=== PATIENT | female | born 1950 | race Two or more races ===

== ENCOUNTER 2018-05-14 13:12 | Inpatient (IN) | payer MEDICARE, MEDICAID ==
[~2018-05-14] VITALS: Ht 167.6 cm; Wt 94.7 kg
[~2018-05-14 13:12] MED LIST changes: -ASCO500C49 PO; -ATEN100T PO; -CITA10TA59 PO; -DAPA1TAB4 PO; -DOCU100T15 PO; -MULTTAB75 PO; -PERCOT PO; -SENN1TAB14 PO; -TOLT2CAP7 PO; -TRAM50TA2 PO
[2018-05-14] MEDS ORDERED: DEXTROSE (50%) 50ML SYRG IV PRN (16:00)
[2018-05-14 16:25] VITALS: BP 96/40
[2018-05-14 17:06] VITALS: BP 96/40
[2018-05-14] MEDS ORDERED: TRAM50TA2 PO (17:37)
[2018-05-14] MEDS ORDERED: CITA10TA59 PO (17:37)
[2018-05-14] MEDS ORDERED: MULTTAB75 PO (17:37)
[2018-05-14] MEDS ORDERED: PERCOT PO (17:37)
[2018-05-14] MEDS ORDERED: GABA-339 PO (17:37)
[2018-05-14] MEDS ORDERED: DOCU100T15 PO (17:37)
[2018-05-14] MEDS ORDERED: ASCO500C49 PO (17:37)
[2018-05-14] MEDS ORDERED: ATEN100T PO (17:37)
[2018-05-14] MEDS ORDERED: SENN1TAB14 PO (17:37)
[2018-05-14] MEDS ORDERED: DAPA1TAB4 PO (17:37)
[2018-05-14] MEDS ORDERED: TOLT2CAP7 PO (17:37)
[2018-05-14] MEDS ORDERED: traMADol HCL 50 MG TAB PO PRN (17:45)
[2018-05-14] MEDS: InsuLIN REG 1unit/0.01ml Soln (100units/ml) SC SCH ×2 (18:08→21:22)
[2018-05-14] MEDS: ACCU-CHEK COMFORT CURVE STRIP VI SCH ×2 (18:08→21:14)
[2018-05-14] MEDS: glipiZIDE 5 MG TAB PO SCH (18:09)
[2018-05-14] MEDS: SENNA 8.6 MG TAB PO SCH (21:14)
[2018-05-14] MEDS: DOCUSATE SOD 100 MG CAP PO SCH (21:14)
[2018-05-14] MEDS: GABAPENTIN 300 MG CAP PO SCH (21:14)
[2018-05-14] MEDS: OXYCODONE W/ ACETAMINOPHEN 5/325MG TABLET PO PRN (21:14)
[2018-05-14 22:00] VITALS: BP 114/59
[2018-05-15 02:17] LABS: Urine Bacteria MANY /hpf (None Seen); Urine Blood 1+ /uL (Negative); Urine Budding Yeast LOADED /hpf (None Seen); Urine WBC 579 /hpf (0 - 5); Urine WBC Clumps PRESENT /hpf (None Seen)
[2018-05-15 05:10] VITALS: BP 97/49
[2018-05-15] MEDS: GABAPENTIN 300 MG CAP PO SCH ×3 (06:22→21:42)
[2018-05-15] MEDS: ACCU-CHEK COMFORT CURVE STRIP VI SCH ×4 (06:23→21:42)
[2018-05-15] MEDS: glipiZIDE 5 MG TAB PO SCH ×2 (06:29→17:57)
[2018-05-15] MEDS: InsuLIN REG 1unit/0.01ml Soln (100units/ml) SC SCH ×4 (06:30→21:58)
[2018-05-15 09:00] VITALS: BP 127/72
[2018-05-15 09:06] LABS: Basophils # (auto) 0 uL; Basophils % (auto) 0.6 % (0.0-2.0); Eosinophils # (auto) 0.2 uL; Eosinophils % (auto) 2.8 % (0.0-7.0); Hematocrit 42.8 % (36.0-46.0); Hemoglobin 13.9 g/dL (12.2-16.2); Lymphocytes # (auto) 1.7 uL; Lymphocytes % (auto) 21.3 % (10.0-50.0); Mean Corpuscular Hemoglobin 30.9 pg (28.0-32.0); Mean Corpuscular Hgb Conc. 32.5 g/dL (32.0-36.0); Mean Corpuscular Volume 94.9 fL (80.0-100.0); Monocytes # (auto) 0.7 uL; Monocytes % (auto) 9.1 % (0.0-12.0); Neutrophils # (auto) 5.4 uL; Neutrophils % (auto) 66.2 % (37.0-80.0); Platelet Count (auto) 262 10^3/uL (140-450); Red Blood Cells 4.51 10^6/uL (4.0-5.20); Red Cell Distribution Width 13.6 % (11.8-14.3); White Blood Cell 8.2 10^3/uL (4.4-10.8)
[2018-05-15 09:17] LABS: BUN/Creatinine Ratio 24.3; Calcium 9.1 mg/dL (8.5-10.1)
[2018-05-15] MEDS: CITALOPRAM HYDROBR 20 MG TAB PO SCH (11:58)
[2018-05-15] MEDS: DOCUSATE SOD 100 MG CAP PO SCH ×2 (11:59→21:41)
[2018-05-15] MEDS: TOLTERODINE TARTRATE 1 MG TAB PO SCH (11:59)
[2018-05-15] MEDS: ATENOLOL 50 MG TAB PO SCH (12:00)
[2018-05-15] MEDS: MULTIPLE VITAMINS W/ MINERALS TAB PO SCH (12:00)
[2018-05-15] MEDS: ASCORBIC ACID 500 MG TAB PO SCH (12:00)
[2018-05-15] MEDS: LEVOFLOXACIN 500MG 100 ML IV SCH (12:01)
[2018-05-15] MEDS: LISINOPRIL 10 MG TAB PO SCH (12:01)
[2018-05-15 13:16] VITALS: BP 134/69
[2018-05-15] MEDS: OXYCODONE W/ ACETAMINOPHEN 5/325MG TABLET PO PRN ×2 (16:01→21:42)
[2018-05-15 17:00] VITALS: BP_SYST 127; BP_SYST 130; BP_SYST 134; BP_DIAS 69; BP_DIAS 72; BP_DIAS 73
[2018-05-15] MEDS: SENNA 8.6 MG TAB PO SCH (21:42)
[2018-05-15 22:00] VITALS: BP 120/58
[2018-05-16 05:23] VITALS: BP 117/62
[2018-05-16] MEDS: OXYCODONE W/ ACETAMINOPHEN 5/325MG TABLET PO PRN ×3 (06:32→21:31)
[2018-05-16] MEDS: GABAPENTIN 300 MG CAP PO SCH ×3 (06:32→21:31)
[2018-05-16] MEDS: glipiZIDE 5 MG TAB PO SCH ×2 (06:32→18:17)
[2018-05-16] MEDS: ACCU-CHEK COMFORT CURVE STRIP VI SCH ×4 (06:33→21:31)
[2018-05-16] MEDS: InsuLIN REG 1unit/0.01ml Soln (100units/ml) SC SCH ×4 (06:33→21:45)
[2018-05-16 08:00] VITALS: BP 127/72
[2018-05-16 08:23] VITALS: BP 106/60
[2018-05-16] MEDS: ATENOLOL 50 MG TAB PO SCH (10:00)
[2018-05-16] MEDS: CITALOPRAM HYDROBR 20 MG TAB PO SCH (10:30)
[2018-05-16] MEDS: LEVOFLOXACIN 500MG 100 ML IV SCH (10:30)
[2018-05-16] MEDS: DOCUSATE SOD 100 MG CAP PO SCH ×2 (10:30→21:30)
[2018-05-16] MEDS: TOLTERODINE TARTRATE 1 MG TAB PO SCH (10:30)
[2018-05-16] MEDS: ASCORBIC ACID 500 MG TAB PO SCH (10:31)
[2018-05-16] MEDS: MULTIPLE VITAMINS W/ MINERALS TAB PO SCH (10:31)
[2018-05-16] MEDS: LISINOPRIL 10 MG TAB PO SCH (10:31)
[2018-05-16 12:50] VITALS: BP 123/66
[2018-05-16 17:00] VITALS: BP 105/53
[2018-05-16] MEDS: SENNA 8.6 MG TAB PO SCH (21:30)
[2018-05-16 22:00] VITALS: BP 96/53
[2018-05-17 05:00] VITALS: BP 151/83
[2018-05-17] MEDS: GABAPENTIN 300 MG CAP PO SCH ×2 (06:27→13:37)
[2018-05-17] MEDS: InsuLIN REG 1unit/0.01ml Soln (100units/ml) SC SCH ×2 (06:27→11:20)
[2018-05-17] MEDS: glipiZIDE 5 MG TAB PO SCH (06:27)
[2018-05-17] MEDS: ACCU-CHEK COMFORT CURVE STRIP VI SCH ×2 (06:28→11:19)
[2018-05-17] MEDS: OXYCODONE W/ ACETAMINOPHEN 5/325MG TABLET PO PRN ×3 (06:29→16:06)
[2018-05-17 08:00] VITALS: BP 95/52
[2018-05-17 08:29] VITALS: BP 95/52
[2018-05-17] MEDS: TOLTERODINE TARTRATE 1 MG TAB PO SCH (09:24)
[2018-05-17] MEDS: DOCUSATE SOD 100 MG CAP PO SCH (09:24)
[2018-05-17] MEDS: ASCORBIC ACID 500 MG TAB PO SCH (09:24)
[2018-05-17] MEDS: LEVOFLOXACIN 500MG 100 ML IV SCH (09:24)
[2018-05-17] MEDS: MULTIPLE VITAMINS W/ MINERALS TAB PO SCH (09:24)
[2018-05-17] MEDS: CITALOPRAM HYDROBR 20 MG TAB PO SCH (09:24)
[2018-05-17] MEDS: ATENOLOL 50 MG TAB PO SCH (09:25)
[2018-05-17] MEDS: LISINOPRIL 10 MG TAB PO SCH (09:25)
[2018-05-17 10:58] LABS: Basophils # (auto) 0 uL; Basophils % (auto) 0.6 % (0.0-2.0); Eosinophils # (auto) 0.3 uL; Eosinophils % (auto) 4.6 % (0.0-7.0); Hematocrit 42.7 % (36.0-46.0); Hemoglobin 14.3 g/dL (12.2-16.2); Lymphocytes % (auto) 25.8 % (10.0-50.0); Mean Corpuscular Hemoglobin 31.6 pg (28.0-32.0); Mean Corpuscular Hgb Conc. 33.5 g/dL (32.0-36.0); Mean Corpuscular Volume 94.4 fL (80.0-100.0); Monocytes # (auto) 0.5 uL; Monocytes % (auto) 6.4 % (0.0-12.0); Neutrophils # (auto) 4.7 uL; Neutrophils % (auto) 62.6 % (37.0-80.0); Nucleated Red Blood Cells % 0.1 %; Platelet Count (auto) 318 10^3/uL (140-450); Red Blood Cells 4.52 10^6/uL (4.0-5.20); Red Cell Distribution Width 13.6 % (11.8-14.3); White Blood Cell 7.6 10^3/uL (4.4-10.8)
[2018-05-17 11:06] LABS: Albumin 3.1 g/dL (3.4-5.0); BUN/Creatinine Ratio 26.9; Bilirubin, Total 0.6 mg/dL (0.2-1.0); Calcium 8.7 mg/dL (8.5-10.1); Total Protein 8.1 g/dL (6.4-8.2)
[2018-05-17 13:34] VITALS: BP 101/54
[2018-05-17 13:55] LABS: Urine Bacteria FEW /hpf (None Seen); Urine Blood 2+ /uL (Negative); Urine Budding Yeast FEW /hpf (None Seen); Urine Mucus FEW (None Seen); Urine Specific Gravity 1.018 (1.001-1.035); Urine WBC 252 /hpf (0 - 5); Urine WBC Clumps PRESENT /hpf (None Seen)
[2018-05-17 15:22] VITALS: BP 101/54
[2018-05-17 16:54] VITALS: BP 120/57
== END 2018-05-17 16:10 | DRG 872 ==
LOC: CENTRAL 15:19
PROVIDERS: ADMIT Internal Medicine Cardiovascular Disease; ATTEND Internal Medicine Cardiovascular Disease
DX: A41.9 Sepsis, unspecified organism (principal); N12 Tubulo-interstitial nephritis, not specified as acute or chronic; E11.21 Type 2 diabetes mellitus with diabetic nephropathy; E11.40 Type 2 diabetes mellitus with diabetic neuropathy, unspecified; E66.9 Obesity, unspecified; I10 Essential (primary) hypertension; Z68.33 Body mass index [BMI] 33.0-33.9, adult
CPT/HCPCS: 36415; 71045; 80048; 80053; 81001; 82306; 82962; 83036; 83735; 84443; 85025; 87081; 93005; 97110; 97163; 97530; G0463; J1815; J1956

== ENCOUNTER → 2018-05-14 | Outpatient (CLI) | payer MEDICARE, MEDICAID ==
[~2018-05-14] MED LIST: ASCO500C49 PO; ASPI81CH43 OR; ATEN100T PO; ATENPOW10 PO; CITA10TA59 PO; DAPA1TAB4 PO; DOCU100T15 PO; GABA-339 PO; GLIP-116 PO; IBUP800T24 PO; LISI10TA6 PO; METF500T PO; MULTTAB75 PO; OXYB15TA12 PO; PERCOT PO; SENN1TAB14 PO; SIMV-8 PO; TOLT2CAP7 PO; TRAM50TA2 PO
[2018-05-14 13:30] VITALS: BP 104/61
[2018-05-14 14:34] LABS: Basophils # (auto) 0 uL; Basophils % (auto) 0.6 % (0.0-2.0); Eosinophils # (auto) 0.1 uL; Eosinophils % (auto) 1.7 % (0.0-7.0); Hematocrit 45.4 % (36.0-46.0); Hemoglobin 15.3 g/dL (12.2-16.2); Lymphocytes # (auto) 1.2 uL; Lymphocytes % (auto) 14.1 % (10.0-50.0); Mean Corpuscular Hemoglobin 31.9 pg (28.0-32.0); Mean Corpuscular Hgb Conc. 33.8 g/dL (32.0-36.0); Mean Corpuscular Volume 94.4 fL (80.0-100.0); Monocytes # (auto) 0.5 uL; Neutrophils # (auto) 6.4 uL; Neutrophils % (auto) 77.6 % (37.0-80.0); Nucleated Red Blood Cells % 0.1 %; Platelet Count (auto) 281 10^3/uL (140-450); Red Blood Cells 4.81 10^6/uL (4.0-5.20); Red Cell Distribution Width 13.4 % (11.8-14.3); White Blood Cell 8.2 10^3/uL (4.4-10.8)
[2018-05-14 14:45] LABS: Albumin 3.2 g/dL (3.4-5.0); BUN/Creatinine Ratio 20.3; Calcium 9.1 mg/dL (8.5-10.1); Magnesium 2.2 mg/dL (1.6-2.6); Potassium 4.3 mmol/L (3.5-5.1)
[2018-05-14 14:47] LABS: Bilirubin, Total 0.5 mg/dL (0.2-1.0); Total Protein 8.7 g/dL (6.4-8.2)
[2018-05-14 14:50] VITALS: BP 94/46
== END | disposition home or self-care (01) ==
LOC: CHF HDHVI 13:40
PROVIDERS: ATTEND Internal Medicine Cardiovascular Disease
DX: I12.9 Hypertensive chronic kidney disease with stage 1 through stage 4 chronic kidney disease, or unspecified chronic kidney disease (principal); E11.22 Type 2 diabetes mellitus with diabetic chronic kidney disease; N18.3 Chronic kidney disease, stage 3 (moderate); J44.9 Chronic obstructive pulmonary disease, unspecified; E78.5 Hyperlipidemia, unspecified
CPT/HCPCS: 36415; 80053; 82306; 82962; 83036; 83735; 84443; 85025; G0463

== ENCOUNTER → 2018-06-29 | Outpatient (CLI) | payer MEDICARE, MEDICAID ==
[~2018-06-29] MED LIST changes: +ASCO500C49 PO; -ASPI81CH43 OR; +ATEN100T PO; -ATENPOW10 PO; +CITA10TA59 PO; +DAPA1TAB4 PO; +DOCU100T15 PO; -IBUP800T24 PO; -METF500T PO; +MULTTAB75 PO; -OXYB15TA12 PO; +PERCOT PO; +SENN1TAB14 PO; +TOLT2CAP7 PO; +TRAM50TA2 PO
== END | disposition home or self-care (01) ==
LOC: Rad HDHVI 07:57
PROVIDERS: ATTEND Internal Medicine Cardiovascular Disease
DX: E11.9 Type 2 diabetes mellitus without complications (principal); E78.00 Pure hypercholesterolemia, unspecified; R06.02 Shortness of breath; F17.210 Nicotine dependence, cigarettes, uncomplicated; Z79.899 Other long term (current) drug therapy
CPT/HCPCS: 93306

== ENCOUNTER → 2018-06-30 | Outpatient (CLI) | payer MEDICARE, MEDICAID ==
[~2018-06-30] VITALS: Ht 167 cm; Wt 94.8 kg
[~2018-06-30] MED LIST changes: +ADENOSINE 80 MG in GIVE UN-DILUTED 0 ML IV ONE; +ADENOSINE 90 MG/30 ML INJ IV ONE
== END | disposition home or self-care (01) ==
LOC: Rad HDHVI 13:09
PROVIDERS: ATTEND Internal Medicine Cardiovascular Disease
DX: M48.07 Spinal stenosis, lumbosacral region (principal); E11.9 Type 2 diabetes mellitus without complications; E78.00 Pure hypercholesterolemia, unspecified; E66.9 Obesity, unspecified; R06.02 Shortness of breath
CPT/HCPCS: 78452; 93005; 96374; 96375; A9500; J0153

== ENCOUNTER → 2018-07-27 | Outpatient (CLI) | payer MEDICARE, MEDICAID ==
[~2018-07-27] MED LIST changes: -ADENOSINE 80 MG in GIVE UN-DILUTED 0 ML IV ONE; -ADENOSINE 90 MG/30 ML INJ IV ONE
== END | disposition home or self-care (01) ==
LOC: Rad HDHVI 12:16
PROVIDERS: ATTEND Internal Medicine Cardiovascular Disease
DX: E11.42 Type 2 diabetes mellitus with diabetic polyneuropathy (principal); I73.9 Peripheral vascular disease, unspecified; F17.210 Nicotine dependence, cigarettes, uncomplicated
CPT/HCPCS: 36415; 83036; 93926

== ENCOUNTER → 2019-01-03 | Outpatient (CLI) | payer OTHER, MEDICAID ==
[2019-01-03 12:15] LABS: Basophils # (auto) 0 uL; Basophils % (auto) 0.6 % (0.0-2.0); Eosinophils # (auto) 0.2 uL; Eosinophils % (auto) 2.6 % (0.0-7.0); Hematocrit 40.6 % (36.0-46.0); Hemoglobin 13.4 g/dL (12.2-16.2); Lymphocytes # (auto) 2.1 uL; Lymphocytes % (auto) 29.3 % (10.0-50.0); Mean Corpuscular Hemoglobin 32.6 pg (28.0-32.0); Mean Corpuscular Volume 98.5 fL (80.0-100.0); Monocytes # (auto) 0.4 uL; Neutrophils # (auto) 4.4 uL; Neutrophils % (auto) 61.5 % (37.0-80.0); Nucleated Red Blood Cells % 0.1 %; Platelet Count (auto) 259 10^3/uL (140-450); Red Blood Cells 4.12 10^6/uL (4.0-5.20); Red Cell Distribution Width 14.2 % (11.8-14.3); White Blood Cell 7.2 10^3/uL (4.4-10.8)
[2019-01-03 12:27] LABS: Free T4 (Free Thyroxine) 0.94 ng/dL (0.89-1.76)
[2019-01-03 12:34] LABS: Potassium 4.3 mmol/L (3.5-5.1)
[2019-01-03 12:35] LABS: Albumin 3.4 g/dL (3.4-5.0); BUN/Creatinine Ratio 21.2; Bilirubin, Total 0.4 mg/dL (0.2-1.0); Calcium 8.7 mg/dL (8.5-10.1); Total Protein 7.8 g/dL (6.4-8.2)
== END | disposition home or self-care (01) ==
LOC: LAB 09:52
PROVIDERS: ATTEND Internal Medicine Cardiovascular Disease
DX: D51.9 Vitamin B12 deficiency anemia, unspecified (principal); E03.9 Hypothyroidism, unspecified; E11.9 Type 2 diabetes mellitus without complications; E55.9 Vitamin D deficiency, unspecified
CPT/HCPCS: 36415; 80053; 80061; 82306; 82607; 83036; 84439; 84443; 85025

== ENCOUNTER → 2019-02-23 | Outpatient (CLI) | payer MEDICARE, MEDICAID ==
[2019-02-23 16:48] LABS: Basophils # (auto) 0 uL; Basophils % (auto) 0.5 % (0.0-2.0); Eosinophils # (auto) 0.1 uL; Eosinophils % (auto) 2.3 % (0.0-7.0); Hematocrit 43.5 % (36.0-46.0); Hemoglobin 14.2 g/dL (12.2-16.2); Lymphocytes # (auto) 1.9 uL; Lymphocytes % (auto) 31.7 % (10.0-50.0); Mean Corpuscular Hemoglobin 32.1 pg (28.0-32.0); Mean Corpuscular Hgb Conc. 32.7 g/dL (32.0-36.0); Mean Corpuscular Volume 98.4 fL (80.0-100.0); Monocytes # (auto) 0.4 uL; Neutrophils # (auto) 3.4 uL; Neutrophils % (auto) 58.5 % (37.0-80.0); Nucleated Red Blood Cells % 0.1 %; Platelet Count (auto) 256 10^3/uL (140-450); Red Blood Cells 4.42 10^6/uL (4.0-5.20); Red Cell Distribution Width 13.4 % (11.8-14.3); White Blood Cell 5.9 10^3/uL (4.4-10.8)
[2019-02-23 16:51] LABS: Alanine Aminotransferase 21 U/L (13-56); Albumin 3.5 g/dL (3.4-5.0); Anion Gap 11 (5-15); Aspartate Aminotransferase 12 U/L (15-37); Blood Urea Nitrogen 27 mg/dL (7-18); Calcium 9.5 mg/dL (8.5-10.1); Carbon Dioxide 21 mmol/L (21-32); Chloride 100 mmol/L (98-107); GFR African American 65 mL/min; GFR Non-African American 54 mL/min; Glucose 316 mg/dL (74-106); Potassium 4.2 mmol/L (3.5-5.1); Sodium 132 mmol/L (136-145)
[2019-02-23 16:55] LABS: Alkaline Phosphatase 90 U/L (45-117); Bilirubin, Direct < 0.1 mg/dL (0-0.2); Bilirubin, Total 0.4 mg/dL (0.2-1.0); Cholesterol 200 mg/dL (< 200); HDL Cholesterol 37 mg/dL (40-59); Triglycerides 616 mg/dL (< 150)
== END | disposition home or self-care (01) ==
LOC: Rad HDHVI 12:20
PROVIDERS: ATTEND Internal Medicine Cardiovascular Disease
DX: M47.816 Spondylosis without myelopathy or radiculopathy, lumbar region (principal); M48.061 Spinal stenosis, lumbar region without neurogenic claudication; M51.36 Other intervertebral disc degeneration, lumbar region; M16.0 Bilateral primary osteoarthritis of hip; N83.202 Unspecified ovarian cyst, left side; E03.9 Hypothyroidism, unspecified; E11.9 Type 2 diabetes mellitus without complications; E55.9 Vitamin D deficiency, unspecified; D51.9 Vitamin B12 deficiency anemia, unspecified; N39.0 Urinary tract infection, site not specified
CPT/HCPCS: 36415; 72131; 72192; 80048; 80061; 80076; 82306; 83036; 84443; 85025

== ENCOUNTER → 2019-05-18 | Outpatient (CLI) | payer MEDICARE, MEDICAID ==
[~2019-05-18] MED LIST changes: +ASPI-404 PO; +CITA-77 PO; -GLIP-116 PO; +GLIP10TA9 PO; +IBUP800T24 PO; +METF-370 PO; +OXYB15TA12 PO
== END | disposition home or self-care (01) ==
LOC: Rad HDHVI 15:03
PROVIDERS: ATTEND Internal Medicine Cardiovascular Disease
DX: M17.0 Bilateral primary osteoarthritis of knee (principal); I73.9 Peripheral vascular disease, unspecified; M54.5 Low back pain; E11.59 Type 2 diabetes mellitus with other circulatory complications; M25.461 Effusion, right knee; I70.0 Atherosclerosis of aorta
CPT/HCPCS: 73562; 93926

== ENCOUNTER 2020-02-07 11:07 | Inpatient (IN) | payer MEDICARE, MEDICAID ==
[~2020-02-07] VITALS: Ht 152.4 cm; Wt 97.7 kg
[~2020-02-07 11:07] MED LIST changes: -CITA10TA59 PO; -DAPA1TAB4 PO; -TOLT2CAP7 PO; -TRAM50TA2 PO
[2020-02-07] MEDS ORDERED: SODIUM CHLORIDE 0.9% 500 ML IV ONE (11:26)
[2020-02-07] MEDS ORDERED: CLINDAMYCIN 600MG IV 50 ML IV ONE (11:30)
[2020-02-07 11:49] LABS: Basophils # (auto) 0.1 10 ^3/uL (0-0.2); Basophils % (auto) 1.1 % (0.0-2.0); Eosinophils # (auto) 0.1 10 ^3/uL (0-0.8); Eosinophils % (auto) 1.6 % (0.0-7.0); Hematocrit 39.1 % (36.0-46.0); Hemoglobin 13.1 g/dL (12.2-16.2); Lymphocytes # (auto) 2.5 10 ^3/uL (0.4-5.4); Lymphocytes % (auto) 35.6 % (10.0-50.0); Mean Corpuscular Hemoglobin 33.3 pg (28.0-32.0); Mean Corpuscular Hgb Conc. 33.5 g/dL (32.0-36.0); Mean Corpuscular Volume 99.3 fL (80.0-100.0); Monocytes # (auto) 0.5 10 ^3/uL (0-1.3); Monocytes % (auto) 6.9 % (0.0-12.0); Neutrophils # (auto) 3.8 10 ^3/uL (1.6-8.6); Neutrophils % (auto) 54.8 % (37.0-80.0); Platelet Count (auto) 279 10^3/uL (140-450); Red Blood Cells 3.94 10^6/uL (4.0-5.20); Red Cell Distribution Width 13.6 % (11.8-14.3); White Blood Cell 6.9 10^3/uL (4.4-10.8)
[2020-02-07 12:03] LABS: Albumin 3.2 g/dL (3.4-5.0); Calcium 9.1 mg/dL (8.5-10.1); Potassium 5.1 mmol/L (3.5-5.1)
[2020-02-07 12:06] LABS: BUN/Creatinine Ratio 22.6; Bilirubin, Total 0.3 mg/dL (0.2-1.0); INR 0.97 (0.9-1.15); Partial Thromboplastin Time 30.7 sec (23.64-32.05); Total Protein 7.9 g/dL (6.4-8.2)
[2020-02-07] MEDS ORDERED: TRAZ150T84 PO (12:53)
[2020-02-07] MEDS ORDERED: DEXTROSE (50%) 50ML SYRG IV ONE (15:59)
[2020-02-07] MEDS ORDERED: InsuLIN REG 1unit/0.01ml Soln (100units/ml) SC SCH (15:59)
[2020-02-07] MEDS ORDERED: DEXTROSE (50%) 50ML SYRG IV PRN (15:59)
[2020-02-07] MEDS ORDERED: ACCU-CHEK COMFORT CURVE STRIP VI SCH (15:59)
[2020-02-07] MEDS ORDERED: NITROGLYCERIN 0.4 MG SL TAB SL PRN (16:00)
[2020-02-07] MEDS ORDERED: OXYCODONE W/ ACETAMINOPHEN 5/325MG TABLET PO PRN (16:15)
[2020-02-07] MEDS: ACCU-CHEK COMFORT CURVE STRIP VI SCH ×2 (17:46→21:39)
[2020-02-07] MEDS: InsuLIN REG 1unit/0.01ml Soln (100units/ml) SC SCH ×2 (17:51→21:42)
--- NOTE | 2020-02-07 17:56 | NUR ---
WOUND PICTURE PER [facility] NURSE WOUND PICTURES TAKEN.
[2020-02-07 18:00] VITALS: BP 103/58
--- NOTE | 2020-02-07 18:00 | NUR ---
Telemetry admit from ER FIDELIA CABALLERO admitted to Telemetry unit after SBAR received from SUNDAR Mcdowell. Patient oriented to Karla Dorado, primary RN, unit, room, bed, and unit policies regarding patient care and visiting hours. Safety precautions in place, bed set to lowest position/locked, bedside rails up x2, call light within reach. Instructed patient to call for assistance. Patient verbalized understanding. Will continue to monitor q1hr and prn.
--- NOTE | 2020-02-07 19:58 | NUR ---
Opening Shift Note Assumed care of patient, awake and alert. No S/S of distress/SOB or pain. patient assisted to use toilet. Instructed on POC and to call for assist PRN, will continue to monitor for changes Q1hr and PRN. bed in low position and call light within reach.
[2020-02-07] MEDS: GABAPENTIN 300 MG CAP PO SCH (21:37)
[2020-02-07] MEDS: glipiZIDE 5 MG TAB PO SCH (21:38)
[2020-02-07] MEDS: metFORMIN HYDROCHLORIDE 500 MG TAB PO SCH (21:38)
[2020-02-07] MEDS: OXYBUTYNIN CHL 5 MG TAB PO SCH (21:38)
[2020-02-07 22:00] VITALS: BP 96/44
--- NOTE | 2020-02-07 22:18 | NUR ---
spoke with hospitalist FAMILIA lara informed him patient blood pressure was 96/44 rechecked blood pressure 93/54. new orders received for albumin 5% 250 cc x once orders read back and verified by FAMILIA Lara.
[2020-02-07] MEDS ORDERED: ALBUMIN 5% 250 ML IV ONE (22:45)
--- NOTE | 2020-02-08 00:15 | NUR ---
blood pressure reassessed b/p 113/ 58. patient denies sob distress. lung sounds clear
--- NOTE | 2020-02-08 00:26 | NUR ---
pain patient reports pain of 7/10 to her right foot. first toe. patient medicated per protocol
--- NOTE | 2020-02-08 01:26 | NUR ---
pain reassessment pain is in bed sleeping. bilateral chest rise and fall
[2020-02-08 05:00] VITALS: BP 107/48
[2020-02-08] MEDS: GABAPENTIN 300 MG CAP PO SCH ×3 (05:22→22:00)
[2020-02-08] MEDS: ACCU-CHEK COMFORT CURVE STRIP VI SCH ×4 (06:22→22:00)
[2020-02-08] MEDS: InsuLIN REG 1unit/0.01ml Soln (100units/ml) SC SCH ×4 (06:22→22:00)
--- NOTE | 2020-02-08 07:10 | NUR ---
REPORT GIVEN TO DAYSHIFT RN PATIENT DENIES SOB DISTRESS OR PAIN
--- NOTE | 2020-02-08 07:30 | NUR ---
OPENING NOTE ASSUMED CARE OF PT. ALERT AND ORIENTED. NO S/S SOB OR DISTRESS. SAFETY PRECAUTIONS IN PLACE. BED SET TO LOWEST POSITION, BEDSIDE RAILS UP X2, CALL LIGHT WITHIN REACH. INSTRUCTED PT TO CALL FOR ASSISTANCE. UPDATED PT ON PLAN OF CARE. PT VERBALIZED UNDERSTANDING. WILL CONTINUE TO MONITOR Q1HR AND PRN.
[2020-02-08 09:00] VITALS: BP 132/61
[2020-02-08] MEDS: ATENOLOL 25 MG TAB PO SCH (10:00)
[2020-02-08] MEDS: CITALOPRAM HYDROBR 20 MG TAB PO SCH (10:15)
[2020-02-08] MEDS: OXYBUTYNIN CHL 5 MG TAB PO SCH ×2 (10:15→22:43)
[2020-02-08] MEDS: ATORVASTATIN 20 MG TAB PO SCH (10:15)
[2020-02-08] MEDS: ASPirin-EC 81 mg tab PO SCH (10:15)
[2020-02-08] MEDS: metFORMIN HYDROCHLORIDE 500 MG TAB PO SCH ×2 (10:18→22:00)
[2020-02-08] MEDS: glipiZIDE 5 MG TAB PO SCH ×2 (10:18→22:45)
[2020-02-08] MEDS: LISINOPRIL 10 MG TAB PO SCH (10:19)
--- NOTE | 2020-02-08 10:54 | NUR ---
WOUND CARE NOTE: Wound care in to see patient per wound care request regarding Rt foot wound that are noted present on admission. Bedside nurse took photograph of patient's wound upon admission for reference. Patient is 69 years old female admitted to R/O Osteomyelitis. Patient with history of DM, High Lipids, Htn, [place]. Patient is resting in bed in Rm. 292B. Patient is awake, alert and oriented. Patient denies any pain at this time. Patient is ambulatory with cane and she's self turning and repositioning. Her Oseas score is 20. Patient's plantar aspect of R great toe noted with 1.5x2x0.5cm open full thickness Diabetic Foot Ulcer. Wound bed is red with yellow hyperkeratotic skin to periwound, minimal serous drainage noted, no odor noted. Her R 2nd toe plantar has dry scabbed wound measuring 1x0.3cm. Patient reported that she just noticed it "on Thursday" but she has had wound to the same site before that got infected. She added that she's under the care of Dr. Bradley, consulted him and advised to go to ED. Cleansed patient's Rt great toe wound with NS, took specimen for wound culture and sent to lab for processing. Applied Thera honey gel to open wound bed, covered with Opti foam and secured foam dressing with CoBan. Patient turned to her side to examined sacral, back and other bony prominences. No pressure injury noted other than well healed scar tissue to medial back and dry scabbed old incision to lower medial back; area is clean and dry, left open to air. Patient tolerated well. Bed in low position, call brush on hand, all safety precautions in placed. RECOMMENDATION: Nursing to continue with Daily/PRN dressing change to Rt great toe wound per MD order, Dietary consult , Podiatry consult, redistribute pressure points with pillows, continue monitoring by wound care while patient is hospitalized. Addendum: 02/08/20 at 1418 by Nubia Amado RN Amended: Links added.
[2020-02-08 17:00] VITALS: BP 104/38
[2020-02-08 22:00] VITALS: BP_SYST 129; BP_SYST 16; BP_DIAS 48; BP_DIAS 99
[2020-02-09 02:00] VITALS: BP 110/44
[2020-02-09 05:00] VITALS: BP 102/53
[2020-02-09] MEDS: ACCU-CHEK COMFORT CURVE STRIP VI SCH ×4 (06:58→22:00)
[2020-02-09] MEDS: InsuLIN REG 1unit/0.01ml Soln (100units/ml) SC SCH ×4 (06:59→22:00)
[2020-02-09] MEDS: GABAPENTIN 300 MG CAP PO SCH ×3 (07:01→22:00)
[2020-02-09 09:00] VITALS: BP 121/80
[2020-02-09] MEDS: ATENOLOL 25 MG TAB PO SCH (10:00)
[2020-02-09] MEDS ORDERED: cefTRIAXone 1GM/50ML D5W 50 ML IV ONE (10:45)
[2020-02-09] MEDS: ASPirin-EC 81 mg tab PO SCH (10:59)
[2020-02-09] MEDS: metFORMIN HYDROCHLORIDE 500 MG TAB PO SCH ×2 (11:00→22:00)
[2020-02-09] MEDS: LISINOPRIL 10 MG TAB PO SCH (11:00)
[2020-02-09] MEDS: ATORVASTATIN 20 MG TAB PO SCH (11:00)
[2020-02-09] MEDS: OXYBUTYNIN CHL 5 MG TAB PO SCH ×2 (11:01→22:00)
[2020-02-09] MEDS: CITALOPRAM HYDROBR 20 MG TAB PO SCH (11:01)
[2020-02-09] MEDS: glipiZIDE 5 MG TAB PO SCH ×2 (11:01→22:00)
[2020-02-09] MEDS: OXYCODONE W/ ACETAMINOPHEN 5/325MG TABLET PO PRN ×2 (11:05→23:11)
[2020-02-09 13:00] VITALS: BP 146/83
--- NOTE | 2020-02-09 13:36 | NUR ---
Nutrition Assessment Notes Please refer to link for full assessment notes. Est energy needs: 9556-7656 kcals (12-15 kcal/kgBW) Est protein needs: 493-102 gms/day (1.0-1.1 gm/kgBW) d/t age, wound Will continue to monitor and reassess prn. Addendum: 02/09/20 at [address] Amended: Links added.
--- NOTE | 2020-02-09 14:34 | NUR ---
assessment Patient is a 69 year old female who is alert and oriented. Patients cognitive abilities are intact. Prior to admission patient lived home with family and functioned with assistance. Per patient she will return home to her prior living arrangements post discharge and family will transport her home. Patient informed me she has a fww, cane, and a wheelchair for home use. Patient informed me her PCP is Dr Juan. Patients SS caregiver is her daughter Yadira. Patient is on service with [email or web address]. Patient will need a resumption order for wound care and IV ABX prior to discharge. Patient informed me she may have a toe amputation. Patient became emotional. I provided emotional support and active listening. Patient has no safety issues regarding returning home on discharge. I informed patient she has a right to speak to a social security specialist regarding all care. I informed patient she has a right to participate in any and all discharge planning. Patient does not have a POA and advanced directive. I have offered patient information on POA and advanced directives. I informed the patient the advantages and benefits of having an Advanced Directive. Patient verbalized understanding and agreed to discharge plan. Addendum: 02/09/20 at 1437 by Mary DAMON Amended: Links added.
[2020-02-09] MEDS: CLINDAMYCIN 900MG IV 50 ML IV SCH ×2 (15:58→22:00)
[2020-02-09 17:00] VITALS: BP 145/75
[2020-02-09] MEDS: cefTRIAXone 1GM/50ML D5W 50 ML IV SCH (18:47)
--- NOTE | 2020-02-09 20:00 | NUR ---
PICC line placement Patient/Patient significant other educated on need for PICC line placement. All risks and benefits explained and all questions and concerns addressed prior to procedure. Noted past medical history and allergies with no contraindications. INR and Plt counts within acceptable range. 4 fr PICC line inserted via RIGHT BASILIC vein using [employer] US and Tip Location System. Sterile technique with maximum barrier precautions utilized. Blood return obtained from each of SINGLE lumens and each flushed easily with NS using proper technique. PICC secured with Stat-lock; biodisc and occlusive dressing applied. Stat portable chest x-ray obtained for PICC tip placement. *Baseline Arm Circumference 32CM *INTERNAL LENGHT 47CM *EXTERNAL LENGHT 0 CM *PICC lot # [id number]. Note:
[2020-02-09] MEDS ORDERED: LIDOCAINE 1% (LOCAL ANESTH.) PF 5ml SDV ID ONE (20:15)
--- NOTE | 2020-02-09 21:50 | NUR ---
OK to use PICC line Xray completed. OK to use PICC line .
[2020-02-09 22:00] VITALS: BP 109/76
[2020-02-09] MEDS: SODIUM CHLOR 0.9% PF (SALINE LOCK) 10ML VIAL/SYR IV SCH (22:00)
[2020-02-10 05:00] VITALS: BP 163/87
--- NOTE | 2020-02-10 08:15 | NUR ---
Opening Shift Note Assumed care of patient, awake and alert, sitting up in bed. Patient already completed her breakfast and states that she is doing fine. No S/S of distress/SOB or pain. Instructed on POC and to call for assist PRN, will continue to monitor for changes Q1hr and PRN.
[2020-02-10 09:00] VITALS: BP 133/69
[2020-02-10 10:00] VITALS: BP 134/72
[2020-02-10] MEDS: cefTRIAXone 1GM/50ML D5W 50 ML IV SCH (10:24)
[2020-02-10] MEDS: SODIUM CHLOR 0.9% PF (SALINE LOCK) 10ML VIAL/SYR IV SCH ×2 (10:25→22:23)
[2020-02-10] MEDS: glipiZIDE 5 MG TAB PO SCH ×2 (10:26→22:24)
[2020-02-10] MEDS: metFORMIN HYDROCHLORIDE 500 MG TAB PO SCH ×2 (10:26→17:47)
[2020-02-10] MEDS: ACCU-CHEK COMFORT CURVE STRIP VI SCH ×4 (10:26→22:24)
[2020-02-10] MEDS: OXYBUTYNIN CHL 5 MG TAB PO SCH ×2 (10:27→22:24)
[2020-02-10] MEDS: CITALOPRAM HYDROBR 20 MG TAB PO SCH (10:27)
[2020-02-10] MEDS: ATORVASTATIN 20 MG TAB PO SCH (10:28)
[2020-02-10] MEDS: ATENOLOL 25 MG TAB PO SCH (10:28)
[2020-02-10] MEDS: LISINOPRIL 10 MG TAB PO SCH (10:29)
[2020-02-10] MEDS: ASPirin-EC 81 mg tab PO SCH (10:33)
[2020-02-10] MEDS: OXYCODONE W/ ACETAMINOPHEN 5/325MG TABLET PO PRN (12:17)
[2020-02-10] MEDS: InsuLIN REG 1unit/0.01ml Soln (100units/ml) SC SCH ×3 (12:29→22:29)
[2020-02-10 13:00] VITALS: BP 134/72
[2020-02-10] MEDS: GABAPENTIN 300 MG CAP PO SCH ×2 (13:39→22:24)
[2020-02-10] MEDS: CLINDAMYCIN 900MG IV 50 ML IV SCH ×2 (13:40→22:23)
[2020-02-10 17:00] VITALS: BP 91/57
--- NOTE | 2020-02-10 17:24 | NUR ---
Paged on-call social media content specialist
--- NOTE | 2020-02-10 17:36 | NUR ---
On-Call Tassel Maker Informed Mary of social service consult order for home IV antibiotics. Received instructions to fax order, face sheet, med list, H&P to [facility] [phone] and Juan Carney [phone], .
--- NOTE | 2020-02-10 18:00 | NUR ---
Wound care Dressing change done as ordered.
--- NOTE | 2020-02-10 19:00 | NUR ---
Home Health order Documents already faxed to [facility] and [facility] and requested. Patient is not currently on Levaquin antibiotics, will pass on to wholesale diamond broker RN to notify Dr. Juan.
--- NOTE | 2020-02-10 20:00 | NUR ---
CONTACTED DR ZIMMERMAN RECEIVED ORDER TO START PATIENT ON IV ABT LEVAQUIN 500MG IV DAILY. TORBO.
--- NOTE | 2020-02-10 20:30 | NUR ---
TRACY [employer] COORDINATOR CALLED UPDATED THEM THAT PATIENT IN NOT BEING DISCHARGED TONIGHT, IV ABT STILL PENDING APPROVAL AND DELIVERY.
[2020-02-10 22:43] VITALS: BP 129/64
[2020-02-11 05:16] VITALS: BP 99/50
[2020-02-11] MEDS: GABAPENTIN 300 MG CAP PO SCH (06:26)
[2020-02-11] MEDS: ACCU-CHEK COMFORT CURVE STRIP VI SCH (06:27)
[2020-02-11] MEDS: CLINDAMYCIN 900MG IV 50 ML IV SCH ×2 (06:27→14:46)
[2020-02-11] MEDS: InsuLIN REG 1unit/0.01ml Soln (100units/ml) SC SCH (06:32)
[2020-02-11] MEDS: metFORMIN HYDROCHLORIDE 500 MG TAB PO SCH (08:49)
[2020-02-11] MEDS: cefTRIAXone 1GM/50ML D5W 50 ML IV SCH (08:50)
[2020-02-11 09:06] VITALS: BP 123/63
[2020-02-11] MEDS: SODIUM CHLOR 0.9% PF (SALINE LOCK) 10ML VIAL/SYR IV SCH (09:37)
[2020-02-11] MEDS: ASPirin-EC 81 mg tab PO SCH (09:38)
[2020-02-11] MEDS: OXYBUTYNIN CHL 5 MG TAB PO SCH (09:38)
[2020-02-11] MEDS: CITALOPRAM HYDROBR 20 MG TAB PO SCH (09:38)
[2020-02-11] MEDS: ATORVASTATIN 20 MG TAB PO SCH (09:39)
[2020-02-11] MEDS: ATENOLOL 25 MG TAB PO SCH (09:40)
[2020-02-11] MEDS: LISINOPRIL 10 MG TAB PO SCH (09:40)
[2020-02-11] MEDS: glipiZIDE 5 MG TAB PO SCH (09:42)
[2020-02-11] MEDS ORDERED: levoFLOXacin 500MG 100 ML IV SCH (10:00)
[2020-02-11] MEDS ORDERED: IBUPROFEN 600 MG TAB PO PRN (11:45)
[2020-02-11 13:00] VITALS: BP 101/65
--- NOTE | 2020-02-11 13:33 | NUR ---
FAXED ALL DOCUMENTS TO [facility] FOR IV ANTIBIOTICS
--- NOTE | 2020-02-11 14:03 | NUR ---
SPOKE TO KAITLYN AT [facility]. NOTIFIED HIM THAT PATIENT WILL BE DISCHARGED TODAY. HE SAID MEDICATION WILL BE DELIVERED BETWEEN 7-11.
[2020-02-11 14:36] VITALS: BP 123/63
--- NOTE | 2020-02-11 15:35 | NUR ---
Discharge instructions given as ordered. Encourage to follow up with PMD as instructed. All questions and concerns addressed. Patient verbalized understanding. Medication reconciliation form completed and copy given to patient. IV removed with catheter intact, pressure dressing applied. Patient taken to vehicle via wheelchair with all personal belongings, accompanied by staff No distress noted at time of departure.
--- NOTE | 2020-02-13 10:31 | NUR ---
bacon de rinder 02/11/2020 While bacon de rinder I received a page from Mary KWOK stating patient has an order for home IV ABX with home IV ABX. I had Mary send order to [facility] for IV and to [facility]. Per Damon at [facility] IV ABX to be delivered to patients home between 7 and 10pm. Per Juan at [facility] home health service will resume for IV ABX on 02/12/2020. Addendum: 02/13/20 at 1037 by Mary DAMON Amended: Links added.
== END 2020-02-11 15:35 | disposition home or self-care (01) | DRG 300 ==
LOC: ER 11:07 → OVERFLOW 11:08 → WEST WING 18:06
PROVIDERS: ADMIT Internal Medicine Cardiovascular Disease; ATTEND Internal Medicine Cardiovascular Disease
PROC: 02HV33Z Insertion of Infusion Device into Superior Vena Cava, Percutaneous Approach (ICD-10-PCS; principal; 2020-02-09)
DX: E11.51 Type 2 diabetes mellitus with diabetic peripheral angiopathy without gangrene (principal); Z68.41 Body mass index [BMI] 40.0-44.9, adult; L97.919 Non-pressure chronic ulcer of unspecified part of right lower leg with unspecified severity; E11.69 Type 2 diabetes mellitus with other specified complication; E11.65 Type 2 diabetes mellitus with hyperglycemia; E66.9 Obesity, unspecified; E87.5 Hyperkalemia; I25.10 Atherosclerotic heart disease of native coronary artery without angina pectoris; N19 Unspecified kidney failure; F17.210 Nicotine dependence, cigarettes, uncomplicated; I10 Essential (primary) hypertension; Z82.49 Family history of ischemic heart disease and other diseases of the circulatory system; I25.2 Old myocardial infarction; Z79.4 Long term (current) use of insulin; Z83.3 Family history of diabetes mellitus; Z79.84 Long term (current) use of oral hypoglycemic drugs; Z86.73 Personal history of transient ischemic attack (TIA), and cerebral infarction without residual deficits; E11.40 Type 2 diabetes mellitus with diabetic neuropathy, unspecified
CPT/HCPCS: 36415; 71045; 73700; 73718; 80053; 82962; 84132; 85025; 85610; 85730; 87077; 87186; 87205; 93926; G0378; J0696; J1815; J1956; J3490

== ENCOUNTER → 2020-02-27 | Outpatient (CLI) | payer MEDICARE, MEDICAID ==
[~2020-02-27] MED LIST changes: -DOCU100T15 PO; -MULTTAB75 PO; -SENN1TAB14 PO; +TRAZ150T84 PO
[2020-02-27 10:50] VITALS: BP 123/60
--- NOTE | 2020-02-27 10:50 | NUR ---
PT. TO CLINIC FOR PRE OP DIAGNOSTICS PER DR. ZIMMERMAN. ORDERS RECEIVED AND CARRIED OUT.
--- NOTE | 2020-02-27 11:05 | NUR ---
PREOP LABS DRAWN AND SENT.
--- NOTE | 2020-02-27 11:10 | NUR ---
EKG DONE WITH COPY GIVEN TO PT. FOR DELIVERY TO HOSPITAL PER MD ORDER.
--- NOTE | 2020-02-27 11:20 | NUR ---
PREOP CXR DONE PER MD ORDER.
[2020-02-27 11:25] VITALS: BP 127/60
--- NOTE | 2020-02-27 11:25 | NUR ---
Pre-Op Discharge Summary: See e-MAR for any medications given for this visit. Pre-op orders received and carried out per MD of EKG, LABS and chest xrays. Patient given a copy of EKG with instructions to go to [facility] out patient for further follow up care.
[2020-02-27 12:05] LABS: Basophils # (auto) 0.1 10 ^3/uL (0-0.2); Basophils % (auto) 0.7 % (0.0-2.0); Eosinophils # (auto) 0.1 10 ^3/uL (0-0.8); Eosinophils % (auto) 1.7 % (0.0-7.0); Hematocrit 42.8 % (36.0-46.0); Hemoglobin 14.1 g/dL (12.2-16.2); Lymphocytes # (auto) 2.1 10 ^3/uL (0.4-5.4); Lymphocytes % (auto) 27.1 % (10.0-50.0); Mean Corpuscular Hemoglobin 32.3 pg (28.0-32.0); Mean Corpuscular Hgb Conc. 33.1 g/dL (32.0-36.0); Mean Corpuscular Volume 97.7 fL (80.0-100.0); Monocytes # (auto) 0.5 10 ^3/uL (0-1.3); Monocytes % (auto) 6.1 % (0.0-12.0); Neutrophils % (auto) 64.4 % (37.0-80.0); Nucleated Red Blood Cells % 0.1 %; Platelet Count (auto) 258 10^3/uL (140-450); Red Blood Cells 4.38 10^6/uL (4.0-5.20); Red Cell Distribution Width 13.8 % (11.8-14.3); White Blood Cell 7.7 10^3/uL (4.4-10.8)
[2020-02-27 12:12] LABS: Calcium 9.1 mg/dL (8.5-10.1); Potassium 4.5 mmol/L (3.5-5.1)
[2020-02-27 12:14] LABS: BUN/Creatinine Ratio 25.9
[2020-02-27 12:20] LABS: INR 0.93 (0.9-1.15); Partial Thromboplastin Time 26.2 sec (23.64-32.05)
== END | disposition home or self-care (01) ==
LOC: CHF HDHVI 09:57
PROVIDERS: ATTEND Internal Medicine Cardiovascular Disease
DX: Z01.812 Encounter for preprocedural laboratory examination (principal)
CPT/HCPCS: 36415; 71046; 80048; 85025; 85610; 85730; 93005; G0463

== ENCOUNTER 2020-03-01 08:37 | Day surgery (SDC) | payer MEDICARE, MEDICAID ==
[~2020-03-01] VITALS: Ht 167.6 cm; Wt 92.5 kg
[~2020-03-01 08:37] MED LIST changes: -ASCO500C49 PO; -CITA-77 PO; -GABA-339 PO; +GABA300C10 PO; +LIDO5DIS21 TOP; +MIRA25TA PO; +SEMA2INJ2 SC; -TRAZ150T84 PO
[2020-03-01] MEDS ORDERED: LIDOCAINE 2%HCL (LOCAL ANESTH.) INJ 20ML MDV ONE (08:52)
[2020-03-01] MEDS ORDERED: IOHEXOL 350 MG/ML 100ML IJ ONE (08:52)
[2020-03-01] MEDS ORDERED: fentaNYL CITRATE 100 MCG/2 ML VL ONE (09:01)
[2020-03-01] MEDS ORDERED: ANGIOMAX 250 MG VIAL IV ONE (09:01)
[2020-03-01] MEDS ORDERED: MIDAZOLAM HCL 1MG/1ML-2 ML VIAL ONE (09:02)
[2020-03-01] MEDS ORDERED: SODIUM CHL 0.9% 0 ML ONE (09:02)
[2020-03-01] MEDS ORDERED: HYDROcodone-ACET 5/325MG TAB PO PRN (11:00)
[2020-03-01] MEDS ORDERED: ONDANSETRON HCL 4 MG/2 ML VIAL IV PRN (11:00)
[2020-03-01] MEDS ORDERED: ACETAMINOPHEN 500 MG TAB PO PRN (11:00)
[2020-03-01] MEDS ORDERED: SODIUM CHL 0.9% 500 ML IV ONE (11:00)
[2020-03-02] MEDS ORDERED: GABA-339 PO (13:45)
[2020-03-02] MEDS ORDERED: CITA-77 PO (13:45)
== END 2020-03-01 12:44 | disposition home or self-care (01) ==
LOC: CATH 08:37
PROVIDERS: ATTEND Internal Medicine Cardiovascular Disease
DX: L97.518 Non-pressure chronic ulcer of other part of right foot with other specified severity (principal); I70.212 Atherosclerosis of native arteries of extremities with intermittent claudication, left leg; I70.211 Atherosclerosis of native arteries of extremities with intermittent claudication, right leg; Z98.890 Other specified postprocedural states
CPT/HCPCS: 36247; 75716; C1760; C1769; C1894; J1644; J2250; J3010; Q9967; 99152

== ENCOUNTER → 2020-03-05 | Day surgery (SDC) | payer MEDICARE, MEDICAID ==
[~2020-03-05] VITALS: Ht 167.6 cm; Wt 93.0 kg
[~2020-03-05] MED LIST changes: +CITA-77 PO; +GABA-339 PO; -GABA300C10 PO; -LIDO5DIS21 TOP; -LISI10TA6 PO; -MIRA25TA PO; -OXYB15TA12 PO; -SEMA2INJ2 SC
== END | disposition home or self-care (01) ==
LOC: SUR 06:17
PROVIDERS: ATTEND Podiatrist
DX: Z01.818 Encounter for other preprocedural examination (principal); M86.8X7 Other osteomyelitis, ankle and foot

== ENCOUNTER → 2020-11-19 | Outpatient (CLI) | payer MEDICARE, MEDICAID ==
[~2020-11-19] MED LIST changes: -ASPI-404 PO; +ASPI-543 PO
== END | disposition home or self-care (01) ==
LOC: Rad HDHVI 11:48
PROVIDERS: ATTEND Internal Medicine Cardiovascular Disease
DX: I67.2 Cerebral atherosclerosis (principal); I67.82 Cerebral ischemia; G93.89 Other specified disorders of brain; R51.9 Headache, unspecified
CPT/HCPCS: 70450

== ENCOUNTER → 2020-11-22 | Outpatient (CLI) | payer MEDICARE, MEDICAID ==
[~2020-11-22] VITALS: Ht 167.6 cm; Wt 94.3 kg
[~2020-11-22] MED LIST changes: +ADENOSINE 79 MG in GIVE UN-DILUTED 0 ML IV ONE; +ADENOSINE 90 MG/30 ML INJ IV ONE
== END | disposition home or self-care (01) ==
LOC: Rad HDHVI 12:58
PROVIDERS: ATTEND Internal Medicine Cardiovascular Disease
DX: I10 Essential (primary) hypertension (principal); E78.00 Pure hypercholesterolemia, unspecified; E11.9 Type 2 diabetes mellitus without complications; R06.02 Shortness of breath; R07.89 Other chest pain; I25.2 Old myocardial infarction; Z82.49 Family history of ischemic heart disease and other diseases of the circulatory system
CPT/HCPCS: 78452; 93005; 96374; 96375; A9500; J0153

== ENCOUNTER 2021-01-05 23:13 | Inpatient (IN) | payer MEDICARE, MEDICAID ==
[~2021-01-05] VITALS: Ht 167.6 cm; Wt 101.9 kg
[~2021-01-05 23:13] MED LIST changes: -ADENOSINE 79 MG in GIVE UN-DILUTED 0 ML IV ONE; -ADENOSINE 90 MG/30 ML INJ IV ONE; -IBUP800T24 PO; +IBUP800T27 PO
[2021-01-06] MEDS ORDERED: VANCOMYCIN 1GM/250ML 250 ML IV ONE (02:00)
[2021-01-06] MEDS ORDERED: InsuLIN REG 1unit/0.01ml Soln (100units/ml) IV ONE (02:00)
[2021-01-06] MEDS ORDERED: PIPERACILLIN-TAZOB 3.375GM 100 ML IV ONE (02:00)
[2021-01-06] MEDS ORDERED: SODIUM CHLORIDE 0.9% 1,000 ML IV ONE (02:00)
[2021-01-06] MEDS ORDERED: fentaNYL CITRATE 100 MCG/2 ML VL IV ONE (02:00)
[2021-01-06] MEDS ORDERED: KETOROLAC TROMETH 30 MG/ML 1ML VIAL IV ONE (02:00)
[2021-01-06] MEDS ORDERED: ONDANSETRON HCL 4 MG/2 ML VIAL IV ONE (02:00)
[2021-01-06 02:47] LABS: Hematocrit 37.9 % (36.0-46.0); Hemoglobin 12.6 g/dL (12.2-16.2); Mean Corpuscular Hemoglobin 32.3 pg (28.0-32.0); Mean Corpuscular Hgb Conc. 33.3 g/dL (32.0-36.0); Mean Corpuscular Volume 97.1 fL (80.0-100.0); Platelet Count (auto) 336 10^3/uL (140-450); Red Cell Distribution Width 14.1 % (11.8-14.3); White Blood Cell 12.9 10^3/uL (4.4-10.8)
[2021-01-06 02:55] LABS: Basophils % (manual) 0 (0.0-2.0); Blast Cells 0; Eosinophils % (manual) 0 (0-7); Metamyelocytes % 0; Myelocytes % 0; Promyelocytes % 0; Reactive Lymphocytes 0
[2021-01-06 03:03] LABS: INR 1.04 (0.9-1.15); Partial Thromboplastin Time 28.9 sec (23.0-31.2)
[2021-01-06 03:07] LABS: Albumin 2.7 g/dL (3.4-5.0); BUN/Creatinine Ratio 26.8; Calcium 9.2 mg/dL (8.5-10.1); Potassium 4.3 mmol/L (3.5-5.1)
[2021-01-06 03:11] LABS: Bilirubin, Total 0.3 mg/dL (0.2-1.0); Total Protein 8.1 g/dL (6.4-8.2)
[2021-01-06 03:15] LABS: Band Neutrophils % (manual) 5; Lymphocytes % (manual) 10 (10.0-50.0); Monocytes % (manual) 2 (0-12)
[2021-01-06] MEDS ORDERED: MORPHINE SULFATE 4 MG/ML SYR/VIAL IV PRN (06:00)
[2021-01-06] MEDS ORDERED: NITROGLYCERIN 0.4 MG SL TAB SL PRN (06:00)
[2021-01-06] MEDS ORDERED: ONDANSETRON HCL 4 MG/2 ML VIAL IV PRN (06:00)
[2021-01-06] MEDS ORDERED: DEXTROSE (50%) 50ML SYRG IV PRN ×2 (06:00→09:30)
[2021-01-06] MEDS ORDERED: HYDROcodone-ACET 5/325MG TAB PO PRN (06:00)
[2021-01-06] MEDS ORDERED: MORPHINE SULF INJ 2 MG/ML SYRINGE 1ML IV PRN (06:00)
[2021-01-06] MEDS ORDERED: InsuLIN REG 1unit/0.01ml Soln (100units/ml) SC SCH ×2 (07:00→22:00)
[2021-01-06] MEDS ORDERED: ACCU-CHEK COMFORT CURVE STRIP VI SCH (07:00)
[2021-01-06] MEDS: SODIUM CHLORIDE 0.9% 1,000 ML IV SCH (07:57)
[2021-01-06] MEDS: INSULIN LANTUS (GLARGINE) 1 /0.01ml (100units/ml) SC SCH ×2 (08:11→22:38)
[2021-01-06 08:59] LABS: Hematocrit 37.5 % (36.0-46.0); Hemoglobin 12.3 g/dL (12.2-16.2); Mean Corpuscular Hemoglobin 31.9 pg (28.0-32.0); Mean Corpuscular Hgb Conc. 32.8 g/dL (32.0-36.0); Mean Corpuscular Volume 97.4 fL (80.0-100.0); Platelet Count (auto) 329 10^3/uL (140-450); Red Blood Cells 3.85 10^6/uL (4.0-5.20); Red Cell Distribution Width 14.3 % (11.8-14.3); White Blood Cell 9.8 10^3/uL (4.4-10.8)
[2021-01-06 09:14] LABS: Albumin 2.5 g/dL (3.4-5.0); Basophils % (manual) 0 (0.0-2.0); Blast Cells 0; Calcium 9.2 mg/dL (8.5-10.1); Eosinophils % (manual) 0 (0-7); Potassium 4.2 mmol/L (3.5-5.1); Promyelocytes % 0; Reactive Lymphocytes 0
[2021-01-06 09:16] LABS: Urine Bacteria NONE SEEN /hpf (None Seen); Urine Blood TRACE /uL (Negative); Urine Budding Yeast OCCASIONAL /hpf (None Seen); Urine WBC 6 /hpf (0 - 5)
[2021-01-06 09:18] LABS: Bilirubin, Total 0.4 mg/dL (0.2-1.0); Total Protein 7.6 g/dL (6.4-8.2)
[2021-01-06 09:19] LABS: BUN/Creatinine Ratio 28.4
[2021-01-06 09:35] LABS: Band Neutrophils % (manual) 2; Lymphocytes % (manual) 13 (10.0-50.0); Metamyelocytes % 3; Monocytes % (manual) 5 (0-12); Myelocytes % 1
[2021-01-06] MEDS ORDERED: HEPARIN SODIUM (PORCINE) 5000 UNITS/ML 1ML VIAL SC SCH (10:00)
[2021-01-06] MEDS ORDERED: PIPERACILLIN-TAZOB 3.375GM 100 ML IV SCH (10:00)
[2021-01-06] MEDS: MULTIPLE VITAMIN TAB PO SCH (10:16)
[2021-01-06] MEDS: ASCORBIC ACID 500 MG TAB PO SCH ×2 (10:16→22:00)
[2021-01-06] MEDS: ZINC SULFATE 220mg CAP or TAB PO SCH (10:16)
[2021-01-06] MEDS: FAMOTIDINE (10MG/ML) 2ML VL IV SCH ×2 (10:16→22:10)
[2021-01-06] MEDS ORDERED: VANCOMYCIN PER PHARMACY 0 MG IV SCH (10:45)
[2021-01-06] MEDS: ENOXAPARIN SOD 40 MG/0.4 ML SYRINGE SC SCH (11:00)
[2021-01-06] MEDS: InsuLIN REG 1unit/0.01ml Soln (100units/ml) SC SCH ×3 (11:30→22:28)
[2021-01-06] MEDS: ACCU-CHEK COMFORT CURVE STRIP VI SCH ×3 (11:30→22:07)
[2021-01-06] MEDS ORDERED: VANCOMYCIN 1GM/250ML 250 ML IV SCH (14:00)
[2021-01-06] MEDS: metroNIDAZOLE 500MG/100ML 100 ML IV SCH ×2 (14:28→21:46)
[2021-01-06 17:00] VITALS: BP 120/69
[2021-01-06] MEDS: DOCUSATE SOD 100 MG CAP PO PRN (21:46)
[2021-01-06 22:00] VITALS: BP 149/76
[2021-01-07] VITALS (7 sets, daily range): BP systolic 129–151; BP diastolic 44–89
[2021-01-07] MEDS: DAKINS QUARTER STR 0.125% (NaHypochlorite) 473 ML TOPICAL SOL TOP SCH ×3 (00:34→22:47)
[2021-01-07] MEDS: SODIUM CHLORIDE 0.9% 1,000 ML IV SCH ×2 (00:35→14:53)
[2021-01-07] MEDS: VANCOMYCIN 1GM/250ML 250 ML IV SCH (05:16)
[2021-01-07] MEDS: InsuLIN REG 1unit/0.01ml Soln (100units/ml) SC SCH ×4 (06:13→22:47)
[2021-01-07] MEDS: ACCU-CHEK COMFORT CURVE STRIP VI SCH ×4 (06:27→21:17)
[2021-01-07] MEDS: metroNIDAZOLE 500MG/100ML 100 ML IV SCH ×3 (06:27→21:17)
[2021-01-07] MEDS: INSULIN LANTUS (GLARGINE) 1 /0.01ml (100units/ml) SC SCH ×2 (06:34→22:47)
[2021-01-07 06:59] LABS: Hematocrit 38.9 % (36.0-46.0); Hemoglobin 12.9 g/dL (12.2-16.2); Mean Corpuscular Hemoglobin 32.5 pg (28.0-32.0); Mean Corpuscular Hgb Conc. 33.2 g/dL (32.0-36.0); Mean Corpuscular Volume 97.8 fL (80.0-100.0); Platelet Count (auto) 329 10^3/uL (140-450); Red Blood Cells 3.98 10^6/uL (4.0-5.20); Red Cell Distribution Width 13.6 % (11.8-14.3); White Blood Cell 7.6 10^3/uL (4.4-10.8)
[2021-01-07 07:31] LABS: Potassium 4.3 mmol/L (3.5-5.1)
[2021-01-07 07:33] LABS: Basophils % (manual) 0 (0.0-2.0); Blast Cells 0; Metamyelocytes % 0; Promyelocytes % 0; Reactive Lymphocytes 0
[2021-01-07 07:48] LABS: Albumin 2.4 g/dL (3.4-5.0); BUN/Creatinine Ratio 24.3; Bilirubin, Total 0.3 mg/dL (0.2-1.0); Calcium 9.2 mg/dL (8.5-10.1); Total Protein 7.5 g/dL (6.4-8.2)
[2021-01-07 08:01] LABS: Band Neutrophils % (manual) 2; Eosinophils % (manual) 2 (0-7); Lymphocytes % (manual) 20 (10.0-50.0); Monocytes % (manual) 5 (0-12); Myelocytes % 2
[2021-01-07] MEDS: cefTRIAXone 1GM/50ML D5W 50 ML IV SCH (08:45)
[2021-01-07] MEDS: FAMOTIDINE (10MG/ML) 2ML VL IV SCH ×2 (09:07→21:17)
[2021-01-07] MEDS: ENOXAPARIN SOD 40 MG/0.4 ML SYRINGE SC SCH (09:08)
[2021-01-07] MEDS: ZINC SULFATE 220mg CAP or TAB PO SCH (09:08)
[2021-01-07] MEDS: MULTIPLE VITAMIN TAB PO SCH (09:08)
[2021-01-07] MEDS: ASCORBIC ACID 500 MG TAB PO SCH ×2 (14:53→21:17)
[2021-01-07] MEDS: Glucerna Carbsteady SHAKE Vanilla 8oz PO SCH (18:29)
[2021-01-07] MEDS: DOCUSATE SOD 100 MG CAP PO PRN (21:50)
[2021-01-08 05:00] VITALS: BP 155/88
[2021-01-08] MEDS: VANCOMYCIN 1GM/250ML 250 ML IV SCH (05:04)
[2021-01-08 06:36] LABS: Hematocrit 37.8 % (36.0-46.0); Hemoglobin 12.5 g/dL (12.2-16.2); Mean Corpuscular Hemoglobin 32.5 pg (28.0-32.0); Mean Corpuscular Hgb Conc. 33.2 g/dL (32.0-36.0); Mean Corpuscular Volume 97.7 fL (80.0-100.0); Platelet Count (auto) 369 10^3/uL (140-450); Red Blood Cells 3.86 10^6/uL (4.0-5.20); Red Cell Distribution Width 13.9 % (11.8-14.3); White Blood Cell 6.8 10^3/uL (4.4-10.8)
[2021-01-08] MEDS: metroNIDAZOLE 500MG/100ML 100 ML IV SCH ×3 (06:49→21:57)
[2021-01-08] MEDS: ACCU-CHEK COMFORT CURVE STRIP VI SCH ×4 (06:49→21:57)
[2021-01-08] MEDS: InsuLIN REG 1unit/0.01ml Soln (100units/ml) SC SCH ×4 (06:49→22:03)
[2021-01-08] MEDS: INSULIN LANTUS (GLARGINE) 1 /0.01ml (100units/ml) SC SCH ×2 (06:49→22:04)
[2021-01-08 06:52] LABS: INR 1.04 (0.9-1.15)
[2021-01-08 06:55] LABS: Potassium 4.4 mmol/L (3.5-5.1)
[2021-01-08 06:56] LABS: Basophils % (manual) 0 (0.0-2.0); Blast Cells 0; Promyelocytes % 0; Reactive Lymphocytes 0
[2021-01-08 07:01] LABS: BUN/Creatinine Ratio 24.5; Calcium 9.3 mg/dL (8.5-10.1); Magnesium 1.9 mg/dL (1.6-2.6); Phosphorus 2.9 mg/dL (2.5-4.90)
[2021-01-08] MEDS: ACETAMINOPHEN 325 MG TAB PO PRN (07:08)
[2021-01-08 07:18] LABS: Band Neutrophils % (manual) 6; Eosinophils % (manual) 3 (0-7); Lymphocytes % (manual) 13 (10.0-50.0); Metamyelocytes % 5; Monocytes % (manual) 4 (0-12); Myelocytes % 2
[2021-01-08 08:30] VITALS: BP 145/74
[2021-01-08] MEDS: Glucerna Carbsteady SHAKE Vanilla 8oz PO SCH ×3 (08:30→18:15)
[2021-01-08] MEDS: SODIUM CHLORIDE 0.9% 1,000 ML IV SCH (08:30)
[2021-01-08] MEDS: cefTRIAXone 1GM/50ML D5W 50 ML IV SCH (08:53)
[2021-01-08 09:00] VITALS: BP 145/74
[2021-01-08] MEDS: ASCORBIC ACID 500 MG TAB PO SCH ×2 (09:01→21:57)
[2021-01-08] MEDS: FAMOTIDINE (10MG/ML) 2ML VL IV SCH ×2 (09:01→21:57)
[2021-01-08] MEDS: MULTIPLE VITAMIN TAB PO SCH (09:01)
[2021-01-08] MEDS: ZINC SULFATE 220mg CAP or TAB PO SCH (09:01)
[2021-01-08] MEDS: DAKINS QUARTER STR 0.125% (NaHypochlorite) 473 ML TOPICAL SOL TOP SCH ×2 (09:02→21:57)
[2021-01-08 13:00] VITALS: BP 142/75
[2021-01-08 16:55] VITALS: BP 157/76
[2021-01-08] MEDS: GABAPENTIN 300 MG CAP PO SCH (21:57)
[2021-01-08 22:00] VITALS: BP 166/84
[2021-01-09] MEDS: SODIUM CHLORIDE 0.9% 1,000 ML IV SCH ×2 (00:28→17:23)
[2021-01-09] MEDS: ACETAMINOPHEN 325 MG TAB PO PRN ×3 (04:44→21:22)
[2021-01-09] MEDS: VANCOMYCIN 1GM/250ML 250 ML IV SCH (05:00)
[2021-01-09 05:09] VITALS: BP 157/83
[2021-01-09 05:34] LABS: Hematocrit 41.2 % (36.0-46.0); Hemoglobin 13.9 g/dL (12.2-16.2); Mean Corpuscular Hemoglobin 32.9 pg (28.0-32.0); Mean Corpuscular Hgb Conc. 33.8 g/dL (32.0-36.0); Mean Corpuscular Volume 97.6 fL (80.0-100.0); Platelet Count (auto) 395 10^3/uL (140-450); Red Blood Cells 4.23 10^6/uL (4.0-5.20); Red Cell Distribution Width 13.9 % (11.8-14.3); White Blood Cell 8.2 10^3/uL (4.4-10.8)
[2021-01-09 05:48] LABS: Basophils % (manual) 0 (0.0-2.0); Blast Cells 0; Promyelocytes % 0
[2021-01-09 05:49] LABS: Calcium 9.4 mg/dL (8.5-10.1); Potassium 4.5 mmol/L (3.5-5.1)
[2021-01-09 05:51] LABS: BUN/Creatinine Ratio 21.4
[2021-01-09] MEDS: GABAPENTIN 300 MG CAP PO SCH ×3 (06:00→21:13)
[2021-01-09] MEDS: metroNIDAZOLE 500MG/100ML 100 ML IV SCH (06:00)
[2021-01-09] MEDS: InsuLIN REG 1unit/0.01ml Soln (100units/ml) SC SCH ×4 (06:52→21:24)
[2021-01-09] MEDS: INSULIN LANTUS (GLARGINE) 1 /0.01ml (100units/ml) SC SCH ×2 (06:52→21:24)
[2021-01-09] MEDS: ACCU-CHEK COMFORT CURVE STRIP VI SCH ×4 (06:54→21:23)
[2021-01-09 07:00] LABS: Band Neutrophils % (manual) 16; Eosinophils % (manual) 1 (0-7); Lymphocytes % (manual) 23 (10.0-50.0); Metamyelocytes % 2; Monocytes % (manual) 5 (0-12); Myelocytes % 4; Reactive Lymphocytes 1
[2021-01-09] MEDS ORDERED: MORPHINE SULFATE 4 MG/ML SYR/VIAL IV PRN (07:30)
[2021-01-09] MEDS ORDERED: ACCU-CHEK COMFORT CURVE STRIP VI ONE (07:30)
[2021-01-09] MEDS ORDERED: METOCLOPRAMIDE HCL 5MG/ml INJ 2ml VIAL IV PRN (07:30)
[2021-01-09] MEDS ORDERED: HYDROmorphone HCL 2 MG/ML VL IV PRN (07:30)
[2021-01-09] MEDS ORDERED: LIDOCAINE 1% HCL (LOCAL ANESTH.) INJ 20ML MDV ONE ×2 (07:39→07:43)
[2021-01-09] MEDS ORDERED: SUCCINYLCHOLINE CHLORIDE 20 MG/ML 10ML VIAL IV ONE (07:40)
[2021-01-09] MEDS ORDERED: DOXAPRAM HCL 20 MG/ML 20ML VIAL INJ IV ONE (07:40)
[2021-01-09] MEDS ORDERED: BUPIVACAINE 0.5% MPF INJ 30ML SDV IJ ONE (07:43)
[2021-01-09] MEDS ORDERED: fentaNYL CITRATE 100 MCG/2 ML VL ONE (07:54)
[2021-01-09] MEDS ORDERED: MIDAZOLAM HCL 1MG/1ML-2 ML VIAL ONE (07:54)
[2021-01-09] MEDS ORDERED: GLYCOPYRROLATE 0.2 MG/ML 1ML VIAL ONE (07:55)
[2021-01-09] MEDS ORDERED: PROPOFOL 10 MG/ML 20 ML IV ONE (07:55)
[2021-01-09] MEDS ORDERED: ONDANSETRON HCL 4 MG/2 ML VIAL ONE (07:55)
[2021-01-09] MEDS ORDERED: SODIUM CHLORIDE LOCK 10 ML ONE (07:55)
[2021-01-09 08:00] VITALS: BP 162/92
[2021-01-09] MEDS ORDERED: ceFAZolin 1GM/50ML 50 ML IV ONE (08:00)
[2021-01-09] MEDS: Glucerna Carbsteady SHAKE Vanilla 8oz PO SCH ×3 (08:00→18:00)
[2021-01-09] MEDS: DAKINS QUARTER STR 0.125% (NaHypochlorite) 473 ML TOPICAL SOL TOP SCH ×2 (10:00→21:24)
[2021-01-09] MEDS ORDERED: ERGOCALCIFEROL 50,000 UNIT(1.25MG) CAP PO SCH (10:45)
[2021-01-09] MEDS: ASCORBIC ACID 500 MG TAB PO SCH ×2 (10:52→21:13)
[2021-01-09] MEDS: FAMOTIDINE (10MG/ML) 2ML VL IV SCH ×2 (10:52→21:14)
[2021-01-09] MEDS: ZINC SULFATE 220mg CAP or TAB PO SCH (10:53)
[2021-01-09] MEDS: MULTIPLE VITAMIN TAB PO SCH (10:53)
[2021-01-09 12:00] VITALS: BP 144/86
[2021-01-09] MEDS: ENOXAPARIN SOD 40 MG/0.4 ML SYRINGE SC SCH (13:54)
[2021-01-09 14:00] VITALS: BP 148/78
[2021-01-09] MEDS: LINEZOLID 600MG/300ML 300 ML IV SCH (21:15)
[2021-01-09 22:00] VITALS: BP 144/78
[2021-01-10 05:00] VITALS: BP 147/75
[2021-01-10] MEDS: GABAPENTIN 300 MG CAP PO SCH ×2 (05:36→15:52)
[2021-01-10] MEDS: INSULIN LANTUS (GLARGINE) 1 /0.01ml (100units/ml) SC SCH (06:11)
[2021-01-10] MEDS: ACCU-CHEK COMFORT CURVE STRIP VI SCH ×3 (06:12→17:00)
[2021-01-10] MEDS: InsuLIN REG 1unit/0.01ml Soln (100units/ml) SC SCH ×3 (06:12→18:00)
[2021-01-10 06:17] LABS: Hematocrit 37.7 % (36.0-46.0); Hemoglobin 12.7 g/dL (12.2-16.2); Mean Corpuscular Hemoglobin 32.9 pg (28.0-32.0); Mean Corpuscular Hgb Conc. 33.8 g/dL (32.0-36.0); Mean Corpuscular Volume 97.4 fL (80.0-100.0); Platelet Count (auto) 382 10^3/uL (140-450); Red Blood Cells 3.87 10^6/uL (4.0-5.20); Red Cell Distribution Width 13.9 % (11.8-14.3); White Blood Cell 8.4 10^3/uL (4.4-10.8)
[2021-01-10 06:33] LABS: Calcium 8.5 mg/dL (8.5-10.1); Magnesium 1.8 mg/dL (1.6-2.6); Potassium 4.6 mmol/L (3.5-5.1)
[2021-01-10 06:35] LABS: BUN/Creatinine Ratio 18.7; Phosphorus 3.3 mg/dL (2.5-4.90)
[2021-01-10 06:38] LABS: Basophils % (manual) 0 (0.0-2.0); Blast Cells 0; Promyelocytes % 0; Reactive Lymphocytes 0
[2021-01-10] MEDS: Glucerna Carbsteady SHAKE Vanilla 8oz PO SCH ×3 (08:00→18:00)
[2021-01-10 08:53] LABS: Band Neutrophils % (manual) 7; Eosinophils % (manual) 3 (0-7); Lymphocytes % (manual) 10 (10.0-50.0); Metamyelocytes % 1; Monocytes % (manual) 2 (0-12); Myelocytes % 1
[2021-01-10 09:00] VITALS: BP 159/82
[2021-01-10] MEDS: ENOXAPARIN SOD 40 MG/0.4 ML SYRINGE SC SCH (09:19)
[2021-01-10] MEDS: ZINC SULFATE 220mg CAP or TAB PO SCH (09:19)
[2021-01-10] MEDS: MULTIPLE VITAMIN TAB PO SCH (09:20)
[2021-01-10] MEDS: ASCORBIC ACID 500 MG TAB PO SCH (09:20)
[2021-01-10] MEDS: FAMOTIDINE (10MG/ML) 2ML VL IV SCH (09:21)
[2021-01-10] MEDS: LINEZOLID 600MG/300ML 300 ML IV SCH (09:23)
[2021-01-10] MEDS: SODIUM CHLORIDE 0.9% 1,000 ML IV SCH ×2 (09:28→15:59)
[2021-01-10] MEDS ORDERED: MAGNESIUM OXIDE 400 MG TAB PO SCH (10:00)
[2021-01-10] MEDS ORDERED: CHOLECALCIFEROL (VITD3) 2,000 UNIT CAP/TAB PO SCH (10:00)
[2021-01-10] MEDS: DOCUSATE SOD 100 MG CAP PO PRN (12:17)
[2021-01-10] MEDS: DAKINS QUARTER STR 0.125% (NaHypochlorite) 473 ML TOPICAL SOL TOP SCH (12:22)
[2021-01-10] MEDS: ACETAMINOPHEN 325 MG TAB PO PRN (12:23)
[2021-01-10 13:00] VITALS: BP 124/106
[2021-01-10 17:00] VITALS: BP 132/57
== END 2021-01-10 19:45 | disposition home health service (06) | DRG 623 ==
LOC: ER 23:13 → TELE 23:14 → TELE-CENTR 01-06 15:43
PROVIDERS: ADMIT Nurse Practitioner Family; ATTEND Internal Medicine
PROC: 0Y9N0ZZ Drainage of Left Foot, Open Approach (ICD-10-PCS; 2021-01-05)
PROC: 0LBW0ZZ Excision of Left Foot Tendon, Open Approach (ICD-10-PCS; principal; 2021-01-09 08:36)
DX: E11.621 Type 2 diabetes mellitus with foot ulcer (principal); L03.116 Cellulitis of left lower limb; E87.1 Hypo-osmolality and hyponatremia; E44.0 Moderate protein-calorie malnutrition; I50.32 Chronic diastolic (congestive) heart failure; I13.0 Hypertensive heart and chronic kidney disease with heart failure and stage 1 through stage 4 chronic kidney disease, or unspecified chronic kidney disease; N17.0 Acute kidney failure with tubular necrosis; E78.5 Hyperlipidemia, unspecified; E66.01 Morbid (severe) obesity due to excess calories; E11.65 Type 2 diabetes mellitus with hyperglycemia; L97.529 Non-pressure chronic ulcer of other part of left foot with unspecified severity; Z20.822 Contact with and (suspected) exposure to COVID-19; X58.XXXA Exposure to other specified factors, initial encounter; N18.32 Chronic kidney disease, stage 3b; B95.62 Methicillin resistant Staphylococcus aureus infection as the cause of diseases classified elsewhere; E11.22 Type 2 diabetes mellitus with diabetic chronic kidney disease; E11.40 Type 2 diabetes mellitus with diabetic neuropathy, unspecified; F17.210 Nicotine dependence, cigarettes, uncomplicated; I25.2 Old myocardial infarction; Z68.34 Body mass index [BMI] 34.0-34.9, adult; Z79.4 Long term (current) use of insulin; Z82.49 Family history of ischemic heart disease and other diseases of the circulatory system; Z83.3 Family history of diabetes mellitus; Y93.89 Activity, other specified; Y92.89 Other specified places as the place of occurrence of the external cause; Y99.8 Other external cause status; Z90.49 Acquired absence of other specified parts of digestive tract
CPT/HCPCS: 36415; 71045; 73700; 73720; 80048; 80053; 80061; 80202; 81001; 82010; 82306; 82962; 83036; 83735; 84100; 84443; 84484; 85007; 85027; 85610; 85730; 87070; 87075; 87077; 87186; 87205; 87426; 93005; 93926; 96361; 96365; 96375; G0378; J0330; J0690; J0696; J1815; J1885; J2001; J2250; J2405; J2543; J2704; J3490

== ENCOUNTER 2021-07-08 09:48 | Inpatient (IN) | payer MEDICARE, MEDICAID ==
[~2021-07-08] VITALS: Ht 172.7 cm; Wt 90.9 kg
[2021-07-08] MEDS ORDERED: SODIUM CHLORIDE 0.9% 1,000 ML IV ONE (10:15)
[2021-07-08 10:33] LABS: Hematocrit 41.8 % (36.0-46.0); Hemoglobin 14.1 g/dL (12.2-16.2); Mean Corpuscular Hemoglobin 32.5 pg (28.0-32.0); Mean Corpuscular Hgb Conc. 33.9 g/dL (32.0-36.0); Mean Corpuscular Volume 95.9 fL (80.0-100.0); Red Blood Cells 4.35 10^6/uL (4.0-5.20); Red Cell Distribution Width 14.2 % (11.8-14.3); White Blood Cell 25.5 10^3/uL (4.4-10.8)
[2021-07-08 10:44] LABS: Basophils % (manual) 0 (0.0-2.0); Blast Cells 0; Myelocytes % 0; Promyelocytes % 0; Reactive Lymphocytes 0
[2021-07-08 10:52] LABS: Albumin 3.5 g/dL (3.4-5.0); Calcium 9.1 mg/dL (8.5-10.1); Potassium 4.4 mmol/L (3.5-5.1)
[2021-07-08 10:59] LABS: Band Neutrophils % (manual) 8; Eosinophils % (manual) 1 (0-7); Lymphocytes % (manual) 6 (10.0-50.0); Metamyelocytes % 1; Monocytes % (manual) 5 (0-12)
[2021-07-08 11:00] LABS: BUN/Creatinine Ratio 21.1; Bilirubin, Total 0.7 mg/dL (0.2-1.0); Total Protein 8.2 g/dL (6.4-8.2)
[2021-07-08] MEDS ORDERED: cefTRIAXone 1GM/50ML D5W 50 ML IV ONE (11:00)
[2021-07-08] MEDS ORDERED: ENOXAPARIN SOD 100 MG/1 ML SYRINGE SC ONE (11:15)
[2021-07-08] MEDS ORDERED: IOHEXOL 350 MG/ML 100ML IJ ONE (11:19)
[2021-07-08 11:37] LABS: Lactic Acid w/Reflex 4.1 mmol/L (0.4-2.0)
[2021-07-08] MEDS ORDERED: ONDANSETRON HCL 4 MG/2 ML VIAL IV ONE (17:00)
[2021-07-08] MEDS ORDERED: NITROGLYCERIN 0.4 MG SL TAB SL PRN (23:45)
[2021-07-08] MEDS ORDERED: DEXTROSE (50%) 50ML SYRG IV PRN (23:45)
[2021-07-08] MEDS ORDERED: MORPHINE SULFATE INJECTION 2 MG/ML SYRG IV PRN (23:45)
[2021-07-09] MEDS: VANCOMYCIN 1GM/250ML 250 ML IV SCH ×2 (00:28→23:16)
[2021-07-09] MEDS: InsuLIN REG 1unit/0.01ml Soln (100units/ml) SC SCH ×4 (06:41→23:02)
[2021-07-09] MEDS: ACCU-CHEK COMFORT CURVE STRIP VI SCH ×4 (06:42→22:57)
[2021-07-09 07:55] LABS: Basophils # (auto) 0.1 10 ^3/uL (0-0.2); Basophils % (auto) 0.8 % (0.0-2.0); Eosinophils # (auto) 0 10 ^3/uL (0-0.8); Eosinophils % (auto) 0.1 % (0.0-7.0); Hematocrit 40.4 % (36.0-46.0); Hemoglobin 13.6 g/dL (12.2-16.2); Lymphocytes % (auto) 8.5 % (10.0-50.0); Mean Corpuscular Hemoglobin 32.4 pg (28.0-32.0); Mean Corpuscular Hgb Conc. 33.6 g/dL (32.0-36.0); Mean Corpuscular Volume 96.5 fL (80.0-100.0); Monocytes # (auto) 0.4 10 ^3/uL (0-1.3); Monocytes % (auto) 3.2 % (0.0-12.0); Neutrophils # (auto) 10.7 10 ^3/uL (1.6-8.6); Neutrophils % (auto) 87.4 % (37.0-80.0); Red Blood Cells 4.19 10^6/uL (4.0-5.20); Red Cell Distribution Width 14.4 % (11.8-14.3); White Blood Cell 12.2 10^3/uL (4.4-10.8)
[2021-07-09 08:17] LABS: BUN/Creatinine Ratio 24.6; Calcium 8.4 mg/dL (8.5-10.1); Potassium 3.7 mmol/L (3.5-5.1)
[2021-07-09 08:19] LABS: Bilirubin, Total 0.6 mg/dL (0.2-1.0); Total Protein 7.4 g/dL (6.4-8.2)
[2021-07-09] MEDS: cefTRIAXone 1GM/50ML D5W 50 ML IV SCH (10:06)
[2021-07-09] MEDS ORDERED: cefTRIAXone 1GM/50ML D5W 50 ML IV SCH (14:00)
[2021-07-09] MEDS ORDERED: IBUP800T26 PO (15:45)
[2021-07-09] MEDS ORDERED: OXYB5TAB61 PO (15:45)
[2021-07-09] MEDS: HYDROcodone-ACET 10/325MG TAB PO PRN (20:08)
[2021-07-09 22:30] VITALS: BP 119/67
[2021-07-10] VITALS (7 sets, daily range): BP systolic 91–125; BP diastolic 40–60
[2021-07-10] MEDS ORDERED: PNEUMOCOCCAL VACC POLYS 25 MCG/0.5 ML VIAL IM ONE (02:00)
[2021-07-10] MEDS ORDERED: SEMA2INJ SC (02:39)
[2021-07-10] MEDS: ACCU-CHEK COMFORT CURVE STRIP VI SCH ×4 (06:41→21:23)
[2021-07-10] MEDS: InsuLIN REG 1unit/0.01ml Soln (100units/ml) SC SCH ×4 (06:41→21:24)
[2021-07-10] MEDS: cefTRIAXone 1GM/50ML D5W 50 ML IV SCH (09:04)
[2021-07-10] MEDS ORDERED: PANTOPRAZOLE 40 MG TAB PO ONE (13:00)
[2021-07-10] MEDS ORDERED: GABAPENTIN 300 MG CAP PO ONE (18:30)
[2021-07-10] MEDS: DAKINS QUARTER STR 0.125% (NaHypochlorite) 473 ML TOPICAL SOL TOP SCH (21:24)
[2021-07-11] VITALS (7 sets, daily range): BP systolic 86–129; BP diastolic 45–98
[2021-07-11] MEDS: VANCOMYCIN 1GM/250ML 250 ML IV SCH ×2 (00:28→23:49)
[2021-07-11] MEDS: GABAPENTIN 300 MG CAP PO SCH ×3 (05:34→22:28)
[2021-07-11] MEDS: ACCU-CHEK COMFORT CURVE STRIP VI SCH ×4 (06:44→22:38)
[2021-07-11] MEDS: InsuLIN REG 1unit/0.01ml Soln (100units/ml) SC SCH ×4 (06:45→22:42)
[2021-07-11] MEDS: PANTOPRAZOLE 40 MG TAB PO SCH ×2 (10:49→22:28)
[2021-07-11] MEDS: cefTRIAXone 1GM/50ML D5W 50 ML IV SCH (10:49)
[2021-07-11] MEDS: DAKINS QUARTER STR 0.125% (NaHypochlorite) 473 ML TOPICAL SOL TOP SCH ×2 (10:49→22:39)
[2021-07-12 05:00] VITALS: BP 104/54
[2021-07-12 05:24] LABS: Hemoglobin 13.2 g/dL (12.2-16.2); Mean Corpuscular Hemoglobin 32.6 pg (28.0-32.0); Mean Corpuscular Hgb Conc. 33.8 g/dL (32.0-36.0); Mean Corpuscular Volume 96.5 fL (80.0-100.0); Red Blood Cells 4.04 10^6/uL (4.0-5.20); Red Cell Distribution Width 13.9 % (11.8-14.3); White Blood Cell 7.8 10^3/uL (4.4-10.8)
[2021-07-12 05:50] LABS: Albumin 2.8 g/dL (3.4-5.0); Calcium 8.9 mg/dL (8.5-10.1); Potassium 3.9 mmol/L (3.5-5.1)
[2021-07-12 05:51] LABS: Basophils % (manual) 0 (0.0-2.0); Blast Cells 0; Metamyelocytes % 0; Promyelocytes % 0; Reactive Lymphocytes 0
[2021-07-12 05:54] LABS: BUN/Creatinine Ratio 24.8; Bilirubin, Total 0.4 mg/dL (0.2-1.0); Total Protein 7.4 g/dL (6.4-8.2)
[2021-07-12] MEDS: GABAPENTIN 300 MG CAP PO SCH ×3 (06:21→22:14)
[2021-07-12] MEDS: ACCU-CHEK COMFORT CURVE STRIP VI SCH ×4 (06:32→22:10)
[2021-07-12] MEDS: InsuLIN REG 1unit/0.01ml Soln (100units/ml) SC SCH ×4 (06:36→22:14)
[2021-07-12 06:53] LABS: Band Neutrophils % (manual) 11; Eosinophils % (manual) 1 (0-7); Lymphocytes % (manual) 27 (10.0-50.0); Monocytes % (manual) 8 (0-12); Myelocytes % 4
[2021-07-12] MEDS: PANTOPRAZOLE 40 MG TAB PO SCH ×2 (12:03→22:14)
[2021-07-12] MEDS: cefTRIAXone 1GM/50ML D5W 50 ML IV SCH (12:03)
[2021-07-12] MEDS: DAKINS QUARTER STR 0.125% (NaHypochlorite) 473 ML TOPICAL SOL TOP SCH ×2 (12:04→22:10)
[2021-07-12 20:00] VITALS: BP 143/59
[2021-07-12] MEDS: VANCOMYCIN 1GM/250ML 250 ML IV SCH (20:31)
[2021-07-12 21:34] VITALS: BP 143/59
[2021-07-13] VITALS (7 sets, daily range): BP systolic 107–141; BP diastolic 44–75
[2021-07-13] MEDS: GABAPENTIN 300 MG CAP PO SCH ×3 (05:42→21:37)
[2021-07-13] MEDS: ACCU-CHEK COMFORT CURVE STRIP VI SCH ×4 (06:40→21:38)
[2021-07-13] MEDS: InsuLIN REG 1unit/0.01ml Soln (100units/ml) SC SCH ×4 (06:42→21:44)
[2021-07-13] MEDS: PANTOPRAZOLE 40 MG TAB PO SCH ×2 (09:33→21:37)
[2021-07-13] MEDS: DAKINS QUARTER STR 0.125% (NaHypochlorite) 473 ML TOPICAL SOL TOP SCH ×2 (09:33→21:39)
[2021-07-13] MEDS: cefTRIAXone 1GM/50ML D5W 50 ML IV SCH (09:33)
[2021-07-13] MEDS: VANCOMYCIN 1GM/250ML 250 ML IV SCH (15:54)
[2021-07-14 05:00] VITALS: BP 142/65
[2021-07-14] MEDS: GABAPENTIN 300 MG CAP PO SCH ×3 (05:35→22:43)
[2021-07-14] MEDS: ACCU-CHEK COMFORT CURVE STRIP VI SCH ×4 (06:24→22:44)
[2021-07-14] MEDS: InsuLIN REG 1unit/0.01ml Soln (100units/ml) SC SCH ×4 (06:31→22:47)
[2021-07-14 09:00] VITALS: BP 131/62
[2021-07-14] MEDS: PANTOPRAZOLE 40 MG TAB PO SCH ×2 (09:31→22:44)
[2021-07-14] MEDS: DAKINS QUARTER STR 0.125% (NaHypochlorite) 473 ML TOPICAL SOL TOP SCH ×2 (09:31→22:44)
[2021-07-14] MEDS: cefTRIAXone 1GM/50ML D5W 50 ML IV SCH (09:31)
[2021-07-14] MEDS: VANCOMYCIN 1GM/250ML 250 ML IV SCH (12:06)
[2021-07-14 13:00] VITALS: BP 120/46
[2021-07-14 17:13] VITALS: BP 134/67
[2021-07-14 22:22] VITALS: BP 124/70
[2021-07-14] MEDS ORDERED: DOCUSATE SOD 100 MG CAP PO ONE (22:45)
[2021-07-14] MEDS: HYDROcodone-ACET 10/325MG TAB PO PRN (23:00)
[2021-07-15 05:16] VITALS: BP 132/72
[2021-07-15] MEDS: ACCU-CHEK COMFORT CURVE STRIP VI SCH ×3 (05:58→17:00)
[2021-07-15] MEDS: GABAPENTIN 300 MG CAP PO SCH ×2 (05:58→14:00)
[2021-07-15] MEDS: InsuLIN REG 1unit/0.01ml Soln (100units/ml) SC SCH ×3 (06:01→17:00)
[2021-07-15] MEDS: VANCOMYCIN 1GM/250ML 250 ML IV SCH (08:29)
[2021-07-15 09:00] VITALS: BP 102/52
[2021-07-15] MEDS ORDERED: DOCUSATE SOD 100 MG CAP PO SCH (10:00)
[2021-07-15] MEDS: cefTRIAXone 1GM/50ML D5W 50 ML IV SCH (10:31)
[2021-07-15] MEDS: DAKINS QUARTER STR 0.125% (NaHypochlorite) 473 ML TOPICAL SOL TOP SCH (10:32)
[2021-07-15] MEDS: PANTOPRAZOLE 40 MG TAB PO SCH (10:32)
[2021-07-15 13:00] VITALS: BP 132/61
[2021-07-15 17:10] VITALS: BP 102/52
== END 2021-07-15 18:30 | disposition home or self-care (01) | DRG 872 ==
LOC: ER 09:48 → EDBD 09:48 → EDUNIT# 09:48 → WEST WING 22:16 → OVERFLOW 23:49 → WEST WING 07-09 22:30
PROVIDERS: ADMIT Internal Medicine Cardiovascular Disease; ATTEND Internal Medicine Cardiovascular Disease
DX: A41.9 Sepsis, unspecified organism (principal); L03.119 Cellulitis of unspecified part of limb; N17.9 Acute kidney failure, unspecified; E11.65 Type 2 diabetes mellitus with hyperglycemia; F17.210 Nicotine dependence, cigarettes, uncomplicated; Z20.822 Contact with and (suspected) exposure to COVID-19; E11.51 Type 2 diabetes mellitus with diabetic peripheral angiopathy without gangrene; E66.9 Obesity, unspecified; I10 Essential (primary) hypertension; Z68.31 Body mass index [BMI] 31.0-31.9, adult; Z82.49 Family history of ischemic heart disease and other diseases of the circulatory system; Z83.3 Family history of diabetes mellitus; Z91.19 Patient's noncompliance with other medical treatment and regimen; Z90.49 Acquired absence of other specified parts of digestive tract; E11.40 Type 2 diabetes mellitus with diabetic neuropathy, unspecified
CPT/HCPCS: 36415; 70450; 71045; 80053; 80202; 82565; 82728; 82962; 83605; 83880; 84484; 85007; 85025; 85027; 86141; 87040; 87426; 93005; 96365; 96366; 96372; 96375; 99291; G0378; J0696; J1815; J2405

== ENCOUNTER 2021-11-24 04:26 | Inpatient (IN) | payer MEDICARE, MEDICAID ==
[~2021-11-24] VITALS: Ht 167.6 cm; Wt 94.0 kg
[~2021-11-24 04:26] MED LIST changes: -CITA-77 PO; +IBUP800T26 PO; -IBUP800T27 PO; +OXYB5TAB61 PO; +SEMA2INJ SC
[2021-11-24] MEDS ORDERED: SODIUM CHLORIDE 0.9% 1,000 ML IV ONE ×2 (08:15)
[2021-11-24 09:26] LABS: Basophils # (auto) 0.1 10 ^3/uL (0-0.2); Basophils % (auto) 0.4 % (0.0-2.0); Eosinophils # (auto) 0 10 ^3/uL (0-0.8); Lymphocytes % (auto) 4.5 % (10.0-50.0); Mean Corpuscular Hemoglobin 30.8 pg (28.0-32.0); Mean Corpuscular Hgb Conc. 32.5 g/dL (32.0-36.0); Monocytes # (auto) 0.8 10 ^3/uL (0-1.3); Monocytes % (auto) 3.8 % (0.0-12.0); Neutrophils # (auto) 20.4 10 ^3/uL (1.6-8.6); Neutrophils % (auto) 91.3 % (37.0-80.0); Nucleated Red Blood Cells % 0.1 %; Red Blood Cells 4.53 10^6/uL (4.0-5.20); Red Cell Distribution Width 13.7 % (11.8-14.3); White Blood Cell 22.4 10^3/uL (4.4-10.8)
[2021-11-24 09:39] LABS: INR 1.14 (0.9-1.15); Partial Thromboplastin Time 29.6 sec (23.6-33.0)
[2021-11-24 09:46] LABS: Albumin 3.3 g/dL (3.4-5.0); Calcium 8.9 mg/dL (8.5-10.1); Magnesium 2.9 mg/dL (1.6-2.6); Potassium 3.9 mmol/L (3.5-5.1)
[2021-11-24 09:52] LABS: BUN/Creatinine Ratio 20.8; Bilirubin, Total 0.6 mg/dL (0.2-1.0); Total Protein 8.4 g/dL (6.4-8.2)
[2021-11-24 10:07] LABS: Urine Bacteria FEW /hpf (None Seen); Urine Blood 1+ /uL (Negative); Urine Budding Yeast LOADED /hpf (None Seen); Urine Specific Gravity 1.024 (1.001-1.035); Urine WBC 159 /hpf (0 - 5); Urine WBC Clumps PRESENT /hpf (None Seen)
[2021-11-24] MEDS ORDERED: MORPHINE SULFATE INJECTION 2 MG/ML SYRG IV ONE (12:00)
[2021-11-24] MEDS ORDERED: ONDANSETRON HCL 4 MG/2 ML VIAL IV ONE (12:00)
[2021-11-24] MEDS ORDERED: MORPHINE SULFATE INJECTION 2 MG/ML SYRG ONE (12:01)
[2021-11-24] MEDS ORDERED: MORPHINE SULFATE INJECTION 2 MG/ML SYRG IV PRN ×2 (13:00)
[2021-11-24] MEDS ORDERED: SOD CHL 0.45% 1,000 ML IV SCH (13:00)
[2021-11-24] MEDS ORDERED: ACETAMINOPHEN 500 MG TAB PO PRN (13:00)
[2021-11-24] MEDS ORDERED: DEXTROSE (50%) 50ML SYRG IV PRN (13:00)
[2021-11-24] MEDS ORDERED: NITROGLYCERIN 0.4 MG SL TAB SL PRN (13:00)
[2021-11-24] MEDS ORDERED: ONDANSETRON HCL 4 MG/2 ML VIAL IV PRN (13:00)
[2021-11-24] MEDS: cefTRIAXone 1GM/50ML D5W 50 ML IV SCH (13:00)
[2021-11-24] MEDS: GABAPENTIN 300 MG CAP PO SCH (14:17)
[2021-11-24 14:40] LABS: Lactic Acid w/Reflex 2.8 mmol/L (0.4-2.0)
[2021-11-24] MEDS: InsuLIN REG 1unit/0.01ml Soln (100units/ml) SC SCH (17:54)
[2021-11-24] MEDS: ACCU-CHEK COMFORT CURVE STRIP VI SCH (17:54)
[2021-11-24] MEDS ORDERED: METOPROLOL TARTRATE 25 MG TAB PO SCH (22:00)
[2021-11-25] MEDS: ACCU-CHEK COMFORT CURVE STRIP VI SCH ×4 (01:30→16:28)
[2021-11-25] MEDS: GABAPENTIN 300 MG CAP PO SCH ×4 (01:30→21:53)
[2021-11-25] MEDS: ATORVASTATIN 20 MG TAB PO SCH ×2 (01:31→21:52)
[2021-11-25] MEDS: DOCUSATE SOD 100 MG CAP PO SCH ×3 (01:31→21:54)
[2021-11-25] MEDS: InsuLIN REG 1unit/0.01ml Soln (100units/ml) SC SCH ×5 (01:48→21:54)
[2021-11-25 06:00] VITALS: BP 94/58
[2021-11-25] MEDS ORDERED: PNEUMOCOCCAL VACC POLYS 25 MCG/0.5 ML VIAL IM ONE (07:00)
[2021-11-25 07:28] LABS: Basophils # (auto) 0 10 ^3/uL (0-0.2); Basophils % (auto) 0.3 % (0.0-2.0); Eosinophils # (auto) 0 10 ^3/uL (0-0.8); Eosinophils % (auto) 0.2 % (0.0-7.0); Hematocrit 40.4 % (36.0-46.0); Hemoglobin 13.2 g/dL (12.2-16.2); Lymphocytes # (auto) 1.4 10 ^3/uL (0.4-5.4); Lymphocytes % (auto) 10.3 % (10.0-50.0); Mean Corpuscular Hemoglobin 31.2 pg (28.0-32.0); Mean Corpuscular Hgb Conc. 32.6 g/dL (32.0-36.0); Mean Corpuscular Volume 95.7 fL (80.0-100.0); Monocytes # (auto) 0.7 10 ^3/uL (0-1.3); Monocytes % (auto) 4.8 % (0.0-12.0); Neutrophils # (auto) 11.8 10 ^3/uL (1.6-8.6); Neutrophils % (auto) 84.4 % (37.0-80.0); Red Blood Cells 4.22 10^6/uL (4.0-5.20); Red Cell Distribution Width 14.3 % (11.8-14.3); White Blood Cell 13.9 10^3/uL (4.4-10.8)
[2021-11-25 07:43] LABS: BUN/Creatinine Ratio 21.8; Calcium 8.7 mg/dL (8.5-10.1); Potassium 3.9 mmol/L (3.5-5.1)
[2021-11-25 09:00] VITALS: BP 126/66
[2021-11-25] MEDS: ASPirin-EC 81 mg tab PO SCH (09:40)
[2021-11-25] MEDS: cefTRIAXone 1GM/50ML D5W 50 ML IV SCH (09:41)
[2021-11-25] MEDS: HYDROcodone-ACET 5/325MG TAB PO PRN (09:57)
[2021-11-25] MEDS ORDERED: CLINDAMYCIN 600MG IV 50 ML IV ONE (10:30)
[2021-11-25] MEDS: SODIUM CHLORIDE 0.9% 1,000 ML IV SCH (12:07)
[2021-11-25 13:00] VITALS: BP 106/43
[2021-11-25 17:00] VITALS: BP 100/48
[2021-11-25] MEDS: CLINDAMYCIN 600MG IV 50 ML IV SCH (20:53)
[2021-11-25 22:00] VITALS: BP 111/53
[2021-11-26] MEDS: CLINDAMYCIN 600MG IV 50 ML IV SCH ×2 (04:14→10:49)
[2021-11-26] MEDS: ACCU-CHEK COMFORT CURVE STRIP VI SCH ×4 (04:22→17:57)
[2021-11-26 05:00] VITALS: BP 129/69
[2021-11-26] MEDS: HYDROcodone-ACET 5/325MG TAB PO PRN (05:37)
[2021-11-26 06:00] LABS: Basophils # (auto) 0 10 ^3/uL (0-0.2); Basophils % (auto) 0.4 % (0.0-2.0); Eosinophils # (auto) 0.2 10 ^3/uL (0-0.8); Hematocrit 38.5 % (36.0-46.0); Hemoglobin 12.6 g/dL (12.2-16.2); Lymphocytes # (auto) 1.4 10 ^3/uL (0.4-5.4); Lymphocytes % (auto) 15.5 % (10.0-50.0); Mean Corpuscular Hemoglobin 31.2 pg (28.0-32.0); Mean Corpuscular Hgb Conc. 32.8 g/dL (32.0-36.0); Monocytes # (auto) 0.6 10 ^3/uL (0-1.3); Monocytes % (auto) 6.5 % (0.0-12.0); Neutrophils # (auto) 6.8 10 ^3/uL (1.6-8.6); Neutrophils % (auto) 75.6 % (37.0-80.0); Red Blood Cells 4.05 10^6/uL (4.0-5.20); White Blood Cell 9.1 10^3/uL (4.4-10.8)
[2021-11-26] MEDS: SODIUM CHLORIDE 0.9% 1,000 ML IV SCH ×2 (06:20→13:10)
[2021-11-26] MEDS: InsuLIN REG 1unit/0.01ml Soln (100units/ml) SC SCH ×4 (06:21→22:43)
[2021-11-26 06:22] LABS: Albumin 2.5 g/dL (3.4-5.0); BUN/Creatinine Ratio 25.7; Calcium 8.4 mg/dL (8.5-10.1)
[2021-11-26 06:24] LABS: Bilirubin, Total 0.3 mg/dL (0.2-1.0); Total Protein 6.7 g/dL (6.4-8.2)
[2021-11-26] MEDS: GABAPENTIN 300 MG CAP PO SCH ×3 (08:28→22:41)
[2021-11-26] MEDS: ASPirin-EC 81 mg tab PO SCH (08:28)
[2021-11-26] MEDS: cefTRIAXone 1GM/50ML D5W 50 ML IV SCH (08:28)
[2021-11-26] MEDS: DOCUSATE SOD 100 MG CAP PO SCH ×2 (08:34→22:00)
[2021-11-26 08:50] VITALS: BP 123/64
[2021-11-26 14:45] VITALS: BP 110/73
[2021-11-26 16:31] VITALS: BP 118/63
[2021-11-26 22:00] VITALS: BP 116/69
[2021-11-26] MEDS: ATORVASTATIN 20 MG TAB PO SCH (22:41)
[2021-11-27] MEDS: HYDROcodone-ACET 5/325MG TAB PO PRN ×2 (01:47→12:33)
[2021-11-27] MEDS: SODIUM CHLORIDE 0.9% 1,000 ML IV SCH ×2 (02:30→18:49)
[2021-11-27] MEDS: CLINDAMYCIN 600MG IV 50 ML IV SCH ×4 (03:00→18:48)
[2021-11-27 05:27] VITALS: BP 142/76
[2021-11-27] MEDS: InsuLIN REG 1unit/0.01ml Soln (100units/ml) SC SCH ×4 (06:45→21:47)
[2021-11-27] MEDS: GABAPENTIN 300 MG CAP PO SCH ×3 (07:35→21:48)
[2021-11-27] MEDS: ACCU-CHEK COMFORT CURVE STRIP VI SCH ×5 (07:38→21:53)
[2021-11-27] MEDS: ASPirin-EC 81 mg tab PO SCH (08:59)
[2021-11-27] MEDS: cefTRIAXone 1GM/50ML D5W 50 ML IV SCH (08:59)
[2021-11-27] MEDS: DOCUSATE SOD 100 MG CAP PO SCH ×3 (08:59→21:49)
[2021-11-27 10:28] VITALS: BP 139/109
[2021-11-27 13:00] VITALS: BP 157/87
[2021-11-27 17:00] VITALS: BP 117/55
[2021-11-27] MEDS: ATORVASTATIN 20 MG TAB PO SCH (21:48)
[2021-11-27 22:00] VITALS: BP 127/69
[2021-11-28 05:00] VITALS: BP 151/82
[2021-11-28] MEDS: SODIUM CHLORIDE 0.9% 1,000 ML IV SCH ×2 (05:22→08:53)
[2021-11-28] MEDS: CLINDAMYCIN 600MG IV 50 ML IV SCH ×5 (05:22→18:31)
[2021-11-28] MEDS: InsuLIN REG 1unit/0.01ml Soln (100units/ml) SC SCH ×4 (06:15→22:00)
[2021-11-28] MEDS: GABAPENTIN 300 MG CAP PO SCH ×3 (06:15→22:00)
[2021-11-28] MEDS: ACCU-CHEK COMFORT CURVE STRIP VI SCH ×4 (06:16→22:00)
[2021-11-28] MEDS: cefTRIAXone 1GM/50ML D5W 50 ML IV SCH (08:53)
[2021-11-28] MEDS: ASPirin-EC 81 mg tab PO SCH (08:53)
[2021-11-28] MEDS: DOCUSATE SOD 100 MG CAP PO SCH ×2 (08:53→22:00)
[2021-11-28 09:00] VITALS: BP 161/75
[2021-11-28] MEDS: HYDROcodone-ACET 5/325MG TAB PO PRN ×2 (09:04→16:32)
[2021-11-28 13:00] VITALS: BP 160/82
[2021-11-28 17:00] VITALS: BP 132/64
[2021-11-28 20:00] VITALS: BP 140/72
[2021-11-28 22:00] VITALS: BP 128/67
[2021-11-28] MEDS: ATORVASTATIN 20 MG TAB PO SCH (22:00)
[2021-11-29] MEDS: CLINDAMYCIN 600MG IV 50 ML IV SCH ×3 (03:00→18:26)
[2021-11-29 05:00] VITALS: BP 129/76
[2021-11-29] MEDS: ACCU-CHEK COMFORT CURVE STRIP VI SCH ×4 (07:00→21:56)
[2021-11-29 07:39] LABS: INR 1.03 (0.9-1.15); Partial Thromboplastin Time 29.8 sec (23.6-33.0)
[2021-11-29] MEDS: SODIUM CHLORIDE 0.9% 1,000 ML IV SCH ×2 (07:50→21:55)
[2021-11-29 08:46] VITALS: BP 143/71
[2021-11-29] MEDS: cefTRIAXone 1GM/50ML D5W 50 ML IV SCH (09:17)
[2021-11-29] MEDS: DOCUSATE SOD 100 MG CAP PO SCH ×2 (09:18→21:55)
[2021-11-29] MEDS: ASPirin-EC 81 mg tab PO SCH (09:18)
[2021-11-29] MEDS: HYDROcodone-ACET 5/325MG TAB PO PRN ×2 (09:21→21:58)
[2021-11-29] MEDS: InsuLIN REG 1unit/0.01ml Soln (100units/ml) SC SCH ×3 (11:30→21:57)
[2021-11-29 12:30] VITALS: BP 151/85
[2021-11-29] MEDS: GABAPENTIN 300 MG CAP PO SCH ×2 (14:00→21:56)
[2021-11-29 17:16] VITALS: BP 134/64
[2021-11-29] MEDS ORDERED: LIDOCAINE 1% (LOCAL ANESTH.) PF 5ml SDV ID ONE (18:30)
[2021-11-29] MEDS: ATORVASTATIN 20 MG TAB PO SCH (21:55)
[2021-11-29] MEDS: SODIUM CHLOR 0.9% PF (SALINE LOCK) 10ML VIAL/SYR IV SCH (21:55)
[2021-11-30] MEDS: CLINDAMYCIN 600MG IV 50 ML IV SCH ×3 (03:00→19:00)
[2021-11-30] MEDS: HYDROcodone-ACET 5/325MG TAB PO PRN ×2 (03:21→13:30)
[2021-11-30] MEDS: GABAPENTIN 300 MG CAP PO SCH ×4 (06:06→22:19)
[2021-11-30] MEDS: ACCU-CHEK COMFORT CURVE STRIP VI SCH ×4 (06:07→22:00)
[2021-11-30] MEDS: InsuLIN REG 1unit/0.01ml Soln (100units/ml) SC SCH ×4 (06:09→22:46)
[2021-11-30] MEDS: cefTRIAXone 1GM/50ML D5W 50 ML IV SCH (09:00)
[2021-11-30] MEDS: DOCUSATE SOD 100 MG CAP PO SCH ×2 (10:00→22:19)
[2021-11-30] MEDS: ASPirin-EC 81 mg tab PO SCH (10:00)
[2021-11-30] MEDS: SODIUM CHLOR 0.9% PF (SALINE LOCK) 10ML VIAL/SYR IV SCH ×2 (10:00→22:19)
[2021-11-30] MEDS: SODIUM CHLORIDE 0.9% 1,000 ML IV SCH ×2 (10:30→23:50)
[2021-11-30 22:00] VITALS: BP 143/55
[2021-11-30] MEDS: ATORVASTATIN 20 MG TAB PO SCH (22:19)
[2021-11-30] MEDS ORDERED: InsuLIN REG 1unit/0.01ml Soln (100units/ml) SC ONE (23:45)
[2021-12-01] MEDS: CLINDAMYCIN 600MG IV 50 ML IV SCH ×3 (02:55→19:06)
[2021-12-01] MEDS: HYDROcodone-ACET 5/325MG TAB PO PRN ×2 (03:51→15:15)
[2021-12-01 05:00] VITALS: BP 133/65
[2021-12-01] MEDS: ACCU-CHEK COMFORT CURVE STRIP VI SCH ×4 (06:27→22:00)
[2021-12-01] MEDS: InsuLIN REG 1unit/0.01ml Soln (100units/ml) SC SCH ×4 (06:31→23:01)
[2021-12-01] MEDS: GABAPENTIN 300 MG CAP PO SCH ×3 (06:37→22:02)
[2021-12-01 09:00] VITALS: BP 149/83
[2021-12-01] MEDS: cefTRIAXone 1GM/50ML D5W 50 ML IV SCH (09:00)
[2021-12-01] MEDS: SODIUM CHLOR 0.9% PF (SALINE LOCK) 10ML VIAL/SYR IV SCH ×2 (10:00→22:02)
[2021-12-01] MEDS: DOCUSATE SOD 100 MG CAP PO SCH ×2 (10:00→22:02)
[2021-12-01] MEDS: ASPirin-EC 81 mg tab PO SCH (10:00)
[2021-12-01 13:00] VITALS: BP 139/78
[2021-12-01] MEDS: SODIUM CHLORIDE 0.9% 1,000 ML IV SCH (13:10)
[2021-12-01 17:00] VITALS: BP 158/69
[2021-12-01] MEDS: ATORVASTATIN 20 MG TAB PO SCH (22:02)
[2021-12-01] MEDS ORDERED: InsuLIN REG 1unit/0.01ml Soln (100units/ml) SC ONE (22:45)
[2021-12-02] MEDS: CLINDAMYCIN 600MG IV 50 ML IV SCH ×3 (02:56→18:24)
[2021-12-02] MEDS: SODIUM CHLORIDE 0.9% 1,000 ML IV SCH ×2 (03:39→15:50)
[2021-12-02] MEDS: HYDROcodone-ACET 5/325MG TAB PO PRN ×2 (03:39→11:44)
[2021-12-02] MEDS: ACCU-CHEK COMFORT CURVE STRIP VI SCH ×4 (06:15→22:59)
[2021-12-02] MEDS: InsuLIN REG 1unit/0.01ml Soln (100units/ml) SC SCH ×4 (06:15→23:03)
[2021-12-02] MEDS: GABAPENTIN 300 MG CAP PO SCH ×3 (06:37→21:43)
[2021-12-02 09:00] VITALS: BP 127/67
[2021-12-02] MEDS: cefTRIAXone 1GM/50ML D5W 50 ML IV SCH (09:00)
[2021-12-02] MEDS: ASPirin-EC 81 mg tab PO SCH (10:00)
[2021-12-02] MEDS: SODIUM CHLOR 0.9% PF (SALINE LOCK) 10ML VIAL/SYR IV SCH ×2 (10:00→21:42)
[2021-12-02] MEDS: DOCUSATE SOD 100 MG CAP PO SCH ×2 (10:00→21:42)
[2021-12-02 13:00] VITALS: BP 133/78
[2021-12-02 16:00] VITALS: BP 115/57
[2021-12-02] MEDS: ATORVASTATIN 20 MG TAB PO SCH (21:43)
[2021-12-03] MEDS: CLINDAMYCIN 600MG IV 50 ML IV SCH ×2 (02:55→11:00)
[2021-12-03] MEDS: HYDROcodone-ACET 5/325MG TAB PO PRN ×2 (04:56→14:03)
[2021-12-03] MEDS: SODIUM CHLORIDE 0.9% 1,000 ML IV SCH (05:35)
[2021-12-03] MEDS: GABAPENTIN 300 MG CAP PO SCH ×2 (06:57→14:02)
[2021-12-03] MEDS: InsuLIN REG 1unit/0.01ml Soln (100units/ml) SC SCH ×2 (07:43→11:30)
[2021-12-03] MEDS: ACCU-CHEK COMFORT CURVE STRIP VI SCH ×2 (07:43→11:30)
[2021-12-03 08:25] LABS: Basophils # (auto) 0.1 10 ^3/uL (0-0.2); Basophils % (auto) 1.4 % (0.0-2.0); Eosinophils # (auto) 0.2 10 ^3/uL (0-0.8); Eosinophils % (auto) 2.1 % (0.0-7.0); Hematocrit 40.2 % (36.0-46.0); Hemoglobin 13.2 g/dL (12.2-16.2); Lymphocytes # (auto) 1.6 10 ^3/uL (0.4-5.4); Lymphocytes % (auto) 21.1 % (10.0-50.0); Mean Corpuscular Hemoglobin 31.1 pg (28.0-32.0); Mean Corpuscular Hgb Conc. 32.8 g/dL (32.0-36.0); Mean Corpuscular Volume 94.8 fL (80.0-100.0); Monocytes # (auto) 0.5 10 ^3/uL (0-1.3); Monocytes % (auto) 6.7 % (0.0-12.0); Neutrophils # (auto) 5.3 10 ^3/uL (1.6-8.6); Neutrophils % (auto) 68.7 % (37.0-80.0); Nucleated Red Blood Cells % 0.2 %; Red Blood Cells 4.24 10^6/uL (4.0-5.20); Red Cell Distribution Width 13.9 % (11.8-14.3); White Blood Cell 7.8 10^3/uL (4.4-10.8)
[2021-12-03 08:26] LABS: Potassium 4.4 mmol/L (3.5-5.1)
[2021-12-03 08:35] LABS: BUN/Creatinine Ratio 27.8
[2021-12-03 09:00] VITALS: BP 163/80
[2021-12-03] MEDS: cefTRIAXone 1GM/50ML D5W 50 ML IV SCH (09:00)
[2021-12-03] MEDS: DOCUSATE SOD 100 MG CAP PO SCH (10:00)
[2021-12-03] MEDS: ASPirin-EC 81 mg tab PO SCH (10:15)
[2021-12-03] MEDS: SODIUM CHLOR 0.9% PF (SALINE LOCK) 10ML VIAL/SYR IV SCH (10:15)
[2021-12-03 13:00] VITALS: BP 155/88
[2021-12-03] MEDS ORDERED: PNEUMOCOCCAL VACC POLYS 25 MCG/0.5 ML VIAL IM ONE (15:00)
== END 2021-12-03 16:10 | disposition home or self-care (01) | DRG 603 ==
LOC: EDBD 04:26 → ER 04:26 → TELE 12:49 → TELE-CENTR 23:11
PROVIDERS: ADMIT Nurse Practitioner Acute Care; ATTEND Internal Medicine Cardiovascular Disease
PROC: 02HV33Z Insertion of Infusion Device into Superior Vena Cava, Percutaneous Approach (ICD-10-PCS; principal; 2021-11-29)
PROC: B548ZZA Ultrasonography of Superior Vena Cava, Guidance (ICD-10-PCS; 2021-11-29)
PROC: 3E0234Z Introduction of Serum, Toxoid and Vaccine into Muscle, Percutaneous Approach (ICD-10-PCS; 2021-12-03)
DX: L03.115 Cellulitis of right lower limb (principal); N39.0 Urinary tract infection, site not specified; N17.9 Acute kidney failure, unspecified; L03.116 Cellulitis of left lower limb; L97.519 Non-pressure chronic ulcer of other part of right foot with unspecified severity; E11.42 Type 2 diabetes mellitus with diabetic polyneuropathy; E11.65 Type 2 diabetes mellitus with hyperglycemia; N18.31 Chronic kidney disease, stage 3a; E86.0 Dehydration; E66.9 Obesity, unspecified; J44.9 Chronic obstructive pulmonary disease, unspecified; E11.22 Type 2 diabetes mellitus with diabetic chronic kidney disease; M54.50 Low back pain, unspecified; Z20.822 Contact with and (suspected) exposure to COVID-19; E11.51 Type 2 diabetes mellitus with diabetic peripheral angiopathy without gangrene; E78.5 Hyperlipidemia, unspecified; F17.210 Nicotine dependence, cigarettes, uncomplicated; I12.9 Hypertensive chronic kidney disease with stage 1 through stage 4 chronic kidney disease, or unspecified chronic kidney disease; Z79.899 Other long term (current) drug therapy; Z82.49 Family history of ischemic heart disease and other diseases of the circulatory system; Z83.3 Family history of diabetes mellitus; Z90.49 Acquired absence of other specified parts of digestive tract; Z23 Encounter for immunization; Z68.33 Body mass index [BMI] 33.0-33.9, adult
CPT/HCPCS: 36415; 36569; 70450; 71045; 80048; 80053; 81001; 82962; 83036; 83605; 83735; 83880; 84484; 85025; 85610; 85730; 87040; 87086; 87426; 93005; 93925; 93970; 96361; 96374; 96375; 97110; 97116; 97163; 97530; G0378; J0696; J1815; J3490

== ENCOUNTER → 2022-01-10 | Outpatient (CLI) | payer MEDICARE, MEDICAID ==
[2022-01-10 15:26] LABS: Urine Blood 1+ /uL (Negative); Urine Specific Gravity 1.017 (1.001-1.035)
== END | disposition home or self-care (01) ==
LOC: LAB 14:22
PROVIDERS: ATTEND Internal Medicine Cardiovascular Disease
DX: N39.0 Urinary tract infection, site not specified (principal)
CPT/HCPCS: 81003; 87086

== ENCOUNTER → 2022-01-27 | Outpatient (CLI) | payer MEDICARE, MEDICAID ==
[2022-01-27 10:17] LABS: Basophils # (auto) 0 10 ^3/uL (0-0.2); Basophils % (auto) 0.7 % (0.0-2.0); Eosinophils # (auto) 0.2 10 ^3/uL (0-0.8); Eosinophils % (auto) 3.1 % (0.0-7.0); Hematocrit 44.9 % (36.0-46.0); Hemoglobin 14.8 g/dL (12.2-16.2); Lymphocytes # (auto) 1.5 10 ^3/uL (0.4-5.4); Lymphocytes % (auto) 23.8 % (10.0-50.0); Mean Corpuscular Hemoglobin 30.6 pg (28.0-32.0); Mean Corpuscular Volume 92.7 fL (80.0-100.0); Monocytes # (auto) 0.6 10 ^3/uL (0-1.3); Monocytes % (auto) 9.6 % (0.0-12.0); Neutrophils % (auto) 62.8 % (37.0-80.0); Nucleated Red Blood Cells % 0.2 %; Red Blood Cells 4.85 10^6/uL (4.0-5.20); Red Cell Distribution Width 14.1 % (11.8-14.3); White Blood Cell 6.3 10^3/uL (4.4-10.8)
[2022-01-27 10:37] LABS: Potassium 4.1 mmol/L (3.5-5.1)
[2022-01-27 10:54] LABS: Albumin 3.2 g/dL (3.4-5.0); BUN/Creatinine Ratio 25.7; Bilirubin, Total 0.5 mg/dL (0.2-1.0); CRP High Sensitivity 2.15 mg/dL (< 0.3); Calcium 9.3 mg/dL (8.5-10.1)
== END | disposition home or self-care (01) ==
LOC: LAB 09:21
PROVIDERS: ATTEND Podiatrist
DX: E11.42 Type 2 diabetes mellitus with diabetic polyneuropathy (principal)
CPT/HCPCS: 36415; 80053; 83036; 85025; 85652; 86141

== ENCOUNTER → 2022-03-17 | Outpatient (CLI) | payer MEDICARE, MEDICAID | END | disposition home or self-care (01) | LOC: Rad HDHVI 10:21 | PROVIDERS: ATTEND Internal Medicine Cardiovascular Disease | DX: I08.1 Rheumatic disorders of both mitral and tricuspid valves (principal); I10 Essential (primary) hypertension; R06.02 Shortness of breath | CPT/HCPCS: 93306 ==

== ENCOUNTER → 2022-04-16 | Outpatient (CLI) | payer MEDICARE, MEDICAID ==
[~2022-04-16] VITALS: Ht 167.6 cm; Wt 88.5 kg
[~2022-04-16] MED LIST changes: +ADENOSINE 74 MG in GIVE UN-DILUTED 0 ML IV ONE; +ADENOSINE 90 MG/30 ML INJ IV ONE
== END | disposition home or self-care (01) ==
LOC: Rad HDHVI 13:13
PROVIDERS: ATTEND Internal Medicine Cardiovascular Disease
DX: I73.9 Peripheral vascular disease, unspecified (principal); R07.9 Chest pain, unspecified; I10 Essential (primary) hypertension; I25.2 Old myocardial infarction; E78.5 Hyperlipidemia, unspecified; E11.9 Type 2 diabetes mellitus without complications; R06.02 Shortness of breath; F17.210 Nicotine dependence, cigarettes, uncomplicated
CPT/HCPCS: 78452; 93005; 96374; 96375; A9500; J0153

== ENCOUNTER 2022-05-27 12:15 | Inpatient (IN) | payer MEDICARE, MEDICAID ==
[~2022-05-27] VITALS: Ht 167.6 cm; Wt 94.0 kg
[~2022-05-27 12:15] MED LIST changes: -ADENOSINE 74 MG in GIVE UN-DILUTED 0 ML IV ONE; -ADENOSINE 90 MG/30 ML INJ IV ONE
[2022-05-27] MEDS ORDERED: SODIUM CHLORIDE 0.9% 1,000 ML IV ONE ×2 (12:30)
[2022-05-27] MEDS ORDERED: AZITHROMYCIN 500MG/ 250ML 250 ML IV ONE (13:00)
[2022-05-27] MEDS ORDERED: cefTRIAXone 1GM/50ML D5W 50 ML IV ONE (13:00)
[2022-05-27 13:31] LABS: Urine Bacteria MANY /hpf (None Seen); Urine Blood 2+ /uL (Negative); Urine Mucus FEW (None Seen); Urine Specific Gravity 1.018 (1.001-1.035); Urine WBC 140 /hpf (0 - 5)
[2022-05-27 13:38] LABS: Basophils # (auto) 0 10 ^3/uL (0-0.2); Eosinophils # (auto) 0 10 ^3/uL (0-0.8); Eosinophils % (auto) 0.1 % (0.0-7.0); Hematocrit 21.2 % (36.0-46.0); Lymphocytes # (auto) 0.4 10 ^3/uL (0.4-5.4); Lymphocytes % (auto) 5.1 % (10.0-50.0); Mean Corpuscular Hgb Conc. 32.6 g/dL (32.0-36.0); Red Blood Cells 2.19 10^6/uL (4.0-5.20)
[2022-05-27 13:40] LABS: Basophils % (auto) 0.3 % (0.0-2.0); Mean Corpuscular Hemoglobin 31.5 pg (28.0-32.0); Mean Corpuscular Volume 96.8 fL (80.0-100.0); Monocytes # (auto) 0.3 10 ^3/uL (0-1.3); Monocytes % (auto) 3.6 % (0.0-12.0); Neutrophils # (auto) 6.4 10 ^3/uL (1.6-8.6); Neutrophils % (auto) 90.9 % (37.0-80.0); Red Cell Distribution Width 14.2 % (11.8-14.3)
[2022-05-27 13:45] LABS: Alcohol, Urine < 3.0 mg/dL (0-10); Amphetamine Screen, Urine NEGATIVE (NEGATIVE); Barbiturate Scree,Urine NEGATIVE (NEGATIVE); Cannabinoid Screen, Urine NEGATIVE (NEGATIVE); Cocaine Screen, Urine NEGATIVE (NEGATIVE); Opiate Scree,Urine NEGATIVE (NEGATIVE); Phencyclidine Screen, Urine NEGATIVE (NEGATIVE)
[2022-05-27 13:48] LABS: Benzodiazephine Screen, Urine NEGATIVE (NEGATIVE)
[2022-05-27 13:48] LABS: Hemoglobin 6.9 g/dL (12.2-16.2)
[2022-05-27 13:55] LABS: Alanine Aminotransferase 8 U/L (13-56); Albumin 1.2 g/dL (3.4-5.0); Anion Gap 9 (5-15); Aspartate Aminotransferase 5 U/L (15-37); BUN/Creatinine Ratio 70.6; Blood Alcohol < 3.0 mg/dL (0-5); Blood Urea Nitrogen 12 mg/dL (7-18); Chloride 134 mmol/L (98-107); GFR African American 545 mL/min; GFR Non-African American 450 mL/min; Glucose 115 mg/dL (74-106); Sodium 152 mmol/L (136-145)
[2022-05-27 13:58] LABS: Alkaline Phosphatase 23 U/L (45-117); Bilirubin, Total 0.3 mg/dL (0.2-1.0); Total Protein 2.8 g/dL (6.4-8.2)
[2022-05-27 14:15] LABS: Calcium < 5.0 mg/dL (8.5-10.1); Carbon Dioxide 9 mmol/L (21-32); Magnesium 0.8 mg/dL (1.6-2.6); Potassium 1.6 mmol/L (3.5-5.1)
[2022-05-27] MEDS ORDERED: POTASSIUM CHL 20 Meq TABLET PO ONE (14:15)
[2022-05-27] MEDS ORDERED: POTASSIUM CHL 20MEQ/100ML 100 ML IV ONE (14:15)
[2022-05-27] MEDS: MAGNESIUM SULFATE 1GM/100ML 100 ML IV SCH ×2 (14:37→15:21)
[2022-05-27] MEDS ORDERED: ACETAMINOPHEN 325 MG TAB PO PRN (16:00)
[2022-05-27] MEDS ORDERED: ONDANSETRON HCL 4 MG/2 ML VIAL IV PRN (16:00)
[2022-05-27] MEDS ORDERED: MORPHINE SULFATE INJ 2 MG/ml SYRG IV PRN (16:00)
[2022-05-27] MEDS ORDERED: HYDROmorphone HCL 2 MG/ML VL/or syr IV PRN (16:00)
[2022-05-27] MEDS ORDERED: DOCUSATE SOD 100 MG CAP PO PRN (16:00)
[2022-05-27] MEDS ORDERED: NITROGLYCERIN 0.4 MG SL TAB SL PRN (16:00)
[2022-05-27] MEDS ORDERED: ENOXAPARIN SOD 40 MG/0.4 ML SYRINGE SC ONE (17:15)
[2022-05-27] MEDS ORDERED: VANCOMYCIN PER PHARMACY 0 MG IV SCH (17:30)
[2022-05-27] MEDS ORDERED: CALCIUM ACETATE 667 MG CAP PO ONE (17:30)
[2022-05-27] MEDS ORDERED: VANCOMYCIN 1GM/250ML 250 ML IV ONE (17:45)
[2022-05-27] MEDS ORDERED: PIPERACILLIN-TAZOB 3.375GM 100 ML IV SCH (18:00)
[2022-05-27 18:12] VITALS: BP 102/45
[2022-05-27] MEDS: metFORMIN HYDROCHLORIDE 500 MG TAB PO SCH (18:21)
[2022-05-27 18:27] VITALS: BP 120/58
[2022-05-27 18:41] LABS: BUN/Creatinine Ratio 19.1; Calcium 8.5 mg/dL (8.5-10.1); Magnesium 2.7 mg/dL (1.6-2.6); Potassium 4.3 mmol/L (3.5-5.1)
[2022-05-27 21:17] VITALS: BP 131/63
[2022-05-27] MEDS: CEFEPIME 1GM/ 50ML 50 ML IV SCH (22:00)
[2022-05-27] MEDS: ATORVASTATIN 20 MG TAB PO SCH (22:02)
[2022-05-27] MEDS: GABAPENTIN 300 MG CAP PO SCH (22:04)
[2022-05-27] MEDS: OXYBUTYNIN CHL 5 MG TAB PO SCH (22:05)
[2022-05-27] MEDS: SODIUM CHLOR 0.9% PF (SALINE LOCK) 10ML VIAL/SYR IV SCH (22:05)
[2022-05-27 22:18] LABS: Calcium 8.3 mg/dL (8.5-10.1); Magnesium 2.3 mg/dL (1.6-2.6)
[2022-05-27 22:20] LABS: BUN/Creatinine Ratio 20.2
[2022-05-28 01:06] LABS: BUN/Creatinine Ratio 18.8; Calcium 7.7 mg/dL (8.5-10.1); Magnesium 2.2 mg/dL (1.6-2.6); Potassium 3.4 mmol/L (3.5-5.1)
[2022-05-28 01:09] LABS: Hematocrit 39.5 % (36.0-46.0); Hemoglobin 13.3 g/dL (12.2-16.2)
[2022-05-28] MEDS ORDERED: GABAPENTIN 300 MG CAP ONE ×2 (05:21→05:22)
[2022-05-28 05:27] LABS: Calcium 8.3 mg/dL (8.5-10.1); Magnesium 2.2 mg/dL (1.6-2.6); Potassium 3.7 mmol/L (3.5-5.1)
[2022-05-28 05:29] LABS: BUN/Creatinine Ratio 20.2
[2022-05-28] MEDS: GABAPENTIN 300 MG CAP PO SCH ×2 (05:48→14:13)
[2022-05-28] MEDS: CEFEPIME 1GM/ 50ML 50 ML IV SCH ×5 (05:51→22:39)
[2022-05-28] MEDS: SODIUM CHLOR 0.9% PF (SALINE LOCK) 10ML VIAL/SYR IV SCH ×3 (05:55→22:37)
[2022-05-28] MEDS: metFORMIN HYDROCHLORIDE 500 MG TAB PO SCH ×2 (07:00→17:40)
[2022-05-28] MEDS: VANCOMYCIN 1GM/250ML 250 ML IV SCH ×2 (08:23→22:37)
[2022-05-28] MEDS: HYDROcodone-ACET 5/325MG TAB PO PRN ×2 (08:52→15:12)
[2022-05-28 09:04] LABS: BUN/Creatinine Ratio 19.3; Calcium 8.2 mg/dL (8.5-10.1); Magnesium 2.2 mg/dL (1.6-2.6); Potassium 3.7 mmol/L (3.5-5.1)
[2022-05-28] MEDS: ATENOLOL 50 MG TAB PO SCH (10:00)
[2022-05-28] MEDS: ASPirin-EC 81 mg tab PO SCH (10:13)
[2022-05-28] MEDS: OXYBUTYNIN CHL 5 MG TAB PO SCH ×2 (10:13→22:38)
[2022-05-28] MEDS ORDERED: D5W/SOD CHL 0.45% 1,000 ML IV ONE (21:15)
[2022-05-28 22:00] VITALS: BP 140/65
[2022-05-28 22:24] LABS: Basophils # (auto) 0 10 ^3/uL (0-0.2); Basophils % (auto) 0.8 % (0.0-2.0); Eosinophils # (auto) 0.2 10 ^3/uL (0-0.8); Eosinophils % (auto) 3.1 % (0.0-7.0); Hematocrit 40.7 % (36.0-46.0); Hemoglobin 13.5 g/dL (12.2-16.2); Lymphocytes # (auto) 0.9 10 ^3/uL (0.4-5.4); Lymphocytes % (auto) 15.4 % (10.0-50.0); Mean Corpuscular Hemoglobin 31.5 pg (28.0-32.0); Mean Corpuscular Hgb Conc. 33.1 g/dL (32.0-36.0); Mean Corpuscular Volume 95.3 fL (80.0-100.0); Monocytes # (auto) 0.4 10 ^3/uL (0-1.3); Monocytes % (auto) 6.1 % (0.0-12.0); Neutrophils # (auto) 4.5 10 ^3/uL (1.6-8.6); Neutrophils % (auto) 74.6 % (37.0-80.0); Nucleated Red Blood Cells % 0.1 %; Red Blood Cells 4.27 10^6/uL (4.0-5.20); Red Cell Distribution Width 14.5 % (11.8-14.3)
[2022-05-28] MEDS: ATORVASTATIN 20 MG TAB PO SCH (22:38)
[2022-05-29] VITALS (7 sets, daily range): BP systolic 106–159; BP diastolic 57–73
[2022-05-29] MEDS: CEFEPIME 1GM/ 50ML 50 ML IV SCH ×3 (00:25→15:04)
[2022-05-29] MEDS: SODIUM CHLOR 0.9% PF (SALINE LOCK) 10ML VIAL/SYR IV SCH ×3 (05:00→22:00)
[2022-05-29 05:08] LABS: Basophils # (auto) 0.1 10 ^3/uL (0-0.2); Basophils % (auto) 0.9 % (0.0-2.0); Eosinophils # (auto) 0.2 10 ^3/uL (0-0.8); Eosinophils % (auto) 3.1 % (0.0-7.0); Hematocrit 39.3 % (36.0-46.0); Hemoglobin 13.2 g/dL (12.2-16.2); Lymphocytes # (auto) 1.2 10 ^3/uL (0.4-5.4); Lymphocytes % (auto) 20.1 % (10.0-50.0); Mean Corpuscular Hemoglobin 31.9 pg (28.0-32.0); Mean Corpuscular Hgb Conc. 33.6 g/dL (32.0-36.0); Mean Corpuscular Volume 94.9 fL (80.0-100.0); Monocytes # (auto) 0.4 10 ^3/uL (0-1.3); Monocytes % (auto) 6.7 % (0.0-12.0); Neutrophils % (auto) 69.2 % (37.0-80.0); Nucleated Red Blood Cells % 0.1 %; Red Blood Cells 4.14 10^6/uL (4.0-5.20); Red Cell Distribution Width 14.3 % (11.8-14.3); White Blood Cell 5.8 10^3/uL (4.4-10.8)
[2022-05-29 05:27] LABS: Albumin 2.8 g/dL (3.4-5.0); Calcium 8.2 mg/dL (8.5-10.1); Potassium 3.8 mmol/L (3.5-5.1)
[2022-05-29 05:31] LABS: BUN/Creatinine Ratio 18.4; Bilirubin, Total 0.5 mg/dL (0.2-1.0); Total Protein 6.9 g/dL (6.4-8.2)
[2022-05-29] MEDS: ASPirin-EC 81 mg tab PO SCH (09:46)
[2022-05-29] MEDS: OXYBUTYNIN CHL 5 MG TAB PO SCH (09:46)
[2022-05-29] MEDS: ATENOLOL 50 MG TAB PO SCH (09:47)
[2022-05-29] MEDS ORDERED: DEXTROSE (50%) 50ML SYRG IV PRN (10:45)
[2022-05-29] MEDS: InsuLIN REG 1unit/0.01ml Soln (100units/ml) SC SCH ×2 (12:00→18:31)
[2022-05-29] MEDS: ACCU-CHEK COMFORT CURVE STRIP VI SCH ×2 (12:13→18:05)
[2022-05-29] MEDS: VANCOMYCIN 1GM/250ML 250 ML IV SCH (12:13)
[2022-05-29] MEDS ORDERED: LORazepam 2MG/ML-1ML VIAL IV ONE (17:45)
[2022-05-30] MEDS: OXYBUTYNIN CHL 5 MG TAB PO SCH ×3 (00:23→21:09)
[2022-05-30] MEDS: ATORVASTATIN 20 MG TAB PO SCH ×2 (00:23→21:09)
[2022-05-30] MEDS: ACCU-CHEK COMFORT CURVE STRIP VI SCH ×5 (00:25→23:56)
[2022-05-30] MEDS: InsuLIN REG 1unit/0.01ml Soln (100units/ml) SC SCH ×4 (00:32→18:16)
[2022-05-30 05:00] VITALS: BP 144/76
[2022-05-30] MEDS: SODIUM CHLOR 0.9% PF (SALINE LOCK) 10ML VIAL/SYR IV SCH ×3 (06:00→21:09)
[2022-05-30] MEDS: CEFEPIME 1GM/ 50ML 50 ML IV SCH ×4 (06:00→23:56)
[2022-05-30 08:00] VITALS: BP 129/69
[2022-05-30] MEDS ORDERED: CEFEPIME 1GM/ 50ML 50 ML IV ONE (09:15)
[2022-05-30 09:19] VITALS: BP 157/73
[2022-05-30] MEDS: ATENOLOL 50 MG TAB PO SCH (10:04)
[2022-05-30] MEDS: ASPirin-EC 81 mg tab PO SCH (10:04)
[2022-05-30 13:00] VITALS: BP 145/86
[2022-05-30 16:24] VITALS: BP 167/85
[2022-05-30] MEDS ORDERED: hydrALAZINE HCL 20 MG/ML VL IV PRN (17:00)
[2022-05-30] MEDS ORDERED: DEXTROSE (50%) 50ML SYRG IV PRN (17:00)
[2022-05-30] MEDS ORDERED: LOSARTAN POTASSIUM 50 MG TAB PO ONE (17:00)
[2022-05-30] MEDS ORDERED: IOHEXOL 300 MG/ML 100ML BOTTLE IJ ONE (20:24)
[2022-05-30] MEDS: GABAPENTIN 300 MG CAP PO SCH (21:09)
[2022-05-31] VITALS (7 sets, daily range): BP systolic 117–167; BP diastolic 58–85
[2022-05-31] MEDS: InsuLIN REG 1unit/0.01ml Soln (100units/ml) SC SCH ×4 (00:30→18:06)
[2022-05-31] MEDS: GABAPENTIN 300 MG CAP PO SCH ×2 (05:16→14:07)
[2022-05-31] MEDS: ACCU-CHEK COMFORT CURVE STRIP VI SCH ×3 (05:16→18:04)
[2022-05-31] MEDS: SODIUM CHLOR 0.9% PF (SALINE LOCK) 10ML VIAL/SYR IV SCH ×2 (05:25→14:07)
[2022-05-31] MEDS: CEFEPIME 1GM/ 50ML 50 ML IV SCH ×3 (08:16→16:00)
[2022-05-31] MEDS: OXYBUTYNIN CHL 5 MG TAB PO SCH (08:19)
[2022-05-31] MEDS: ASPirin-EC 81 mg tab PO SCH (08:20)
[2022-05-31] MEDS: ATENOLOL 50 MG TAB PO SCH (08:20)
[2022-05-31] MEDS ORDERED: LOSARTAN POTASSIUM 50 MG TAB PO SCH (10:00)
[2022-05-31] MEDS ORDERED: CEPH-322 PO (16:18)
[2022-05-31] MEDS ORDERED: LOSA-69 PO (16:18)
== END 2022-05-31 19:08 | disposition home or self-care (01) | DRG 871 ==
LOC: EDUNIT# 12:15 → EDBD 12:15 → ER 12:15 → TELE 15:52 → TELE-WESTW 05-28 21:48
PROVIDERS: ADMIT Internal Medicine; ATTEND Internal Medicine Nephrology
PROC: 30233N1 Transfusion of Nonautologous Red Blood Cells into Peripheral Vein, Percutaneous Approach (ICD-10-PCS; principal; 2022-05-27)
DX: A41.9 Sepsis, unspecified organism (principal); I21.4 Non-ST elevation (NSTEMI) myocardial infarction; J15.6 Pneumonia due to other Gram-negative bacteria; G93.40 Encephalopathy, unspecified; N39.0 Urinary tract infection, site not specified; N17.9 Acute kidney failure, unspecified; E87.1 Hypo-osmolality and hyponatremia; D64.9 Anemia, unspecified; F17.210 Nicotine dependence, cigarettes, uncomplicated; I10 Essential (primary) hypertension; E87.6 Hypokalemia; E83.42 Hypomagnesemia; E11.65 Type 2 diabetes mellitus with hyperglycemia; E11.42 Type 2 diabetes mellitus with diabetic polyneuropathy; E83.51 Hypocalcemia; E86.1 Hypovolemia; L03.031 Cellulitis of right toe; Z20.822 Contact with and (suspected) exposure to COVID-19; L97.509 Non-pressure chronic ulcer of other part of unspecified foot with unspecified severity; E11.621 Type 2 diabetes mellitus with foot ulcer; I20.9 Angina pectoris, unspecified; K52.9 Noninfective gastroenteritis and colitis, unspecified; Z79.82 Long term (current) use of aspirin; Z79.899 Other long term (current) drug therapy; Z79.891 Long term (current) use of opiate analgesic; Z86.73 Personal history of transient ischemic attack (TIA), and cerebral infarction without residual deficits; Z90.49 Acquired absence of other specified parts of digestive tract; Z82.49 Family history of ischemic heart disease and other diseases of the circulatory system; Z83.3 Family history of diabetes mellitus; Z87.440 Personal history of urinary (tract) infections; Z91.19 Patient's noncompliance with other medical treatment and regimen
CPT/HCPCS: 36415; 36430; 36600; 70450; 71045; 74176; 74178; 76775; 80048; 80053; 80202; 80307; 80320; 81001; 82565; 82805; 82962; 83036; 83605; 83735; 84484; 85014; 85018; 85025; 86850; 86900; 86901; 86920; 87040; 87086; 93005; 93306; 96360; 96361; 99291; G0378; J0696; J1815; J3480

== ENCOUNTER 2022-06-25 14:01 | Inpatient (IN) | payer MEDICARE, MEDICAID ==
[~2022-06-25] VITALS: Ht 167.6 cm; Wt 89.8 kg
[~2022-06-25 14:01] MED LIST changes: +CEPH-322 PO; +LOSA-69 PO
[2022-06-25 16:36] LABS: Basophils # (auto) 0 10 ^3/uL (0-0.2); Basophils % (auto) 0.3 % (0.0-2.0); Eosinophils # (auto) 0 10 ^3/uL (0-0.8); Eosinophils % (auto) 0.1 % (0.0-7.0); Hematocrit 43.6 % (36.0-46.0); Lymphocytes # (auto) 0.3 10 ^3/uL (0.4-5.4); Lymphocytes % (auto) 2.9 % (10.0-50.0); Mean Corpuscular Hemoglobin 30.8 pg (28.0-32.0); Mean Corpuscular Hgb Conc. 32.1 g/dL (32.0-36.0); Monocytes # (auto) 0.5 10 ^3/uL (0-1.3); Monocytes % (auto) 3.9 % (0.0-12.0); Neutrophils # (auto) 11.2 10 ^3/uL (1.6-8.6); Neutrophils % (auto) 92.8 % (37.0-80.0); Red Blood Cells 4.54 10^6/uL (4.0-5.20); Red Cell Distribution Width 13.8 % (11.8-14.3); White Blood Cell 12.1 10^3/uL (4.4-10.8)
[2022-06-25 16:50] LABS: Albumin 3.2 g/dL (3.4-5.0); Calcium 8.7 mg/dL (8.5-10.1); Magnesium 2.5 mg/dL (1.6-2.6); Potassium 3.7 mmol/L (3.5-5.1)
[2022-06-25 16:51] LABS: Partial Thromboplastin Time 28.2 sec (24.6-33.4)
[2022-06-25 16:53] LABS: Bilirubin, Total 1.2 mg/dL (0.2-1.0); Total Protein 8.3 g/dL (6.4-8.2)
[2022-06-25] MEDS ORDERED: SODIUM CHLORIDE 0.9% 1,000 ML IV ONE (21:45)
[2022-06-25] MEDS ORDERED: VANCOMYCIN 1GM/250ML 250 ML IV ONE (21:45)
[2022-06-25] MEDS ORDERED: ASPirin 325 MG TAB PO ONE (22:00)
[2022-06-25] MEDS ORDERED: HEPARIN DRIP/D5W 100UNITS/ML 250 ML IV SCH (22:00)
[2022-06-26 00:59] LABS: Basophils # (auto) 0 10 ^3/uL (0-0.2); Basophils % (auto) 0.3 % (0.0-2.0); Eosinophils # (auto) 0 10 ^3/uL (0-0.8); Eosinophils % (auto) 0.2 % (0.0-7.0); Hemoglobin 13.5 g/dL (12.2-16.2); Lymphocytes # (auto) 0.7 10 ^3/uL (0.4-5.4); Lymphocytes % (auto) 6.3 % (10.0-50.0); Mean Corpuscular Hemoglobin 32.4 pg (28.0-32.0); Mean Corpuscular Hgb Conc. 33.6 g/dL (32.0-36.0); Mean Corpuscular Volume 96.3 fL (80.0-100.0); Monocytes # (auto) 0.6 10 ^3/uL (0-1.3); Monocytes % (auto) 4.7 % (0.0-12.0); Neutrophils # (auto) 10.4 10 ^3/uL (1.6-8.6); Neutrophils % (auto) 88.5 % (37.0-80.0); Nucleated Red Blood Cells % 0.1 %; Red Blood Cells 4.16 10^6/uL (4.0-5.20); Red Cell Distribution Width 14.1 % (11.8-14.3); White Blood Cell 11.8 10^3/uL (4.4-10.8)
[2022-06-26 02:52] LABS: Urine Bacteria MOD /hpf (None Seen); Urine Blood 1+ /uL (Negative); Urine Mucus FEW (None Seen); Urine Specific Gravity 1.018 (1.001-1.035); Urine WBC 364 /hpf (0 - 5); Urine WBC Clumps PRESENT /hpf (None Seen)
[2022-06-26] MEDS ORDERED: DEXTROSE (50%) 50ML SYRG IV PRN ×2 (03:15→14:15)
[2022-06-26] MEDS ORDERED: MORPHINE SULFATE INJ 2 MG/ml SYRG IV PRN (03:15)
[2022-06-26] MEDS ORDERED: ACETAMINOPHEN 325 MG TAB PO PRN (03:15)
[2022-06-26] MEDS ORDERED: ONDANSETRON HCL 4 MG/2 ML VIAL IV PRN (03:15)
[2022-06-26] MEDS ORDERED: NITROGLYCERIN 0.4 MG SL TAB SL PRN (03:15)
[2022-06-26] MEDS: ACCU-CHEK COMFORT CURVE STRIP VI SCH ×3 (06:48→18:00)
[2022-06-26] MEDS: CLINDAMYCIN 600MG IV 50 ML IV SCH ×2 (06:52→14:59)
[2022-06-26] MEDS: InsuLIN REG 1unit/0.01ml Soln (100units/ml) SC SCH ×3 (06:53→18:00)
[2022-06-26 09:00] VITALS: BP 132/68
[2022-06-26] MEDS ORDERED: ASPirin 81 mg TAB PO SCH (10:00)
[2022-06-26] MEDS ORDERED: ATENOLOL 50 MG TAB PO SCH (10:00)
[2022-06-26] MEDS: cefTRIAXone 1GM/50ML D5W 50 ML IV SCH (10:15)
[2022-06-26] MEDS: HYDROcodone-ACET 5/325MG TAB PO PRN (11:25)
[2022-06-26] MEDS: PANTOPRAZOLE 40 MG TAB PO SCH (11:25)
[2022-06-26 13:00] VITALS: BP 125/64
[2022-06-26] MEDS: SODIUM CHLORIDE 0.9% 1,000 ML IV SCH (14:15)
[2022-06-26] MEDS ORDERED: EMPA1TAB3 PO (14:28)
[2022-06-26] MEDS ORDERED: VANCOMYCIN PER PHARMACY 0 MG IV SCH (15:45)
[2022-06-26] MEDS ORDERED: VANCOMYCIN 1GM/250ML 250 ML IV ONE (17:00)
[2022-06-26 17:14] VITALS: BP 96/57
[2022-06-26 22:00] VITALS: BP 143/71
[2022-06-26] MEDS: ATORVASTATIN 20 MG TAB PO SCH (22:06)
[2022-06-26] MEDS: metroNIDAZOLE 500 MG TAB PO SCH (22:06)
[2022-06-26] MEDS: INSULIN LANTUS (GLARGINE) 1 /0.01ml (100units/ml) SC SCH (22:07)
[2022-06-27] MEDS: ACCU-CHEK COMFORT CURVE STRIP VI SCH ×4 (00:04→17:25)
[2022-06-27] MEDS: InsuLIN REG 1unit/0.01ml Soln (100units/ml) SC SCH ×4 (00:07→17:29)
[2022-06-27] MEDS: SODIUM CHLORIDE 0.9% 1,000 ML IV SCH ×2 (04:41→09:30)
[2022-06-27 05:00] VITALS: BP 123/54
[2022-06-27 06:05] LABS: Basophils # (auto) 0 10 ^3/uL (0-0.2); Basophils % (auto) 0.3 % (0.0-2.0); Eosinophils # (auto) 0.1 10 ^3/uL (0-0.8); Eosinophils % (auto) 0.5 % (0.0-7.0); Hematocrit 41.1 % (36.0-46.0); Hemoglobin 13.2 g/dL (12.2-16.2); Lymphocytes # (auto) 1.1 10 ^3/uL (0.4-5.4); Lymphocytes % (auto) 9.2 % (10.0-50.0); Mean Corpuscular Hemoglobin 31.1 pg (28.0-32.0); Mean Corpuscular Hgb Conc. 32.2 g/dL (32.0-36.0); Mean Corpuscular Volume 96.5 fL (80.0-100.0); Monocytes # (auto) 0.9 10 ^3/uL (0-1.3); Monocytes % (auto) 7.9 % (0.0-12.0); Neutrophils # (auto) 9.6 10 ^3/uL (1.6-8.6); Neutrophils % (auto) 82.1 % (37.0-80.0); Nucleated Red Blood Cells % 0.2 %; Red Blood Cells 4.26 10^6/uL (4.0-5.20); Red Cell Distribution Width 13.6 % (11.8-14.3); White Blood Cell 11.7 10^3/uL (4.4-10.8)
[2022-06-27] MEDS: metroNIDAZOLE 500 MG TAB PO SCH ×3 (06:15→22:25)
[2022-06-27 06:32] LABS: Alanine Aminotransferase 15 U/L (13-56); Albumin 2.6 g/dL (3.4-5.0); Anion Gap 14 (5-15); BUN/Creatinine Ratio 27.1; Blood Urea Nitrogen 26 mg/dL (7-18); Calcium 8.3 mg/dL (8.5-10.1); Carbon Dioxide 17 mmol/L (21-32); Chloride 97 mmol/L (98-107); GFR African American 74 mL/min; GFR Non-African American 61 mL/min; Glucose 96 mg/dL (74-106); Potassium 3.3 mmol/L (3.5-5.1); Sodium 128 mmol/L (136-145)
[2022-06-27 06:35] LABS: Alkaline Phosphatase 91 U/L (45-117); Aspartate Aminotransferase 17 U/L (15-37); Bilirubin, Total 0.7 mg/dL (0.2-1.0); Total Protein 7.5 g/dL (6.4-8.2)
[2022-06-27] MEDS: cefTRIAXone 1GM/50ML D5W 50 ML IV SCH (08:18)
[2022-06-27 08:30] VITALS: BP 115/52
[2022-06-27] MEDS: PANTOPRAZOLE 40 MG TAB PO SCH (09:29)
[2022-06-27] MEDS: ASPirin 81 mg TAB PO SCH (09:29)
[2022-06-27 10:20] VITALS: BP 130/80
[2022-06-27 12:30] VITALS: BP 141/69
[2022-06-27] MEDS ORDERED: LIDOCAINE HCL 1 % PF INJ 2ML AMP IJ ONE (12:30)
[2022-06-27] MEDS: VANCOMYCIN 1GM/250ML 250 ML IV SCH (14:01)
[2022-06-27] MEDS ORDERED: LIDOCAINE 1% (LOCAL ANESTH.) PF 5ml SDV IJ ONE (16:00)
[2022-06-27] MEDS: POTASSIUM CHL 20MEQ/100ML 100 ML IV SCH ×2 (16:11→18:28)
[2022-06-27 16:20] VITALS: BP 129/70
[2022-06-27 22:00] VITALS: BP 130/59
[2022-06-27] MEDS: HYDROcodone-ACET 5/325MG TAB PO PRN (22:25)
[2022-06-27] MEDS: ATORVASTATIN 20 MG TAB PO SCH (22:26)
[2022-06-27] MEDS: INSULIN LANTUS (GLARGINE) 1 /0.01ml (100units/ml) SC SCH (22:35)
[2022-06-28] MEDS: ACCU-CHEK COMFORT CURVE STRIP VI SCH ×4 (01:26→17:43)
[2022-06-28] MEDS: InsuLIN REG 1unit/0.01ml Soln (100units/ml) SC SCH ×4 (01:27→17:42)
[2022-06-28 05:00] VITALS: BP 104/44
[2022-06-28] MEDS: metroNIDAZOLE 500 MG TAB PO SCH ×3 (06:27→22:50)
[2022-06-28] MEDS: VANCOMYCIN 1GM/250ML 250 ML IV SCH (07:53)
[2022-06-28 08:00] VITALS: BP 117/80
[2022-06-28 09:00] VITALS: BP 123/62
[2022-06-28] MEDS: PANTOPRAZOLE 40 MG TAB PO SCH (09:46)
[2022-06-28] MEDS: cefTRIAXone 1GM/50ML D5W 50 ML IV SCH (09:46)
[2022-06-28] MEDS: ASPirin 81 mg TAB PO SCH (09:46)
[2022-06-28 13:00] VITALS: BP 131/72
[2022-06-28 17:00] VITALS: BP 113/65
[2022-06-28] MEDS: HYDROcodone-ACET 5/325MG TAB PO PRN (20:22)
[2022-06-28 22:00] VITALS: BP 109/51
[2022-06-28] MEDS: ATORVASTATIN 20 MG TAB PO SCH (22:50)
[2022-06-28] MEDS: INSULIN LANTUS (GLARGINE) 1 /0.01ml (100units/ml) SC SCH (22:57)
[2022-06-29] MEDS: ACCU-CHEK COMFORT CURVE STRIP VI SCH ×5 (01:00→23:07)
[2022-06-29] MEDS: InsuLIN REG 1unit/0.01ml Soln (100units/ml) SC SCH ×5 (01:02→23:23)
[2022-06-29] MEDS: VANCOMYCIN 1GM/250ML 250 ML IV SCH ×2 (02:27→22:36)
[2022-06-29 05:00] VITALS: BP 123/53
[2022-06-29] MEDS: metroNIDAZOLE 500 MG TAB PO SCH ×3 (06:04→22:37)
[2022-06-29] MEDS: HYDROcodone-ACET 5/325MG TAB PO PRN ×2 (06:09→14:09)
[2022-06-29 09:00] VITALS: BP 126/59
[2022-06-29] MEDS: cefTRIAXone 1GM/50ML D5W 50 ML IV SCH (10:23)
[2022-06-29] MEDS: ASPirin 81 mg TAB PO SCH (10:24)
[2022-06-29 17:00] VITALS: BP 132/61
[2022-06-29 22:00] VITALS: BP 118/63
[2022-06-29] MEDS: ATORVASTATIN 20 MG TAB PO SCH (22:37)
[2022-06-29] MEDS: INSULIN LANTUS (GLARGINE) 1 /0.01ml (100units/ml) SC SCH (23:22)
[2022-06-30] MEDS: HYDROcodone-ACET 5/325MG TAB PO PRN ×3 (01:10→20:37)
[2022-06-30 05:00] VITALS: BP 122/66
[2022-06-30 05:01] LABS: Hematocrit 37.6 % (36.0-46.0); Hemoglobin 12.8 g/dL (12.2-16.2); Mean Corpuscular Hemoglobin 32.3 pg (28.0-32.0); Mean Corpuscular Hgb Conc. 34.2 g/dL (32.0-36.0); Mean Corpuscular Volume 94.3 fL (80.0-100.0); Red Blood Cells 3.98 10^6/uL (4.0-5.20); Red Cell Distribution Width 13.8 % (11.8-14.3); White Blood Cell 9.6 10^3/uL (4.4-10.8)
[2022-06-30 05:24] LABS: Basophils % (manual) 0 (0.0-2.0); Blast Cells 0; Promyelocytes % 0; Reactive Lymphocytes 0
[2022-06-30] MEDS: ACCU-CHEK COMFORT CURVE STRIP VI SCH ×4 (06:06→23:29)
[2022-06-30] MEDS: InsuLIN REG 1unit/0.01ml Soln (100units/ml) SC SCH ×5 (06:12→23:41)
[2022-06-30] MEDS: metroNIDAZOLE 500 MG TAB PO SCH ×3 (06:13→23:29)
[2022-06-30 07:05] LABS: Band Neutrophils % (manual) 5; Eosinophils % (manual) 1 (0-7); Lymphocytes % (manual) 15 (10.0-50.0); Metamyelocytes % 2; Monocytes % (manual) 6 (0-12); Myelocytes % 1
[2022-06-30 09:00] VITALS: BP 116/78
[2022-06-30 09:04] LABS: Potassium 3.7 mmol/L (3.5-5.1)
[2022-06-30 09:13] LABS: Calcium 9.2 mg/dL (8.5-10.1)
[2022-06-30] MEDS: cefTRIAXone 1GM/50ML D5W 50 ML IV SCH (09:23)
[2022-06-30] MEDS: ASPirin 81 mg TAB PO SCH (09:23)
[2022-06-30 13:00] VITALS: BP 129/59
[2022-06-30] MEDS: VANCOMYCIN 1GM/250ML 250 ML IV SCH (16:28)
[2022-06-30 17:00] VITALS: BP 163/80
[2022-06-30 22:00] VITALS: BP 148/74
[2022-06-30] MEDS: ATORVASTATIN 20 MG TAB PO SCH (23:29)
[2022-06-30] MEDS: INSULIN LANTUS (GLARGINE) 1 /0.01ml (100units/ml) SC SCH (23:41)
[2022-07-01] VITALS (7 sets, daily range): BP systolic 125–149; BP diastolic 60–78
[2022-07-01] MEDS: HYDROcodone-ACET 5/325MG TAB PO PRN ×3 (02:41→22:07)
[2022-07-01] MEDS: InsuLIN REG 1unit/0.01ml Soln (100units/ml) SC SCH ×3 (06:00→17:23)
[2022-07-01] MEDS: metroNIDAZOLE 500 MG TAB PO SCH ×3 (06:00→22:06)
[2022-07-01] MEDS: ACCU-CHEK COMFORT CURVE STRIP VI SCH ×3 (06:19→17:22)
[2022-07-01 07:04] LABS: Potassium 3.2 mmol/L (3.5-5.1)
[2022-07-01 07:09] LABS: BUN/Creatinine Ratio 16.7; Calcium 8.8 mg/dL (8.5-10.1)
[2022-07-01] MEDS: VANCOMYCIN 1GM/250ML 250 ML IV SCH (08:00)
[2022-07-01] MEDS: cefTRIAXone 1GM/50ML D5W 50 ML IV SCH (09:00)
[2022-07-01] MEDS: ASPirin 81 mg TAB PO SCH (10:00)
[2022-07-01] MEDS ORDERED: fentaNYL CITRATE 100 MCG/2 ML VL ONE (13:14)
[2022-07-01] MEDS ORDERED: ANGIOMAX 250 MG VIAL IV ONE (13:14)
[2022-07-01] MEDS ORDERED: SODIUM CHL 0.9% 0 ML ONE (13:15)
[2022-07-01] MEDS ORDERED: MIDAZOLAM HCL 2MG/2ML 2ml VIAL (1mg/ml) ONE (13:15)
[2022-07-01] MEDS ORDERED: LIDOCAINE 2%HCL (LOCAL ANESTH.) INJ 10ml MDV ONE ×2 (13:20→13:23)
[2022-07-01] MEDS: ATORVASTATIN 20 MG TAB PO SCH (22:05)
[2022-07-01] MEDS: INSULIN LANTUS (GLARGINE) 1 /0.01ml (100units/ml) SC SCH (22:06)
[2022-07-01] MEDS: ASCORBIC ACID 500 MG TAB PO SCH (22:06)
[2022-07-02] MEDS: ACCU-CHEK COMFORT CURVE STRIP VI SCH ×5 (00:18→22:31)
[2022-07-02] MEDS: InsuLIN REG 1unit/0.01ml Soln (100units/ml) SC SCH ×5 (00:18→22:32)
[2022-07-02] MEDS: VANCOMYCIN 1GM/250ML 250 ML IV SCH ×2 (02:27→20:21)
[2022-07-02 05:00] VITALS: BP 128/66
[2022-07-02] MEDS: metroNIDAZOLE 500 MG TAB PO SCH ×3 (06:55→22:18)
[2022-07-02 09:00] VITALS: BP 103/62
[2022-07-02] MEDS: cefTRIAXone 1GM/50ML D5W 50 ML IV SCH (09:40)
[2022-07-02] MEDS: MULTIPLE VITAMIN TAB PO SCH (09:41)
[2022-07-02] MEDS: ASPirin 81 mg TAB PO SCH (09:41)
[2022-07-02] MEDS: ASCORBIC ACID 500 MG TAB PO SCH ×2 (09:41→22:19)
[2022-07-02] MEDS: CHOLECALCIFEROL (VITD3) 2,000 UNIT CAP/TAB PO SCH (09:41)
[2022-07-02] MEDS: ZINC SULFATE 220mg CAP or TAB PO SCH (09:41)
[2022-07-02 13:00] VITALS: BP 121/67
[2022-07-02 16:48] VITALS: BP 140/62
[2022-07-02] MEDS: HYDROcodone-ACET 5/325MG TAB PO PRN (20:25)
[2022-07-02 22:00] VITALS: BP 120/54
[2022-07-02] MEDS: ATORVASTATIN 20 MG TAB PO SCH (22:19)
[2022-07-02] MEDS: INSULIN LANTUS (GLARGINE) 1 /0.01ml (100units/ml) SC SCH (22:31)
[2022-07-03] MEDS: HYDROcodone-ACET 5/325MG TAB PO PRN ×2 (04:45→21:49)
[2022-07-03 05:00] VITALS: BP 123/53
[2022-07-03] MEDS: metroNIDAZOLE 500 MG TAB PO SCH ×3 (06:12→21:49)
[2022-07-03] MEDS: ACCU-CHEK COMFORT CURVE STRIP VI SCH ×4 (06:12→23:49)
[2022-07-03] MEDS: InsuLIN REG 1unit/0.01ml Soln (100units/ml) SC SCH ×4 (06:36→23:49)
[2022-07-03 09:00] VITALS: BP 124/66
[2022-07-03] MEDS: ZINC SULFATE 220mg CAP or TAB PO SCH (09:31)
[2022-07-03] MEDS: cefTRIAXone 1GM/50ML D5W 50 ML IV SCH (09:31)
[2022-07-03] MEDS: MULTIPLE VITAMIN TAB PO SCH (09:31)
[2022-07-03] MEDS: ASPirin 81 mg TAB PO SCH (09:31)
[2022-07-03] MEDS: CHOLECALCIFEROL (VITD3) 2,000 UNIT CAP/TAB PO SCH (09:32)
[2022-07-03] MEDS: ASCORBIC ACID 500 MG TAB PO SCH (09:32)
[2022-07-03] MEDS ORDERED: METR500T PO (12:29)
[2022-07-03 12:53] VITALS: BP 124/78
[2022-07-03 14:19] LABS: Basophils # (auto) 0 10 ^3/uL (0-0.2); Basophils % (auto) 0.7 % (0.0-2.0); Eosinophils # (auto) 0.1 10 ^3/uL (0-0.8); Eosinophils % (auto) 1.9 % (0.0-7.0); Hematocrit 37.4 % (36.0-46.0); Hemoglobin 12.3 g/dL (12.2-16.2); Lymphocytes % (auto) 15.5 % (10.0-50.0); Mean Corpuscular Hemoglobin 30.7 pg (28.0-32.0); Mean Corpuscular Hgb Conc. 32.8 g/dL (32.0-36.0); Mean Corpuscular Volume 93.7 fL (80.0-100.0); Monocytes # (auto) 0.7 10 ^3/uL (0-1.3); Monocytes % (auto) 10.1 % (0.0-12.0); Neutrophils # (auto) 4.7 10 ^3/uL (1.6-8.6); Neutrophils % (auto) 71.8 % (37.0-80.0); Nucleated Red Blood Cells % 0.2 %; Red Blood Cells 3.99 10^6/uL (4.0-5.20); Red Cell Distribution Width 13.8 % (11.8-14.3); White Blood Cell 6.6 10^3/uL (4.4-10.8)
[2022-07-03] MEDS: VANCOMYCIN 1GM/250ML 250 ML IV SCH (14:23)
[2022-07-03 14:44] LABS: BUN/Creatinine Ratio 13.6; Calcium 8.8 mg/dL (8.5-10.1); Potassium 3.5 mmol/L (3.5-5.1)
[2022-07-03 15:10] LABS: INR 1.13 (0.9-1.15); Partial Thromboplastin Time 29.3 sec (24.6-33.4)
[2022-07-03 17:00] VITALS: BP 136/84
[2022-07-03] MEDS ORDERED: LIDOCAINE 1% (LOCAL ANESTH.) PF 5ml SDV ID ONE (18:30)
[2022-07-03] MEDS: ATORVASTATIN 20 MG TAB PO SCH (21:49)
[2022-07-03 22:00] VITALS: BP 132/75
[2022-07-03] MEDS: SODIUM CHLOR 0.9% PF (SALINE LOCK) 10ML VIAL/SYR IV SCH (23:42)
[2022-07-03] MEDS: INSULIN LANTUS (GLARGINE) 1 /0.01ml (100units/ml) SC SCH (23:48)
[2022-07-04 05:00] VITALS: BP 101/51
[2022-07-04] MEDS: metroNIDAZOLE 500 MG TAB PO SCH ×2 (06:13→14:24)
[2022-07-04] MEDS: InsuLIN REG 1unit/0.01ml Soln (100units/ml) SC SCH ×2 (06:14→13:32)
[2022-07-04] MEDS: ACCU-CHEK COMFORT CURVE STRIP VI SCH ×2 (06:20→12:39)
[2022-07-04] MEDS: HYDROcodone-ACET 5/325MG TAB PO PRN (06:37)
[2022-07-04] MEDS: VANCOMYCIN 1GM/250ML 250 ML IV SCH (08:00)
[2022-07-04] MEDS: cefTRIAXone 1GM/50ML D5W 50 ML IV SCH (09:38)
[2022-07-04] MEDS: MULTIPLE VITAMIN TAB PO SCH (11:05)
[2022-07-04] MEDS: ASPirin 81 mg TAB PO SCH (11:05)
[2022-07-04] MEDS: CHOLECALCIFEROL (VITD3) 2,000 UNIT CAP/TAB PO SCH (11:06)
[2022-07-04] MEDS: SODIUM CHLOR 0.9% PF (SALINE LOCK) 10ML VIAL/SYR IV SCH (11:06)
[2022-07-04 12:24] VITALS: BP 146/86
[2022-07-04 13:00] VITALS: BP 146/86
[2022-07-04 16:09] VITALS: BP 133/70
== END 2022-07-04 17:12 | disposition home health service (06) | DRG 871 ==
LOC: ER 14:01 → TELE 06-26 03:10 → TELE-WESTW 06-26 08:28 → WEST WING 06-26 16:23
PROVIDERS: ADMIT Nurse Practitioner; ATTEND Internal Medicine
PROC: 0J9Q0ZZ Drainage of Right Foot Subcutaneous Tissue and Fascia, Open Approach (ICD-10-PCS; principal; 2022-06-27)
PROC: B41G1ZZ Fluoroscopy of Left Lower Extremity Arteries using Low Osmolar Contrast (ICD-10-PCS; 2022-07-01)
PROC: B41F1ZZ Fluoroscopy of Right Lower Extremity Arteries using Low Osmolar Contrast (ICD-10-PCS; 2022-07-01)
PROC: 02HV33Z Insertion of Infusion Device into Superior Vena Cava, Percutaneous Approach (ICD-10-PCS; 2022-07-03)
PROC: B548ZZA Ultrasonography of Superior Vena Cava, Guidance (ICD-10-PCS; 2022-07-03)
DX: A41.9 Sepsis, unspecified organism (principal); A48.0 Gas gangrene; U07.1 COVID-19; I21.4 Non-ST elevation (NSTEMI) myocardial infarction; N39.0 Urinary tract infection, site not specified; N17.9 Acute kidney failure, unspecified; E87.1 Hypo-osmolality and hyponatremia; M86.8X7 Other osteomyelitis, ankle and foot; R65.20 Severe sepsis without septic shock; L03.031 Cellulitis of right toe; E11.21 Type 2 diabetes mellitus with diabetic nephropathy; E11.621 Type 2 diabetes mellitus with foot ulcer; S93.149A Subluxation of metatarsophalangeal joint of unspecified toe(s), initial encounter; E11.40 Type 2 diabetes mellitus with diabetic neuropathy, unspecified; E11.69 Type 2 diabetes mellitus with other specified complication; E78.5 Hyperlipidemia, unspecified; R55 Syncope and collapse; E87.6 Hypokalemia; F17.210 Nicotine dependence, cigarettes, uncomplicated; I10 Essential (primary) hypertension; I25.2 Old myocardial infarction; L97.519 Non-pressure chronic ulcer of other part of right foot with unspecified severity; X58.XXXA Exposure to other specified factors, initial encounter; Z82.49 Family history of ischemic heart disease and other diseases of the circulatory system; Z83.3 Family history of diabetes mellitus; Z86.73 Personal history of transient ischemic attack (TIA), and cerebral infarction without residual deficits; Z87.440 Personal history of urinary (tract) infections; Z90.49 Acquired absence of other specified parts of digestive tract; Y93.89 Activity, other specified; Y92.89 Other specified places as the place of occurrence of the external cause; Y99.8 Other external cause status
CPT/HCPCS: 36415; 36569; 71045; 73630; 73700; 73718; 75716; 80048; 80053; 80202; 81001; 82565; 82962; 83735; 83880; 84484; 85007; 85025; 85027; 85610; 85730; 87040; 87077; 87086; 87186; 87205; 93005; 93971; 96365; 99152; C1769; G0378; J0696; J1815; J2001; J2250; J2405; J3480; J3490

== ENCOUNTER 2022-07-16 08:57 | Day surgery (SDC) | payer MEDICARE, MEDICAID ==
[2022-07-14 13:23] LABS: Basophils # (auto) 0.1 10 ^3/uL (0-0.2); Basophils % (auto) 0.8 % (0.0-2.0); Eosinophils # (auto) 0.4 10 ^3/uL (0-0.8); Hematocrit 38.2 % (36.0-46.0); Hemoglobin 12.5 g/dL (12.2-16.2); Lymphocytes # (auto) 1.3 10 ^3/uL (0.4-5.4); Lymphocytes % (auto) 17.1 % (10.0-50.0); Mean Corpuscular Hemoglobin 31.3 pg (28.0-32.0); Mean Corpuscular Hgb Conc. 32.7 g/dL (32.0-36.0); Mean Corpuscular Volume 95.8 fL (80.0-100.0); Monocytes # (auto) 0.4 10 ^3/uL (0-1.3); Monocytes % (auto) 5.9 % (0.0-12.0); Neutrophils # (auto) 5.3 10 ^3/uL (1.6-8.6); Neutrophils % (auto) 71.2 % (37.0-80.0); Nucleated Red Blood Cells % 0.1 %; Red Blood Cells 3.99 10^6/uL (4.0-5.20); Red Cell Distribution Width 14.4 % (11.8-14.3); White Blood Cell 7.5 10^3/uL (4.4-10.8)
[2022-07-14 13:26] LABS: INR 1.06 (0.9-1.15); Partial Thromboplastin Time 27.4 sec (24.6-33.4)
[2022-07-14 13:52] LABS: Albumin 3.1 g/dL (3.4-5.0); Calcium 9.4 mg/dL (8.5-10.1); Potassium 4.3 mmol/L (3.5-5.1)
[2022-07-14 13:55] LABS: BUN/Creatinine Ratio 18.1; Bilirubin, Total 0.2 mg/dL (0.2-1.0); Total Protein 7.9 g/dL (6.4-8.2)
[~2022-07-16] VITALS: Ht 167.6 cm; Wt 83.9 kg
[~2022-07-16 08:57] MED LIST changes: -CEPH-322 PO; +EMPA1TAB3 PO; -IBUP800T26 PO; -LOSA-69 PO; +METR500T PO
[2022-07-16] MEDS ORDERED: ceFAZolin 1GM/50ML 100 ML IV ONE (09:13)
[2022-07-16] MEDS ORDERED: ONDANSETRON HCL 4 MG/2 ML VIAL ONE (10:11)
[2022-07-16] MEDS ORDERED: fentaNYL CITRATE 100 MCG/2 ML VL ONE (10:11)
[2022-07-16] MEDS ORDERED: MIDAZOLAM HCL 2MG/2ML 2ml VIAL (1mg/ml) ONE (10:11)
[2022-07-16] MEDS ORDERED: PROPOFOL 10 MG/ML 20 ML IV ONE (10:11)
[2022-07-16] MEDS ORDERED: SODIUM CHLORIDE LOCK 10 ML ONE (10:11)
[2022-07-16] MEDS ORDERED: DexAMETHasone SOD PHOS 10MG/1ML VIAL INJ ONE (10:11)
[2022-07-16] MEDS ORDERED: BUPIVACAINE HCL 0.25% P/F 10 ML VIAL ONE (10:23)
[2022-07-16 10:25] LABS: Urine Bacteria NONE SEEN /hpf (None Seen); Urine Blood 1+ /uL (Negative); Urine WBC 4306 /hpf (0 - 5); Urine WBC Clumps PRESENT /hpf (None Seen)
[2022-07-16] MEDS ORDERED: HYDROmorphone HCL 2 MG/ML VL/or syr IV PRN ×2 (10:45)
[2022-07-16] MEDS ORDERED: ACCU-CHEK COMFORT CURVE STRIP VI ONE (10:45)
[2022-07-16] MEDS ORDERED: MORPHINE SULFATE 4 MG/ML SYR/VIAL IV PRN (10:45)
[2022-07-16] MEDS ORDERED: METOCLOPRAMIDE HCL 5MG/ml INJ 2ml VIAL IV PRN (10:45)
[2022-07-16 11:09] LABS: Urine Specific Gravity 1.019 (1.001-1.035)
[2022-07-16 13:07] VITALS: BP 127/69
== END 2022-07-16 13:50 | disposition home or self-care (01) ==
LOC: SUR 08:57
PROVIDERS: ATTEND Podiatrist
DX: E11.621 Type 2 diabetes mellitus with foot ulcer (principal); M86.9 Osteomyelitis, unspecified; M79.89 Other specified soft tissue disorders; I12.9 Hypertensive chronic kidney disease with stage 1 through stage 4 chronic kidney disease, or unspecified chronic kidney disease; E11.22 Type 2 diabetes mellitus with diabetic chronic kidney disease; N18.30 Chronic kidney disease, stage 3 unspecified; I25.2 Old myocardial infarction; E11.42 Type 2 diabetes mellitus with diabetic polyneuropathy; E78.5 Hyperlipidemia, unspecified; I25.119 Atherosclerotic heart disease of native coronary artery with unspecified angina pectoris; E66.9 Obesity, unspecified; Z68.32 Body mass index [BMI] 32.0-32.9, adult; Z20.822 Contact with and (suspected) exposure to COVID-19; Z82.49 Family history of ischemic heart disease and other diseases of the circulatory system; Z83.3 Family history of diabetes mellitus
CPT/HCPCS: 28810; 36415; 80053; 81001; 82962; 85025; 85610; 85730; 87070; 87075; 87205; 88305; 88311; J0690; J1100; J2250; J2405; J2704; J3010; J3490; U0003; J1642

== ENCOUNTER → 2022-07-30 | Outpatient (CLI) | payer MEDICARE, MEDICAID ==
[2022-07-30 16:30] LABS: Urine Blood 3+ /uL (Negative)
== END | disposition home or self-care (01) ==
LOC: LAB 13:51
PROVIDERS: ATTEND Internal Medicine Cardiovascular Disease
DX: N39.0 Urinary tract infection, site not specified (principal)
CPT/HCPCS: 81003

== ENCOUNTER 2022-08-16 18:55 | Inpatient (IN) | payer MEDICARE, MEDICAID ==
[~2022-08-16] VITALS: Ht 167.6 cm; Wt 82.3 kg
[2022-08-16] MEDS ORDERED: cefTRIAXone 1GM/50ML D5W 50 ML IV ONE (20:15)
[2022-08-16 20:33] LABS: Basophils # (auto) 0.1 10 ^3/uL (0-0.2); Basophils % (auto) 0.4 % (0.0-2.0); Eosinophils # (auto) 0 10 ^3/uL (0-0.8); Eosinophils % (auto) 0.2 % (0.0-7.0); Hemoglobin 12.1 g/dL (12.2-16.2); Lymphocytes # (auto) 1.2 10 ^3/uL (0.4-5.4); Lymphocytes % (auto) 9.7 % (10.0-50.0); Mean Corpuscular Hemoglobin 30.9 pg (28.0-32.0); Mean Corpuscular Hgb Conc. 32.7 g/dL (32.0-36.0); Mean Corpuscular Volume 94.3 fL (80.0-100.0); Monocytes # (auto) 0.8 10 ^3/uL (0-1.3); Monocytes % (auto) 6.7 % (0.0-12.0); Neutrophils # (auto) 10.2 10 ^3/uL (1.6-8.6); Nucleated Red Blood Cells % 0.1 %; Red Blood Cells 3.92 10^6/uL (4.0-5.20); White Blood Cell 12.2 10^3/uL (4.4-10.8)
[2022-08-16 20:42] LABS: Urine Bacteria FEW /hpf (None Seen); Urine Blood 2+ /uL (Negative); Urine Specific Gravity 1.011 (1.001-1.035); Urine WBC 1268 /hpf (0 - 5); Urine WBC Clumps PRESENT /hpf (None Seen)
[2022-08-16 20:45] LABS: Albumin 2.7 g/dL (3.4-5.0); Calcium 8.4 mg/dL (8.5-10.1); Potassium 4.1 mmol/L (3.5-5.1)
[2022-08-16 20:50] LABS: BUN/Creatinine Ratio 20.8; Bilirubin, Total 0.4 mg/dL (0.2-1.0); Total Protein 8.1 g/dL (6.4-8.2)
[2022-08-16 21:10] LABS: Blood Alcohol < 3.0 mg/dL (0-5)
[2022-08-16 21:13] LABS: Creatine Kinase IFCC 48 U/L (26-192)
[2022-08-16] MEDS ORDERED: DEXTROSE (50%) 50ML SYRG IV PRN (22:00)
[2022-08-16] MEDS ORDERED: DOCUSATE SOD 100 MG CAP PO PRN (22:00)
[2022-08-16] MEDS ORDERED: ALBUMIN 25% 100 ML IV ONE (22:00)
[2022-08-16] MEDS ORDERED: ACETAMINOPHEN 325 MG TAB PO PRN (22:00)
[2022-08-16] MEDS ORDERED: ONDANSETRON HCL 4 MG/2 ML VIAL IV PRN (22:00)
[2022-08-16] MEDS ORDERED: SODIUM CHLORIDE 0.9% 1,000 ML IV SCH (22:00)
[2022-08-16] MEDS: InsuLIN REG 1unit/0.01ml Soln (100units/ml) SC SCH (22:00)
[2022-08-16] MEDS: ACCU-CHEK COMFORT CURVE STRIP VI SCH (22:26)
[2022-08-16] MEDS ORDERED: NITROGLYCERIN 0.4 MG SL TAB SL PRN (23:00)
[2022-08-16] MEDS ORDERED: MORPHINE SULFATE INJ 2 MG/ml SYRG IV PRN (23:00)
[2022-08-16 23:35] LABS: Alcohol, Urine < 3.0 mg/dL (0-10); Amphetamine Screen, Urine NEGATIVE (NEGATIVE); Barbiturate Scree,Urine NEGATIVE (NEGATIVE); Benzodiazephine Screen, Urine NEGATIVE (NEGATIVE); Cannabinoid Screen, Urine NEGATIVE (NEGATIVE); Cocaine Screen, Urine NEGATIVE (NEGATIVE); Opiate Scree,Urine NEGATIVE (NEGATIVE); Phencyclidine Screen, Urine NEGATIVE (NEGATIVE)
[2022-08-17 01:00] VITALS: BP 127/76
[2022-08-17] MEDS ORDERED: SODIUM CHLORIDE 0.9% 1,000 ML IV ONE (01:00)
[2022-08-17 04:30] VITALS: BP 147/68
[2022-08-17] MEDS: ACCU-CHEK COMFORT CURVE STRIP VI SCH ×4 (06:19→21:15)
[2022-08-17] MEDS: InsuLIN REG 1unit/0.01ml Soln (100units/ml) SC SCH ×4 (06:19→21:24)
[2022-08-17 08:11] LABS: Basophils # (auto) 0.1 10 ^3/uL (0-0.2); Basophils % (auto) 0.5 % (0.0-2.0); Eosinophils # (auto) 0 10 ^3/uL (0-0.8); Eosinophils % (auto) 0.1 % (0.0-7.0); Hematocrit 34.5 % (36.0-46.0); Hemoglobin 11.5 g/dL (12.2-16.2); Lymphocytes # (auto) 1.1 10 ^3/uL (0.4-5.4); Lymphocytes % (auto) 9.3 % (10.0-50.0); Mean Corpuscular Hemoglobin 30.7 pg (28.0-32.0); Mean Corpuscular Hgb Conc. 33.3 g/dL (32.0-36.0); Monocytes # (auto) 0.8 10 ^3/uL (0-1.3); Monocytes % (auto) 6.7 % (0.0-12.0); Neutrophils % (auto) 83.4 % (37.0-80.0); Red Blood Cells 3.75 10^6/uL (4.0-5.20); Red Cell Distribution Width 13.7 % (11.8-14.3); White Blood Cell 11.9 10^3/uL (4.4-10.8)
[2022-08-17 08:30] LABS: Albumin 2.8 g/dL (3.4-5.0); Calcium 8.4 mg/dL (8.5-10.1); Potassium 3.9 mmol/L (3.5-5.1)
[2022-08-17 08:34] LABS: BUN/Creatinine Ratio 20.8; Bilirubin, Total 0.4 mg/dL (0.2-1.0); Total Protein 6.8 g/dL (6.4-8.2)
[2022-08-17] MEDS: FAMOTIDINE (10MG/ML) 2ML VL IV SCH (08:43)
[2022-08-17] MEDS: ASPirin 81 mg TAB PO SCH (08:43)
[2022-08-17] MEDS: cefTRIAXone 1GM/50ML D5W 50 ML IV SCH (08:43)
[2022-08-17] MEDS: SODIUM CHLORIDE 0.9% 1,000 ML IV SCH ×3 (10:59→21:14)
[2022-08-17 13:00] VITALS: BP 144/71
[2022-08-17] MEDS: ACETAMINOPHEN 325 MG TAB PO PRN (15:23)
[2022-08-17 17:00] VITALS: BP 140/77
[2022-08-17 21:58] VITALS: BP 110/47
[2022-08-18] MEDS ORDERED: CITA-77 PO (00:07)
[2022-08-18] MEDS ORDERED: LISI-716 PO (00:08)
[2022-08-18] MEDS ORDERED: IBU600T PO (00:09)
[2022-08-18 05:00] VITALS: BP 133/62
[2022-08-18] MEDS: SODIUM CHLORIDE 0.9% 1,000 ML IV SCH (05:31)
[2022-08-18] MEDS: ACCU-CHEK COMFORT CURVE STRIP VI SCH ×4 (06:41→21:53)
[2022-08-18] MEDS: InsuLIN REG 1unit/0.01ml Soln (100units/ml) SC SCH ×4 (06:42→21:52)
[2022-08-18 07:29] VITALS: BP 144/62
[2022-08-18] MEDS: FAMOTIDINE (10MG/ML) 2ML VL IV SCH (09:01)
[2022-08-18] MEDS: ASPirin 81 mg TAB PO SCH (09:01)
[2022-08-18] MEDS: cefTRIAXone 1GM/50ML D5W 50 ML IV SCH (09:01)
[2022-08-18] MEDS: HYDROcodone-ACET 5/325MG TAB PO PRN ×2 (09:59→22:05)
[2022-08-18 11:59] LABS: BUN/Creatinine Ratio 14.6; Calcium 8.9 mg/dL (8.5-10.1); Potassium 3.6 mmol/L (3.5-5.1)
[2022-08-18 12:38] VITALS: BP 158/83
[2022-08-18 16:38] VITALS: BP 143/77
[2022-08-18 22:00] VITALS: BP 164/79
[2022-08-19] MEDS ORDERED: hydrALAZINE HCL 20 MG/ML VL IV ONE (03:45)
[2022-08-19 05:00] VITALS: BP 145/77
[2022-08-19 05:37] LABS: Potassium 3.7 mmol/L (3.5-5.1)
[2022-08-19 05:44] LABS: BUN/Creatinine Ratio 21.4; Calcium 8.6 mg/dL (8.5-10.1)
[2022-08-19] MEDS: InsuLIN REG 1unit/0.01ml Soln (100units/ml) SC SCH ×5 (06:05→22:20)
[2022-08-19] MEDS: ACCU-CHEK COMFORT CURVE STRIP VI SCH ×4 (06:06→21:47)
[2022-08-19 09:17] VITALS: BP 154/90
[2022-08-19] MEDS: ASPirin 81 mg TAB PO SCH (09:25)
[2022-08-19] MEDS: cefTRIAXone 1GM/50ML D5W 50 ML IV SCH (09:25)
[2022-08-19] MEDS: ATENOLOL 50 MG TAB PO SCH (09:26)
[2022-08-19] MEDS: HYDROcodone-ACET 5/325MG TAB PO PRN ×2 (11:37→18:08)
[2022-08-19 12:50] VITALS: BP 151/74
[2022-08-19 15:45] LABS: Urine Bacteria MOD /hpf (None Seen); Urine Blood 2+ /uL (Negative); Urine Mucus FEW (None Seen); Urine Specific Gravity 1.017 (1.001-1.035); Urine WBC 141 /hpf (0 - 5); Urine WBC Clumps PRESENT /hpf (None Seen)
[2022-08-19 16:13] VITALS: BP 154/79
[2022-08-19] MEDS: ACETAMINOPHEN 325 MG TAB PO PRN (16:16)
[2022-08-19] MEDS: MEROPENEM 1GM IVPB 100 ML IV SCH (21:46)
[2022-08-19 22:00] VITALS: BP 128/58
[2022-08-20 05:00] VITALS: BP 112/55
[2022-08-20] MEDS: HYDROcodone-ACET 5/325MG TAB PO PRN ×3 (05:18→20:04)
[2022-08-20] MEDS: MEROPENEM 1GM IVPB 100 ML IV SCH ×3 (05:18→21:26)
[2022-08-20] MEDS: InsuLIN REG 1unit/0.01ml Soln (100units/ml) SC SCH ×4 (05:57→22:02)
[2022-08-20] MEDS: ACCU-CHEK COMFORT CURVE STRIP VI SCH ×4 (05:57→21:27)
[2022-08-20 09:00] VITALS: BP 139/58
[2022-08-20 09:54] LABS: Basophils # (auto) 0.1 10 ^3/uL (0-0.2); Basophils % (auto) 0.7 % (0.0-2.0); Eosinophils # (auto) 0.1 10 ^3/uL (0-0.8); Eosinophils % (auto) 0.8 % (0.0-7.0); Hematocrit 36.8 % (36.0-46.0); Hemoglobin 12.2 g/dL (12.2-16.2); Lymphocytes # (auto) 1.1 10 ^3/uL (0.4-5.4); Lymphocytes % (auto) 14.8 % (10.0-50.0); Mean Corpuscular Hemoglobin 30.6 pg (28.0-32.0); Mean Corpuscular Hgb Conc. 33.1 g/dL (32.0-36.0); Mean Corpuscular Volume 92.4 fL (80.0-100.0); Monocytes # (auto) 0.5 10 ^3/uL (0-1.3); Monocytes % (auto) 6.8 % (0.0-12.0); Neutrophils # (auto) 5.9 10 ^3/uL (1.6-8.6); Neutrophils % (auto) 76.9 % (37.0-80.0); Red Blood Cells 3.98 10^6/uL (4.0-5.20); White Blood Cell 7.7 10^3/uL (4.4-10.8)
[2022-08-20 10:09] LABS: Albumin 2.6 g/dL (3.4-5.0); Calcium 8.5 mg/dL (8.5-10.1); Potassium 3.4 mmol/L (3.5-5.1)
[2022-08-20 10:15] LABS: BUN/Creatinine Ratio 23.6; Bilirubin, Total 0.3 mg/dL (0.2-1.0); Total Protein 7.1 g/dL (6.4-8.2)
[2022-08-20] MEDS: ATENOLOL 50 MG TAB PO SCH (10:30)
[2022-08-20] MEDS: ASPirin 81 mg TAB PO SCH (10:30)
[2022-08-20 13:00] VITALS: BP 144/78
[2022-08-20 17:00] VITALS: BP 129/53
[2022-08-20 22:00] VITALS: BP 123/64
[2022-08-21 05:00] VITALS: BP 142/66
[2022-08-21] MEDS: InsuLIN REG 1unit/0.01ml Soln (100units/ml) SC SCH ×2 (06:09→11:30)
[2022-08-21] MEDS: MEROPENEM 1GM IVPB 100 ML IV SCH ×2 (06:09→14:00)
[2022-08-21] MEDS: ACCU-CHEK COMFORT CURVE STRIP VI SCH ×2 (06:09→10:46)
[2022-08-21] MEDS ORDERED: CIPR-173 PO (08:40)
[2022-08-21 08:50] VITALS: BP 150/72
[2022-08-21] MEDS: ATENOLOL 50 MG TAB PO SCH (09:14)
[2022-08-21] MEDS: ASPirin 81 mg TAB PO SCH (09:14)
[2022-08-21 13:00] VITALS: BP 129/75
== END 2022-08-21 14:30 | disposition home health service (06) | DRG 871 ==
LOC: EDBD 18:55 → ER 18:55 → TELE 22:53 → TELE-CENTR 23:34
PROVIDERS: ADMIT Nurse Practitioner Family; ATTEND Family Medicine
DX: A41.89 Other specified sepsis (principal); E43 Unspecified severe protein-calorie malnutrition; E87.1 Hypo-osmolality and hyponatremia; N39.0 Urinary tract infection, site not specified; Z16.12 Extended spectrum beta lactamase (ESBL) resistance; E87.20 Acidosis, unspecified; N17.9 Acute kidney failure, unspecified; E11.621 Type 2 diabetes mellitus with foot ulcer; Z20.822 Contact with and (suspected) exposure to COVID-19; E11.649 Type 2 diabetes mellitus with hypoglycemia without coma; E78.5 Hyperlipidemia, unspecified; E88.09 Other disorders of plasma-protein metabolism, not elsewhere classified; F17.210 Nicotine dependence, cigarettes, uncomplicated; L97.509 Non-pressure chronic ulcer of other part of unspecified foot with unspecified severity; B96.1 Klebsiella pneumoniae [K. pneumoniae] as the cause of diseases classified elsewhere; W18.39XA Other fall on same level, initial encounter; D63.8 Anemia in other chronic diseases classified elsewhere; E11.21 Type 2 diabetes mellitus with diabetic nephropathy; L08.9 Local infection of the skin and subcutaneous tissue, unspecified; E11.40 Type 2 diabetes mellitus with diabetic neuropathy, unspecified; E86.0 Dehydration; E78.00 Pure hypercholesterolemia, unspecified; I10 Essential (primary) hypertension; I25.2 Old myocardial infarction; Y93.89 Activity, other specified; Y92.89 Other specified places as the place of occurrence of the external cause; Y99.8 Other external cause status; Z68.29 Body mass index [BMI] 29.0-29.9, adult; Z82.49 Family history of ischemic heart disease and other diseases of the circulatory system; Z83.3 Family history of diabetes mellitus; Z86.16 Personal history of COVID-19; Z86.73 Personal history of transient ischemic attack (TIA), and cerebral infarction without residual deficits; Z90.49 Acquired absence of other specified parts of digestive tract; Z89.411 Acquired absence of right great toe; Z79.84 Long term (current) use of oral hypoglycemic drugs; E11.65 Type 2 diabetes mellitus with hyperglycemia
CPT/HCPCS: 36415; 71045; 80048; 80053; 80307; 80320; 81001; 82140; 82550; 82962; 83605; 84484; 85025; 87040; 87077; 87086; 87088; 87186; 87426; 93005; 96365; 96367; 96375; 97163; G0378; J0696; J1815; J2185; J3490; P9047

== ENCOUNTER 2022-09-08 20:03 | Inpatient (IN) | payer MEDICARE, MEDICAID ==
[~2022-09-08] VITALS: Ht 162.6 cm; Wt 92.9 kg
[~2022-09-08 20:03] MED LIST changes: +CIPR-173 PO; +CITA-77 PO; +IBU600T PO; +LISI-716 PO; -METR500T PO
[2022-09-08] MEDS ORDERED: ACETAMINOPHEN 325 MG TAB PO ONE (20:30)
[2022-09-08] MEDS ORDERED: SODIUM CHLORIDE 0.9% 1,000 ML IV ONE (20:30)
[2022-09-08] MEDS ORDERED: VANCOMYCIN 1GM/250ML 250 ML IV ONE (20:45)
[2022-09-08] MEDS ORDERED: CEFEPIME 1GM/ 50ML 50 ML IV ONE (20:45)
[2022-09-08 21:21] LABS: Basophils # (auto) 0.1 10 ^3/uL (0-0.2); Basophils % (auto) 0.7 % (0.0-2.0); Eosinophils # (auto) 0 10 ^3/uL (0-0.8); Eosinophils % (auto) 0.2 % (0.0-7.0); Hematocrit 39.8 % (36.0-46.0); Hemoglobin 13.5 g/dL (12.2-16.2); Lymphocytes # (auto) 0.9 10 ^3/uL (0.4-5.4); Mean Corpuscular Hemoglobin 31.3 pg (28.0-32.0); Mean Corpuscular Hgb Conc. 33.9 g/dL (32.0-36.0); Mean Corpuscular Volume 92.6 fL (80.0-100.0); Monocytes # (auto) 0.4 10 ^3/uL (0-1.3); Monocytes % (auto) 4.5 % (0.0-12.0); Neutrophils # (auto) 7.1 10 ^3/uL (1.6-8.6); Neutrophils % (auto) 83.6 % (37.0-80.0); Red Cell Distribution Width 14.7 % (11.8-14.3); White Blood Cell 8.5 10^3/uL (4.4-10.8)
[2022-09-08 21:47] LABS: Albumin 3.5 g/dL (3.4-5.0); Calcium 8.9 mg/dL (8.5-10.1); Magnesium 1.5 mg/dL (1.6-2.6); Potassium 4.2 mmol/L (3.5-5.1)
[2022-09-08 21:49] LABS: INR 0.98 (0.9-1.15); Partial Thromboplastin Time 29.8 sec (24.6-33.4)
[2022-09-08 21:50] LABS: Bilirubin, Total 0.7 mg/dL (0.2-1.0)
[2022-09-08 22:12] LABS: Urine Bacteria FEW /hpf (None Seen); Urine Blood Negative /uL (Negative); Urine Specific Gravity 1.006 (1.001-1.035); Urine WBC 287 /hpf (0 - 5)
[2022-09-08] MEDS ORDERED: ASPirin 325 MG TAB PO ONE (22:45)
[2022-09-09] MEDS ORDERED: MORPHINE SULFATE INJ 2 MG/ml SYRG IV PRN (01:45)
[2022-09-09] MEDS ORDERED: DEXTROSE (50%) 50ML SYRG IV PRN (01:45)
[2022-09-09] MEDS ORDERED: ONDANSETRON HCL 4 MG/2 ML VIAL IV PRN (01:45)
[2022-09-09] MEDS ORDERED: NITROGLYCERIN 0.4 MG SL TAB SL PRN (01:45)
[2022-09-09] MEDS: MAGNESIUM SULFATE 1GM/100ML 100 ML IV SCH ×2 (03:13→04:23)
[2022-09-09] MEDS: ACETAMINOPHEN 325 MG TAB PO PRN (05:06)
[2022-09-09] MEDS ORDERED: PATIENTS OWN MEDICATION (meropenem 1 GM) IV SCH (06:00)
[2022-09-09] MEDS ORDERED: MEROPENEM 1GM IVPB 50 ML IV SCH (07:00)
[2022-09-09] MEDS: GABAPENTIN 300 MG CAP PO SCH ×3 (07:13→21:58)
[2022-09-09] MEDS: ACCU-CHEK COMFORT CURVE STRIP VI SCH ×4 (07:15→22:11)
[2022-09-09] MEDS: InsuLIN REG 1unit/0.01ml Soln (100units/ml) SC SCH ×4 (07:15→22:19)
[2022-09-09] MEDS: ASPirin 81 mg TAB PO SCH (07:15)
[2022-09-09] MEDS: ATENOLOL 50 MG TAB PO SCH (09:42)
[2022-09-09] MEDS: LISINOPRIL 10 MG TAB PO SCH (09:42)
[2022-09-09] MEDS: ENOXAPARIN SOD 40 MG/0.4 ML SYRINGE SC SCH (09:42)
[2022-09-09] MEDS: MEROPENEM 1GM IVPB 100 ML IV SCH ×2 (09:54→21:59)
[2022-09-09] MEDS ORDERED: PANTOPRAZOLE 40 MG TAB PO SCH (10:00)
[2022-09-09] MEDS ORDERED: NICOTINE 21MG/24 HR TOPICAL PATCH TD ONE (11:30)
[2022-09-09] MEDS: HYDROcodone-ACET 7.5/325MG TAB PO PRN ×2 (11:53→18:39)
[2022-09-09] MEDS ORDERED: MEROPENEM 1GM IVPB 100 ML IV SCH (14:00)
[2022-09-09 17:58] VITALS: BP 133/64
[2022-09-09 18:19] VITALS: BP 133/64
[2022-09-09 20:00] VITALS: BP 116/54
[2022-09-09] MEDS: ATORVASTATIN 20 MG TAB PO SCH (21:58)
[2022-09-09 22:00] VITALS: BP 116/54
[2022-09-10 05:00] VITALS: BP 106/47
[2022-09-10] MEDS: GABAPENTIN 300 MG CAP PO SCH ×3 (05:48→22:31)
[2022-09-10] MEDS: HYDROcodone-ACET 7.5/325MG TAB PO PRN ×2 (05:49→23:32)
[2022-09-10 05:52] LABS: Anion Gap 13 (5-15); BUN/Creatinine Ratio 19.6; Blood Urea Nitrogen 18 mg/dL (7-18); Calcium 8.1 mg/dL (8.5-10.1); Carbon Dioxide 19 mmol/L (21-32); Chloride 102 mmol/L (98-107); GFR African American 78 mL/min; GFR Non-African American 64 mL/min; Glucose 118 mg/dL (74-106); Potassium 4.3 mmol/L (3.5-5.1); Sodium 134 mmol/L (136-145)
[2022-09-10 06:00] LABS: Basophils # (auto) 0.1 10 ^3/uL (0-0.2); Basophils % (auto) 0.7 % (0.0-2.0); Eosinophils # (auto) 0.2 10 ^3/uL (0-0.8); Eosinophils % (auto) 2.4 % (0.0-7.0); Hematocrit 35.1 % (36.0-46.0); Lymphocytes # (auto) 2.1 10 ^3/uL (0.4-5.4); Lymphocytes % (auto) 19.5 % (10.0-50.0); Mean Corpuscular Hemoglobin 31.5 pg (28.0-32.0); Mean Corpuscular Hgb Conc. 34.1 g/dL (32.0-36.0); Mean Corpuscular Volume 92.5 fL (80.0-100.0); Monocytes # (auto) 1.1 10 ^3/uL (0-1.3); Monocytes % (auto) 10.1 % (0.0-12.0); Neutrophils # (auto) 7.1 10 ^3/uL (1.6-8.6); Neutrophils % (auto) 67.3 % (37.0-80.0); Nucleated Red Blood Cells % 0.5 %; Red Cell Distribution Width 14.6 % (11.8-14.3); White Blood Cell 10.5 10^3/uL (4.4-10.8)
[2022-09-10] MEDS: InsuLIN REG 1unit/0.01ml Soln (100units/ml) SC SCH ×4 (06:04→23:54)
[2022-09-10] MEDS: ACCU-CHEK COMFORT CURVE STRIP VI SCH ×4 (06:04→22:32)
[2022-09-10 09:35] VITALS: BP 111/41
[2022-09-10] MEDS: ASPirin 81 mg TAB PO SCH (09:54)
[2022-09-10] MEDS: ATENOLOL 50 MG TAB PO SCH (09:55)
[2022-09-10] MEDS: LISINOPRIL 10 MG TAB PO SCH (09:56)
[2022-09-10] MEDS: ENOXAPARIN SOD 40 MG/0.4 ML SYRINGE SC SCH (09:56)
[2022-09-10] MEDS: NICOTINE 21MG/24 HR TOPICAL PATCH TD SCH (09:57)
[2022-09-10] MEDS: MEROPENEM 1GM IVPB 100 ML IV SCH ×2 (12:01→19:03)
[2022-09-10 13:05] VITALS: BP 113/52
[2022-09-10 16:58] VITALS: BP 112/38
[2022-09-10 17:13] VITALS: BP 112/38
[2022-09-10 22:00] VITALS: BP 95/41
[2022-09-10] MEDS: ATORVASTATIN 20 MG TAB PO SCH (22:31)
[2022-09-11 00:20] VITALS: BP 120/51
[2022-09-11] MEDS: MEROPENEM 1GM IVPB 100 ML IV SCH ×2 (03:18→10:18)
[2022-09-11 05:00] VITALS: BP 107/49
[2022-09-11] MEDS: GABAPENTIN 300 MG CAP PO SCH ×2 (05:43→14:21)
[2022-09-11] MEDS: HYDROcodone-ACET 7.5/325MG TAB PO PRN (05:55)
[2022-09-11] MEDS: ACCU-CHEK COMFORT CURVE STRIP VI SCH ×2 (05:56→11:22)
[2022-09-11] MEDS: InsuLIN REG 1unit/0.01ml Soln (100units/ml) SC SCH ×2 (06:01→11:59)
[2022-09-11 08:15] VITALS: BP 124/58
[2022-09-11 09:00] VITALS: BP 124/58
[2022-09-11] MEDS: NICOTINE 21MG/24 HR TOPICAL PATCH TD SCH (10:00)
[2022-09-11] MEDS: ASPirin 81 mg TAB PO SCH (10:18)
[2022-09-11] MEDS: ATENOLOL 50 MG TAB PO SCH (10:18)
[2022-09-11] MEDS: ACETAMINOPHEN 325 MG TAB PO PRN (10:19)
[2022-09-11] MEDS: ENOXAPARIN SOD 40 MG/0.4 ML SYRINGE SC SCH (10:19)
[2022-09-11] MEDS: LISINOPRIL 10 MG TAB PO SCH (10:19)
[2022-09-11 13:00] VITALS: BP 111/77
[2022-09-11 15:31] VITALS: BP 111/77
== END 2022-09-11 16:35 | disposition home or self-care (01) | DRG 872 ==
LOC: EDBD 20:03 → ER 20:04 → TELE 09-09 01:42 → TELE-EAST 09-09 18:00
PROVIDERS: ADMIT Nurse Practitioner; ATTEND Internal Medicine Cardiovascular Disease
DX: A41.9 Sepsis, unspecified organism (principal); N17.9 Acute kidney failure, unspecified; N39.0 Urinary tract infection, site not specified; M86.8X7 Other osteomyelitis, ankle and foot; E11.69 Type 2 diabetes mellitus with other specified complication; I10 Essential (primary) hypertension; F17.210 Nicotine dependence, cigarettes, uncomplicated; E11.21 Type 2 diabetes mellitus with diabetic nephropathy; E11.51 Type 2 diabetes mellitus with diabetic peripheral angiopathy without gangrene; E11.40 Type 2 diabetes mellitus with diabetic neuropathy, unspecified; R55 Syncope and collapse; G89.29 Other chronic pain; Z20.822 Contact with and (suspected) exposure to COVID-19; M54.9 Dorsalgia, unspecified; E11.621 Type 2 diabetes mellitus with foot ulcer; E78.00 Pure hypercholesterolemia, unspecified; E87.8 Other disorders of electrolyte and fluid balance, not elsewhere classified; R65.20 Severe sepsis without septic shock; L97.509 Non-pressure chronic ulcer of other part of unspecified foot with unspecified severity; Z82.49 Family history of ischemic heart disease and other diseases of the circulatory system; I25.2 Old myocardial infarction; Z83.3 Family history of diabetes mellitus; Z86.73 Personal history of transient ischemic attack (TIA), and cerebral infarction without residual deficits; Z87.440 Personal history of urinary (tract) infections; Z89.429 Acquired absence of other toe(s), unspecified side; Z90.49 Acquired absence of other specified parts of digestive tract
CPT/HCPCS: 36415; 71045; 73630; 80048; 80053; 81001; 82962; 83605; 83735; 83880; 84484; 85025; 85610; 85730; 87040; 87077; 87086; 87088; 87186; 87426; 87804; 93005; 96361; 96365; 99291; G0378; J1815; J2185

== ENCOUNTER → 2022-09-17 | Outpatient (CLI) | payer MEDICARE, MEDICAID ==
[2022-09-17 17:08] LABS: Urine Specific Gravity 1.005 (1.001-1.035)
[2022-09-17 17:09] LABS: Urine Blood 1+ /uL (Negative)
== END | disposition home or self-care (01) ==
LOC: LAB 13:18
PROVIDERS: ATTEND Internal Medicine Cardiovascular Disease
DX: N39.0 Urinary tract infection, site not specified (principal)
CPT/HCPCS: 81003; 87086

== ENCOUNTER 2022-10-13 16:53 | Inpatient (IN) | payer MEDICARE, MEDICAID ==
[~2022-10-13] VITALS: Ht 167.6 cm; Wt 84.2 kg
[2022-10-13 23:30] LABS: Basophils # (auto) 0 10 ^3/uL (0-0.2); Basophils % (auto) 0.3 % (0.0-2.0); Eosinophils # (auto) 0.2 10 ^3/uL (0-0.8); Eosinophils % (auto) 2.8 % (0.0-7.0); Hematocrit 37.2 % (36.0-46.0); Hemoglobin 12.3 g/dL (12.2-16.2); Lymphocytes # (auto) 1.9 10 ^3/uL (0.4-5.4); Lymphocytes % (auto) 27.4 % (10.0-50.0); Mean Corpuscular Hemoglobin 30.7 pg (28.0-32.0); Mean Corpuscular Hgb Conc. 33.1 g/dL (32.0-36.0); Mean Corpuscular Volume 92.8 fL (80.0-100.0); Monocytes # (auto) 0.4 10 ^3/uL (0-1.3); Monocytes % (auto) 5.6 % (0.0-12.0); Neutrophils # (auto) 4.4 10 ^3/uL (1.6-8.6); Neutrophils % (auto) 63.9 % (37.0-80.0); Nucleated Red Blood Cells % 0.1 %; Red Cell Distribution Width 15.3 % (11.8-14.3)
[2022-10-13 23:44] LABS: Albumin 3.3 g/dL (3.4-5.0); BUN/Creatinine Ratio 21.3; Calcium 9.4 mg/dL (8.5-10.1); Potassium 4.1 mmol/L (3.5-5.1)
[2022-10-13 23:46] LABS: Bilirubin, Total 0.4 mg/dL (0.2-1.0); Total Protein 7.8 g/dL (6.4-8.2)
[2022-10-14] MEDS ORDERED: MORPHINE SULFATE INJ 2 MG/ml SYRG IV PRN (02:30)
[2022-10-14] MEDS ORDERED: NITROGLYCERIN 0.4 MG SL TAB SL PRN (02:30)
[2022-10-14] MEDS ORDERED: ONDANSETRON HCL 4 MG/2 ML VIAL IV PRN (02:30)
[2022-10-14] MEDS ORDERED: ACETAMINOPHEN 325 MG TAB PO PRN (02:30)
[2022-10-14] MEDS ORDERED: DEXTROSE (50%) 50ML SYRG IV PRN (02:30)
[2022-10-14 04:06] LABS: Urine Bacteria NONE SEEN /hpf (None Seen); Urine Blood 1+ /uL (Negative); Urine Mucus FEW (None Seen); Urine Specific Gravity 1.018 (1.001-1.035); Urine WBC 520 /hpf (0 - 5); Urine WBC Clumps PRESENT /hpf (None Seen)
[2022-10-14] MEDS: ACCU-CHEK COMFORT CURVE STRIP VI SCH ×4 (07:12→22:23)
[2022-10-14] MEDS: InsuLIN REG 1unit/0.01ml Soln (100units/ml) SC SCH ×4 (07:14→23:00)
[2022-10-14] MEDS ORDERED: ZERBAXA 1.5 GM IV SCH (10:00)
[2022-10-14] MEDS: LISINOPRIL 10 MG TAB PO SCH (10:29)
[2022-10-14] MEDS: APIXABAN 5 MG TAB PO SCH ×2 (10:29→22:23)
[2022-10-14] MEDS: HYDROcodone-ACET 5/325MG TAB PO PRN (10:31)
[2022-10-14] MEDS: ATORVASTATIN 20 MG TAB PO SCH (22:23)
[2022-10-14] MEDS: ZERBAXA 1.5 GM IV SCH (22:32)
[2022-10-14 23:17] VITALS: BP 154/76
[2022-10-15] MEDS: HYDROcodone-ACET 5/325MG TAB PO PRN ×4 (00:16→20:40)
[2022-10-15 05:00] VITALS: BP 115/56
[2022-10-15] MEDS: guaiFENesin-DM 100/10mg/5ml SYR PO PRN ×2 (06:43→20:36)
[2022-10-15] MEDS: ACCU-CHEK COMFORT CURVE STRIP VI SCH ×4 (06:43→21:45)
[2022-10-15] MEDS: InsuLIN REG 1unit/0.01ml Soln (100units/ml) SC SCH ×4 (06:49→21:51)
[2022-10-15] MEDS: ZERBAXA 1.5 GM IV SCH ×3 (06:49→21:45)
[2022-10-15 06:56] LABS: BUN/Creatinine Ratio 30.2; Calcium 8.9 mg/dL (8.5-10.1); Potassium 4.1 mmol/L (3.5-5.1)
[2022-10-15 09:00] VITALS: BP 116/44
[2022-10-15] MEDS: LISINOPRIL 10 MG TAB PO SCH (11:40)
[2022-10-15] MEDS: APIXABAN 5 MG TAB PO SCH ×2 (11:45→21:44)
[2022-10-15 13:00] VITALS: BP 152/67
[2022-10-15 17:00] VITALS: BP 130/50
[2022-10-15 20:00] VITALS: BP 113/49
[2022-10-15] MEDS: ATORVASTATIN 20 MG TAB PO SCH (21:44)
[2022-10-15 22:00] VITALS: BP 113/49
[2022-10-16 05:00] VITALS: BP 112/44
[2022-10-16] MEDS: HYDROcodone-ACET 5/325MG TAB PO PRN ×2 (06:20→12:42)
[2022-10-16] MEDS: ZERBAXA 1.5 GM IV SCH ×2 (06:20→14:14)
[2022-10-16] MEDS: ACCU-CHEK COMFORT CURVE STRIP VI SCH ×3 (06:21→17:00)
[2022-10-16] MEDS: InsuLIN REG 1unit/0.01ml Soln (100units/ml) SC SCH ×3 (06:50→18:11)
[2022-10-16 09:00] VITALS: BP 134/57
[2022-10-16] MEDS: LISINOPRIL 10 MG TAB PO SCH (11:02)
[2022-10-16] MEDS: APIXABAN 5 MG TAB PO SCH (11:02)
[2022-10-16 13:00] VITALS: BP 137/58
[2022-10-16 16:40] VITALS: BP 150/63
== END 2022-10-16 18:30 | disposition home health service (06) | DRG 281 ==
LOC: ER 16:53 → TELE 10-14 02:39 → TELE-WESTW 10-14 21:57
PROVIDERS: ADMIT Nurse Practitioner; ATTEND Nurse Practitioner Acute Care
PROC: 02PYX3Z Removal of Infusion Device from Great Vessel, External Approach (ICD-10-PCS; principal; 2022-10-14)
DX: T82.838A Hemorrhage due to vascular prosthetic devices, implants and grafts, initial encounter (principal); I21.A1 Myocardial infarction type 2; N39.0 Urinary tract infection, site not specified; Z16.24 Resistance to multiple antibiotics; T82.594A Other mechanical complication of infusion catheter, initial encounter; T82.514A Breakdown (mechanical) of infusion catheter, initial encounter; E11.21 Type 2 diabetes mellitus with diabetic nephropathy; E11.51 Type 2 diabetes mellitus with diabetic peripheral angiopathy without gangrene; E11.65 Type 2 diabetes mellitus with hyperglycemia; E66.9 Obesity, unspecified; Y83.8 Other surgical procedures as the cause of abnormal reaction of the patient, or of later complication, without mention of misadventure at the time of the procedure; B96.5 Pseudomonas (aeruginosa) (mallei) (pseudomallei) as the cause of diseases classified elsewhere; Z20.822 Contact with and (suspected) exposure to COVID-19; E78.5 Hyperlipidemia, unspecified; F17.210 Nicotine dependence, cigarettes, uncomplicated; I10 Essential (primary) hypertension; I25.10 Atherosclerotic heart disease of native coronary artery without angina pectoris; I25.2 Old myocardial infarction; Z79.01 Long term (current) use of anticoagulants; Z82.49 Family history of ischemic heart disease and other diseases of the circulatory system; Z83.3 Family history of diabetes mellitus; Z86.73 Personal history of transient ischemic attack (TIA), and cerebral infarction without residual deficits; Z87.01 Personal history of pneumonia (recurrent); Z90.710 Acquired absence of both cervix and uterus; Y92.89 Other specified places as the place of occurrence of the external cause; Z90.49 Acquired absence of other specified parts of digestive tract; Z68.30 Body mass index [BMI] 30.0-30.9, adult; Z79.84 Long term (current) use of oral hypoglycemic drugs
CPT/HCPCS: 36415; 71045; 80048; 80053; 81001; 82962; 84484; 85025; 87081; 87086; 87426; 93005; 93971; 96372; G0378; J1815

== ENCOUNTER → 2022-10-22 | Outpatient (CLI) | payer MEDICARE, MEDICAID ==
[2022-10-22 16:00] LABS: Urine Blood Negative /uL (Negative); Urine Specific Gravity 1.012 (1.001-1.035)
== END | disposition home or self-care (01) ==
LOC: LAB 13:19
PROVIDERS: ATTEND Internal Medicine Cardiovascular Disease
DX: N39.0 Urinary tract infection, site not specified (principal)
CPT/HCPCS: 81003

== ENCOUNTER → 2022-11-26 | Outpatient (CLI) | payer MEDICARE, MEDICAID | END | disposition home or self-care (01) | LOC: Rad HDHVI 13:58 | PROVIDERS: ATTEND Internal Medicine Cardiovascular Disease | DX: I08.2 Rheumatic disorders of both aortic and tricuspid valves (principal); I21.4 Non-ST elevation (NSTEMI) myocardial infarction; I11.9 Hypertensive heart disease without heart failure | CPT/HCPCS: 93306 ==

== ENCOUNTER 2022-12-09 14:47 | Inpatient (IN) | payer MEDICARE, MEDICAID ==
[~2022-12-09] VITALS: Ht 167.6 cm; Wt 80.5 kg
[2022-12-09 15:16] LABS: Basophils # (auto) 0.1 10 ^3/uL (0-0.2); Basophils % (auto) 0.5 % (0.0-2.0); Eosinophils # (auto) 0.1 10 ^3/uL (0-0.8); Eosinophils % (auto) 0.9 % (0.0-7.0); Hemoglobin 13.4 g/dL (12.2-16.2); Lymphocytes # (auto) 1.9 10 ^3/uL (0.4-5.4); Lymphocytes % (auto) 15.7 % (10.0-50.0); Mean Corpuscular Hemoglobin 30.6 pg (28.0-32.0); Mean Corpuscular Volume 95.7 fL (80.0-100.0); Monocytes # (auto) 0.7 10 ^3/uL (0-1.3); Monocytes % (auto) 5.7 % (0.0-12.0); Neutrophils # (auto) 9.2 10 ^3/uL (1.6-8.6); Neutrophils % (auto) 77.2 % (37.0-80.0); Nucleated Red Blood Cells % 0.1 %; Red Blood Cells 4.39 10^6/uL (4.0-5.20); Red Cell Distribution Width 13.5 % (11.8-14.3); White Blood Cell 11.9 10^3/uL (4.4-10.8)
[2022-12-09 15:31] LABS: Albumin 3.2 g/dL (3.4-5.0); BUN/Creatinine Ratio 24.8; Calcium 9.2 mg/dL (8.5-10.1); Potassium 4.4 mmol/L (3.5-5.1)
[2022-12-09 15:41] LABS: Bilirubin, Total 0.4 mg/dL (0.2-1.0)
[2022-12-09] MEDS ORDERED: ENOXAPARIN SOD 100 MG/1 ML SYRINGE SC ONE (16:00)
[2022-12-09] MEDS ORDERED: ASPirin 81 mg TAB PO ONE (16:00)
[2022-12-09 16:38] LABS: Urine Bacteria FEW /hpf (None Seen); Urine Blood 2+ /uL (Negative); Urine Mucus FEW (None Seen); Urine Specific Gravity 1.016 (1.001-1.035); Urine WBC 2537 /hpf (0 - 5); Urine WBC Clumps PRESENT /hpf (None Seen)
[2022-12-09] MEDS ORDERED: SODIUM CHLORIDE 0.9% 1,000 ML IV ONE (16:45)
[2022-12-09] MEDS ORDERED: cefTRIAXone 1GM/50ML D5W 50 ML IV ONE (16:45)
[2022-12-09] MEDS ORDERED: NITROGLYCERIN 0.4 MG SL TAB SL PRN (17:30)
[2022-12-09] MEDS ORDERED: SEMAGLUTIDE 1 MG SC SCH (17:30)
[2022-12-09] MEDS ORDERED: DEXTROSE (50%) 50ML SYRG IV PRN (17:30)
[2022-12-09] MEDS: metFORMIN HYDROCHLORIDE 500 MG TAB PO SCH (18:40)
[2022-12-09] MEDS ORDERED: ENOXAPARIN SOD 100 MG/1 ML SYRINGE SC SCH (22:00)
[2022-12-09] MEDS: ACCU-CHEK COMFORT CURVE STRIP VI SCH (23:35)
[2022-12-09] MEDS: IBUPROFEN 600 MG TAB PO SCH (23:42)
[2022-12-09] MEDS: OXYBUTYNIN CHL 5 MG TAB PO SCH (23:42)
[2022-12-09] MEDS: OXYCODONE W/ ACETAMINOPHEN 5/325MG TABLET PO SCH (23:43)
[2022-12-09] MEDS: glipiZIDE 5 MG TAB PO SCH (23:44)
[2022-12-09] MEDS: GABAPENTIN 300 MG CAP PO SCH (23:44)
[2022-12-09] MEDS: ATORVASTATIN 20 MG TAB PO SCH (23:46)
[2022-12-09] MEDS: InsuLIN REG 1unit/0.01ml Soln (100units/ml) SC SCH (23:48)
[2022-12-10] MEDS: IBUPROFEN 600 MG TAB PO SCH ×2 (07:02→17:01)
[2022-12-10] MEDS: GABAPENTIN 300 MG CAP PO SCH ×3 (07:03→22:28)
[2022-12-10] MEDS: metFORMIN HYDROCHLORIDE 500 MG TAB PO SCH ×2 (07:03→18:00)
[2022-12-10] MEDS: ACCU-CHEK COMFORT CURVE STRIP VI SCH ×4 (07:06→22:29)
[2022-12-10] MEDS: InsuLIN REG 1unit/0.01ml Soln (100units/ml) SC SCH ×4 (07:13→22:33)
[2022-12-10] MEDS ORDERED: cefTRIAXone 1GM/50ML D5W 50 ML IV SCH (09:00)
[2022-12-10] MEDS ORDERED: ASPirin 81 mg TAB PO SCH (10:00)
[2022-12-10] MEDS: PATIENTS OWN MEDICATION (Empagliflozin (Jardiance) 1 TAB) PO SCH (10:00)
[2022-12-10] MEDS: glipiZIDE 5 MG TAB PO SCH ×2 (12:05→22:28)
[2022-12-10] MEDS: ATENOLOL 50 MG TAB PO SCH (12:06)
[2022-12-10] MEDS: ASPirin-EC 81 mg tab PO SCH (12:07)
[2022-12-10] MEDS: OXYBUTYNIN CHL 5 MG TAB PO SCH ×2 (12:07→22:29)
[2022-12-10] MEDS: OXYCODONE W/ ACETAMINOPHEN 5/325MG TABLET PO SCH ×2 (12:07→22:29)
[2022-12-10] MEDS: LISINOPRIL 10 MG TAB PO SCH (12:08)
[2022-12-10] MEDS: CITALOPRAM HYDROBR 20 MG TAB PO SCH (12:08)
[2022-12-10] MEDS: ATORVASTATIN 20 MG TAB PO SCH (22:28)
[2022-12-10] MEDS: IBUPROFEN 800 MG TAB PO SCH (22:29)
[2022-12-11 05:00] VITALS: BP 128/65
[2022-12-11] MEDS: metFORMIN HYDROCHLORIDE 500 MG TAB PO SCH (06:25)
[2022-12-11] MEDS: GABAPENTIN 300 MG CAP PO SCH ×2 (06:26→15:42)
[2022-12-11] MEDS: ACCU-CHEK COMFORT CURVE STRIP VI SCH ×3 (06:26→16:49)
[2022-12-11] MEDS: IBUPROFEN 800 MG TAB PO SCH ×2 (06:26→15:42)
[2022-12-11] MEDS: InsuLIN REG 1unit/0.01ml Soln (100units/ml) SC SCH ×3 (06:33→16:49)
[2022-12-11] MEDS: glipiZIDE 5 MG TAB PO SCH (08:19)
[2022-12-11] MEDS: OXYBUTYNIN CHL 5 MG TAB PO SCH (08:19)
[2022-12-11] MEDS: ASPirin-EC 81 mg tab PO SCH (08:21)
[2022-12-11] MEDS: OXYCODONE W/ ACETAMINOPHEN 5/325MG TABLET PO SCH (08:21)
[2022-12-11] MEDS: CITALOPRAM HYDROBR 20 MG TAB PO SCH (08:23)
[2022-12-11] MEDS: ATENOLOL 50 MG TAB PO SCH (08:23)
[2022-12-11] MEDS: PATIENTS OWN MEDICATION (Empagliflozin (Jardiance) 1 TAB) PO SCH (08:24)
[2022-12-11 09:00] VITALS: BP 118/57
[2022-12-11] MEDS: LISINOPRIL 10 MG TAB PO SCH (10:00)
[2022-12-11 10:42] VITALS: BP 113/62
[2022-12-11 13:00] VITALS: BP 113/62
[2022-12-11 17:07] VITALS: BP 95/53
== END 2022-12-11 18:45 | disposition home or self-care (01) | DRG 313 ==
LOC: ER 14:47 → TELE 17:29 → TELE-EAST 12-10 21:13
PROVIDERS: ADMIT Internal Medicine Cardiovascular Disease; ATTEND Internal Medicine Cardiovascular Disease
DX: R07.89 Other chest pain (principal); N39.0 Urinary tract infection, site not specified; L97.509 Non-pressure chronic ulcer of other part of unspecified foot with unspecified severity; E11.621 Type 2 diabetes mellitus with foot ulcer; F17.210 Nicotine dependence, cigarettes, uncomplicated; I10 Essential (primary) hypertension; Z20.822 Contact with and (suspected) exposure to COVID-19; E11.21 Type 2 diabetes mellitus with diabetic nephropathy; E11.51 Type 2 diabetes mellitus with diabetic peripheral angiopathy without gangrene; E11.40 Type 2 diabetes mellitus with diabetic neuropathy, unspecified; Z86.73 Personal history of transient ischemic attack (TIA), and cerebral infarction without residual deficits; Z83.3 Family history of diabetes mellitus; Z82.49 Family history of ischemic heart disease and other diseases of the circulatory system; Z79.84 Long term (current) use of oral hypoglycemic drugs
CPT/HCPCS: 36415; 71045; 80053; 81001; 82962; 83880; 84484; 85025; 87086; 87426; 93005; 96365; 96372; 99291; G0378; J0696; J1815

== ENCOUNTER 2023-04-25 14:57 | Inpatient (IN) | payer MEDICARE, MEDICAID ==
[~2023-04-25] VITALS: Ht 167.6 cm; Wt 84.9 kg
[~2023-04-25 14:57] MED LIST changes: -LISI-716 PO; +LISI10TA34 PO; +OXYB5TAB10 PO; -OXYB5TAB61 PO; -SIMV-8 PO; +SIMV20TA20 PO
[2023-04-25 17:09] LABS: Basophils # (auto) 0.1 10 ^3/uL (0-0.2); Basophils % (auto) 0.7 % (0.0-2.0); Eosinophils # (auto) 0.1 10 ^3/uL (0-0.8); Eosinophils % (auto) 0.5 % (0.0-7.0); Hematocrit 35.8 % (36.0-46.0); Hemoglobin 11.8 g/dL (12.2-16.2); Lymphocytes # (auto) 1.7 10 ^3/uL (0.4-5.4); Mean Corpuscular Hemoglobin 30.6 pg (28.0-32.0); Mean Corpuscular Hgb Conc. 32.9 g/dL (32.0-36.0); Mean Corpuscular Volume 92.9 fL (80.0-100.0); Monocytes # (auto) 0.8 10 ^3/uL (0-1.3); Monocytes % (auto) 5.9 % (0.0-12.0); Neutrophils # (auto) 10.6 10 ^3/uL (1.6-8.6); Neutrophils % (auto) 79.9 % (37.0-80.0); Red Blood Cells 3.85 10^6/uL (4.0-5.20); Red Cell Distribution Width 14.6 % (11.8-14.3); White Blood Cell 13.3 10^3/uL (4.4-10.8)
[2023-04-25 17:26] LABS: Calcium 8.5 mg/dL (8.5-10.1); Potassium 4.1 mmol/L (3.5-5.1)
[2023-04-25 17:30] LABS: Bilirubin, Total 0.5 mg/dL (0.2-1.0); Total Protein 7.8 g/dL (6.4-8.2)
[2023-04-25] MEDS ORDERED: SODIUM CHLORIDE 0.9% 1,000 ML IV ONE (22:15)
[2023-04-25] MEDS ORDERED: VANCOMYCIN PER PHARMACY 0 MG IV SCH (22:15)
[2023-04-25] MEDS ORDERED: PIPERACILLIN-TAZOB 3.375GM 100 ML IV ONE (22:15)
[2023-04-25] MEDS ORDERED: VANCOMYCIN 1GM/250ML 250 ML IV ONE (22:45)
[2023-04-26] MEDS ORDERED: ONDANSETRON HCL 4 MG/2 ML VIAL IV PRN
[2023-04-26] MEDS ORDERED: MORPHINE SULFATE INJ 2 MG/ml SYRG IV PRN
[2023-04-26] MEDS ORDERED: ACETAMINOPHEN 325 MG TAB PO PRN
[2023-04-26] MEDS ORDERED: DEXTROSE (50%) 50ML SYRG IV PRN
[2023-04-26] MEDS ORDERED: NITROGLYCERIN 0.4 MG SL TAB SL PRN
[2023-04-26] MEDS: InsuLIN REG 1unit/0.01ml Soln (100units/ml) SC SCH ×6 (04:00→20:27)
[2023-04-26] MEDS: ACCU-CHEK COMFORT CURVE STRIP VI SCH ×6 (04:00→20:26)
[2023-04-26 04:55] LABS: Basophils # (auto) 0 10 ^3/uL (0-0.2); Basophils % (auto) 0.6 % (0.0-2.0); Eosinophils # (auto) 0.1 10 ^3/uL (0-0.8); Eosinophils % (auto) 1.6 % (0.0-7.0); Hematocrit 38.8 % (36.0-46.0); Hemoglobin 13.1 g/dL (12.2-16.2); Lymphocytes % (auto) 25.2 % (10.0-50.0); Mean Corpuscular Hemoglobin 31.2 pg (28.0-32.0); Mean Corpuscular Hgb Conc. 33.7 g/dL (32.0-36.0); Mean Corpuscular Volume 92.6 fL (80.0-100.0); Monocytes # (auto) 0.5 10 ^3/uL (0-1.3); Monocytes % (auto) 6.5 % (0.0-12.0); Neutrophils # (auto) 5.1 10 ^3/uL (1.6-8.6); Neutrophils % (auto) 66.1 % (37.0-80.0); Nucleated Red Blood Cells % 0.1 %; Red Blood Cells 4.19 10^6/uL (4.0-5.20); Red Cell Distribution Width 14.5 % (11.8-14.3); White Blood Cell 7.8 10^3/uL (4.4-10.8)
[2023-04-26 05:00] LABS: Potassium 3.7 mmol/L (3.5-5.1)
[2023-04-26 05:02] LABS: BUN/Creatinine Ratio 22.4 (10.0-20.0)
[2023-04-26 05:05] LABS: Bilirubin, Total 0.5 mg/dL (0.2-1.0); Total Protein 8.4 g/dL (6.4-8.2)
[2023-04-26] MEDS: INSULIN LANTUS (GLARGINE) 1 /0.01ml (100units/ml) SC SCH ×2 (10:05→22:47)
[2023-04-26] MEDS: PIPERACILLIN-TAZOB 3.375GM 100 ML IV SCH ×2 (10:06→22:40)
[2023-04-26] MEDS: FAMOTIDINE (10MG/ML) 2ML VL IV SCH ×2 (10:06→22:39)
[2023-04-26] MEDS: ASPirin 81 mg TAB PO SCH (10:06)
[2023-04-26 11:12] LABS: Urine Bacteria MOD /hpf (None Seen); Urine Blood 2+ /uL (Negative); Urine Hyaline Cast MOD /lpf (0 - 2); Urine Mucus FEW (None Seen); Urine Specific Gravity 1.017 (1.001-1.035); Urine WBC 1347 /hpf (0 - 5); Urine WBC Clumps PRESENT /hpf (None Seen)
[2023-04-26] MEDS: HYDROcodone-ACET 5/325MG TAB PO PRN (11:31)
[2023-04-26] MEDS: SODIUM CHLORIDE 0.9% 1,000 ML IV SCH ×2 (16:50)
[2023-04-26] MEDS: ATORVASTATIN 20 MG TAB PO SCH (22:39)
[2023-04-27] MEDS: ACCU-CHEK COMFORT CURVE STRIP VI SCH ×6 (00:36→20:06)
[2023-04-27] MEDS: InsuLIN REG 1unit/0.01ml Soln (100units/ml) SC SCH ×6 (00:49→20:11)
[2023-04-27 04:56] LABS: Basophils # (auto) 0 10 ^3/uL (0-0.2); Basophils % (auto) 0.7 % (0.0-2.0); Eosinophils # (auto) 0.2 10 ^3/uL (0-0.8); Eosinophils % (auto) 2.2 % (0.0-7.0); Hematocrit 36.4 % (36.0-46.0); Hemoglobin 12.4 g/dL (12.2-16.2); Lymphocytes # (auto) 1.8 10 ^3/uL (0.4-5.4); Lymphocytes % (auto) 24.8 % (10.0-50.0); Mean Corpuscular Hemoglobin 31.1 pg (28.0-32.0); Mean Corpuscular Volume 91.5 fL (80.0-100.0); Monocytes # (auto) 0.5 10 ^3/uL (0-1.3); Monocytes % (auto) 6.5 % (0.0-12.0); Neutrophils # (auto) 4.7 10 ^3/uL (1.6-8.6); Neutrophils % (auto) 65.8 % (37.0-80.0); Nucleated Red Blood Cells % 0.1 %; Red Blood Cells 3.98 10^6/uL (4.0-5.20); Red Cell Distribution Width 14.3 % (11.8-14.3); White Blood Cell 7.1 10^3/uL (4.4-10.8)
[2023-04-27 05:17] LABS: BUN/Creatinine Ratio 22.3 (10.0-20.0); Calcium 8.6 mg/dL (8.5-10.1); Potassium 3.8 mmol/L (3.5-5.1)
[2023-04-27] MEDS: INSULIN LANTUS (GLARGINE) 1 /0.01ml (100units/ml) SC SCH ×2 (06:59→22:27)
[2023-04-27] MEDS: FAMOTIDINE (10MG/ML) 2ML VL IV SCH ×2 (08:32→22:24)
[2023-04-27] MEDS: ASPirin 81 mg TAB PO SCH (08:32)
[2023-04-27] MEDS: PIPERACILLIN-TAZOB 3.375GM 100 ML IV SCH ×2 (08:32→22:24)
[2023-04-27] MEDS: SODIUM CHLORIDE 0.9% 1,000 ML IV SCH (09:24)
[2023-04-27 12:00] VITALS: BP 175/80
[2023-04-27] MEDS ORDERED: VANCOMYCIN 1GM/250ML 250 ML IV SCH (14:30)
[2023-04-27 16:00] VITALS: BP 115/56
[2023-04-27 16:02] VITALS: BP 175/80
[2023-04-27 20:00] VITALS: BP 148/54
[2023-04-27 22:00] VITALS: BP 148/54
[2023-04-27] MEDS: ATORVASTATIN 20 MG TAB PO SCH (22:24)
[2023-04-28] MEDS: ACCU-CHEK COMFORT CURVE STRIP VI SCH ×6 (00:11→22:32)
[2023-04-28] MEDS: InsuLIN REG 1unit/0.01ml Soln (100units/ml) SC SCH ×6 (00:14→22:33)
[2023-04-28] MEDS: SODIUM CHLORIDE 0.9% 1,000 ML IV SCH ×2 (02:00→23:30)
[2023-04-28 05:00] VITALS: BP 135/51
[2023-04-28 06:13] LABS: Anion Gap 7 (5-15); BUN/Creatinine Ratio 15.6 (10.0-20.0); Blood Urea Nitrogen 17 mg/dL (7-18); Calcium 9.1 mg/dL (8.5-10.1); Carbon Dioxide 22 mmol/L (21-32); Chloride 106 mmol/L (98-107); GFR African American 64 mL/min; GFR Non-African American 53 mL/min; Glucose 83 mg/dL (74-106); Potassium 3.8 mmol/L (3.5-5.1); Sodium 135 mmol/L (136-145)
[2023-04-28 06:19] LABS: Basophils # (auto) 0 10 ^3/uL (0-0.2); Basophils % (auto) 0.4 % (0.0-2.0); Eosinophils # (auto) 0.1 10 ^3/uL (0-0.8); Eosinophils % (auto) 1.9 % (0.0-7.0); Hematocrit 40.5 % (36.0-46.0); Hemoglobin 13.6 g/dL (12.2-16.2); Lymphocytes # (auto) 3.1 10 ^3/uL (0.4-5.4); Lymphocytes % (auto) 38.6 % (10.0-50.0); Mean Corpuscular Hemoglobin 31.2 pg (28.0-32.0); Mean Corpuscular Hgb Conc. 33.7 g/dL (32.0-36.0); Mean Corpuscular Volume 92.6 fL (80.0-100.0); Monocytes # (auto) 0.5 10 ^3/uL (0-1.3); Monocytes % (auto) 6.2 % (0.0-12.0); Neutrophils # (auto) 4.2 10 ^3/uL (1.6-8.6); Neutrophils % (auto) 52.9 % (37.0-80.0); Nucleated Red Blood Cells % 0.1 %; Red Blood Cells 4.37 10^6/uL (4.0-5.20); Red Cell Distribution Width 14.6 % (11.8-14.3); White Blood Cell 7.9 10^3/uL (4.4-10.8)
[2023-04-28] MEDS: INSULIN LANTUS (GLARGINE) 1 /0.01ml (100units/ml) SC SCH ×2 (06:35→22:34)
[2023-04-28 09:00] VITALS: BP 140/65
[2023-04-28] MEDS ORDERED: DEXTROSE (50%) 50ML SYRG IV PRN (09:30)
[2023-04-28] MEDS: PIPERACILLIN-TAZOB 3.375GM 100 ML IV SCH (09:58)
[2023-04-28] MEDS: ASPirin 81 mg TAB PO SCH (09:59)
[2023-04-28] MEDS ORDERED: VANCOMYCIN 1GM/250ML 250 ML IV SCH (10:00)
[2023-04-28] MEDS: DAKINS QUARTER STR 0.125% (NaHypochlorite) 473 ML TOPICAL SOL TOP SCH ×2 (11:48→22:43)
[2023-04-28 13:00] VITALS: BP 149/73
[2023-04-28] MEDS: FAMOTIDINE (10MG/ML) 2ML VL IV SCH ×2 (15:34→22:39)
[2023-04-28] MEDS: VANCOMYCIN 1GM/250ML 250 ML IV SCH (15:42)
[2023-04-28 17:00] VITALS: BP 136/76
[2023-04-28] MEDS: AMPICILLIN & SULBACTAM SODIUM 3 GM in SODIUM CHL 0.9% 100 ML IV SCH ×2 (17:50→23:29)
[2023-04-28 20:00] VITALS: BP 142/55
[2023-04-28 22:00] VITALS: BP 142/69
[2023-04-28] MEDS: ATORVASTATIN 20 MG TAB PO SCH (22:39)
[2023-04-29 05:00] VITALS: BP 157/84
[2023-04-29] MEDS: AMPICILLIN & SULBACTAM SODIUM 3 GM in SODIUM CHL 0.9% 100 ML IV SCH ×4 (05:42→22:41)
[2023-04-29] MEDS: INSULIN LANTUS (GLARGINE) 1 /0.01ml (100units/ml) SC SCH ×2 (07:00→22:47)
[2023-04-29] MEDS: InsuLIN REG 1unit/0.01ml Soln (100units/ml) SC SCH ×4 (07:00→22:48)
[2023-04-29] MEDS: ACCU-CHEK COMFORT CURVE STRIP VI SCH ×4 (07:18→22:43)
[2023-04-29 07:39] LABS: Basophils # (auto) 0 10 ^3/uL (0-0.2); Basophils % (auto) 0.6 % (0.0-2.0); Eosinophils # (auto) 0.1 10 ^3/uL (0-0.8); Eosinophils % (auto) 1.5 % (0.0-7.0); Hematocrit 38.9 % (36.0-46.0); Hemoglobin 13.2 g/dL (12.2-16.2); Lymphocytes # (auto) 2.2 10 ^3/uL (0.4-5.4); Lymphocytes % (auto) 29.5 % (10.0-50.0); Mean Corpuscular Hemoglobin 31.4 pg (28.0-32.0); Mean Corpuscular Hgb Conc. 33.9 g/dL (32.0-36.0); Mean Corpuscular Volume 92.5 fL (80.0-100.0); Monocytes # (auto) 0.5 10 ^3/uL (0-1.3); Monocytes % (auto) 6.4 % (0.0-12.0); Neutrophils # (auto) 4.5 10 ^3/uL (1.6-8.6); Red Blood Cells 4.21 10^6/uL (4.0-5.20); Red Cell Distribution Width 14.4 % (11.8-14.3); White Blood Cell 7.3 10^3/uL (4.4-10.8)
[2023-04-29 08:07] LABS: BUN/Creatinine Ratio 16.2 (10.0-20.0); Calcium 8.9 mg/dL (8.5-10.1)
[2023-04-29 08:12] LABS: Potassium 4.1 mmol/L (3.5-5.1)
[2023-04-29 08:33] VITALS: BP 126/72
[2023-04-29] MEDS: SODIUM CHLORIDE 0.9% 1,000 ML IV SCH ×2 (11:20→18:55)
[2023-04-29] MEDS: VANCOMYCIN 1GM/250ML 250 ML IV SCH (12:05)
[2023-04-29] MEDS: FAMOTIDINE (10MG/ML) 2ML VL IV SCH ×2 (12:08→22:38)
[2023-04-29] MEDS: Juven Orange Powder PACKET 27.5gm PO SCH (12:10)
[2023-04-29] MEDS: ASPirin 81 mg TAB PO SCH (12:10)
[2023-04-29] MEDS: DAKINS QUARTER STR 0.125% (NaHypochlorite) 473 ML TOPICAL SOL TOP SCH ×2 (12:10→22:52)
[2023-04-29 13:00] VITALS: BP 137/70
[2023-04-29] MEDS: HYDROcodone-ACET 5/325MG TAB PO PRN (15:53)
[2023-04-29 16:48] VITALS: BP 164/87
[2023-04-29 22:00] VITALS: BP 167/88
[2023-04-29] MEDS: ATORVASTATIN 20 MG TAB PO SCH (22:38)
[2023-04-29] MEDS: hydrALAZINE HCL 20 MG/ML VL IV PRN (23:12)
[2023-04-30] VITALS (12 sets, daily range): BP systolic 82–173; BP diastolic 46–89
[2023-04-30] MEDS: HYDROcodone-ACET 5/325MG TAB PO PRN ×2 (04:20→23:05)
[2023-04-30] MEDS: VANCOMYCIN 1GM/250ML 250 ML IV SCH ×2 (04:21→22:57)
[2023-04-30] MEDS: AMPICILLIN & SULBACTAM SODIUM 3 GM in SODIUM CHL 0.9% 100 ML IV SCH (05:29)
[2023-04-30] MEDS: InsuLIN REG 1unit/0.01ml Soln (100units/ml) SC SCH ×4 (06:40→22:55)
[2023-04-30] MEDS: INSULIN LANTUS (GLARGINE) 1 /0.01ml (100units/ml) SC SCH ×2 (06:41→22:56)
[2023-04-30] MEDS: ACCU-CHEK COMFORT CURVE STRIP VI SCH ×4 (06:44→22:57)
[2023-04-30 06:45] LABS: Basophils # (auto) 0.1 10 ^3/uL (0-0.2); Basophils % (auto) 0.9 % (0.0-2.0); Eosinophils # (auto) 0.1 10 ^3/uL (0-0.8); Eosinophils % (auto) 1.3 % (0.0-7.0); Hematocrit 37.3 % (36.0-46.0); Hemoglobin 12.7 g/dL (12.2-16.2); Lymphocytes # (auto) 2.3 10 ^3/uL (0.4-5.4); Lymphocytes % (auto) 26.6 % (10.0-50.0); Mean Corpuscular Hemoglobin 30.9 pg (28.0-32.0); Mean Corpuscular Hgb Conc. 33.9 g/dL (32.0-36.0); Mean Corpuscular Volume 91.1 fL (80.0-100.0); Monocytes # (auto) 0.6 10 ^3/uL (0-1.3); Monocytes % (auto) 6.6 % (0.0-12.0); Neutrophils # (auto) 5.6 10 ^3/uL (1.6-8.6); Neutrophils % (auto) 64.6 % (37.0-80.0); Nucleated Red Blood Cells % 0.1 %; Red Blood Cells 4.09 10^6/uL (4.0-5.20); Red Cell Distribution Width 14.4 % (11.8-14.3); White Blood Cell 8.7 10^3/uL (4.4-10.8)
[2023-04-30 07:00] LABS: BUN/Creatinine Ratio 15.1 (10.0-20.0); Calcium 9.4 mg/dL (8.5-10.1); Potassium 3.6 mmol/L (3.5-5.1)
[2023-04-30] MEDS: hydrALAZINE HCL 20 MG/ML VL IV PRN (08:41)
[2023-04-30] MEDS: FAMOTIDINE (10MG/ML) 2ML VL IV SCH ×3 (10:00→22:57)
[2023-04-30] MEDS: ASPirin 81 mg TAB PO SCH (10:56)
[2023-04-30] MEDS: Juven Orange Powder PACKET 27.5gm PO SCH (10:57)
[2023-04-30] MEDS: DAKINS QUARTER STR 0.125% (NaHypochlorite) 473 ML TOPICAL SOL TOP SCH ×2 (10:58→22:58)
[2023-04-30 11:32] LABS: INR 0.97 (0.9-1.15); Partial Thromboplastin Time 29.4 sec (24.6-33.4)
[2023-04-30] MEDS ORDERED: MEROPENEM 1GM/NS 100ml AE IV SCH (12:00)
[2023-04-30] MEDS ORDERED: IOHEXOL 350 MG/ML 500ML BOTTLE IJ ONE (13:45)
[2023-04-30] MEDS ORDERED: LIDOCAINE 2%HCL (LOCAL ANESTH.) INJ 20ML MDV ONE ×3 (13:45→14:15)
[2023-04-30] MEDS ORDERED: MIDAZOLAM HCL 2MG/2ML 2ml VIAL (1mg/ml) ONE (13:50)
[2023-04-30] MEDS ORDERED: fentaNYL CITRATE 100 MCG/2 ML VL ONE (13:50)
[2023-04-30] MEDS ORDERED: ANGIOMAX 250 MG VIAL IV ONE (13:50)
[2023-04-30] MEDS ORDERED: SODIUM CHL 0.9% 0 ML ONE (13:51)
[2023-04-30] MEDS ORDERED: IODIXANOL 320MG/ML 100ML BTL IV ONE (14:04)
[2023-04-30] MEDS ORDERED: HYDROmorphone HCL 2 MG/ML VL/or syr ONE (14:17)
[2023-04-30] MEDS ORDERED: DOPamine 1600MCG/ML D5W 0 ML IV ONE (14:23)
[2023-04-30] MEDS ORDERED: SODIUM CHLORIDE 0.9% 1,000 ML IV SCH (15:15)
[2023-04-30] MEDS: MEROPENEM 1GM IVPB 100 ML IV SCH (17:13)
[2023-04-30] MEDS: ATORVASTATIN 20 MG TAB PO SCH (22:57)
[2023-05-01] MEDS: MEROPENEM 1GM IVPB 100 ML IV SCH ×2 (03:15→14:17)
[2023-05-01 05:00] VITALS: BP 123/54
[2023-05-01] MEDS: InsuLIN REG 1unit/0.01ml Soln (100units/ml) SC SCH ×4 (06:47→22:20)
[2023-05-01] MEDS: INSULIN LANTUS (GLARGINE) 1 /0.01ml (100units/ml) SC SCH ×2 (06:48→22:18)
[2023-05-01] MEDS: ACCU-CHEK COMFORT CURVE STRIP VI SCH ×4 (06:51→21:59)
[2023-05-01 09:00] VITALS: BP 147/54
[2023-05-01] MEDS ORDERED: LIDOCAINE 1% HCL (LOCAL ANESTH.) INJ 20ML MDV ONE (09:28)
[2023-05-01] MEDS ORDERED: BUPIVACAINE 0.25% INJ 50ML VIAL ONE (09:28)
[2023-05-01] MEDS ORDERED: ONDANSETRON HCL 4 MG/2 ML VIAL ONE (09:30)
[2023-05-01] MEDS ORDERED: MIDAZOLAM HCL 2MG/2ML 2ml VIAL (1mg/ml) ONE (09:30)
[2023-05-01] MEDS ORDERED: fentaNYL CITRATE 100 MCG/2 ML VL ONE (09:30)
[2023-05-01] MEDS ORDERED: PROPOFOL 10 MG/ML 20 ML IV ONE (09:30)
[2023-05-01] MEDS ORDERED: SODIUM CHLORIDE LOCK 10 ML ONE (09:30)
[2023-05-01] MEDS: ASPirin 81 mg TAB PO SCH (10:00)
[2023-05-01] MEDS: Juven Orange Powder PACKET 27.5gm PO SCH (10:00)
[2023-05-01 10:10] LABS: Basophils # (auto) 0.1 10 ^3/uL (0-0.2); Basophils % (auto) 0.6 % (0.0-2.0); Eosinophils # (auto) 0.2 10 ^3/uL (0-0.8); Eosinophils % (auto) 2.6 % (0.0-7.0); Hematocrit 36.7 % (36.0-46.0); Lymphocytes # (auto) 2.3 10 ^3/uL (0.4-5.4); Lymphocytes % (auto) 26.6 % (10.0-50.0); Mean Corpuscular Hemoglobin 30.4 pg (28.0-32.0); Mean Corpuscular Hgb Conc. 32.7 g/dL (32.0-36.0); Mean Corpuscular Volume 92.9 fL (80.0-100.0); Monocytes # (auto) 0.7 10 ^3/uL (0-1.3); Monocytes % (auto) 7.5 % (0.0-12.0); Neutrophils # (auto) 5.5 10 ^3/uL (1.6-8.6); Neutrophils % (auto) 62.7 % (37.0-80.0); Nucleated Red Blood Cells % 0.1 %; Red Blood Cells 3.95 10^6/uL (4.0-5.20); Red Cell Distribution Width 14.7 % (11.8-14.3); White Blood Cell 8.8 10^3/uL (4.4-10.8)
[2023-05-01] MEDS: DAKINS QUARTER STR 0.125% (NaHypochlorite) 473 ML TOPICAL SOL TOP SCH ×2 (10:22→21:48)
[2023-05-01 10:23] LABS: Calcium 8.4 mg/dL (8.5-10.1); Potassium 3.7 mmol/L (3.5-5.1)
[2023-05-01] MEDS: FAMOTIDINE (10MG/ML) 2ML VL IV SCH ×2 (11:13→21:57)
[2023-05-01] MEDS ORDERED: METOCLOPRAMIDE HCL 5MG/ml INJ 2ml VIAL IV PRN (11:30)
[2023-05-01] MEDS ORDERED: ACCU-CHEK COMFORT CURVE STRIP VI ONE (11:30)
[2023-05-01] MEDS ORDERED: MORPHINE SULFATE INJ 2 MG/ml SYRG IV PRN (11:30)
[2023-05-01] MEDS ORDERED: HYDROmorphone HCL 2 MG/ML VL/or syr IV PRN ×2 (11:30)
[2023-05-01] MEDS ORDERED: ceFAZolin 1GM/50ML 100 ML IV ONE (11:50)
[2023-05-01 17:00] VITALS: BP 130/65
[2023-05-01] MEDS: HYDROcodone-ACET 5/325MG TAB PO PRN ×2 (17:30→22:04)
[2023-05-01] MEDS: VANCOMYCIN 1GM/250ML 250 ML IV SCH (18:30)
[2023-05-01] MEDS: ATORVASTATIN 20 MG TAB PO SCH (21:56)
[2023-05-01 22:00] VITALS: BP 153/70
[2023-05-02] VITALS (7 sets, daily range): BP systolic 124–155; BP diastolic 53–82
[2023-05-02] MEDS: DAKINS QUARTER STR 0.125% (NaHypochlorite) 473 ML TOPICAL SOL TOP SCH ×2 (00:29→22:06)
[2023-05-02] MEDS: HYDROcodone-ACET 5/325MG TAB PO PRN ×5 (02:42→22:05)
[2023-05-02] MEDS: MEROPENEM 1GM IVPB 100 ML IV SCH ×3 (02:42→22:05)
[2023-05-02] MEDS: ACCU-CHEK COMFORT CURVE STRIP VI SCH ×3 (06:13→22:06)
[2023-05-02] MEDS: InsuLIN REG 1unit/0.01ml Soln (100units/ml) SC SCH ×3 (06:13→22:32)
[2023-05-02] MEDS: INSULIN LANTUS (GLARGINE) 1 /0.01ml (100units/ml) SC SCH ×2 (06:18→22:32)
[2023-05-02 06:26] LABS: Basophils # (auto) 0.1 10 ^3/uL (0-0.2); Basophils % (auto) 0.7 % (0.0-2.0); Eosinophils # (auto) 0.2 10 ^3/uL (0-0.8); Eosinophils % (auto) 2.6 % (0.0-7.0); Hematocrit 33.7 % (36.0-46.0); Hemoglobin 11.1 g/dL (12.2-16.2); Lymphocytes # (auto) 2.9 10 ^3/uL (0.4-5.4); Lymphocytes % (auto) 34.7 % (10.0-50.0); Mean Corpuscular Hemoglobin 30.6 pg (28.0-32.0); Mean Corpuscular Hgb Conc. 32.8 g/dL (32.0-36.0); Mean Corpuscular Volume 93.3 fL (80.0-100.0); Monocytes # (auto) 0.6 10 ^3/uL (0-1.3); Monocytes % (auto) 7.7 % (0.0-12.0); Neutrophils # (auto) 4.5 10 ^3/uL (1.6-8.6); Neutrophils % (auto) 54.3 % (37.0-80.0); Red Blood Cells 3.62 10^6/uL (4.0-5.20); Red Cell Distribution Width 14.6 % (11.8-14.3); White Blood Cell 8.3 10^3/uL (4.4-10.8)
[2023-05-02 07:02] LABS: Calcium 8.7 mg/dL (8.5-10.1); Potassium 3.5 mmol/L (3.5-5.1)
[2023-05-02 07:05] LABS: BUN/Creatinine Ratio 17.2 (10.0-20.0)
[2023-05-02] MEDS: Juven Orange Powder PACKET 27.5gm PO SCH (10:00)
[2023-05-02] MEDS: ASPirin 81 mg TAB PO SCH (11:00)
[2023-05-02] MEDS: FAMOTIDINE (10MG/ML) 2ML VL IV SCH ×2 (11:00→22:05)
[2023-05-02] MEDS: VANCOMYCIN 1GM/250ML 250 ML IV SCH (11:00)
[2023-05-02] MEDS: ATORVASTATIN 20 MG TAB PO SCH (22:05)
[2023-05-03] MEDS: VANCOMYCIN 1GM/250ML 250 ML IV SCH ×2 (04:12→22:11)
[2023-05-03 05:00] VITALS: BP 138/54
[2023-05-03] MEDS: MEROPENEM 1GM IVPB 100 ML IV SCH ×3 (05:58→21:04)
[2023-05-03 06:00] LABS: Basophils # (auto) 0.1 10 ^3/uL (0-0.2); Basophils % (auto) 0.9 % (0.0-2.0); Eosinophils # (auto) 0.3 10 ^3/uL (0-0.8); Eosinophils % (auto) 3.5 % (0.0-7.0); Hematocrit 34.3 % (36.0-46.0); Hemoglobin 11.4 g/dL (12.2-16.2); Lymphocytes # (auto) 2.4 10 ^3/uL (0.4-5.4); Lymphocytes % (auto) 30.6 % (10.0-50.0); Mean Corpuscular Hemoglobin 30.7 pg (28.0-32.0); Mean Corpuscular Hgb Conc. 33.1 g/dL (32.0-36.0); Mean Corpuscular Volume 92.8 fL (80.0-100.0); Monocytes # (auto) 0.5 10 ^3/uL (0-1.3); Monocytes % (auto) 6.6 % (0.0-12.0); Neutrophils # (auto) 4.5 10 ^3/uL (1.6-8.6); Neutrophils % (auto) 58.4 % (37.0-80.0); Nucleated Red Blood Cells % 0.1 %; Red Cell Distribution Width 14.2 % (11.8-14.3); White Blood Cell 7.8 10^3/uL (4.4-10.8)
[2023-05-03] MEDS: HYDROcodone-ACET 5/325MG TAB PO PRN ×5 (06:00→22:12)
[2023-05-03 06:08] LABS: Calcium 8.6 mg/dL (8.5-10.1); Potassium 3.9 mmol/L (3.5-5.1)
[2023-05-03 06:11] LABS: BUN/Creatinine Ratio 19.5 (10.0-20.0)
[2023-05-03] MEDS: ACCU-CHEK COMFORT CURVE STRIP VI SCH ×4 (06:19→22:13)
[2023-05-03] MEDS: InsuLIN REG 1unit/0.01ml Soln (100units/ml) SC SCH ×4 (06:37→22:13)
[2023-05-03] MEDS: INSULIN LANTUS (GLARGINE) 1 /0.01ml (100units/ml) SC SCH ×2 (06:38→22:13)
[2023-05-03 09:00] VITALS: BP 132/87
[2023-05-03] MEDS: FAMOTIDINE (10MG/ML) 2ML VL IV SCH ×2 (09:58→22:11)
[2023-05-03] MEDS: ASPirin 81 mg TAB PO SCH (09:58)
[2023-05-03] MEDS: Juven Orange Powder PACKET 27.5gm PO SCH (10:00)
[2023-05-03 13:00] VITALS: BP 156/60
[2023-05-03] MEDS: DAKINS QUARTER STR 0.125% (NaHypochlorite) 473 ML TOPICAL SOL TOP SCH ×2 (13:12→23:00)
[2023-05-03 17:00] VITALS: BP 132/68
[2023-05-03 22:00] VITALS: BP 160/72
[2023-05-03] MEDS: DOCUSATE SOD 100 MG CAP PO PRN (22:11)
[2023-05-03] MEDS: ATORVASTATIN 20 MG TAB PO SCH (22:12)
[2023-05-04 05:00] VITALS: BP 148/66
[2023-05-04] MEDS: HYDROcodone-ACET 5/325MG TAB PO PRN ×3 (05:47→20:56)
[2023-05-04] MEDS: MEROPENEM 1GM IVPB 100 ML IV SCH (05:48)
[2023-05-04] MEDS: ACCU-CHEK COMFORT CURVE STRIP VI SCH ×4 (05:59→22:00)
[2023-05-04] MEDS: InsuLIN REG 1unit/0.01ml Soln (100units/ml) SC SCH ×4 (06:27→22:34)
[2023-05-04] MEDS: INSULIN LANTUS (GLARGINE) 1 /0.01ml (100units/ml) SC SCH ×2 (06:27→22:33)
[2023-05-04 09:00] VITALS: BP 152/60
[2023-05-04] MEDS: FAMOTIDINE (10MG/ML) 2ML VL IV SCH ×2 (10:04→22:29)
[2023-05-04] MEDS: ASPirin 81 mg TAB PO SCH (10:04)
[2023-05-04] MEDS: Juven Orange Powder PACKET 27.5gm PO SCH (10:06)
[2023-05-04] MEDS: DAKINS QUARTER STR 0.125% (NaHypochlorite) 473 ML TOPICAL SOL TOP SCH ×2 (10:06→22:00)
[2023-05-04] MEDS: hydrALAZINE HCL 20 MG/ML VL IV PRN ×2 (10:07→22:29)
[2023-05-04] MEDS ORDERED: METR-344 PO (12:38)
[2023-05-04] MEDS ORDERED: DOXY-448 PO (12:38)
[2023-05-04 13:00] VITALS: BP 130/57
[2023-05-04] MEDS: VANCOMYCIN 1GM/250ML 250 ML IV SCH (16:00)
[2023-05-04 17:00] VITALS: BP 145/76
[2023-05-04] MEDS: DOCUSATE SOD 100 MG CAP PO PRN (20:56)
[2023-05-04 22:00] VITALS: BP 158/77
[2023-05-04] MEDS: ATORVASTATIN 20 MG TAB PO SCH (22:30)
[2023-05-05] MEDS: HYDROcodone-ACET 5/325MG TAB PO PRN (02:39)
[2023-05-05 05:00] VITALS: BP 112/64
[2023-05-05] MEDS: InsuLIN REG 1unit/0.01ml Soln (100units/ml) SC SCH ×2 (06:52→11:30)
[2023-05-05] MEDS: INSULIN LANTUS (GLARGINE) 1 /0.01ml (100units/ml) SC SCH (06:57)
[2023-05-05] MEDS: ACCU-CHEK COMFORT CURVE STRIP VI SCH ×2 (07:01→11:30)
[2023-05-05] MEDS ORDERED: HYDROcodone-ACET 5/325MG TAB PO ONE (07:15)
[2023-05-05 09:00] VITALS: BP 127/73
[2023-05-05 10:45] VITALS: BP 127/73
[2023-05-05] MEDS: DAKINS QUARTER STR 0.125% (NaHypochlorite) 473 ML TOPICAL SOL TOP SCH ×2 (11:00→11:56)
[2023-05-05] MEDS: ASPirin 81 mg TAB PO SCH (11:55)
[2023-05-05] MEDS: FAMOTIDINE (10MG/ML) 2ML VL IV SCH (11:55)
[2023-05-05] MEDS: VANCOMYCIN 1GM/250ML 250 ML IV SCH (11:55)
[2023-05-05] MEDS: Juven Orange Powder PACKET 27.5gm PO SCH (11:55)
== END 2023-05-05 11:40 | disposition home health service (06) | DRG 987 ==
LOC: ER 14:57 → OVERFLOW 23:53 → CENTRAL 04-27 12:15
PROVIDERS: ADMIT Nurse Practitioner Family; ATTEND Internal Medicine Pulmonary Disease
PROC: B41G1ZZ Fluoroscopy of Left Lower Extremity Arteries using Low Osmolar Contrast (ICD-10-PCS; 2023-04-30)
PROC: B41F1ZZ Fluoroscopy of Right Lower Extremity Arteries using Low Osmolar Contrast (ICD-10-PCS; 2023-04-30)
PROC: 0JCQ0ZZ Extirpation of Matter from Right Foot Subcutaneous Tissue and Fascia, Open Approach (ICD-10-PCS; 2023-05-01)
PROC: B54NZZA Ultrasonography of Left Upper Extremity Veins, Guidance (ICD-10-PCS; 2023-05-01)
PROC: 0J9Q0ZZ Drainage of Right Foot Subcutaneous Tissue and Fascia, Open Approach (ICD-10-PCS; 2023-05-01)
PROC: 05HF33Z Insertion of Infusion Device into Left Cephalic Vein, Percutaneous Approach (ICD-10-PCS; principal; 2023-05-01 12:34)
DX: E11.621 Type 2 diabetes mellitus with foot ulcer (principal); A41.89 Other specified sepsis; L02.611 Cutaneous abscess of right foot; L03.115 Cellulitis of right lower limb; N39.0 Urinary tract infection, site not specified; E11.51 Type 2 diabetes mellitus with diabetic peripheral angiopathy without gangrene; N17.0 Acute kidney failure with tubular necrosis; N17.9 Acute kidney failure, unspecified; E11.65 Type 2 diabetes mellitus with hyperglycemia; E11.40 Type 2 diabetes mellitus with diabetic neuropathy, unspecified; E78.5 Hyperlipidemia, unspecified; A49.02 Methicillin resistant Staphylococcus aureus infection, unspecified site; F17.210 Nicotine dependence, cigarettes, uncomplicated; I10 Essential (primary) hypertension; L97.519 Non-pressure chronic ulcer of other part of right foot with unspecified severity; D64.9 Anemia, unspecified; E66.9 Obesity, unspecified; W45.8XXA Other foreign body or object entering through skin, initial encounter; S90.851A Superficial foreign body, right foot, initial encounter; I16.0 Hypertensive urgency; Z86.73 Personal history of transient ischemic attack (TIA), and cerebral infarction without residual deficits; Z89.419 Acquired absence of unspecified great toe; Z79.4 Long term (current) use of insulin; Z82.49 Family history of ischemic heart disease and other diseases of the circulatory system; Z83.3 Family history of diabetes mellitus; Z90.49 Acquired absence of other specified parts of digestive tract; Z68.30 Body mass index [BMI] 30.0-30.9, adult
CPT/HCPCS: 36415; 71045; 73700; 73720; 75716; 80048; 80053; 80202; 81001; 82565; 82962; 83036; 83605; 83690; 83880; 85025; 85610; 85652; 85730; 86850; 86900; 86901; 87070; 87075; 87077; 87186; 87205; 96365; 97110; 97116; 97163; 97530; 99152; 99153; G0378; J0690; J1815; J2001; J2185; J2250; J2405; J2543; J2704; J3490; Q9967

== ENCOUNTER → 2023-07-31 | Outpatient (CLI) | payer MEDICARE, MEDICAID ==
[~2023-07-31] MED LIST changes: -CITA-77 PO; +DOXY-448 PO; +METR-344 PO; +MVI in SODIUM CHLORIDE 0.9% 500 ML IVB ONE; +PIPERACILLIN-TAZO 4.5GM 100 ML IV ONE
[2023-07-31 09:20] VITALS: BP 128/64; PULSE 86; RESP 16; O2SAT 100
[2023-07-31 15:22] VITALS: BP 122/63; PULSE 70; RESP 16; O2SAT 98
== END | disposition home or self-care (01) ==
LOC: CHF HDHVI 09:44
PROVIDERS: ATTEND Internal Medicine Cardiovascular Disease
DX: R31.9 Hematuria, unspecified (principal); E86.0 Dehydration; N28.9 Disorder of kidney and ureter, unspecified; R53.83 Other fatigue; Z90.49 Acquired absence of other specified parts of digestive tract
CPT/HCPCS: 96365; 96366; 96367; G0463; J2543; J7040

== ENCOUNTER → 2023-08-07 | Outpatient (CLI) | payer MEDICARE, MEDICAID ==
[~2023-08-07] MED LIST changes: -MVI in SODIUM CHLORIDE 0.9% 500 ML IVB ONE; -PIPERACILLIN-TAZO 4.5GM 100 ML IV ONE
[2023-08-07 14:20] VITALS: BP 158/85; PULSE 71; RESP 18; O2SAT 98
[2023-08-07 14:50] VITALS: BP 119/62; PULSE 71; RESP 18; O2SAT 98
== END | disposition home or self-care (01) ==
LOC: Rad HDHVI 14:19
PROVIDERS: ATTEND Internal Medicine Cardiovascular Disease
DX: R10.9 Unspecified abdominal pain (principal)
CPT/HCPCS: G0463

== ENCOUNTER 2023-09-03 21:35 | Inpatient (IN) | payer MEDICARE, MEDICAID ==
[~2023-09-03] VITALS: Ht 167.6 cm; Wt 88.7 kg
[2023-09-04 00:42] LABS: Basophils # (auto) 0 10 ^3/uL (0-0.2); Basophils % (auto) 0.4 % (0.0-2.0); Eosinophils # (auto) 0.1 10 ^3/uL (0-0.8); Eosinophils % (auto) 0.5 % (0.0-7.0); Hematocrit 40.2 % (36.0-46.0); Hemoglobin 12.9 g/dL (12.2-16.2); Lymphocytes # (auto) 1.4 10 ^3/uL (0.4-5.4); Lymphocytes % (auto) 11.9 % (10.0-50.0); Mean Corpuscular Hemoglobin 30.7 pg (28.0-32.0); Mean Corpuscular Hgb Conc. 32.1 g/dL (32.0-36.0); Mean Corpuscular Volume 95.7 fL (80.0-100.0); Monocytes # (auto) 0.7 10 ^3/uL (0-1.3); Monocytes % (auto) 6.1 % (0.0-12.0); Neutrophils # (auto) 9.8 10 ^3/uL (1.6-8.6); Neutrophils % (auto) 81.1 % (37.0-80.0); Nucleated Red Blood Cells % 0.1 %; Red Cell Distribution Width 16.6 % (11.8-14.3)
[2023-09-04 00:55] LABS: Alanine Aminotransferase 12 U/L (7-40); Albumin 4.1 g/dL (3.2-4.8); Alkaline Phosphatase 99 U/L (46-116); Anion Gap 10 (5-15); Aspartate Aminotransferase 20 U/L (13-40); BUN/Creatinine Ratio 16.6 (10.0-20.0); Bilirubin, Total 0.3 mg/dL (0.2-1.0); Blood Urea Nitrogen 31 mg/dL (9-23); Calcium 9.4 mg/dL (8.7-10.4); Carbon Dioxide 19 mmol/L (20-30); Chloride 100 mmol/L (98-107); Glucose 303 mg/dL (74-106); Potassium 3.6 mmol/L (3.5-5.1); Sodium 129 mmol/L (136-145); Total Protein 8.1 g/dL (5.7-8.2)
[2023-09-04] MEDS ORDERED: VANCOMYCIN 1GM/250ML 250 ML IV ONE ×2 (01:00)
[2023-09-04] MEDS ORDERED: VANCOMYCIN PER PHARMACY 0 MG IV SCH (01:00)
[2023-09-04] MEDS ORDERED: ACETAMINOPHEN 325 MG TAB PO PRN (01:00)
[2023-09-04] MEDS ORDERED: MORPHINE SULFATE INJ 2 MG/ml SYRG IV PRN ×2 (01:00→02:30)
[2023-09-04] MEDS ORDERED: DEXTROSE (50%) 50ML SYRG IV PRN (01:00)
[2023-09-04] MEDS ORDERED: ONDANSETRON HCL 4 MG/2 ML VIAL IV PRN (01:00)
[2023-09-04] MEDS ORDERED: SODIUM CHLORIDE 0.9% 1,000 ML IV ONE (01:15)
[2023-09-04] MEDS ORDERED: TETANUS-DIPTH-ACEL PERTUSSIS 0.5ML SYR Tdap IM ONE (01:15)
[2023-09-04] MEDS ORDERED: NITROGLYCERIN 0.4 MG SL TAB SL PRN (02:30)
[2023-09-04 05:21] LABS: Alanine Aminotransferase 15 U/L (7-40); Albumin 3.9 g/dL (3.2-4.8); Alkaline Phosphatase 90 U/L (46-116); Anion Gap 10 (5-15); Aspartate Aminotransferase 17 U/L (13-40); BUN/Creatinine Ratio 25.1 (10.0-20.0); Carbon Dioxide 22 mmol/L (20-30); Chloride 100 mmol/L (98-107); Glucose 319 mg/dL (74-106); Potassium 3.5 mmol/L (3.5-5.1); Sodium 132 mmol/L (136-145)
[2023-09-04 05:22] LABS: Bilirubin, Total 0.3 mg/dL (0.2-1.0); Total Protein 7.5 g/dL (5.7-8.2)
[2023-09-04 05:28] LABS: Blood Urea Nitrogen 46 mg/dL (9-23)
[2023-09-04 05:33] LABS: Basophils # (auto) 0.1 10 ^3/uL (0-0.2); Basophils % (auto) 0.5 % (0.0-2.0); Eosinophils # (auto) 0.1 10 ^3/uL (0-0.8); Eosinophils % (auto) 0.9 % (0.0-7.0); Hematocrit 33.6 % (36.0-46.0); Hemoglobin 11.3 g/dL (12.2-16.2); Lymphocytes # (auto) 1.6 10 ^3/uL (0.4-5.4); Lymphocytes % (auto) 11.8 % (10.0-50.0); Mean Corpuscular Hemoglobin 30.9 pg (28.0-32.0); Mean Corpuscular Hgb Conc. 33.7 g/dL (32.0-36.0); Mean Corpuscular Volume 91.7 fL (80.0-100.0); Monocytes % (auto) 7.6 % (0.0-12.0); Neutrophils # (auto) 10.6 10 ^3/uL (1.6-8.6); Neutrophils % (auto) 79.2 % (37.0-80.0); Red Blood Cells 3.66 10^6/uL (4.0-5.20); Red Cell Distribution Width 16.2 % (11.8-14.3); White Blood Cell 13.3 10^3/uL (4.4-10.8)
[2023-09-04] MEDS: ACCU-CHEK COMFORT CURVE STRIP VI SCH ×4 (06:44→21:56)
[2023-09-04] MEDS: InsuLIN REG 1unit/0.01ml Soln (100units/ml) SC SCH ×4 (06:59→22:23)
[2023-09-04 07:04] VITALS: PULSE 88; RESP 22; O2SAT 94
[2023-09-04 07:30] VITALS: PULSE 82; RESP 22; O2SAT 96
[2023-09-04] MEDS: SODIUM CHLORIDE 0.9% 1,000 ML IV SCH ×2 (08:31→12:36)
[2023-09-04] MEDS: ASPirin 81 mg TAB PO SCH (10:35)
[2023-09-04] MEDS: CLOPIDOGREL BISULFATE 75 MG TAB PO SCH (10:35)
[2023-09-04] MEDS: HYDROcodone-ACET 5/325MG TAB PO PRN ×2 (12:35→22:04)
[2023-09-04] MEDS ORDERED: PANT40T PO (17:14)
[2023-09-04] MEDS ORDERED: NITR100C6 PO (17:14)
[2023-09-04] MEDS ORDERED: CARI350T28 PO (17:14)
[2023-09-04] MEDS ORDERED: APIX2.5T PO (17:14)
[2023-09-04 19:00] VITALS: RESP 20
[2023-09-04 20:00] VITALS: BP 131/58; PULSE 90; RESP 22; TEMP 99.6; O2SAT 94
[2023-09-04 22:00] VITALS: BP 131/58; PULSE 98; RESP 22; TEMP 99.6; O2SAT 94
[2023-09-05] VITALS (7 sets, daily range): BP systolic 122–147; BP diastolic 51–74; PULSE 73–89; RESP 18–20; TEMP 97.4–98.2; O2SAT 94–98
[2023-09-05 05:21] LABS: Basophils # (auto) 0 10 ^3/uL (0-0.2); Basophils % (auto) 0.3 % (0.0-2.0); Eosinophils # (auto) 0.1 10 ^3/uL (0-0.8); Eosinophils % (auto) 0.4 % (0.0-7.0); Hematocrit 35.7 % (36.0-46.0); Hemoglobin 11.6 g/dL (12.2-16.2); Lymphocytes # (auto) 1.3 10 ^3/uL (0.4-5.4); Lymphocytes % (auto) 10.1 % (10.0-50.0); Mean Corpuscular Hemoglobin 30.2 pg (28.0-32.0); Mean Corpuscular Hgb Conc. 32.6 g/dL (32.0-36.0); Mean Corpuscular Volume 92.7 fL (80.0-100.0); Monocytes # (auto) 0.8 10 ^3/uL (0-1.3); Monocytes % (auto) 6.7 % (0.0-12.0); Neutrophils # (auto) 10.3 10 ^3/uL (1.6-8.6); Neutrophils % (auto) 82.5 % (37.0-80.0); Nucleated Red Blood Cells % 0.1 %; Red Blood Cells 3.85 10^6/uL (4.0-5.20); White Blood Cell 12.5 10^3/uL (4.4-10.8)
[2023-09-05 05:35] LABS: Alanine Aminotransferase 10 U/L (7-40); Albumin 3.7 g/dL (3.2-4.8); Alkaline Phosphatase 85 U/L (46-116); Anion Gap 8 (5-15); Aspartate Aminotransferase 9 U/L (13-40); BUN/Creatinine Ratio 20.9 (10.0-20.0); Bilirubin, Total 0.5 mg/dL (0.2-1.0); Blood Urea Nitrogen 23 mg/dL (9-23); Carbon Dioxide 22 mmol/L (20-30); Chloride 104 mmol/L (98-107); Glucose 147 mg/dL (74-106); Potassium 3.4 mmol/L (3.5-5.1); Sodium 134 mmol/L (136-145); Total Protein 7.2 g/dL (5.7-8.2)
[2023-09-05] MEDS: InsuLIN REG 1unit/0.01ml Soln (100units/ml) SC SCH ×4 (06:49→22:05)
[2023-09-05] MEDS: ACCU-CHEK COMFORT CURVE STRIP VI SCH ×4 (07:18→22:07)
[2023-09-05] MEDS ORDERED: PANC3600 PO (08:01)
[2023-09-05] MEDS: ASPirin 81 mg TAB PO SCH (10:47)
[2023-09-05] MEDS: HYDROcodone-ACET 5/325MG TAB PO PRN ×3 (10:47→22:05)
[2023-09-05] MEDS: CLOPIDOGREL BISULFATE 75 MG TAB PO SCH (10:47)
[2023-09-05] MEDS: SODIUM CHLORIDE 0.9% 1,000 ML IV SCH (10:48)
[2023-09-05] MEDS: VANCOMYCIN 1GM/250ML 250 ML IV SCH (10:49)
[2023-09-05] MEDS: PIPERACILLIN-TAZOB 3.375GM 100 ML IV SCH ×2 (13:28→22:06)
[2023-09-06] VITALS (7 sets, daily range): BP systolic 116–147; BP diastolic 54–66; PULSE 75–106; RESP 16–18; TEMP 97.3–98.8; O2SAT 95–97
[2023-09-06] MEDS: HYDROcodone-ACET 5/325MG TAB PO PRN ×3 (02:21→19:57)
[2023-09-06] MEDS: SODIUM CHLORIDE 0.9% 1,000 ML IV SCH ×2 (03:00→19:58)
[2023-09-06] MEDS: VANCOMYCIN 1GM/250ML 250 ML IV SCH ×2 (05:03→23:05)
[2023-09-06] MEDS: ACCU-CHEK COMFORT CURVE STRIP VI SCH ×4 (06:44→21:22)
[2023-09-06] MEDS: InsuLIN REG 1unit/0.01ml Soln (100units/ml) SC SCH ×4 (06:45→21:34)
[2023-09-06] MEDS: PIPERACILLIN-TAZOB 3.375GM 100 ML IV SCH ×3 (06:45→21:22)
[2023-09-06] MEDS: ASPirin 81 mg TAB PO SCH (11:06)
[2023-09-06] MEDS: CLOPIDOGREL BISULFATE 75 MG TAB PO SCH (11:06)
[2023-09-07] MEDS: HYDROcodone-ACET 5/325MG TAB PO PRN ×3 (00:08→21:22)
[2023-09-07] MEDS: DOCUSATE SOD 100 MG CAP PO PRN ×2 (00:08→21:22)
[2023-09-07 05:00] VITALS: BP 134/67; PULSE 88; RESP 18; TEMP 98.3; O2SAT 99
[2023-09-07] MEDS: ACCU-CHEK COMFORT CURVE STRIP VI SCH ×4 (06:28→21:22)
[2023-09-07] MEDS: PIPERACILLIN-TAZOB 3.375GM 100 ML IV SCH ×3 (06:28→21:21)
[2023-09-07] MEDS: InsuLIN REG 1unit/0.01ml Soln (100units/ml) SC SCH ×4 (06:38→21:34)
[2023-09-07 08:30] VITALS: BP 150/80; PULSE 74; RESP 19; TEMP 97.2; O2SAT 98
[2023-09-07] MEDS: CLOPIDOGREL BISULFATE 75 MG TAB PO SCH (10:06)
[2023-09-07] MEDS: ASPirin 81 mg TAB PO SCH (10:06)
[2023-09-07 12:20] VITALS: BP 147/76; PULSE 76; RESP 19; TEMP 98.5; O2SAT 95
[2023-09-07] MEDS: SODIUM CHLORIDE 0.9% 1,000 ML IV SCH (12:20)
[2023-09-07 17:30] VITALS: BP 113/59; PULSE 80; RESP 19; TEMP 98.3; O2SAT 98
[2023-09-07] MEDS: VANCOMYCIN 1GM/250ML 250 ML IV SCH (17:38)
[2023-09-07 20:00] VITALS: PULSE 92; RESP 16; O2SAT 95
[2023-09-07 22:00] VITALS: BP 156/76; PULSE 92; RESP 16; TEMP 98.4; O2SAT 95
[2023-09-07] MEDS ORDERED: ceFAZolin 2 GM/D5W100ml 100 ML IV SCH (22:00)
[2023-09-08] MEDS: HYDROcodone-ACET 5/325MG TAB PO PRN ×2 (03:38→10:13)
[2023-09-08 05:00] VITALS: BP 140/68; PULSE 89; RESP 17; TEMP 97.4; O2SAT 97
[2023-09-08] MEDS: SODIUM CHLORIDE 0.9% 1,000 ML IV SCH ×2 (05:00→21:40)
[2023-09-08] MEDS: PIPERACILLIN-TAZOB 3.375GM 100 ML IV SCH ×3 (06:12→21:48)
[2023-09-08] MEDS: ACCU-CHEK COMFORT CURVE STRIP VI SCH ×4 (06:13→22:00)
[2023-09-08] MEDS: InsuLIN REG 1unit/0.01ml Soln (100units/ml) SC SCH ×4 (06:18→21:58)
[2023-09-08 08:15] VITALS: BP 145/68; PULSE 89; RESP 20; TEMP 97.6; O2SAT 98
[2023-09-08] MEDS: ASPirin 81 mg TAB PO SCH (10:09)
[2023-09-08] MEDS: CLOPIDOGREL BISULFATE 75 MG TAB PO SCH (10:09)
[2023-09-08] MEDS: VANCOMYCIN 1GM/250ML 250 ML IV SCH (10:45)
[2023-09-08 12:20] VITALS: BP 157/63; PULSE 74; RESP 20; TEMP 97.4; O2SAT 98
[2023-09-08 16:20] VITALS: BP 157/66; PULSE 84; RESP 20; TEMP 98.1; O2SAT 96
[2023-09-08 22:00] VITALS: BP 140/64; PULSE 88; RESP 19; TEMP 97.5; O2SAT 97
[2023-09-09] VITALS (8 sets, daily range): BP systolic 101–163; BP diastolic 41–81; PULSE 65–86; RESP 18–20; TEMP 97.8–98.4; O2SAT 94–96
[2023-09-09] MEDS: HYDROcodone-ACET 5/325MG TAB PO PRN ×5 (00:50→21:48)
[2023-09-09] MEDS: VANCOMYCIN 1GM/250ML 250 ML IV SCH (04:28)
[2023-09-09 04:58] LABS: Hematocrit 35.1 % (36.0-46.0); Hemoglobin 11.4 g/dL (12.2-16.2); Mean Corpuscular Hgb Conc. 32.6 g/dL (32.0-36.0); Mean Corpuscular Volume 92.1 fL (80.0-100.0); Red Blood Cells 3.81 10^6/uL (4.0-5.20); Red Cell Distribution Width 15.6 % (11.8-14.3); White Blood Cell 7.3 10^3/uL (4.4-10.8)
[2023-09-09 05:25] LABS: Band Neutrophils % (manual) 0; Basophils % (manual) 0 (0.0-2.0); Blast Cells 0; Metamyelocytes % 0; Promyelocytes % 0; Reactive Lymphocytes 0
[2023-09-09] MEDS: PIPERACILLIN-TAZOB 3.375GM 100 ML IV SCH ×3 (06:28→21:48)
[2023-09-09] MEDS: InsuLIN REG 1unit/0.01ml Soln (100units/ml) SC SCH ×4 (06:41→21:44)
[2023-09-09] MEDS: ACCU-CHEK COMFORT CURVE STRIP VI SCH ×4 (06:42→21:45)
[2023-09-09 06:46] LABS: Chloride 104 mmol/L (98-107); Potassium 3.9 mmol/L (3.5-5.1); Sodium 136 mmol/L (136-145)
[2023-09-09 06:47] LABS: Anion Gap 9 (5-15); Calcium 9.1 mg/dL (8.7-10.4); Carbon Dioxide 23 mmol/L (20-30)
[2023-09-09 06:52] LABS: BUN/Creatinine Ratio 8.8 (10.0-20.0); Blood Urea Nitrogen 10 mg/dL (9-23); Glucose 177 mg/dL (74-106)
[2023-09-09 07:58] LABS: Eosinophils % (manual) 1 (0-7); Lymphocytes % (manual) 22 (10.0-50.0); Monocytes % (manual) 2 (0-12); Myelocytes % 3; Platelet Estimate Adequate
[2023-09-09] MEDS: ASPirin 81 mg TAB PO SCH (09:32)
[2023-09-09] MEDS: CLOPIDOGREL BISULFATE 75 MG TAB PO SCH (09:32)
[2023-09-09] MEDS: SODIUM CHLORIDE 0.9% 1,000 ML IV SCH (14:20)
[2023-09-10] MEDS: VANCOMYCIN 1GM/250ML 250 ML IV SCH ×2 (00:15→18:59)
[2023-09-10] MEDS: HYDROcodone-ACET 5/325MG TAB PO PRN ×3 (03:42→15:18)
[2023-09-10 05:00] VITALS: BP 159/69; PULSE 79; RESP 16; TEMP 97.7; O2SAT 95
[2023-09-10] MEDS: PIPERACILLIN-TAZOB 3.375GM 100 ML IV SCH ×3 (06:01→22:09)
[2023-09-10] MEDS: SODIUM CHLORIDE 0.9% 1,000 ML IV SCH ×2 (06:01→23:40)
[2023-09-10] MEDS: ACCU-CHEK COMFORT CURVE STRIP VI SCH ×4 (06:17→22:16)
[2023-09-10] MEDS: InsuLIN REG 1unit/0.01ml Soln (100units/ml) SC SCH ×4 (06:20→22:16)
[2023-09-10 08:00] VITALS: PULSE 81; RESP 20; O2SAT 94
[2023-09-10] MEDS: ASPirin 81 mg TAB PO SCH (09:45)
[2023-09-10] MEDS: CLOPIDOGREL BISULFATE 75 MG TAB PO SCH (09:45)
[2023-09-10] MEDS: OXYCODONE W/ ACETAMINOPHEN 5/325MG TABLET PO SCH ×2 (10:00→22:11)
[2023-09-10] MEDS ORDERED: ASPirin-EC 81 mg tab PO SCH (10:00)
[2023-09-10] MEDS: APIXABAN 2.5 MG TAB PO SCH ×2 (10:00→22:11)
[2023-09-10] MEDS: PANCRELIPASE PO SCH ×3 (12:00→22:00)
[2023-09-10] MEDS: OXYBUTYNIN CHL 5 MG TAB PO SCH ×2 (12:07→22:11)
[2023-09-10] MEDS: CARISOPRODOL 350 MG TAB PO SCH (12:07)
[2023-09-10] MEDS: PANTOPRAZOLE 40 MG TAB PO SCH ×2 (12:07→22:11)
[2023-09-10] MEDS: LISINOPRIL 10 MG TAB PO SCH (12:08)
[2023-09-10 12:33] VITALS: BP 168/77; PULSE 92; RESP 20; TEMP 98.1; O2SAT 95
[2023-09-10] MEDS: GABAPENTIN 300 MG CAP PO SCH ×2 (15:16→22:10)
[2023-09-10 16:46] VITALS: BP 133/67; PULSE 75; RESP 20; TEMP 97.6; O2SAT 95
[2023-09-10] MEDS: metFORMIN HYDROCHLORIDE 500 MG TAB PO SCH (19:07)
[2023-09-10] MEDS: glipiZIDE 5 MG TAB PO SCH (19:08)
[2023-09-10 20:00] VITALS: PULSE 81; RESP 20; O2SAT 94
[2023-09-10 22:00] VITALS: BP 107/49; PULSE 72; RESP 16; TEMP 97.8; O2SAT 96
[2023-09-10] MEDS: ATORVASTATIN 20 MG TAB PO SCH (22:10)
[2023-09-11] VITALS (7 sets, daily range): BP systolic 99–128; BP diastolic 49–60; PULSE 66–83; RESP 16–20; TEMP 97.7–98.1; O2SAT 94–98
[2023-09-11] MEDS: PANCRELIPASE PO SCH ×4 (06:00→22:00)
[2023-09-11] MEDS: InsuLIN REG 1unit/0.01ml Soln (100units/ml) SC SCH ×4 (06:50→23:16)
[2023-09-11] MEDS: GABAPENTIN 300 MG CAP PO SCH ×3 (06:51→23:11)
[2023-09-11] MEDS: ACCU-CHEK COMFORT CURVE STRIP VI SCH ×4 (06:51→23:12)
[2023-09-11] MEDS: metFORMIN HYDROCHLORIDE 500 MG TAB PO SCH ×2 (06:52→17:47)
[2023-09-11] MEDS: glipiZIDE 5 MG TAB PO SCH ×2 (06:52→17:47)
[2023-09-11] MEDS: PIPERACILLIN-TAZOB 3.375GM 100 ML IV SCH (06:53)
[2023-09-11] MEDS ORDERED: FUROSEMIDE 40 MG/4 ML VIAL IV ONE (09:00)
[2023-09-11] MEDS ORDERED: POTASSIUM EFFERVESENT TAB 25 MEQ PO ONE (09:00)
[2023-09-11] MEDS ORDERED: OZEMPIC SC SCH (10:00)
[2023-09-11] MEDS: OXYBUTYNIN CHL 5 MG TAB PO SCH ×2 (10:28→23:10)
[2023-09-11] MEDS: OXYCODONE W/ ACETAMINOPHEN 5/325MG TABLET PO SCH ×2 (10:28→23:10)
[2023-09-11] MEDS: CLOPIDOGREL BISULFATE 75 MG TAB PO SCH (10:28)
[2023-09-11] MEDS: APIXABAN 2.5 MG TAB PO SCH ×2 (10:29→23:10)
[2023-09-11] MEDS: LISINOPRIL 10 MG TAB PO SCH (10:29)
[2023-09-11] MEDS: CARISOPRODOL 350 MG TAB PO SCH (10:29)
[2023-09-11] MEDS: PANTOPRAZOLE 40 MG TAB PO SCH ×2 (10:29→23:17)
[2023-09-11] MEDS: ASPirin-EC 81 mg tab PO SCH (10:29)
[2023-09-11] MEDS: LINEZOLID 600MG/300ML 300 ML IV SCH ×2 (12:18→23:11)
[2023-09-11] MEDS: AZTREONAM 1GM INJ 1 GM in D5W 5% 50 ML IV SCH ×2 (17:40→23:11)
[2023-09-11] MEDS: ATORVASTATIN 20 MG TAB PO SCH (23:10)
[2023-09-12] VITALS (7 sets, daily range): BP systolic 111–146; BP diastolic 50–63; PULSE 74–83; RESP 16–20; TEMP 98–98.6; O2SAT 94–96
[2023-09-12] MEDS: PANCRELIPASE PO SCH ×4 (06:00→22:00)
[2023-09-12] MEDS: InsuLIN REG 1unit/0.01ml Soln (100units/ml) SC SCH ×4 (06:24→22:11)
[2023-09-12] MEDS: GABAPENTIN 300 MG CAP PO SCH ×3 (06:25→21:53)
[2023-09-12] MEDS: glipiZIDE 5 MG TAB PO SCH ×2 (06:25→17:33)
[2023-09-12] MEDS: metFORMIN HYDROCHLORIDE 500 MG TAB PO SCH ×2 (06:25→18:12)
[2023-09-12] MEDS: AZTREONAM 1GM INJ 1 GM in D5W 5% 50 ML IV SCH ×3 (06:26→21:53)
[2023-09-12] MEDS: ACCU-CHEK COMFORT CURVE STRIP VI SCH ×4 (06:26→21:54)
[2023-09-12] MEDS: CARISOPRODOL 350 MG TAB PO SCH (09:39)
[2023-09-12] MEDS: APIXABAN 2.5 MG TAB PO SCH ×2 (09:39→21:53)
[2023-09-12] MEDS: OXYBUTYNIN CHL 5 MG TAB PO SCH ×2 (09:39→21:53)
[2023-09-12] MEDS: ASPirin-EC 81 mg tab PO SCH (09:39)
[2023-09-12] MEDS: CLOPIDOGREL BISULFATE 75 MG TAB PO SCH (09:40)
[2023-09-12] MEDS: LISINOPRIL 10 MG TAB PO SCH (09:40)
[2023-09-12] MEDS: PANTOPRAZOLE 40 MG TAB PO SCH ×2 (09:40→21:54)
[2023-09-12] MEDS: LINEZOLID 600MG/300ML 300 ML IV SCH ×2 (09:41→21:53)
[2023-09-12] MEDS: OXYCODONE W/ ACETAMINOPHEN 5/325MG TABLET PO SCH ×2 (09:58→21:54)
[2023-09-12] MEDS: DOCUSATE SOD 100 MG CAP PO PRN (10:08)
[2023-09-12] MEDS: ATORVASTATIN 20 MG TAB PO SCH (21:54)
[2023-09-13] VITALS (7 sets, daily range): BP systolic 120–141; BP diastolic 49–61; PULSE 75–84; RESP 16–20; TEMP 97.3–98.3; O2SAT 93–96
[2023-09-13] MEDS: PANCRELIPASE PO SCH ×4 (05:18→22:00)
[2023-09-13] MEDS: GABAPENTIN 300 MG CAP PO SCH ×3 (05:30→22:05)
[2023-09-13] MEDS: AZTREONAM 1GM INJ 1 GM in D5W 5% 50 ML IV SCH ×3 (05:31→22:00)
[2023-09-13] MEDS: ACCU-CHEK COMFORT CURVE STRIP VI SCH ×4 (06:27→22:06)
[2023-09-13] MEDS: glipiZIDE 5 MG TAB PO SCH ×2 (06:27→17:35)
[2023-09-13] MEDS: metFORMIN HYDROCHLORIDE 500 MG TAB PO SCH ×2 (06:39→17:35)
[2023-09-13] MEDS: InsuLIN REG 1unit/0.01ml Soln (100units/ml) SC SCH ×4 (06:40→22:00)
[2023-09-13] MEDS: OXYBUTYNIN CHL 5 MG TAB PO SCH ×2 (09:56→22:05)
[2023-09-13] MEDS: CLOPIDOGREL BISULFATE 75 MG TAB PO SCH (09:56)
[2023-09-13] MEDS: LINEZOLID 600MG/300ML 300 ML IV SCH ×2 (09:56→22:06)
[2023-09-13] MEDS: OXYCODONE W/ ACETAMINOPHEN 5/325MG TABLET PO SCH ×2 (09:57→22:05)
[2023-09-13] MEDS: CARISOPRODOL 350 MG TAB PO SCH (09:57)
[2023-09-13] MEDS: PANTOPRAZOLE 40 MG TAB PO SCH ×2 (09:57→22:05)
[2023-09-13] MEDS: APIXABAN 2.5 MG TAB PO SCH ×2 (09:57→22:05)
[2023-09-13] MEDS: LISINOPRIL 10 MG TAB PO SCH (09:59)
[2023-09-13] MEDS: ASPirin-EC 81 mg tab PO SCH (10:00)
[2023-09-13] MEDS: ATORVASTATIN 20 MG TAB PO SCH (22:06)
[2023-09-14] VITALS (7 sets, daily range): BP systolic 122–154; BP diastolic 45–66; PULSE 71–85; RESP 17–18; TEMP 97.7–98.8; O2SAT 94–96
[2023-09-14] MEDS: PANCRELIPASE PO SCH ×4 (06:00→21:58)
[2023-09-14] MEDS: AZTREONAM 1GM INJ 1 GM in D5W 5% 50 ML IV SCH ×3 (06:17→21:45)
[2023-09-14] MEDS: metFORMIN HYDROCHLORIDE 500 MG TAB PO SCH ×2 (06:17→18:01)
[2023-09-14] MEDS: GABAPENTIN 300 MG CAP PO SCH ×3 (06:17→21:57)
[2023-09-14] MEDS: glipiZIDE 5 MG TAB PO SCH ×2 (06:17→18:01)
[2023-09-14] MEDS: InsuLIN REG 1unit/0.01ml Soln (100units/ml) SC SCH ×4 (06:18→22:00)
[2023-09-14] MEDS: ACCU-CHEK COMFORT CURVE STRIP VI SCH ×4 (06:18→22:03)
[2023-09-14 08:27] LABS: Basophils # (auto) 0 10 ^3/uL (0-0.2); Basophils % (auto) 0.6 % (0.0-2.0); Eosinophils # (auto) 0.2 10 ^3/uL (0-0.8); Eosinophils % (auto) 1.7 % (0.0-7.0); Hematocrit 34.3 % (36.0-46.0); Hemoglobin 10.9 g/dL (12.2-16.2); Lymphocytes # (auto) 1.6 10 ^3/uL (0.4-5.4); Lymphocytes % (auto) 18.1 % (10.0-50.0); Mean Corpuscular Hemoglobin 30.8 pg (28.0-32.0); Mean Corpuscular Hgb Conc. 31.9 g/dL (32.0-36.0); Mean Corpuscular Volume 96.8 fL (80.0-100.0); Monocytes # (auto) 0.5 10 ^3/uL (0-1.3); Monocytes % (auto) 5.5 % (0.0-12.0); Neutrophils # (auto) 6.5 10 ^3/uL (1.6-8.6); Neutrophils % (auto) 74.1 % (37.0-80.0); Nucleated Red Blood Cells % 0.2 %; Red Blood Cells 3.55 10^6/uL (4.0-5.20); Red Cell Distribution Width 15.8 % (11.8-14.3); White Blood Cell 8.7 10^3/uL (4.4-10.8)
[2023-09-14 08:40] LABS: Chloride 103 mmol/L (98-107); Potassium 4.3 mmol/L (3.5-5.1); Sodium 135 mmol/L (136-145)
[2023-09-14 08:41] LABS: Anion Gap 7 (5-15); Carbon Dioxide 25 mmol/L (20-30)
[2023-09-14 08:46] LABS: Glucose 164 mg/dL (74-106)
[2023-09-14 08:47] LABS: BUN/Creatinine Ratio 16.5 (10.0-20.0); Blood Urea Nitrogen 23 mg/dL (9-23)
[2023-09-14] MEDS: ASPirin-EC 81 mg tab PO SCH (10:00)
[2023-09-14] MEDS: LINEZOLID 600MG/300ML 300 ML IV SCH ×2 (11:18→22:25)
[2023-09-14] MEDS: CARISOPRODOL 350 MG TAB PO SCH (11:18)
[2023-09-14] MEDS: PANTOPRAZOLE 40 MG TAB PO SCH ×2 (11:19→21:59)
[2023-09-14] MEDS: LISINOPRIL 10 MG TAB PO SCH (11:20)
[2023-09-14] MEDS: OXYCODONE W/ ACETAMINOPHEN 5/325MG TABLET PO SCH ×2 (11:21→22:01)
[2023-09-14] MEDS: APIXABAN 2.5 MG TAB PO SCH ×2 (11:22→21:59)
[2023-09-14] MEDS: OXYBUTYNIN CHL 5 MG TAB PO SCH ×2 (11:24→22:01)
[2023-09-14] MEDS: CLOPIDOGREL BISULFATE 75 MG TAB PO SCH (11:24)
[2023-09-14] MEDS: ATORVASTATIN 20 MG TAB PO SCH (22:00)
[2023-09-15 05:15] VITALS: BP 140/51; PULSE 75; RESP 20; TEMP 98.6; O2SAT 100
[2023-09-15] MEDS: PANCRELIPASE PO SCH ×4 (06:00→22:00)
[2023-09-15] MEDS: AZTREONAM 1GM INJ 1 GM in D5W 5% 50 ML IV SCH ×2 (06:12→13:45)
[2023-09-15] MEDS: glipiZIDE 5 MG TAB PO SCH ×2 (06:15→17:03)
[2023-09-15] MEDS: metFORMIN HYDROCHLORIDE 500 MG TAB PO SCH ×2 (06:15→17:03)
[2023-09-15] MEDS: GABAPENTIN 300 MG CAP PO SCH ×3 (06:15→21:19)
[2023-09-15] MEDS: ACCU-CHEK COMFORT CURVE STRIP VI SCH ×4 (06:16→21:59)
[2023-09-15] MEDS: InsuLIN REG 1unit/0.01ml Soln (100units/ml) SC SCH ×4 (06:16→21:59)
[2023-09-15 09:00] VITALS: BP 148/68; PULSE 91; RESP 18; TEMP 97.8; O2SAT 96
[2023-09-15] MEDS: CARISOPRODOL 350 MG TAB PO SCH (09:21)
[2023-09-15] MEDS: CLOPIDOGREL BISULFATE 75 MG TAB PO SCH (09:21)
[2023-09-15] MEDS: LINEZOLID 600MG/300ML 300 ML IV SCH ×2 (09:21→21:17)
[2023-09-15] MEDS: APIXABAN 2.5 MG TAB PO SCH ×2 (09:22→21:20)
[2023-09-15] MEDS: PANTOPRAZOLE 40 MG TAB PO SCH ×2 (09:22→21:20)
[2023-09-15] MEDS: LISINOPRIL 10 MG TAB PO SCH (09:22)
[2023-09-15] MEDS: OXYCODONE W/ ACETAMINOPHEN 5/325MG TABLET PO SCH ×2 (09:22→22:20)
[2023-09-15] MEDS: OXYBUTYNIN CHL 5 MG TAB PO SCH ×2 (09:22→21:20)
[2023-09-15] MEDS: ASPirin-EC 81 mg tab PO SCH (09:23)
[2023-09-15 13:00] VITALS: BP 129/44; PULSE 76; RESP 17; TEMP 97.8; O2SAT 97
[2023-09-15 17:00] VITALS: BP 145/57; PULSE 73; RESP 18; TEMP 97.7; O2SAT 97
[2023-09-15] MEDS: ATORVASTATIN 20 MG TAB PO SCH (21:20)
[2023-09-15 22:00] VITALS: BP 131/52; PULSE 82; RESP 14; TEMP 98.4; O2SAT 96
[2023-09-16 04:40] VITALS: BP 134/61; PULSE 82; RESP 16; TEMP 98; O2SAT 97
[2023-09-16] MEDS: PANCRELIPASE PO SCH ×2 (06:00→10:57)
[2023-09-16] MEDS: ACCU-CHEK COMFORT CURVE STRIP VI SCH ×2 (06:16→11:05)
[2023-09-16] MEDS: GABAPENTIN 300 MG CAP PO SCH ×2 (06:16→13:11)
[2023-09-16] MEDS: InsuLIN REG 1unit/0.01ml Soln (100units/ml) SC SCH ×2 (06:17→11:06)
[2023-09-16] MEDS: metFORMIN HYDROCHLORIDE 500 MG TAB PO SCH (06:19)
[2023-09-16] MEDS: glipiZIDE 5 MG TAB PO SCH (06:19)
[2023-09-16 09:00] VITALS: BP 140/57; PULSE 85; RESP 20; TEMP 98.4; O2SAT 96
[2023-09-16] MEDS: LINEZOLID 600MG/300ML 300 ML IV SCH (09:11)
[2023-09-16] MEDS: PANTOPRAZOLE 40 MG TAB PO SCH (09:12)
[2023-09-16] MEDS: CARISOPRODOL 350 MG TAB PO SCH (09:12)
[2023-09-16] MEDS: OXYCODONE W/ ACETAMINOPHEN 5/325MG TABLET PO SCH (09:12)
[2023-09-16] MEDS: CLOPIDOGREL BISULFATE 75 MG TAB PO SCH (09:13)
[2023-09-16] MEDS: LISINOPRIL 10 MG TAB PO SCH (09:13)
[2023-09-16] MEDS: OXYBUTYNIN CHL 5 MG TAB PO SCH (09:13)
[2023-09-16] MEDS: APIXABAN 2.5 MG TAB PO SCH (09:13)
[2023-09-16] MEDS: ASPirin-EC 81 mg tab PO SCH (09:18)
[2023-09-16] MEDS ORDERED: levoFLOXacin 500 MG TAB PO SCH (10:00)
[2023-09-16 13:00] VITALS: BP 136/64; PULSE 79; RESP 18; TEMP 98; O2SAT 97
[2023-09-16 14:14] VITALS: BP 140/57; PULSE 85; RESP 20; TEMP 98.4; O2SAT 96
[2023-09-16 16:30] VITALS: BP 130/65; PULSE 89; RESP 20; TEMP 98.7; O2SAT 93
[2023-09-17] MEDS ORDERED: levoFLOXacin 250 MG TAB PO SCH (10:00)
== END 2023-09-16 16:22 | disposition home or self-care (01) | DRG 872 ==
LOC: ER 21:36 → OVERFLOW 09-04 02:32 → WEST WING 09-04 17:34
PROVIDERS: ADMIT Nurse Practitioner Family; ATTEND Internal Medicine Cardiovascular Disease
PROC: 05HC33Z Insertion of Infusion Device into Left Basilic Vein, Percutaneous Approach (ICD-10-PCS; 2023-09-06)
PROC: B54NZZA Ultrasonography of Left Upper Extremity Veins, Guidance (ICD-10-PCS; 2023-09-06)
PROC: 05HB33Z Insertion of Infusion Device into Right Basilic Vein, Percutaneous Approach (ICD-10-PCS; principal; 2023-09-13)
PROC: B54MZZA Ultrasonography of Right Upper Extremity Veins, Guidance (ICD-10-PCS; 2023-09-13)
DX: A41.9 Sepsis, unspecified organism (principal); L03.116 Cellulitis of left lower limb; E87.1 Hypo-osmolality and hyponatremia; N17.9 Acute kidney failure, unspecified; N39.0 Urinary tract infection, site not specified; D64.9 Anemia, unspecified; E11.621 Type 2 diabetes mellitus with foot ulcer; E78.00 Pure hypercholesterolemia, unspecified; I10 Essential (primary) hypertension; L97.529 Non-pressure chronic ulcer of other part of left foot with unspecified severity; S91.109A Unspecified open wound of unspecified toe(s) without damage to nail, initial encounter; E11.51 Type 2 diabetes mellitus with diabetic peripheral angiopathy without gangrene; E11.40 Type 2 diabetes mellitus with diabetic neuropathy, unspecified; W01.0XXA Fall on same level from slipping, tripping and stumbling without subsequent striking against object, initial encounter; E11.65 Type 2 diabetes mellitus with hyperglycemia; E11.21 Type 2 diabetes mellitus with diabetic nephropathy; F17.210 Nicotine dependence, cigarettes, uncomplicated; I49.5 Sick sinus syndrome; Z82.49 Family history of ischemic heart disease and other diseases of the circulatory system; Z86.73 Personal history of transient ischemic attack (TIA), and cerebral infarction without residual deficits; I25.2 Old myocardial infarction; Z91.148 Patient's other noncompliance with medication regimen for other reason; Z89.412 Acquired absence of left great toe; Z89.411 Acquired absence of right great toe; Z83.3 Family history of diabetes mellitus; Z87.440 Personal history of urinary (tract) infections; Y93.89 Activity, other specified; Y92.89 Other specified places as the place of occurrence of the external cause; Y99.8 Other external cause status
CPT/HCPCS: 36415; 73560; 73590; 73620; 73718; 80048; 80053; 80202; 82565; 82962; 83036; 85007; 85025; 85027; 87040; 87077; 87186; 87205; 90471; 90715; 93926; 93971; 96361; 96365; 96372; 96375; G0378; J1815; J2543; J7060

== ENCOUNTER → 2023-09-17 | Outpatient (CLI) | payer MEDICARE, MEDICAID ==
[~2023-09-17] MED LIST changes: +APIX2.5T PO; +CARI350T28 PO; +MEROPENEM 1GM IVPB 100 ML IV ONE; +NITR100C6 PO; +PANC3600 PO; +PANT40T PO
[2023-09-17 10:35] VITALS: BP 130/55; PULSE 84; RESP 20; O2SAT 97
[2023-09-17 13:47] VITALS: BP 140/64; PULSE 75; RESP 18; O2SAT 96
== END | disposition home or self-care (01) ==
LOC: CHF HDHVI 10:45
PROVIDERS: ATTEND Internal Medicine Cardiovascular Disease
DX: E11.621 Type 2 diabetes mellitus with foot ulcer (principal); L03.116 Cellulitis of left lower limb; I10 Essential (primary) hypertension; I25.2 Old myocardial infarction; E11.40 Type 2 diabetes mellitus with diabetic neuropathy, unspecified; E11.51 Type 2 diabetes mellitus with diabetic peripheral angiopathy without gangrene; E11.21 Type 2 diabetes mellitus with diabetic nephropathy; Z87.891 Personal history of nicotine dependence; Z90.49 Acquired absence of other specified parts of digestive tract; Z86.73 Personal history of transient ischemic attack (TIA), and cerebral infarction without residual deficits
CPT/HCPCS: 96365; 96366; G0463; J1642; J2185

== ENCOUNTER → 2023-09-18 | Outpatient (CLI) | payer MEDICARE, MEDICAID ==
[~2023-09-18] VITALS: Ht 30.5 cm; Wt 0.5 kg
[2023-09-18 09:07] VITALS: BP 140/53; PULSE 80; RESP 16; O2SAT 97
[2023-09-18 12:10] VITALS: BP 122/73; PULSE 80; RESP 16; O2SAT 97
== END | disposition home or self-care (01) ==
LOC: CHF HDHVI 09:04
PROVIDERS: ATTEND Internal Medicine Cardiovascular Disease
DX: L03.116 Cellulitis of left lower limb (principal); I10 Essential (primary) hypertension; I25.2 Old myocardial infarction; E11.40 Type 2 diabetes mellitus with diabetic neuropathy, unspecified; E11.51 Type 2 diabetes mellitus with diabetic peripheral angiopathy without gangrene; E78.00 Pure hypercholesterolemia, unspecified; Z89.412 Acquired absence of left great toe; Z89.411 Acquired absence of right great toe; Z90.49 Acquired absence of other specified parts of digestive tract; Z87.891 Personal history of nicotine dependence; Z86.73 Personal history of transient ischemic attack (TIA), and cerebral infarction without residual deficits
CPT/HCPCS: 96365; 96366; G0463; J1642; J2185

== ENCOUNTER → 2023-09-21 | Outpatient (CLI) | payer MEDICARE, MEDICAID ==
[2023-09-21 12:40] VITALS: BP 150/55; PULSE 67; RESP 18; O2SAT 95
[2023-09-21 14:44] VITALS: BP 150/55; PULSE 67; RESP 18; O2SAT 95
== END | disposition home or self-care (01) ==
LOC: CHF HDHVI 12:33
PROVIDERS: ATTEND Internal Medicine Cardiovascular Disease
DX: L03.116 Cellulitis of left lower limb (principal); E11.621 Type 2 diabetes mellitus with foot ulcer; I10 Essential (primary) hypertension; I25.2 Old myocardial infarction; E78.00 Pure hypercholesterolemia, unspecified; E11.40 Type 2 diabetes mellitus with diabetic neuropathy, unspecified; E11.51 Type 2 diabetes mellitus with diabetic peripheral angiopathy without gangrene; Z86.73 Personal history of transient ischemic attack (TIA), and cerebral infarction without residual deficits; Z90.49 Acquired absence of other specified parts of digestive tract; Z89.412 Acquired absence of left great toe; Z89.411 Acquired absence of right great toe; Z87.891 Personal history of nicotine dependence
CPT/HCPCS: 96365; 96366; G0463; J1642; J2185

== ENCOUNTER → 2023-09-22 | Outpatient (CLI) | payer MEDICARE, MEDICAID ==
[2023-09-22 10:41] VITALS: BP 158/71; PULSE 66; RESP 16; O2SAT 96
[2023-09-22 13:56] VITALS: BP 153/92; PULSE 66; RESP 16; O2SAT 96
== END | disposition home or self-care (01) ==
LOC: CHF HDHVI 10:36
PROVIDERS: ATTEND Internal Medicine Cardiovascular Disease
DX: E11.621 Type 2 diabetes mellitus with foot ulcer (principal); L03.116 Cellulitis of left lower limb; E11.40 Type 2 diabetes mellitus with diabetic neuropathy, unspecified; E11.51 Type 2 diabetes mellitus with diabetic peripheral angiopathy without gangrene; E11.21 Type 2 diabetes mellitus with diabetic nephropathy; E78.00 Pure hypercholesterolemia, unspecified; I25.10 Atherosclerotic heart disease of native coronary artery without angina pectoris; I10 Essential (primary) hypertension; I25.2 Old myocardial infarction; Z87.891 Personal history of nicotine dependence; Z86.73 Personal history of transient ischemic attack (TIA), and cerebral infarction without residual deficits
CPT/HCPCS: 96365; 96366; G0463; J1642; J2185

== ENCOUNTER → 2023-09-23 | Outpatient (CLI) | payer MEDICARE, MEDICAID ==
[2023-09-23 12:28] VITALS: BP 160/73; PULSE 87; RESP 16; O2SAT 96
[2023-09-23 15:48] VITALS: BP 154/75; PULSE 78; RESP 16; O2SAT 94
== END | disposition home or self-care (01) ==
LOC: CHF HDHVI 12:20
PROVIDERS: ATTEND Internal Medicine Cardiovascular Disease
DX: E11.621 Type 2 diabetes mellitus with foot ulcer (principal); L97.529 Non-pressure chronic ulcer of other part of left foot with unspecified severity; L03.116 Cellulitis of left lower limb; E11.40 Type 2 diabetes mellitus with diabetic neuropathy, unspecified; E11.51 Type 2 diabetes mellitus with diabetic peripheral angiopathy without gangrene; E11.21 Type 2 diabetes mellitus with diabetic nephropathy; I10 Essential (primary) hypertension; I25.10 Atherosclerotic heart disease of native coronary artery without angina pectoris; E78.00 Pure hypercholesterolemia, unspecified; Z87.891 Personal history of nicotine dependence; Z86.73 Personal history of transient ischemic attack (TIA), and cerebral infarction without residual deficits
CPT/HCPCS: 96365; 96366; G0463; J2185

== ENCOUNTER → 2023-10-19 | Outpatient (CLI) | payer MEDICARE, MEDICAID ==
[2023-10-19 12:20] VITALS: BP 146/71; PULSE 86; RESP 16; O2SAT 97
[2023-10-19 16:05] VITALS: BP 170/87; PULSE 80; RESP 16; O2SAT 96
== END | disposition home or self-care (01) ==
LOC: CHF HDHVI 12:23
PROVIDERS: ATTEND Internal Medicine Cardiovascular Disease
DX: N39.0 Urinary tract infection, site not specified (principal); I10 Essential (primary) hypertension; I25.10 Atherosclerotic heart disease of native coronary artery without angina pectoris; I25.2 Old myocardial infarction; E11.21 Type 2 diabetes mellitus with diabetic nephropathy; E11.40 Type 2 diabetes mellitus with diabetic neuropathy, unspecified; E11.51 Type 2 diabetes mellitus with diabetic peripheral angiopathy without gangrene; E78.00 Pure hypercholesterolemia, unspecified; Z87.891 Personal history of nicotine dependence; Z86.73 Personal history of transient ischemic attack (TIA), and cerebral infarction without residual deficits; Z90.49 Acquired absence of other specified parts of digestive tract
CPT/HCPCS: 96365; 96366; G0463; J2185

== ENCOUNTER → 2023-10-20 | Outpatient (CLI) | payer MEDICARE, MEDICAID ==
[~2023-10-20] VITALS: Ht 30.5 cm; Wt 0.5 kg
[2023-10-20 12:12] VITALS: BP 143/70; PULSE 80; RESP 18; O2SAT 96
[2023-10-20 15:30] VITALS: BP 149/68; PULSE 75; RESP 18; O2SAT 96
== END | disposition home or self-care (01) ==
LOC: CHF HDHVI 12:08
PROVIDERS: ATTEND Internal Medicine Cardiovascular Disease
DX: N39.0 Urinary tract infection, site not specified (principal); I25.10 Atherosclerotic heart disease of native coronary artery without angina pectoris; I25.2 Old myocardial infarction; E11.21 Type 2 diabetes mellitus with diabetic nephropathy; E11.40 Type 2 diabetes mellitus with diabetic neuropathy, unspecified; E11.51 Type 2 diabetes mellitus with diabetic peripheral angiopathy without gangrene; E78.00 Pure hypercholesterolemia, unspecified; Z86.73 Personal history of transient ischemic attack (TIA), and cerebral infarction without residual deficits; Z87.891 Personal history of nicotine dependence
CPT/HCPCS: 96365; 96366; G0463; J2185

== ENCOUNTER → 2023-10-21 | Outpatient (CLI) | payer MEDICARE, MEDICAID ==
[~2023-10-21] VITALS: Ht 30.5 cm; Wt 0.5 kg
[2023-10-21 12:10] VITALS: BP 113/56; PULSE 72; RESP 18; O2SAT 95
[2023-10-21 15:15] VITALS: BP 131/77; PULSE 70; RESP 16; O2SAT 95
== END | disposition home or self-care (01) ==
LOC: CHF HDHVI 12:20
PROVIDERS: ATTEND Internal Medicine Cardiovascular Disease
DX: N39.0 Urinary tract infection, site not specified (principal); I10 Essential (primary) hypertension; E11.21 Type 2 diabetes mellitus with diabetic nephropathy; E11.40 Type 2 diabetes mellitus with diabetic neuropathy, unspecified; E11.51 Type 2 diabetes mellitus with diabetic peripheral angiopathy without gangrene; E78.00 Pure hypercholesterolemia, unspecified; I25.10 Atherosclerotic heart disease of native coronary artery without angina pectoris; I25.2 Old myocardial infarction; Z87.891 Personal history of nicotine dependence; Z86.73 Personal history of transient ischemic attack (TIA), and cerebral infarction without residual deficits; Z90.49 Acquired absence of other specified parts of digestive tract
CPT/HCPCS: 96365; 96366; G0463; J2185

== ENCOUNTER → 2023-12-25 | Outpatient (CLI) | payer MEDICARE, MEDICAID ==
[~2023-12-25] MED LIST changes: -MEROPENEM 1GM IVPB 100 ML IV ONE
== END | disposition home or self-care (01) ==
LOC: LAB 13:33
PROVIDERS: ATTEND Internal Medicine Cardiovascular Disease
DX: E61.2 Magnesium deficiency (principal); R79.89 Other specified abnormal findings of blood chemistry; R68.89 Other general symptoms and signs; R73.09 Other abnormal glucose; R94.6 Abnormal results of thyroid function studies
CPT/HCPCS: 87086; 87088; 87186

== ENCOUNTER → 2024-04-19 | Outpatient (CLI) | payer MEDICARE, MEDICAID ==
[~2024-04-19] MED LIST changes: +CARI-579 PO; -CARI350T28 PO; -OXYB5TAB10 PO; +OXYB5TAB14 PO
[2024-04-19 15:27] VITALS: BP 139/70; PULSE 83; RESP 16; O2SAT 98
[2024-04-19] MEDS: levoFLOXacin 500MG 100 ML IV ONE ×2 (15:27→15:51)
[2024-04-19 16:35] VITALS: BP 151/78; PULSE 80; RESP 18; O2SAT 98
== END | disposition home or self-care (01) ==
LOC: CHF HDHVI 15:27
PROVIDERS: ATTEND Internal Medicine Cardiovascular Disease
DX: N39.0 Urinary tract infection, site not specified (principal); E83.42 Hypomagnesemia
CPT/HCPCS: 96365; G0463; J1956

== ENCOUNTER → 2024-04-28 | Outpatient (CLI) | payer MEDICARE, MEDICAID ==
[2024-04-28 16:24] LABS: Basophils # (auto) 0.1 10 ^3/uL (0-0.2); Basophils % (auto) 1.1 % (0.0-2.0); Eosinophils # (auto) 0.1 10 ^3/uL (0-0.8); Hematocrit 38.7 % (36.0-46.0); Hemoglobin 12.4 g/dL (12.2-16.2); Lymphocytes # (auto) 1.7 10 ^3/uL (0.4-5.4); Lymphocytes % (auto) 28.5 % (10.0-50.0); Mean Corpuscular Hemoglobin 28.9 pg (28.0-32.0); Mean Corpuscular Volume 90.3 fL (80.0-100.0); Monocytes # (auto) 0.4 10 ^3/uL (0-1.3); Monocytes % (auto) 6.2 % (0.0-12.0); Neutrophils # (auto) 3.7 10 ^3/uL (1.6-8.6); Neutrophils % (auto) 62.2 % (37.0-80.0); Nucleated Red Blood Cells % 0.2 %; Red Blood Cells 4.29 10^6/uL (4.0-5.20); Red Cell Distribution Width 14.6 % (11.8-14.3)
[2024-04-28 16:26] LABS: Urine Blood 3+ /uL (Negative); Urine Clarity Turbid (Clear); Urine Color Light-Orange (Yellow); Urine Protein, UAD 1+ (Negative); Urine Specific Gravity 1.014 (1.001-1.035); Urine Urobilinogen Normal (Negative)
[2024-04-28 16:46] LABS: Alanine Aminotransferase 13 U/L (7-40); Albumin 4.2 g/dL (3.2-4.8); Alkaline Phosphatase 94 U/L (46-116); Anion Gap 8 (5-15); Aspartate Aminotransferase 11 U/L (13-40); BUN/Creatinine Ratio 19.3 (10.0-20.0); Bilirubin, Total 0.4 mg/dL (0.2-1.0); Blood Urea Nitrogen 36 mg/dL (9-23); Calcium 9.2 mg/dL (8.5-10.1); Carbon Dioxide 17 mmol/L (20-30); Chloride 109 mmol/L (98-107); Glucose 227 mg/dL (74-106); Potassium 4.8 mmol/L (3.5-5.1); Sodium 134 mmol/L (136-145); Total Protein 7.9 g/dL (5.7-8.2)
[2024-04-28 16:49] LABS: Follicle Stimulating Hormone 24.34 IU/L (SEE BELOW); Free T3 2.39 pg/mL (2.3-4.2)
[2024-04-29 08:06] LABS: Estradiol 10.2 pg/mL (0.0-54.7); Thyroxine (T4) 6.6 ug/dL (4.5-12.0)
== END | disposition home or self-care (01) ==
LOC: LAB 15:39
PROVIDERS: ATTEND Internal Medicine Cardiovascular Disease
DX: N95.1 Menopausal and female climacteric states (principal); N39.0 Urinary tract infection, site not specified; E07.89 Other specified disorders of thyroid; E34.9 Endocrine disorder, unspecified; E53.9 Vitamin B deficiency, unspecified; E55.9 Vitamin D deficiency, unspecified
CPT/HCPCS: 36415; 80053; 81003; 82306; 82607; 82670; 83001; 84144; 84403; 84436; 84443; 84481; 85025; 86376

== ENCOUNTER → 2024-08-08 | Outpatient (CLI) | payer MEDICARE, MEDICAID ==
[~2024-08-08] MED LIST changes: -DOXY-448 PO; +DOXY100C79 PO
[2024-08-08 15:11] LABS: INR 1.13 (0.9-1.15); Partial Thromboplastin Time 31.6 SEC (24.5-34.5); Prothrombin Time 11.9 sec (9.3-11.8)
[2024-08-08 15:15] LABS: Basophils # (auto) 0.1 10 ^3/uL (0-0.2); Eosinophils # (auto) 0.1 10 ^3/uL (0-0.8); Eosinophils % (auto) 1.3 % (0.0-7.0); Hematocrit 36.3 % (36.0-46.0); Hemoglobin 12.5 g/dL (12.2-16.2); Lymphocytes # (auto) 1.5 10 ^3/uL (0.4-5.4); Lymphocytes % (auto) 15.7 % (10.0-50.0); Mean Corpuscular Hemoglobin 30.8 pg (28.0-32.0); Mean Corpuscular Hgb Conc. 34.5 g/dL (32.0-36.0); Mean Corpuscular Volume 89.3 fL (80.0-100.0); Monocytes # (auto) 0.5 10 ^3/uL (0-1.3); Monocytes % (auto) 4.7 % (0.0-12.0); Neutrophils # (auto) 7.5 10 ^3/uL (1.6-8.6); Neutrophils % (auto) 77.3 % (37.0-80.0); Platelet Count (auto) 405 10^3/uL (140-450); Red Blood Cells 4.06 10^6/uL (4.0-5.20); Red Cell Distribution Width 14.2 % (11.8-14.3); White Blood Cell 9.7 10^3/uL (4.4-10.8)
[2024-08-08 15:19] LABS: Urine Bacteria MANY /hpf (None Seen); Urine Blood 2+ /uL (Negative); Urine Clarity Ex.Turbid (Clear); Urine Color Light-Brown (Yellow); Urine Protein, UAD TRACE (Negative); Urine Specific Gravity 1.011 (1.001-1.035); Urine Urobilinogen Normal (Negative); Urine WBC 2015 /hpf (0 - 5); Urine WBC Clumps PRESENT /hpf (None Seen); Urine pH 5.5 (5.0-9.0)
[2024-08-08 15:34] LABS: Chloride 105 mmol/L (98-107); Potassium 4.8 mmol/L (3.5-5.1); Sodium 135 mmol/L (136-145)
[2024-08-08 15:35] LABS: Anion Gap 3 (5-15); Calcium 9.8 mg/dL (8.7-10.4); Carbon Dioxide 27 mmol/L (20-30)
[2024-08-08 15:40] LABS: BUN/Creatinine Ratio 16.3 (10.0-20.0); Blood Urea Nitrogen 22 mg/dL (9-23); Glucose 183 mg/dL (74-106)
== END | disposition home or self-care (01) ==
LOC: LAB 14:34
PROVIDERS: ATTEND Obstetrics & Gynecology
DX: Z01.812 Encounter for preprocedural laboratory examination (principal); D53.8 Other specified nutritional anemias; N39.0 Urinary tract infection, site not specified; M79.89 Other specified soft tissue disorders
CPT/HCPCS: 36415; 80048; 81001; 85025; 85610; 85730

== ENCOUNTER → 2025-01-26 | Outpatient (CLI) | payer MEDICARE, MEDICAID ==
[2025-01-26 15:10] LABS: Hematocrit 37.1 % (36.0-46.0); Hemoglobin 12.1 g/dL (12.2-16.2); Mean Corpuscular Hemoglobin 27.8 pg (28.0-32.0); Mean Corpuscular Hgb Conc. 32.7 g/dL (32.0-36.0); Platelet Count (auto) 399 10^3/uL (140-450); Red Blood Cells 4.37 10^6/uL (4.0-5.20); Red Cell Distribution Width 15.2 % (11.8-14.3); White Blood Cell 5.5 10^3/uL (4.4-10.8)
[2025-01-26 15:27] LABS: Basophils % (manual) 0 (0.0-2.0); Blast Cells 0; Metamyelocytes % 0; Myelocytes % 0; Promyelocytes % 0; Reactive Lymphocytes 0
[2025-01-26 15:48] LABS: Band Neutrophils % (manual) 1; Eosinophils % (manual) 3 (0-7); Lymphocytes % (manual) 16 (10.0-50.0); Monocytes % (manual) 3 (0-12); Platelet Estimate Adequate
[2025-01-26 15:53] LABS: Glucose 133 mg/dL (74-106)
[2025-01-26 16:12] LABS: Alanine Aminotransferase < 9 U/L (7-40); Albumin 4.2 g/dL (3.2-4.8); Alkaline Phosphatase 99 U/L (46-116); Anion Gap 11 (5-15); Aspartate Aminotransferase 9 U/L (13-40); BUN/Creatinine Ratio 11.2 (10.0-20.0); Bilirubin, Direct < 0.1 mg/dL (<0.3); Bilirubin, Total 0.3 mg/dL (0.2-1.0); Blood Urea Nitrogen 15 mg/dL (9-23); Calcium 9.5 mg/dL (8.7-10.4); Carbon Dioxide 24 mmol/L (20-31); Chloride 102 mmol/L (98-107); Cholesterol 120 mg/dL (< 200); HDL Cholesterol 26 mg/dL (40-59); LDL Cholesterol 67 mg/dL (< 100); Sodium 137 mmol/L (136-145); Total Protein 8.1 g/dL (5.7-8.2); Triglycerides 150 mg/dL (< 150)
== END | disposition home or self-care (01) ==
LOC: LAB 14:43
PROVIDERS: ATTEND Internal Medicine
DX: I10 Essential (primary) hypertension (principal); D64.9 Anemia, unspecified; E55.9 Vitamin D deficiency, unspecified; E11.9 Type 2 diabetes mellitus without complications
CPT/HCPCS: 36415; 80053; 80061; 80076; 83036; 84443; 85007; 85027

== ENCOUNTER 2025-01-27 16:35 | Inpatient (IN) | payer MEDICARE, MEDICAID ==
[~2025-01-27] VITALS: Ht 165.1 cm; Wt 89.7 kg
[~2025-01-27 16:35] MED LIST changes: -CEFP200T15 PO; -IOHEXOL 350 MG/ML 100ML IJ ONE; -READI-CAT 2 (BARIUM SULF)(VANILLA SMOOTHIE) 450ML ONE
--- NOTE | 2025-01-27 17:44 | ED.PDOC ---
History of Present Illness HPI Comments 74F presents to the ER by son and w/ no prior Hx associated to the c/c of a ABD pain. Pt reports that her son got a call from her PCP and informed the son to take the pt to the ER immediately. Primary care provider asked that the patient be admitted. Pt notes that she recently had an ABD CT Scan and was diagnosed w/ Bilateral Hydronephrosis. Pt's PCP is Dr. Juan. PMHx of CVA, DM, High Lipids, HTN and IN. SHx of Cholecystectomy and . Denies chills, fever, N/V/D< SOB, CP or no other associated symptom's, modifiers, recent injuries or sick contacts at this time. Time Seen by MD: 17:30 Primary Care Provider: ERASMO Reviewed Notes: Nurses Notes, Medications, Allergies Allergies: Coded Allergies: NO KNOWN ALLERGIES (Unverified , 03/02/20) Home Meds Active Scripts Metronidazole (Flagyl) 500 Mg Tab, 1 TAB PO TID, #30 TAB Prov:RJ LI MD 05/04/23 Doxycycline (Monohydrate) (Doxycycline) 100 Mg Cap, 100 MG PO BID for 10 Days, #30 CAP Prov:RJ LI MD 05/04/23 Ciprofloxacin Hcl (Cipro) 500 Mg Tab, 1 TAB PO DAILY, #7 TAB Prov:REED BANDA MD 08/21/22 Reported Medications Pancrelipase (Lipase-Protease- (CREON) 36,000 Unt Cap, 1 CAP PO QID 09/05/23 Carisoprodol (Carisoprodol) 350 Mg Tab, 1 TAB PO DAILY 09/04/23 Nitrofurantoin Monohyd Macro (Nitrofurantoin Monohydrat) 100 Mg Cap, 1 CAP PO BID 09/04/23 Apixaban Base (ELIQUIS) 2.5 Mg Tab, 1 TAB PO BID 09/04/23 Pantoprazole Sodium Sesquihydr (Pantoprazole Sodium) 40 Mg Tab, 1 TAB PO BID 09/04/23 Ibuprofen Micronized (MOTRIN TABLET) 600 Mg Tb, 800 MG PO TID, #40 TAB *Black box warning-NSAIDS can increase risk of IN & hypertension, GI irritation, ulceration, bleed, perferation. Do not use post cardiac surgery. Use short duration/lowest effective dose. 08/18/22 Lisinopril (Lisinopril) 10 Mg Tab, 10 MG PO DAILY for 30 Days, MG 08/18/22 Empagliflozin (Jardiance) 25 Mg Tab, 1 TAB PO DAILY 06/26/22 Semaglutide (Ozempic) 2 Mg/1.5 Ml Inj, 1 MG SC weekly every thursday, INJ 07/10/21 Oxybutynin Chloride (Oxybutynin Chloride) 5 Mg Tab, 1 TAB PO BID 07/09/21 Gabapentin (Gabapentin) 600 Mg Tab, 1.5 TAB PO TID, MG 03/02/20 Atenolol (Atenolol) 100 Mg Tab, 100 MG PO DAILY, MG 05/29/19 Simvastatin (Simvastatin) 20 Mg Tab, 20 MG PO HS for 30 Days 05/29/19 Metformin Hydrochloride (Metformin Hcl) 500 Mg Tab, 500 MG PO IBID for 30 Days, MG 05/29/19 Aspirin (Aspir-Low) 81 Mg Tab, 81 MG PO DAILY, MG 05/29/19 Glipizide (Glipizide) 10 Mg Tab, 1 TAB PO BID, TAB 5 Refills 05/29/19 Oxycodone W/ Acetaminophen (Percocet 5/325MG) 1 Tab Tb, 1 TAB PO BIDP, #120 TAB 05/14/18 Information Source: Patient, Relative (Child) Mode of Arrival: Ambulatory Severity: Moderate Timing: Minutes Duration: Since onset, Minutes Prehospital treatment: None Past Medical History PAST MEDICAL HISTORY: CVA, DM, High Lipids, HTN, IN Surgical History: Cholecystectomy, FAMILY CASEWORKER History: No Pertinent FAMILY CASEWORKER History Family History Family History: Reviewed,noncontributory to illness, Unknown Social History Smoker: Non-Smoker Alcohol: Denies ETOH Use Drugs: Denies Drug Use Lives In: Home Constitutional: denies: chills, diaphoresis, fatigue, fever, malaise, sweats, weakness, others EENTM: denies: blurred vision, double vision, ear bleeding, ear discharge, ear drainage, ear pain, ear ringing, eye pain, eye redness, hearing loss, mouth pain, mouth swelling, nasal discharge, nose bleeding, nose congestion, nose pain, photophobia, tearing, throat pain, throat swelling, voice changes, others Respiratory: denies: cough, hemoptysis, orthopnea, SOB at rest, shortness of breath, SOB with excertion, stridor, wheezing, others Cardiovascular: denies: chest pain, dizzy spells, diaphoresis, Dyspnea on exertion, edema, irregular heart beat, left arm pain, lightheadedness, palpitations, PND, syncope, others Gastrointestinal: reports: abdominal pain; denies: abdomen distended, blood streaked bowels, constipated, diarrhea, dysphagia, difficulty swallowing, hematemesis, melena, nausea, poor appetite, poor fluid intake, rectal bleeding, rectal pain, vomiting, others Genitourinary: denies: abnormal vagina bleeding, burning, dyspareunia, dysuria, flank pain, frequency, hematuria, incontinence, pain, , vagina discharge, urgency, others Neurological: denies: dizziness, fainting, headache, left sided numbness, left sided weakness, numbness, paresthesia, pre-existing deficit, right sided numbness, right sided weakness, seizure, speech problems, tingling, tremors, weakness, others Musculoskeletal: denies: back pain, gout, joint pain, joint swelling, muscle pain, muscle stiffness, neck pain, others Integumetry: denies: bruises, change in color, change in hair/nails, dryness, laceration, lesions, lumps, rash, wounds, others Allergic/Immunocompromised: denies: Difficulty Healing, Frequent Infections, Hives, Itching, others Hematologic/Lymphatic: denies: anemia, blood clots, easy bleeding, easy bruising, swollen glands, others Endocrine: denies: excessive hunger, excessive sweating, excessive thirst, excessive urination, flushing, intolerance to cold, intolerance to heat, un explained weight gain, unexplained weight loss, others Psychiatric: denies: anxiety, bipolar disorder, depression, hopeless, panic disorder, schizophrenia, sleepless, suicidal, others All Other Systems: Reviewed and Negative Physical Exam General Appearance: Mild Distress (Patient was in mild discomfort at time of evaluation.), Normal HEENT: Normal ENT Inspection, Pharynx Normal, TMs Normal Neck: Full Range of Motion, Non-Tender, Normal, Normal Inspection Respiratory: Chest Non-Tender, Lungs Clear, No Accessory Muscle Use, No Respiratory Distress, Normal Breath Sounds Cardiovascular: No Edema, No JVD, No Murmur, No Gallop, Normal Peripheral Pulses, Regular Rate/Rhythm Breast Exam: Deferred Gastrointestinal: No Pulsatile Mass, Normal Bowel Sounds, Soft, Other ( Mild bilateral CVA tenderness to palpation. No signs of trauma. No pulsatile masses.) Genitalia: Deferred Pelvic: Deferred Rectal: Deferred Extremities: No calf tenderness, Normal capillary refill, Normal inspection, Normal range of motion, Non-tender, No pedal edema Musculoskeletal : Apperance: Normal Neurologic: Alert, No Motor Deficits, Normal Affect, Normal Mood, No Sensory Deficits Cerebellar Function: Normal Reflexes: Normal Skin: Dry, Normal Color, Warm Lymphatic: No Adenopathy Was a procedure done? Was a procedure done?: No Differential Dx Considerations may include: Bilateral hydronephrosis X-Ray, Labs, Meds, VS Comment I reviewed the CT studies that the son brought in from the primary care provider. Patient does have significant bilateral hydronephrosis with out occlusive stones noted. Patient will be admitted for management by Dr. Will. Time of 1ST Reevaluation: 18:05 Reevaluation 1ST: Unchanged Consultation: PCP Patient Education/Counseling: Diagnosis, Treatment, Prognosis Family Education/Counseling: Diagnosis, Treatment, No Family Present Departure 1 Departure Time of Disposition: 18:06 Impression: Primary Impression: Hydronephrosis Disposition: 09 ADMITTED INPATIENT Condition: Fair Discharged With: Self Critical Care Note Critical Care Time?: No Stability Stability form required: No Heart Score Heart Score: Heart Score Response (Comments) Value History N/A 0 EKG N/A 0 Age N/A 0 Risk Factors N/A 0 Troponin N/A 0 Total 0 I personally scribed for ABUNDIO DIMAS PAC ([email or web address]) on 01/27/25 at 17:44. Electronically submitted by Galdino Sanderson ([email or web address]). ABUNDIO DIMAS PAC Jan 27, 2025 17:44
[2025-01-27 18:33] LABS: Basophils # (auto) 0.1 10 ^3/uL (0-0.2); Eosinophils # (auto) 0.1 10 ^3/uL (0-0.8); Eosinophils % (auto) 1.4 % (0.0-7.0); Hemoglobin 11.3 g/dL (12.2-16.2); Lymphocytes # (auto) 1.2 10 ^3/uL (0.4-5.4); Mean Corpuscular Hemoglobin 27.4 pg (28.0-32.0); Mean Corpuscular Hgb Conc. 32.3 g/dL (32.0-36.0); Mean Corpuscular Volume 84.8 fL (80.0-100.0); Monocytes # (auto) 0.3 10 ^3/uL (0-1.3); Monocytes % (auto) 4.8 % (0.0-12.0); Neutrophils # (auto) 4.7 10 ^3/uL (1.6-8.6); Neutrophils % (auto) 73.8 % (37.0-80.0); Nucleated Red Blood Cells % 0.1 %; Platelet Count (auto) 384 10^3/uL (140-450); Red Blood Cells 4.13 10^6/uL (4.0-5.20); Red Cell Distribution Width 15.3 % (11.8-14.3); White Blood Cell 6.4 10^3/uL (4.4-10.8)
[2025-01-27 18:47] LABS: INR 1.04 (0.9-1.15); Partial Thromboplastin Time 28.8 SEC (24.5-34.5)
[2025-01-27 18:51] LABS: Alanine Aminotransferase < 9 U/L (7-40); Alkaline Phosphatase 95 U/L (46-116); Anion Gap 10 (5-15); Aspartate Aminotransferase 9 U/L (13-40); BUN/Creatinine Ratio 12.9 (10.0-20.0); Blood Urea Nitrogen 17 mg/dL (9-23); Calcium 9.2 mg/dL (8.7-10.4); Carbon Dioxide 22 mmol/L (20-31); Chloride 102 mmol/L (98-107); Glucose 253 mg/dL (74-106); Lipase 27 U/L (12-53); Magnesium 1.8 mg/dL (1.6-2.6); Potassium 3.8 mmol/L (3.5-5.1); Sodium 134 mmol/L (136-145); Total Protein 7.7 g/dL (5.7-8.2)
[2025-01-27 18:52] LABS: Bilirubin, Total 0.2 mg/dL (0.2-1.0)
[2025-01-27 20:06] LABS: Urine Bacteria None Seen /hpf (None Seen)
[2025-01-27] MEDS: HYDROmorphone HCL 2 MG/ML VL/or syr IV ONE (20:47)
[2025-01-27 20:49] LABS: Urine Blood 2+ /uL (Negative); Urine Clarity Clear (Clear); Urine Color Light-Yellow (Yellow); Urine Protein, UAD TRACE (Negative); Urine Specific Gravity 1.026 (1.001-1.035); Urine Squamous Epithelial Cell FEW /hpf (<5); Urine Urobilinogen Normal (Negative); Urine WBC 50 /HPF (0-5)
[2025-01-27] MEDS ORDERED: MORPHINE SULFATE INJ 2 MG/ml SYRG IV PRN (21:45)
[2025-01-27] MEDS ORDERED: DEXTROSE (50%) 50ML SYRG IV PRN (21:45)
[2025-01-27] MEDS ORDERED: ONDANSETRON HCL 4 MG/2 ML VIAL IV PRN (21:45)
--- NOTE | 2025-01-27 22:02 | DVHHPRES ---
History of Present Illness Resident Creating Document: JAMIL BENITEZ RESDIENT History of Present Illness Yadira Holland this is a 74-year-old female patient who presents to the ER referred by PCP (Dr Juan) due to abnormal findings in abdomen and pelvis CT. Around 2 weeks back, the patient had nausea, diarrhea, vomiting and decreased oral intake, upon PCP office visit she was prescribed oral antibiotic which she taken for 5 days but her condition did not improved. Three days back she was put on IV antibiotic which improved her condition. But today, she was contacted from her PCP office for the requirement of ER visit. Patient has history of chronic urinary incontinence, underwent surgery 2 years back which worsened her incontinence, on August 2024 she underwent 2nd surgery for urinary incontinence which made the problem more worse. Previously was placed on Noble catheter but removed recently by PCP, completed multiple courses of antibiotics due to f requent UTIs. Denies fever, chills, palpitation, syncope, chest pain, dyspnea, nausea, vomiting, diarrhea, dysuria, recent travel, sick contacts and motor or sensory deficits Past medical history: Hypertension, diabetes, dyslipidemia, CVA, foot ulcer s econdary to peripheral artery disease status post angioplasty, [place], urinary incontinence status postop, multiple UTIs, GERD. Surgical history: Peripheral angiography with angioplasty, 4 C-sections, multiple bladder surgeries for urinary incontinence, foot ulcer surgery (incision and drainage), cholecystectomy Family history: Noncontributory Social history: Lives with family in [place]. Denies current tobacco, alcohol and other drug abuse, uses walker for mobility Allergies: Denies Home medication: Apixaban 2.5 mg p.o. b.i.d., nitrofurantoin, carisoprodol, ibuprofen, pantoprazole, multiple courses of antibiotic (nitrofurantoin, ciprofloxacin, doxycycline), oxybutynin, semaglutide, empagliflozin, lisinopril, atenolol, gabapentin, simvastatin, metformin, aspirin, glipizide, oxycodone Patient seen and examined at bedside. Currently has no new complaints. Past Medical History Per HPI Past Surgical History Per HPI Family History Per HPI Past Social History Per HPI Review of Systems Review of Systems General: patient denies fever, fatigue, weaknes, sweating, any recent changes in appetite and weight HEENT: No headaches, visiual changes, hearing loss, tinnitus, nasal congestion and discharge, and sore throat. Cardiovascular: Denies chest pain, palpitations, dyspnea on exertion, orthopnea, or claudication. Respiratory: No cough, and wheezing. Gastrointestinal: Denies nausea, vomiting, dysphagia, odynophagia, heartburn, abdominal pain, flatulence, bloating, diarrhea, constipation, change in stool, or blood in stool. Genitourinary: Reports urinary incontinence, overflow type Endocrine: No heat or cold intolerance, polydipsia, polyuria, and polyphagia. Neurological: No dizziness, extremity weakness and numbness, tremors, gait disturbance, seizures, and memory impairment. Psychiatric: Denies depression, anxiety,or insomnia. Musculoskeletal: Reports chronic back pain Skin: No rashes, itching, skin lesion, changes in hair, nail, skin texture and breast. Hematologic/Lymphatic: Denies easy bruising, bleeding tendencies, or lymph node enlargement. Allergies: Coded Allergies: NO KNOWN ALLERGIES (Unverified , 03/02/20) Exam Vital Signs Vital Signs Date Time Temp Pulse Resp B/P (MAP) Pulse Ox O2 Delivery O2 Flow Rate FiO2 01/27/25 21:17 76 16 158/88 01/27/25 20:09 Room Air* 0 21 01/27/25 19:31 97.3 96 97.3 Exam Patient lying in bed, in no acute distress General: Lucid, afebrile, mucosae are moist Cardiovascular: Normal S1 and S2. No murmurs, gallops or rubs Respiratory: Normal ventilation mechanics. Clear lung sounds on auscultation Abdomen: Soft, nontender, no organomegaly, normal bowel sounds MSK/skin: Mobilizes 4 limbs. Skin is dry and warm : Costovertebral tenderness bilaterally, predominantly on right side Neurological: Oriented in 3 spheres. 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, and uses walker for mobility Pupils are isocoric and reactive Labs/Xrays Labs Test 01/27/25 19:05 01/27/25 18:04 01/27/25 17:24 Range/Units Troponin I High Sensitivity 26 </=34 ng/L White Blood Count 6.4 4.4-10.8 10^3/uL Red Blood Count 4.13 4.0-5.20 10^6/uL Hemoglobin 11.3 L 12.2-16.2 g/dL Hematocrit 35.0 L 36.0-46.0 % Mean Corpuscular Volume 84.8 80.0-100.0 fL Mean Corpuscular Hemoglobin 27.4 L 28.0-32.0 pg Mean Corpuscular Hemoglobin Concent 32.3 32.0-36.0 g/dL Red Cell Distribution Width 15.3 H 11.8-14.3 % Platelet Count 384 140-450 10^3/uL Mean Platelet Volume 7.3 6.9-10.8 fL Neutrophils (%) (Auto) 73.8 37.0-80.0 % Lymphocytes (%) (Auto) 19.0 10.0-50.0 % Monocytes (%) (Auto) 4.8 0.0-12.0 % Eosinophils (%) (Auto) 1.4 0.0-7.0 % Basophils (%) (Auto) 1.0 0.0-2.0 % Neutrophils # (Auto) 4.7 1.6-8.6 10 ^3/uL Lymphocytes # (Auto) 1.2 0.4-5.4 10 ^3/uL Monocytes # (Auto) 0.3 0-1.3 10 ^3/uL Eosinophils # (Auto) 0.1 0-0.8 10 ^3/uL Basophils # (Auto) 0.1 0-0.2 10 ^3/uL Nucleated Red Blood Cells 0.1 % Prothrombin Time 11.0 9.3-11.8 sec Prothrombin Time INR 1.04 0.9-1.15 Activated Partial Thromboplast Time 28.8 24.5-34.5 SEC Sodium Level 134 L 136-145 mmol/L Potassium Level 3.8 3.5-5.1 mmol/L Chloride Level 102 98-107 mmol/L Carbon Dioxide Level 22 20-31 mmol/L Anion Gap 10 5-15 Blood Urea Nitrogen 17 9-23 mg/dL Creatinine 1.32 H 0.550-1.02 mg/dL Glomerular Filtration Rate Calc 43 >90 mL/min BUN/Creatinine Ratio 12.9 10.0-20.0 Serum Glucose 253 H 74-106 mg/dL Calcium Level 9.2 8.7-10.4 mg/dL Magnesium Level 1.8 1.6-2.6 mg/dL Total Bilirubin 0.2 0.2-1.0 mg/dL Aspartate Amino Transferase (AST) 9 L 13-40 U/L Alanine Aminotransferase (ALT) < 9 7-40 U/L Alkaline Phosphatase 95 46-116 U/L Total Protein 7.7 5.7-8.2 g/dL Albumin 4.0 3.2-4.8 g/dL Lipase 27 12-53 U/L Urine Color Light-yellow Yellow Urine Clarity Clear Clear Urine pH 6.0 5.0-9.0 Urine Specific [place] 1.026 1.001-1.035 Urine Protein Trace H Negative Urine Ketones Negative Negative Urine Blood 2+ H Negative /uL Urine Nitrite Negative Negative Urine Bilirubin Negative Negative Urine Urobilinogen Normal Negative mg/dL Urine Leukocyte Esterase 2+ Negative /uL Urine RBC 49 0 - 4 /hpf Urine Microscopic WBC 50 H 0-5 /HPF Urine Squamous Epithelial Cells Few <5 /hpf Urine Bacteria None seen None Seen /hpf Urine Glucose 2+ H Normal mg/dL Assessment/Plan Assessment/Plan Assessment: Complicated UTI Bilateral hydronephrosis Right adrenal nodule, 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 Consulted urology specialist Ordered MRI of abdominopelvic to characterize lesions Consulted Gynecology for the cystic teratoma Currently under empiric IV antibiotic (Zosyn) Goals of care discussed with patient for over 18 minutes: Full code status Discussed plan with Dr. Doshi, patient, family, and nurses: Continue with empiric IV antibiotics, ordered urine culture, and ordered consult with Urology. Pending completion of MRI. Plan discussed with: Patient, Spouse, Other (Nurses) My Orders Orders - JAMIL BENITEZ Procedure Category Date Status Time Admit ADMIT 01/27/25 Transmitted 21:39 Code Status CODE 01/27/25 Transmitted 21:39 Vital Signs ALFREDO 01/27/25 In Process 21:39 Review Orders With ALFREDO 01/27/25 In Process Adm. 21:39 Consistent DIET 01/28/25 Transmitted Carb(Ccho)Diabetes Breakfast Docusate Sodium PHA 01/27/25 In Process Capsule (Colace 21:45 Notify Md Of Changes ALFREDO 01/27/25 In Process From Base 21:39 Advance Directive ALFREDO 01/27/25 In Process 21:39 Urine Bacterial JEAN MARIE 01/27/25 In Process Culture 21:39 Patient Condition ORDERS 01/27/25 Transmitted 21:39 Allergies ALFREDO 01/27/25 In Process 21:39 Ondansetron Hcl PHA 01/27/25 In Process (Zofran) 21:45 Drug Screen LAB 01/27/25 In Process 21:39 Morphine Sulfate PHA 01/27/25 Logged Injection 21:45 Stat Ekg For Chest ALFREDO 01/27/25 In Process Pain 21:39 Notify Md Of Changes ALFREDO 01/27/25 In Process From Base 21:39 Kidney US 01/27/25 Logged 21:39 Urine Sodium LAB 01/27/25 In Process 21:39 Urine Creatinine LAB 01/27/25 In Process 21:39 Urine LAB 01/27/25 In Process Protein/Creatinine Comprehensive LAB 01/28/25 Verified Metabolic Panel 04:00 Complete Blood Count LAB 01/28/25 Verified 04:00 * Urology Consult CONS 01/27/25 Transmitted 21:39 *Consult Dr. Juan CONS 01/27/25 Transmitted [place] 21:39 Glucose Blood PHA 01/27/25 In Process (Accu-Chek Comfort 22:00 Insulin R (Human) PHA 01/27/25 In Process (Insulin R) 22:00 Insulin R (Human) PHA 01/28/25 In Process (Insulin R) 07:00 Dextrose 50% Syringe PHA 01/27/25 In Process 21:45 Piperacillin-Tazob PHA 01/27/25 In Process 3.375gm (Zosyn 3.375g 22:00 Noble Catheters ED NURSING 01/27/25 Transmitted Oxybutynin Chloride PHA 01/27/25 In Process Tablet (Ditropan Tab 22:00 Oxycodone W/ Acet PHA 01/27/25 Logged 5/325mg Tab (Percocet 22:00 Pantoprazole Tablet PHA 01/27/25 In Process (Protonix Tablet) 22:00 (Nf) Atenolol PHA 01/28/25 Logged 10:00 (Nf) Gabapentin PHA 01/27/25 Logged 22:00 (Nf) Lisinopril PHA 01/28/25 Logged 10:00 (Nf) Simvastatin PHA 01/27/25 Logged 22:00 Enoxaparin Sodium PHA 01/27/25 Logged (Lovenox) 22:00 Date of Service: Jan 27, 2025 Billing Provider: BRENDA DOSHI MD Common Visit Codes: [id number] INP/OBS CARE (HIGH) Secondary Visit Codes: [id number] CARE PLAN 30 MINUTES JAMIL BENITEZ RESDIENT Jan 27, 2025 22:02 FILI HEDRICK RESIDENT Jan 28, 2025 03:39 BRENDA DOSHI MD Jan 28, 2025 11:40
[2025-01-27] MEDS: OXYBUTYNIN CHL 5 MG TAB PO SCH (22:18)
[2025-01-27] MEDS: PANTOPRAZOLE 40 MG TAB PO SCH (22:19)
[2025-01-27] MEDS: ENOXAPARIN SOD 80 MG/0.8ML SYRINGE SC SCH (22:19)
[2025-01-27] MEDS: PIPERACILLIN-TAZOB 3.375GM 100 ML IV SCH (22:20)
[2025-01-27 22:40] LABS: Protein, Urine 28.1 mg/dL (1-14)
[2025-01-27 22:43] LABS: Creatinine, Urine 36.43 mg/dL (30.0-125.0); Creatinine, Urine 37.05 mg/dL (30.0-125.0); Urine Protein/Creatinine Ratio 0.77
[2025-01-27] MEDS: ACCU-CHEK COMFORT CURVE STRIP VI SCH (22:44)
[2025-01-27] MEDS: ATORVASTATIN 20 MG TAB PO SCH (22:44)
[2025-01-27 22:46] LABS: Amphetamine Screen, Urine Neg (NEGATIVE); Barbiturate Scree,Urine Neg (NEGATIVE); Benzodiazephine Screen, Urine Neg (NEGATIVE); Cannabinoid Screen, Urine Neg (NEGATIVE); Cocaine Screen, Urine Neg (NEGATIVE); Opiate Scree,Urine Neg (NEGATIVE); Phencyclidine Screen, Urine Neg (NEGATIVE)
[2025-01-27] MEDS: InsuLIN REG 1unit/0.01ml Soln (100units/ml) SC SCH (22:50)
--- NOTE | 2025-01-27 23:32 | DVH ---
INDICATION: Hydrinephrosis TECHNIQUE: Multiple real-time sonographic images of the kidneys and bladder were obtained. COMPARISON: None Findings/ impression: The right kidney measures 9.4 cm and demonstrates hydronephrosis. The left kidn ey measures 12.5 cm and demonstrates hydronephrosis. Distended urinary bladder demonstrating diffuse wall thickening measuring up to 7 mm prevoid urinary bladder volume of 390 mL. Postvoid urinary blad jeannette volume of 283 mL. Correlate for possible urinary bladder outlet obstruction. Superimposed infect ion not excluded.
[2025-01-27 23:34] VITALS: BP 141/67; PULSE 76; RESP 18; TEMP 98.2; O2SAT 96
[2025-01-28] VITALS (7 sets, daily range): BP systolic 107–141; BP diastolic 40–72; PULSE 65–87; RESP 0–18; TEMP 97.7–98.3; O2SAT 96–99
[2025-01-28] MEDS: GABAPENTIN 300 MG CAP PO SCH (06:16)
[2025-01-28 08:13] LABS: Basophils # (auto) 0 10 ^3/uL (0-0.2); Basophils % (auto) 0.5 % (0.0-2.0); Eosinophils # (auto) 0.1 10 ^3/uL (0-0.8); Eosinophils % (auto) 1.9 % (0.0-7.0); Hematocrit 30.5 % (36.0-46.0); Hemoglobin 10.4 g/dL (12.2-16.2); Lymphocytes # (auto) 1.8 10 ^3/uL (0.4-5.4); Lymphocytes % (auto) 25.2 % (10.0-50.0); Mean Corpuscular Hemoglobin 28.6 pg (28.0-32.0); Mean Corpuscular Hgb Conc. 34.2 g/dL (32.0-36.0); Mean Corpuscular Volume 83.8 fL (80.0-100.0); Monocytes # (auto) 0.4 10 ^3/uL (0-1.3); Monocytes % (auto) 6.2 % (0.0-12.0); Neutrophils # (auto) 4.7 10 ^3/uL (1.6-8.6); Neutrophils % (auto) 66.2 % (37.0-80.0); Platelet Count (auto) 367 10^3/uL (140-450); Red Blood Cells 3.64 10^6/uL (4.0-5.20); Red Cell Distribution Width 15.3 % (11.8-14.3); White Blood Cell 7.2 10^3/uL (4.4-10.8)
[2025-01-28 08:34] LABS: Alanine Aminotransferase 10 U/L (7-40); Albumin 3.5 g/dL (3.2-4.8); Alkaline Phosphatase 87 U/L (46-116); Anion Gap 9 (5-15); BUN/Creatinine Ratio 16.2 (10.0-20.0); Blood Urea Nitrogen 21 mg/dL (9-23); Calcium 8.9 mg/dL (8.7-10.4); Carbon Dioxide 25 mmol/L (20-31); Chloride 103 mmol/L (98-107); Potassium 3.9 mmol/L (3.5-5.1); Sodium 137 mmol/L (136-145); Total Protein 6.5 g/dL (5.7-8.2)
[2025-01-28 08:40] LABS: Aspartate Aminotransferase 13 U/L (13-40); Bilirubin, Total 0.2 mg/dL (0.2-1.0); Glucose 149 mg/dL (74-106)
[2025-01-28] MEDS: InsuLIN REG 1unit/0.01ml Soln (100units/ml) SC SCH (08:53)
[2025-01-28] MEDS: OXYCODONE W/ ACETAMINOPHEN 5/325MG TABLET PO SCH (10:00)
[2025-01-28] MEDS: ATENOLOL 25 MG TAB PO SCH (10:02)
[2025-01-28] MEDS: LISINOPRIL 5 MG TAB PO SCH (10:03)
[2025-01-28] MEDS: DOCUSATE SOD 100 MG CAP PO PRN (10:09)
--- NOTE | 2025-01-28 14:04 | DVH ---
CLINICAL HISTORY: Hydronephrosis. Cystic teratoma. Abdominopelvic lesions. Abnormal findings on CT. TECHNIQUE: Multi sequence multi planar MRI images of the abdomen were obtained without IV contrast. Multi sequence multi planar MRI images of the pelvis were obtained without IV contrast. COMPARISON: CT of the abdomen and pelvis dated 01/27/2025. FINDINGS: Abdomen: There is hepatic steatosis. Postsurgical changes of cholecystitis. Common bile duct measures up to 1 cm in diameter, which may be seen after cholecystectomy due to reservoir effect.No definite filling defect identified in the common bile duct on non-MRCP images. The spleen appears unremarkable . Pancreas is moderately atrophic. Right adrenal nodule measures up to 1.8 cm, without signal loss on the out of phase images to suggest a lipid rich adenoma. Bilateral hydronephrosis, right [place] left, likely moderate severe on the right and [id number] on the left, improved compared to th e prior exam after Noble catheter placement. No abdominal aortic aneurysm. No other significant findi ngs are seen in the abdomen. Pelvis: There is a well-circumscribed, predominantly fatty mass along the posterior aspect of the [place] measuring up to 3.2 x 4.5 x 4.7 cm with small nodular component measuring up to 1.1 cm of the cau fernanda aspect of the mass, suspected solid soft tissue component with nonspecific signal characteristics on noncontrast enhanced exam. There are small follicles in the right ovary with a peripherally calci fied structure in the right ovary measuring up to 1.7 cm possible peripherally calcified cyst demonst rating internal T1 hypointense and T2 hyperintense signal. The left ovary is not visualized, possibly obscured by the fat containing mass posterior to the uterus or obscured by other structures. There i s marked circumferential thickening of the bladder wall. The bladder is collapsed around a Noble cath eter balloon. IMPRESSION: 1. Abnormal markedly thickened bladder wall, suspicious for malignancy, not well evaluated on noncont rast enhanced exam. 2. Bilateral hydronephrosis, right greater than left, likely due to obstruction of the ureterovesical junctions secondary to abnormal wall thickening. 3. Indeterminate right adrenal nodule, not consistent with a lipid rich adenoma. Possibly a lipid poo r adenoma or other neoplasm. CT adrenal mass protocol precontrast, postcontrast, and 15 minute delaye d phases could be considered to further evaluate. 4. 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 The left ovary is not visualized, may be o bscured by the mass or other structures. 5. Postsurgical changes of prior cholecystectomy. Common bile duct is mildly dilated, which may be se en after cholecystectomy. No filling defect identified in the common bile duct on non-MRCP images. Co rrelate with clinical findings. 6. Additional findings as detailed above.
--- NOTE | 2025-01-28 15:16 | DVHPNRES ---
Progress Note Date Seen: Jan 28, 2025 Resident Creating Document: TOMY SANTAMARIA RESIDENT Medical Necessity Reason Pt with a Central, PICC or Fol: No Subjective Review of Systems Yadira Holland this is a 74-year-old female patient who presents to the ER referred by PCP (Dr Juan) due to abnormal findings in abdomen and pelvis CT. Past medical history: Hypertension, diabetes, dyslipidemia, CVA, foot ulcer secondary to peripheral artery disease status post angioplasty, [place], urinary incontinence status postop, multiple UTIs, GERD. Surgical history: Peripheral angiography with angioplasty, 4 C-sections, multiple bladder surgeries for urinary incontinence, foot ulcer surgery (incision and drainage), cholecystectomy Family history: Noncontributory Social history: Lives with family in [place]. Denies current tobacco, alcohol and other drug abuse, uses walker for mobility Allergies: Denies Home medication: Apixaban 2.5 mg p.o. b.i.d., nitrofurantoin, carisoprodol, ibuprofen, pantoprazole, multiple courses of antibiotic (nitrofurantoin, ciprofloxacin, doxycycline), oxybutynin, semaglutide, empagliflozin, lisinopril, atenolol, gabapentin, simvastatin, metformin, aspirin, glipizide, oxycodone Patient stated that around 2 weeks back, the patient had nausea, diarrhea, vomiting and decreased oral intake, upon PCP office visit she was prescribed oral antibiotic which she taken for 5 days but her condition did not improved. Three days back she was put on IV antibiotic which improved her condition. But she was contacted from her PCP office for the requirement of ER visit. Patient has history of chronic urinary incontinence, underwent surgery 2 years back which worsened her incontinence, on August 2024 she underwent 2nd surgery for urinary incontinence which made the problem more worse. Previously was placed on Noble catheter but removed recently by PCP, completed multiple courses of antibiotics due to frequent UTIs. Denies fever, chills, palpitation, syncope, chest pain, dyspnea, nausea, vomiting, diarrhea, dysuria, recent travel, sick contacts and motor or sensory deficits Patient has had a renal ultrasound with demonstrated severe hydronephrosis, an MRI of the abdomen and pelvis was ordered. Patient has a Noble catheter placed. Patient was started on broad-spectrum antibiotics. Urology and OBGYN consult were placed. She currently states feeling well, denies any symptoms such as abdominal pain, nausea, vomiting, dizziness, lightheadedness, chest pain, shortness of breath. She is currently tolerating diet. Objective vital signs Vital Sign Date Time Temp Pulse Resp B/P (MAP) Pulse Ox O2 Delivery O2 Flow Rate FiO2 01/28/25 10:03 141/72 01/28/25 10:02 65 01/28/25 09:00 97.7 0 99 97.7 01/28/25 08:00 Room Air* 0 21 Total Intake and Output 01/27/25 01/27/25 01/28/25 15:00 23:00 07:00 Intake Total 250 ml Balance 250 ml medications Current Medications Medications Dose Ordered Sig/Poppy Route Start Time Stop Time Status Last Admin Dose Admin Docusate Sodium 100 mg BIDPRN PRN PO 01/27/25 21:45 01/28/25 10:09 100 MG Ondansetron HCl 4 mg Q4HP PRN IV 01/27/25 21:45 Morphine Sulfate 2 mg Q4HPRN PRN IV 01/27/25 21:45 Diagnostic Test (Pha) 1 strip ACHS 01/27/25 22:00 01/28/25 11:30 1 STRIP Insulin Human Regular HS SC 01/27/25 22:00 01/27/25 22:50 2 UNITS Insulin Human Regular AC SC 01/28/25 07:00 01/28/25 11:30 2 UNITS Dextrose 50 ml UD PRN IV 01/27/25 21:45 Piperacillin Sod/ Tazobactam Sod 100 ml @ 25 mls/hr Q8HR IV 01/27/25 22:00 01/28/25 13:15 25 MLS/HR Oxybutynin Chloride 5 mg BID PO 01/27/25 22:00 01/28/25 10:02 5 MG Oxycodone/ Acetaminophen 1 tab BIDP PO 01/27/25 22:00 Pantoprazole Sodium 40 mg BID PO 01/27/25 22:00 01/28/25 10:02 40 MG Atenolol 100 mg DAILY PO 01/28/25 10:00 01/28/25 10:02 100 MG Gabapentin 900 mg TID PO 01/28/25 06:00 01/28/25 13:15 900 MG Lisinopril 10 mg DAILY PO 01/28/25 10:00 01/28/25 10:03 10 MG Atorvastatin Calcium 10 mg HS PO 01/27/25 22:22 01/27/25 22:44 10 MG Enoxaparin Sodium 80 mg Q12HR SC 01/27/25 22:00 01/28/25 10:02 80 MG Examination General: Awake, alert, comfortable appearing, in no acute distress. HEENT: Head is normocephalic and atraumatic. Pupils are equal, round, and reactive to light. Extraocular muscles are intact. No nasal discharge. No facial trauma. Intraoral exam shows moist mucous membranes with no tonsillar enlargement or exudate. Neck: Supple with no cervical lymphadenopathy No meningismus. No goiter. Heart: Regular rate without murmur, rub, or gallop. Lungs: Equal breath sounds bilaterally with no wheezing, rales, or rhonchi. There is no chest wall tenderness or instability. Abdomen: No external sign of injury. Bowel sounds are present. Abdomen is soft, nontender. No rebound, no guarding, no rigidity. There are no palpable masses. There is no flank pain on exam. Extremities: Strong peripheral pulses. There is no clubbing, no cyanosis, and no edema. Skin: No rash. Neurologic: Cranial nerves II-XII intact without motor, sensory deficit, has ataxia. laboratory and microbiology Laboratory Tests 01/28/25 07:22 Test 01/28/25 07:22 Range/Units Serum Glucose 149 H 74-106 mg/dL Labs and/or images reviewed: Labs reviewed by me, Image(s) reviewed by me Problem List/Assessment/Plan Problem List/Assessment/Plan Complicated UTI Bilateral hydronephrosis, bladder wall thickening, rule out malignancy Right adrenal nodule, follow up in outpatient setting Ovarian major cystic teratoma Urinary incontinence, overflow type Hypertension Diabetes Dyslipidemia History of CVA Peripheral artery disease Plan: Reviewed abdomen and pelvis CT which hydronephrosis and hydroureter with suspected obstruction at the level of ureterovesical junction, moderate bladder wall thickening (differential diagnosis include malignancy/cystitis), indeterminate right adrenal nodule, indeterminate lucent lesion in L1 vertebral body, pack containing mass along posterior aspect of uterus (more likely ovarian cystic teratoma). Consulted urology specialist MRI of the abdomen and pelvis demonstrated possible bladder malignancy, mild improvement in hydronephrosis a lipid poor adenoma or other neoplasm in right adrenal gland. Consulted Gynecology for the cystic teratoma Currently under empiric IV antibiotic with Zosyn Pending urine culture Goals of care discussed with patient for over 30 minutes: Full code Discussed plan with Dr. Doshi Plan discussed with: Patient, Other (RN) My Orders My Orders Orders - TOMY SANTAMARIA RESIDENT Procedure Category Date Status Time Complete Blood Count LAB 01/29/25 Verified 04:00 Comprehensive LAB 01/29/25 Verified Metabolic Panel 04:00 Magnesium LAB 01/29/25 Verified 04:00 Dietary Evaluation Review Comments: 1) Initiate Glucerna Carbsteady 8 fl oz bid; promote optimal PO intake and adequate hydration 2) Continue zofran PRN 3) Add cardiac restriction to diet order 4) Continue to monitor I&O, labs, and skin integrity 5) F/u with urology and gynecology Expected Outcomes/Goals: 1) appetite and labs to improve 2) GI symptoms to resolve 3) f/u in 5 days Date of Service: Jan 28, 2025 Billing Provider: BRENDA DOSHI MD Common Visit Codes: [id number] INP/OBS CARE(HIGH) TOMY SANTAMARIA RESIDENT Jan 28, 2025 15:16 BRENDA DOSHI MD Jan 29, 2025 11:22
--- NOTE | 2025-01-28 19:08 | DVHINCON2 ---
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.pt denies any post menopausal bleeding or pelvic pain,lat pap and mammo many yrs ago Past Medical History dm,htn,mi,gerd Past Surgical History csx4,cholesyctectomy,angioplaty Family History na Social History na Patient Family History: Family history: Diabetes mellitus G8 FATHER Family history: Hypertension G8 MOTHER Allergies: Coded Allergies: NO KNOWN ALLERGIES (Unverified , 03/02/20) Home Meds Active Scripts Metronidazole (Flagyl) 500 Mg Tab, 1 TAB PO TID, #30 TAB Prov:RJ LI MD 05/04/23 Doxycycline (Monohydrate) (Doxycycline) 100 Mg Cap, 100 MG PO BID for 10 Days, #30 CAP Prov:RJ LI MD 05/04/23 Ciprofloxacin Hcl (Cipro) 500 Mg Tab, 1 TAB PO DAILY, #7 TAB Prov:REED BANDA MD 08/21/22 Reported Medications Pancrelipase (Lipase-Protease- (CREON) 36,000 Unt Cap, 1 CAP PO QID 09/05/23 Carisoprodol (Carisoprodol) 350 Mg Tab, 1 TAB PO DAILY 09/04/23 Nitrofurantoin Monohyd Macro (Nitrofurantoin Monohydrat) 100 Mg Cap, 1 CAP PO BID 09/04/23 Apixaban Base (ELIQUIS) 2.5 Mg Tab, 1 TAB PO BID 09/04/23 Pantoprazole Sodium Sesquihydr (Pantoprazole Sodium) 40 Mg Tab, 1 TAB PO BID 09/04/23 Ibuprofen Micronized (MOTRIN TABLET) 600 Mg Tb, 800 MG PO TID, #40 TAB *Black box warning-NSAIDS can increase risk of VA & hypertension, GI irritation, ulceration, bleed, perferation. Do not use post cardiac surgery. Use short duration/lowest effective dose. 08/18/22 Lisinopril (Lisinopril) 10 Mg Tab, 10 MG PO DAILY for 30 Days, MG 08/18/22 Empagliflozin (Jardiance) 25 Mg Tab, 1 TAB PO DAILY 06/26/22 Semaglutide (Ozempic) 2 Mg/1.5 Ml Inj, 1 MG SC weekly every thursday, INJ 07/10/21 Oxybutynin Chloride (Oxybutynin Chloride) 5 Mg Tab, 1 TAB PO BID 07/09/21 Gabapentin (Gabapentin) 600 Mg Tab, 1.5 TAB PO TID, MG 03/02/20 Atenolol (Atenolol) 100 Mg Tab, 100 MG PO DAILY, MG 05/29/19 Simvastatin (Simvastatin) 20 Mg Tab, 20 MG PO HS for 30 Days 05/29/19 Metformin Hydrochloride (Metformin Hcl) 500 Mg Tab, 500 MG PO IBID for 30 Days, MG 05/29/19 Aspirin (Aspir-Low) 81 Mg Tab, 81 MG PO DAILY, MG 05/29/19 Glipizide (Glipizide) 10 Mg Tab, 1 TAB PO BID, TAB 5 Refills 05/29/19 Oxycodone W/ Acetaminophen (Percocet 5/325MG) 1 Tab Tb, 1 TAB PO BIDP, #120 TAB 05/14/18 Current Medications Current Medications Medications (Trade) Dose Ordered Sig/Poppy Route PRN Reason Start Time Stop Time Status Last Admin Docusate Sodium (Colace Capsule) 100 mg BIDPRN PRN PO FOR CONSTIPATION 01/27/25 21:45 01/28/25 10:09 Ondansetron HCl (Zofran) 4 mg Q4HP PRN IV NAUSEA / VOMITING 01/27/25 21:45 Morphine Sulfate 2 mg Q4HPRN PRN IV SEVERE PAIN (7-10 PAIN SCALE) 01/27/25 21:45 Diagnostic Test (Pha) (Accu-Chek Comfort Curve T) 1 strip ACHS 01/27/25 22:00 01/28/25 17:00 Insulin Human Regular (InsuLIN R) HS SC 01/27/25 22:00 01/27/25 22:50 Insulin Human Regular (InsuLIN R) AC SC 01/28/25 07:00 01/28/25 17:00 Dextrose 50 ml UD PRN IV Blood Sugar LESS THAN 60 01/27/25 21:45 Piperacillin Sod/ Tazobactam Sod 100 ml @ 25 mls/hr Q8HR IV 01/27/25 22:00 01/28/25 13:15 Oxybutynin Chloride (Ditropan Tablet) 5 mg BID PO 01/27/25 22:00 01/28/25 10:02 Oxycodone/ Acetaminophen (Percocet 5/ 325MG Tablet) 1 tab BIDP PO 01/27/25 22:00 01/28/25 18:00 Pantoprazole Sodium (Protonix Tablet) 40 mg BID PO 01/27/25 22:00 01/28/25 10:02 Atenolol (Tenormin Tablet) 100 mg DAILY PO 01/28/25 10:00 01/28/25 10:02 Gabapentin (Neurontin Capsule) 900 mg TID PO 01/28/25 06:00 01/28/25 13:15 Lisinopril (Zestril Tablet) 10 mg DAILY PO 01/28/25 10:00 01/28/25 10:03 Atorvastatin Calcium (Lipitor) 10 mg HS PO 01/27/25 22:22 01/27/25 22:44 Enoxaparin Sodium (Lovenox) 80 mg Q12HR SC 01/27/25 22:00 01/28/25 10:02 Review of Systems c/w hpi Vital Signs Vital Signs Date Time Temp Pulse Resp B/P (MAP) Pulse Ox O2 Delivery O2 Flow Rate FiO2 01/28/25 17:00 97.7 66 18 123/55 (77) 99 97.7 01/28/25 08:00 Room Air* 0 21 Physical Exam abd -obese,nt pelvic-no dc or bleeding ,uterus 8 wks size,adenxa nt Labs/Diagnostic Data Labs Test 01/28/25 18:03 01/28/25 14:46 01/28/25 07:22 01/28/25 03:59 Range/Units POC Glucose 142 H 70-106 mg/dl White Blood Count 7.2 4.4-10.8 10^3/uL Red Blood Count 3.64 L 4.0-5.20 10^6/uL Hemoglobin 10.4 L 12.2-16.2 g/dL Hematocrit 30.5 #L 36.0-46.0 % Mean Corpuscular Volume 83.8 80.0-100.0 fL Mean Corpuscular Hemoglobin 28.6 28.0-32.0 pg Mean Corpuscular Hemoglobin Concent 34.2 32.0-36.0 g/dL Red Cell Distribution Width 15.3 H 11.8-14.3 % Platelet Count 367 140-450 10^3/uL Mean Platelet Volume 7.4 6.9-10.8 fL Neutrophils (%) (Auto) 66.2 37.0-80.0 % Lymphocytes (%) (Auto) 25.2 10.0-50.0 % Monocytes (%) (Auto) 6.2 0.0-12.0 % Eosinophils (%) (Auto) 1.9 0.0-7.0 % Basophils (%) (Auto) 0.5 0.0-2.0 % Neutrophils # (Auto) 4.7 1.6-8.6 10 ^3/uL Lymphocytes # (Auto) 1.8 0.4-5.4 10 ^3/uL Monocytes # (Auto) 0.4 0-1.3 10 ^3/uL Eosinophils # (Auto) 0.1 0-0.8 10 ^3/uL Basophils # (Auto) 0 0-0.2 10 ^3/uL Nucleated Red Blood Cells 0.0 % Sodium Level 137 136-145 mmol/L Potassium Level 3.9 3.5-5.1 mmol/L Chloride Level 103 98-107 mmol/L Carbon Dioxide Level 25 20-31 mmol/L Anion Gap 9 5-15 Blood Urea Nitrogen 21 9-23 mg/dL Creatinine 1.30 H 0.550-1.02 mg/dL Glomerular Filtration Rate Calc 43 >90 mL/min BUN/Creatinine Ratio 16.2 10.0-20.0 Serum Glucose 149 H 74-106 mg/dL Calcium Level 8.9 8.7-10.4 mg/dL Total Bilirubin 0.2 0.2-1.0 mg/dL Aspartate Amino Transferase (AST) 13 13-40 U/L Alanine Aminotransferase (ALT) 10 7-40 U/L Alkaline Phosphatase 87 46-116 U/L Total Protein 6.5 5.7-8.2 g/dL Albumin 3.5 3.2-4.8 g/dL Troponin I High Sensitivity 27 </=34 ng/L Test 01/27/25 18:04 01/27/25 17:24 Range/Units Prothrombin Time 11.0 9.3-11.8 sec Prothrombin Time INR 1.04 0.9-1.15 Activated Partial Thromboplast Time 28.8 24.5-34.5 SEC Magnesium Level 1.8 1.6-2.6 mg/dL Lipase 27 12-53 U/L Urine Color Light-yellow Yellow Urine Clarity Clear Clear Urine pH 6.0 5.0-9.0 Urine Specific [place] 1.026 1.001-1.035 Urine Protein Trace H Negative Urine Ketones Negative Negative Urine Blood 2+ H Negative /uL Urine Nitrite Negative Negative Urine Bilirubin Negative Negative Urine Urobilinogen Normal Negative mg/dL Urine Leukocyte Esterase 2+ Negative /uL Urine RBC 49 0 - 4 /hpf Urine Microscopic WBC 50 H 0-5 /HPF Urine Squamous Epithelial Cells Few <5 /hpf Urine Bacteria None seen None Seen /hpf Urine Creatinine 36.43 30.0-125.0 mg/dL Urine Protein/Creatinine Ratio 0.77 Urine Sodium 90 40-220 mmol/L Urine Glucose 2+ H Normal mg/dL Urine Total Protein 28.1 H 1-14 mg/dL Urine Opiates Screen Neg NEGATIVE Urine Fentanyl Screen Neg NEGATIVE Urine Barbiturates Screen Neg NEGATIVE Urine Phencyclidine Screen Neg NEGATIVE Urine Amphetamines Screen Neg NEGATIVE Urine Benzodiazepines Screen Neg NEGATIVE Urine Cocaine Screen Neg NEGATIVE Urine Cannabinoids Screen Neg NEGATIVE Microbiology Date/Time Source Procedure Growth Status 01/28/25 04:55 Nose MRSA Screen - Final Complete Primary Diagnosis ovarian mass teratoma per mri pending ca 125 2' Diagnosis/Comorbidities bladder anbnormality prob malignency Plan fu with car body inspector onc ,pt needs out pt pap and mammo Plan discussed with: Patient Visit Coding OBGYN Date of Service: Jan 28, 2025 Billing Provider: GLADYS LOWE DO TECHNOLOGIST INFECTIOUS DISEASE Common Visit Codes: [id number] INP/OBS CARE(HIGH) TECHNOLOGIST INFECTIOUS DISEASE Consultation Codes: 21326-[id number]/U INPATIENT CONSULT (HIGH) GLADYS LOWE DO Jan 28, 2025 19:08
[2025-01-29] VITALS (8 sets, daily range): BP systolic 107–131; BP diastolic 44–65; PULSE 60–81; RESP 12–20; TEMP 97.2–98.2; O2SAT 94–99
[2025-01-29 07:25] LABS: Basophils # (auto) 0.1 10 ^3/uL (0-0.2); Basophils % (auto) 0.9 % (0.0-2.0); Eosinophils # (auto) 0.1 10 ^3/uL (0-0.8); Eosinophils % (auto) 2.6 % (0.0-7.0); Hematocrit 32.8 % (36.0-46.0); Lymphocytes # (auto) 1.5 10 ^3/uL (0.4-5.4); Lymphocytes % (auto) 26.2 % (10.0-50.0); Mean Corpuscular Hemoglobin 28.8 pg (28.0-32.0); Mean Corpuscular Hgb Conc. 33.4 g/dL (32.0-36.0); Mean Corpuscular Volume 86.3 fL (80.0-100.0); Monocytes # (auto) 0.4 10 ^3/uL (0-1.3); Monocytes % (auto) 6.5 % (0.0-12.0); Neutrophils # (auto) 3.6 10 ^3/uL (1.6-8.6); Neutrophils % (auto) 63.8 % (37.0-80.0); Nucleated Red Blood Cells % 0.4 %; Platelet Count (auto) 305 10^3/uL (140-450); Red Blood Cells 3.81 10^6/uL (4.0-5.20); Red Cell Distribution Width 15.2 % (11.8-14.3); White Blood Cell 5.6 10^3/uL (4.4-10.8)
[2025-01-29 07:44] LABS: Alanine Aminotransferase 10 U/L (7-40); Alkaline Phosphatase 84 U/L (46-116); Anion Gap 9 (5-15); BUN/Creatinine Ratio 13.5 (10.0-20.0); Blood Urea Nitrogen 21 mg/dL (9-23); Carbon Dioxide 25 mmol/L (20-31); Chloride 104 mmol/L (98-107); Magnesium 1.9 mg/dL (1.6-2.6); Potassium 3.8 mmol/L (3.5-5.1); Sodium 138 mmol/L (136-145); Total Protein 6.8 g/dL (5.7-8.2)
[2025-01-29 07:46] LABS: Albumin 3.5 g/dL (3.2-4.8)
[2025-01-29 07:48] LABS: Aspartate Aminotransferase 9 U/L (13-40); Bilirubin, Total 0.2 mg/dL (0.2-1.0); Glucose 168 mg/dL (74-106)
--- NOTE | 2025-01-29 08:19 | DVHPNRES ---
Progress Note Date Seen: Jan 29, 2025 Resident Creating Document: TOMY SANTAMARIA RESIDENT Medical Necessity Reason Pt with a Central, PICC or Fol: No Subjective Review of Systems She currently states feeling well, denies any symptoms such as abdominal pain, nausea, vomiting, dizziness, lightheadedness, chest pain, shortness of breath. She is currently tolerating diet. Counseled her on medical compliance given that patient was refusing therapeutic Lovenox. Objective vital signs Vital Sign Date Time Temp Pulse Resp B/P (MAP) Pulse Ox O2 Delivery O2 Flow Rate FiO2 01/29/25 04:51 97.6 60 12 117/44 (68) 99 97.6 01/28/25 20:00 Room Air* 0 21 Total Intake and Output 01/28/25 01/28/25 01/29/25 15:00 23:00 07:00 Intake Total 300 ml 540 ml 100 ml Output Total 1000 ml 500 ml 550 ml Balance -700 ml 40 ml -450 ml medications Current Medications Medications Dose Ordered Sig/Poppy Route Start Time Stop Time Status Last Admin Dose Admin Docusate Sodium 100 mg BIDPRN PRN PO 01/27/25 21:45 01/28/25 10:09 100 MG Ondansetron HCl 4 mg Q4HP PRN IV 01/27/25 21:45 Morphine Sulfate 2 mg Q4HPRN PRN IV 01/27/25 21:45 Diagnostic Test (Pha) 1 strip ACHS 01/27/25 22:00 01/29/25 05:42 1 STRIP Insulin Human Regular HS SC 01/27/25 22:00 01/28/25 22:12 3 UNITS Insulin Human Regular AC SC 01/28/25 07:00 01/28/25 17:00 2 UNITS Dextrose 50 ml UD PRN IV 01/27/25 21:45 Piperacillin Sod/ Tazobactam Sod 100 ml @ 25 mls/hr Q8HR IV 01/27/25 22:00 01/29/25 05:57 25 MLS/HR Oxybutynin Chloride 5 mg BID PO 01/27/25 22:00 01/28/25 21:50 5 MG Oxycodone/ Acetaminophen 1 tab BIDP PO 01/27/25 22:00 01/28/25 18:00 1 TAB Pantoprazole Sodium 40 mg BID PO 01/27/25 22:00 01/28/25 21:51 40 MG Atenolol 100 mg DAILY PO 01/28/25 10:00 01/28/25 10:02 100 MG Gabapentin 900 mg TID PO 01/28/25 06:00 01/29/25 05:57 900 MG Lisinopril 10 mg DAILY PO 01/28/25 10:00 01/28/25 10:03 10 MG Atorvastatin Calcium 10 mg HS PO 01/27/25 22:22 01/28/25 21:51 10 MG Enoxaparin Sodium 80 mg Q12HR SC 01/27/25 22:00 01/28/25 10:02 80 MG Examination General: Awake, alert, comfortable appearing, in no acute distress. HEENT: Head is normocephalic and atraumatic. Pupils are equal, round, and reactive to light. Extraocular muscles are intact. No nasal discharge. No facial trauma. Intraoral exam shows moist mucous membranes with no tonsillar enlargement or exudate. Neck: Supple with no cervical lymphadenopathy No meningismus. No goiter. Heart: Regular rate without murmur, rub, or gallop. Lungs: Equal breath sounds bilaterally with no wheezing, rales, or rhonchi. There is no chest wall tenderness or instability. Abdomen: No external sign of injury. Bowel sounds are present. Abdomen is soft, nontender. No rebound, no guarding, no rigidity. There are no palpable masses. There is no flank pain on exam. Extremities: Strong peripheral pulses. There is no clubbing, no cyanosis, and no edema. Skin: No rash. Neurologic: Cranial nerves II-XII intact without motor, sensory deficit, has ataxia. laboratory and microbiology Laboratory Tests 01/29/25 06:55 Test 01/29/25 06:55 Range/Units Serum Glucose 168 H 74-106 mg/dL Microbiology Date/Time Source Procedure Growth Status 01/28/25 04:55 Nose MRSA Screen - Final Complete Labs and/or images reviewed: Labs reviewed by me, Image(s) reviewed by me Problem List/Assessment/Plan Problem List/Assessment/Plan Complicated UTI Bilateral hydronephrosis, bladder wall thickening, rule out malignancy Right adrenal nodule, follow up in outpatient setting Ovarian major cystic teratoma Urinary incontinence, overflow type Hypertension Diabetes Dyslipidemia History of CVA Peripheral artery disease Plan: Reviewed abdomen and pelvis CT which hydronephrosis and hydroureter with suspected obstruction at the level of ureterovesical junction, moderate bladder wall thickening (differential diagnosis include malignancy/cystitis), indeterminate right adrenal nodule, indeterminate lucent lesion in L1 vertebral body, pack containing mass along posterior aspect of uterus (more likely ovarian cystic teratoma). Consulted urology specialist, pending MRI of the abdomen and pelvis demonstrated possible bladder malignancy, mild improvement in hydronephrosis a lipid poor adenoma or other neoplasm in right adrenal gland. Consulted Gynecology for the cystic teratoma. Recommended CA-125, outpatient follow with sleeve fixer oncologist, Pap smear, mammography Currently under empiric IV antibiotic with Zosyn Pending urine culture Continue therapeutic Lovenox Goals of care discussed with patient for over 30 minutes: Full code Discussed plan with Dr. Doshi Plan discussed with: Patient, Other (RN) Dietary Evaluation Review Comments: 1) Initiate Glucerna Carbsteady 8 fl oz bid; promote optimal PO intake and adequate hydration 2) Continue zofran PRN 3) Add cardiac restriction to diet order 4) Continue to monitor I&O, labs, and skin integrity 5) F/u with urology and gynecology Expected Outcomes/Goals: 1) appetite and labs to improve 2) GI symptoms to resolve 3) f/u in 5 days Date of Service: Jan 29, 2025 Billing Provider: BRENDA DOSHI MD Common Visit Codes: [id number] INP/OBS CARE(MOD) TOMY SANTAMARIA RESIDENT Jan 29, 2025 08:19 BRENDA DOSHI MD Jan 29, 2025 14:49
--- NOTE | 2025-01-29 14:38 | DVHINCON2 ---
Date of service: Jan 29, [address] Doshi Reason for Consultation hydronephrosis, bladder mass History of Present Illness History Source: Patient, RN Notes, MD Notes Exam Limitations: No limitations HPI 74-year-old female patient who presents to the ER referred by PCP (Dr Juan) due to abnormal findings in abdomen and pelvis CT. Around 2 weeks back, the patient had nausea, diarrhea, vomiting and decreased oral intake, upon PCP office visit she was prescribed oral antibiotic which she taken for 5 days but her condition did not improved. Three days back she was put on IV antibiotic which improved h er condition. But today, she was contacted from her PCP office for the requirement of ER visit. Patient has history of chronic urinary incontinence, underwent surgery 2 years back which worsened her incontinence, on August 2024 she underwent 2nd surgery for urinary incontinence which made the problem more worse. Previously was placed on Wolfe catheter but removed recently by PCP, completed multiple courses of antibiotics due to frequent UTIs. Denies fever, chills, palpitation, syncope, chest pain, dyspnea, nausea, vomiting, diarrhea, dysuria, recent travel, sick contacts and motor or sensory deficits Past medical history: Hypertension, diabetes, dyslipidemia, CVA, foot ulcer secondary to peripheral artery disease status post angioplasty, [place], urinary incontinence status postop, multiple UTIs, GERD. Surgical history: Peripheral angiography with angioplasty, 4 C-sections, multi ple bladder surgeries for urinary incontinence, foot ulcer surgery (incision and drainage), cholecystectomy Family history: Noncontributory Social history: Lives with family in [place]. Denies current tobacco, alcohol and other drug abuse, uses walker for mobility Allergies: Denies Home medication: Apixaban 2.5 mg p.o. b.i.d., nitrofurantoin, carisoprodol, ibuprofen, pantoprazole, multiple courses of antibiotic (nitrofurantoin, ciprofloxacin, doxycycline), oxybutynin, semaglutide, empagliflozin, lisinopril, atenolol, gabapentin, simvastatin, metformin, aspirin, glipizide, oxycodone Home Meds Active Scripts Metronidazole (Flagyl) 500 Mg Tab, 1 TAB PO TID, #30 TAB Prov:RJ LI MD 05/04/23 Doxycycline (Monohydrate) (Doxycycline) 100 Mg Cap, 100 MG PO BID for 10 Days, #30 CAP Prov:RJ LI MD 05/04/23 Ciprofloxacin Hcl (Cipro) 500 Mg Tab, 1 TAB PO DAILY, #7 TAB Prov:REED BANDA MD 08/21/22 Reported Medications Pancrelipase (Lipase-Protease- (CREON) 36,000 Unt Cap, 1 CAP PO QID 09/05/23 Carisoprodol (Carisoprodol) 350 Mg Tab, 1 TAB PO DAILY 09/04/23 Nitrofurantoin Monohyd Macro (Nitrofurantoin Monohydrat) 100 Mg Cap, 1 CAP PO BID 09/04/23 Apixaban Base (ELIQUIS) 2.5 Mg Tab, 1 TAB PO BID 09/04/23 Pantoprazole Sodium Sesquihydr (Pantoprazole Sodium) 40 Mg Tab, 1 TAB PO BID 09/04/23 Ibuprofen Micronized (MOTRIN TABLET) 600 Mg Tb, 800 MG PO TID, #40 TAB *Black box warning-NSAIDS can increase risk of AZ & hypertension, GI irritation, ulceration, bleed, perferation. Do not use post cardiac surgery. Use short duration/lowest effective dose. 08/18/22 Lisinopril (Lisinopril) 10 Mg Tab, 10 MG PO DAILY for 30 Days, MG 08/18/22 Empagliflozin (Jardiance) 25 Mg Tab, 1 TAB PO DAILY 06/26/22 Semaglutide (Ozempic) 2 Mg/1.5 Ml Inj, 1 MG SC weekly every thursday, INJ 07/10/21 Oxybutynin Chloride (Oxybutynin Chloride) 5 Mg Tab, 1 TAB PO BID 07/09/21 Gabapentin (Gabapentin) 600 Mg Tab, 1.5 TAB PO TID, MG 03/02/20 Atenolol (Atenolol) 100 Mg Tab, 100 MG PO DAILY, MG 05/29/19 Simvastatin (Simvastatin) 20 Mg Tab, 20 MG PO HS for 30 Days 05/29/19 Metformin Hydrochloride (Metformin Hcl) 500 Mg Tab, 500 MG PO IBID for 30 Days, MG 05/29/19 Aspirin (Aspir-Low) 81 Mg Tab, 81 MG PO DAILY, MG 05/29/19 Glipizide (Glipizide) 10 Mg Tab, 1 TAB PO BID, TAB 5 Refills 05/29/19 Oxycodone W/ Acetaminophen (Percocet 5/325MG) 1 Tab Tb, 1 TAB PO BIDP, #120 TAB 05/14/18 Past Medical History Renal/: UTI Patient Family History: Family history: Diabetes mellitus G8 FATHER Family history: Hypertension G8 MOTHER H&P Exam Vital Signs Vital Signs Date Time Temp Pulse Resp B/P (MAP) Pulse Ox O2 Delivery O2 Flow Rate FiO2 01/29/25 13:00 97.7 73 20 131/59 (83) 94 97.7 01/28/25 20:00 Room Air* 0 21 General Appeara: Well developed, Well nourished, Normal Appearance Neuro/Mental St: Alert, Oriented Appearance: Appropriate appearance, Appropriate insight Eye contact/ Speech: Cooperative, Good eye contact, Normal speech Skin Exam: Normal inspection, Normal color, Warm/dry Labs/Xrays [place] [id number] Ph: [phone] DIAGNOSTIC IMAGING Diagnostic Imaging Report : [id number] Signed PATIENT: FIDELIA CABALLERO ACCT: [id number] UNIT: [id number] : 1950 LOC: [facility] ROOM / BED: [facility] / A AGE / SEX: 74 / F ADM STATUS: ADM IN SERVICE ORDERING PHYSICIAN: JAMIL BENITEZ RESDICAPRI PROCEDURE(s): MRIABDPWOC - MRI ABD PELVIS W/O CONT REASON: ORDER NUMBER(s): [id number], ACCESSION NUMBER(s): [id number] CLINICAL HISTORY: Hydronephrosis. Cystic teratoma. Abdominopelvic lesions. Abnormal findings on CT. TECHNIQUE: Multi sequence multi planar MRI images of the abdomen were obtained without IV contrast. Multi sequence multi planar MRI images of the pelvis were obtained without IV contrast. COMPARISON: CT of the abdomen and pelvis dated 01/27/2025. FINDINGS: Abdomen: There is hepatic steatosis. Postsurgical changes of cholecystitis. Common bile duct measures up to 1 cm in diameter, which may be seen after cholecystectomy due to reservoir effect.No definite filling defect identified in the common bile duct on non-MRCP images. The spleen appears unremarkable. Pancreas is moderately atrophic. Right adrenal nodule measures up to 1.8 cm, without signal loss on the out of phase images to suggest a lipid rich adenoma. Bilateral hydronephrosis, right greater than left, likely moderate severe on the right and [id number] on the left, improved compared to the prior exam after Wolfe catheter placement. No abdominal aortic aneurysm. No other significant findings are seen in the abdomen. Pelvis: There is a well-circumscribed, predominantly fatty mass along the posterior aspect of the uterus measuring up to 3.2 x 4.5 x 4.7 cm with small nodular component measuring up to 1.1 cm of the caudal aspect of the mass, suspected solid soft tissue component with nonspecific signal characteristics on noncontrast enhanced exam. There are small follicles in the right ovary with a peripherally calcified structure in the right ovary measuring up to 1.7 cm possible peripherally calcified cyst demonstrating internal T1 hypointense and T2 hyperintense signal. The left ovary is not visualized, possibly obscured by the fat containing mass posterior to the uterus or obscured by other structures. There is marked circumferential thickening of the bladder wall. The bladder is collapsed around a Wolfe catheter balloon. IMPRESSION: 1. Abnormal markedly thickened bladder wall, suspicious for malignancy, not well evaluated on noncontrast enhanced exam. 2. Bilateral hydronephrosis, right greater than left, likely due to obstruction of the ureterovesical junctions secondary to abnormal wall thickening. 3. Indeterminate right adrenal nodule, not consistent with a lipid rich adenoma. Possibly a lipid poor adenoma or other neoplasm. CT adrenal mass protocol precontrast, postcontrast, and 15 minute delayed phases could be considered to further evaluate. 4. 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 The left ovary is not visualized, may be obscured by the mass or other structures. 5. Postsurgical changes of prior cholecystectomy. Common bile duct is mildly dilated, which may be seen after cholecystectomy. No filling defect identified in the common bile duct on non-MRCP images. Correlate with clinical findings. 6. Additional findings as detailed above. ATED BY: DON FLORES DO DICTATED DATE/TIME: 01/28/251401 SIGNED BY: DON FLORES DO SIGNED DATE/TIME: 01/28/251401 CC: [place] [id number] Ph: [phone] DIAGNOSTIC IMAGING Diagnostic Imaging Report : [id number] Signed PATIENT: FIDELIA CABALLERO ACCT: [id number] UNIT: [id number] : 1950 LOC: [facility] ROOM / BED: 023 / A AGE / SEX: 74 / F ADM STATUS: ADM IN SERVICE [id number] ORDERING PHYSICIAN: IAN DE ANDA NP PROCEDURE(s): KIDUS - KIDNEY REASON: hydronephrosis ORDER NUMBER(s): [id number], ACCESSION NUMBER(s): [id number] INDICATION: hydronephrosis TECHNIQUE: Multiple real-time sonographic images of the kidneys and bladder were obtained. COMPARISON: US KIDNEY on DOS: 01/27/25 FINDINGS: RIGHT kidney measures 10.0 cm in length. Mild hydronephrosis. LEFT kidney measures 12.5 cm in length. No hydronephrosis. Wolfe catheter in the urinary bladder. IMPRESSION: Mild right hydronephrosis. ATED BY: ROLF ESPINAL MD DICTATED DATE/TIME: 01/29/25 1600 SIGNED BY: ROLF ESPINAL MD SIGNED DATE/TIME: 01/29/25 1600 CC: Labs Test 01/29/25 09:24 01/29/25 06:55 01/28/25 14:46 01/28/25 03:59 Range/Units POC Glucose 216 H 70-106 mg/dl White Blood Count 5.6 4.4-10.8 10^3/uL Red Blood Count 3.81 L 4.0-5.20 10^6/uL Hemoglobin 11.0 L 12.2-16.2 g/dL Hematocrit 32.8 L 36.0-46.0 % Mean Corpuscular Volume 86.3 80.0-100.0 fL Mean Corpuscular Hemoglobin 28.8 28.0-32.0 pg Mean Corpuscular Hemoglobin Concent 33.4 32.0-36.0 g/dL Red Cell Distribution Width 15.2 H 11.8-14.3 % Platelet Count 305 140-450 10^3/uL Mean Platelet Volume 7.1 6.9-10.8 fL Neutrophils (%) (Auto) 63.8 37.0-80.0 % Lymphocytes (%) (Auto) 26.2 10.0-50.0 % Monocytes (%) (Auto) 6.5 0.0-12.0 % Eosinophils (%) (Auto) 2.6 0.0-7.0 % Basophils (%) (Auto) 0.9 0.0-2.0 % Neutrophils # (Auto) 3.6 1.6-8.6 10 ^3/uL Lymphocytes # (Auto) 1.5 0.4-5.4 10 ^3/uL Monocytes # (Auto) 0.4 0-1.3 10 ^3/uL Eosinophils # (Auto) 0.1 0-0.8 10 ^3/uL Basophils # (Auto) 0.1 0-0.2 10 ^3/uL Nucleated Red Blood Cells 0.4 % Sodium Level 138 136-145 mmol/L Potassium Level 3.8 3.5-5.1 mmol/L Chloride Level 104 98-107 mmol/L Carbon Dioxide Level 25 20-31 mmol/L Anion Gap 9 5-15 Blood Urea Nitrogen 21 9-23 mg/dL Creatinine 1.55 H 0.550-1.02 mg/dL Glomerular Filtration Rate Calc 35 >90 mL/min BUN/Creatinine Ratio 13.5 10.0-20.0 Serum Glucose 168 H 74-106 mg/dL Calcium Level 9.0 8.7-10.4 mg/dL Magnesium Level 1.9 1.6-2.6 mg/dL Total Bilirubin 0.2 0.2-1.0 mg/dL Aspartate Amino Transferase (AST) 9 L 13-40 U/L Alanine Aminotransferase (ALT) 10 7-40 U/L Alkaline Phosphatase 84 46-116 U/L Total Protein 6.8 5.7-8.2 g/dL Albumin 3.5 3.2-4.8 g/dL Troponin I High Sensitivity 27 </=34 ng/L Test 01/27/25 18:04 01/27/25 17:24 Range/Units Prothrombin Time 11.0 9.3-11.8 sec Prothrombin Time INR 1.04 0.9-1.15 Activated Partial Thromboplast Time 28.8 24.5-34.5 SEC Lipase 27 12-53 U/L Urine Color Light-yellow Yellow Urine Clarity Clear Clear Urine pH 6.0 5.0-9.0 Urine Specific [place] 1.026 1.001-1.035 Urine Protein Trace H Negative Urine Ketones Negative Negative Urine Blood 2+ H Negative /uL Urine Nitrite Negative Negative Urine Bilirubin Negative Negative Urine Urobilinogen Normal Negative mg/dL Urine Leukocyte Esterase 2+ Negative /uL Urine RBC 49 0 - 4 /hpf Urine Microscopic WBC 50 H 0-5 /HPF Urine Squamous Epithelial Cells Few <5 /hpf Urine Bacteria None seen None Seen /hpf Urine Creatinine 36.43 30.0-125.0 mg/dL Urine Protein/Creatinine Ratio 0.77 Urine Sodium 90 40-220 mmol/L Urine Glucose 2+ H Normal mg/dL Urine Total Protein 28.1 H 1-14 mg/dL Urine Opiates Screen Neg NEGATIVE Urine Fentanyl Screen Neg NEGATIVE Urine Barbiturates Screen Neg NEGATIVE Urine Phencyclidine Screen Neg NEGATIVE Urine Amphetamines Screen Neg NEGATIVE Urine Benzodiazepines Screen Neg NEGATIVE Urine Cocaine Screen Neg NEGATIVE Urine Cannabinoids Screen Neg NEGATIVE Microbiology Date/Time Source Procedure Growth Status 01/28/25 04:55 Nose MRSA Screen - Final Complete 01/27/25 17:24 Voided Urine Urine Culture - Preliminary Resulted Assessment/Plan Problem List: (1) Hydronephrosis (2) Incontinence of feces (3) Urinary incontinence (4) Bladder disorder, unspecified (5) Teratoma of ovary Plan wolfe treat UTI repeat renal US Plan discussed with: Patient, Other IAN DE ANDA NP Jan 29, 2025 14:38
--- NOTE | 2025-01-29 16:03 | DVH ---
INDICATION: hydronephrosis TECHNIQUE: Multiple real-time sonographic images of the kidneys and bladder were obtained. COMPARISON: US KIDNEY on DOS: 01/27/25 FINDINGS: RIGHT kidney measures 10.0 cm in length. Mild hydronephrosis. LEFT kidney measures 12.5 cm in length. No hydronephrosis. Noble catheter in the urinary bladder. IMPRESSION: Mild right hydronephrosis.
[2025-01-30 01:02] VITALS: BP 126/44; PULSE 73; RESP 17; TEMP 98; O2SAT 95
[2025-01-30 05:00] VITALS: BP 116/52; PULSE 65; RESP 17; TEMP 97.9; O2SAT 95
[2025-01-30 06:30] LABS: Calcium 9.2 mg/dL (8.7-10.4); Chloride 105 mmol/L (98-107); Potassium 3.9 mmol/L (3.5-5.1); Sodium 140 mmol/L (136-145)
[2025-01-30 06:31] LABS: Anion Gap 8 (5-15); Carbon Dioxide 27 mmol/L (20-31)
[2025-01-30 06:37] LABS: BUN/Creatinine Ratio 13.9 (10.0-20.0); Blood Urea Nitrogen 22 mg/dL (9-23)
[2025-01-30 06:38] LABS: Glucose 139 mg/dL (74-106)
[2025-01-30 07:53] VITALS: PULSE 70; RESP 18; O2SAT 97
[2025-01-30 09:00] VITALS: BP 115/60; PULSE 68; RESP 19; TEMP 98.1; O2SAT 94
--- NOTE | 2025-01-30 10:39 | DVHDSRES ---
Discharge Summary Date of Admission Resident Creating Document: TOMY SANTAMARIA RESIDENT Jan 27, 2025 at 21:39 Date of Discharge: Jan 30, 2025 Admitting Diagnosis UTI Labs/Diagnostic Data: Laboratory Results Test 01/30/25 05:42 01/30/25 05:19 01/29/25 06:55 01/28/25 14:46 POC Glucose 131 mg/dl (70-106) Sodium Level 140 mmol/L (136-145) Potassium Level 3.9 mmol/L (3.5-5.1) Chloride Level 105 mmol/L (98-107) Carbon Dioxide Level 27 mmol/L (20-31) Anion Gap 8 (5-15) Blood Urea Nitrogen 22 mg/dL (9-23) Creatinine 1.58 mg/dL (0.550-1.02) Glomerular Filtration Rate Calc 34 mL/min (>90) BUN/Creatinine Ratio 13.9 (10.0-20.0) Serum Glucose 139 mg/dL (74-106) Calcium Level 9.2 mg/dL (8.7-10.4) White Blood Count 5.6 10^3/uL (4.4-10.8) Red Blood Count 3.81 10^6/uL (4.0-5.20) Hemoglobin 11.0 g/dL (12.2-16.2) Hematocrit 32.8 % (36.0-46.0) Mean Corpuscular Volume 86.3 fL (80.0-100.0) Mean Corpuscular Hemoglobin 28.8 pg (28.0-32.0) Mean Corpuscular Hemoglobin Concent 33.4 g/dL (32.0-36.0) Red Cell Distribution Width 15.2 % (11.8-14.3) Platelet Count 305 10^3/uL (140-450) Mean Platelet Volume 7.1 fL (6.9-10.8) Neutrophils (%) (Auto) 63.8 % (37.0-80.0) Lymphocytes (%) (Auto) 26.2 % (10.0-50.0) Monocytes (%) (Auto) 6.5 % (0.0-12.0) Eosinophils (%) (Auto) 2.6 % (0.0-7.0) Basophils (%) (Auto) 0.9 % (0.0-2.0) Neutrophils # (Auto) 3.6 10 ^3/uL (1.6-8.6) Lymphocytes # (Auto) 1.5 10 ^3/uL (0.4-5.4) Monocytes # (Auto) 0.4 10 ^3/uL (0-1.3) Eosinophils # (Auto) 0.1 10 ^3/uL (0-0.8) Basophils # (Auto) 0.1 10 ^3/uL (0-0.2) Nucleated Red Blood Cells 0.4 % Magnesium Level 1.9 mg/dL (1.6-2.6) Total Bilirubin 0.2 mg/dL (0.2-1.0) Aspartate Amino Transferase (AST) 9 U/L (13-40) Alanine Aminotransferase (ALT) 10 U/L (7-40) Alkaline Phosphatase 84 U/L (46-116) Total Protein 6.8 g/dL (5.7-8.2) Albumin 3.5 g/dL (3.2-4.8) Test 01/28/25 03:59 01/27/25 18:04 01/27/25 17:24 Troponin I High Sensitivity 27 ng/L (</=34) Prothrombin Time 11.0 sec (9.3-11.8) Prothrombin Time INR 1.04 (0.9-1.15) Activated Partial Thromboplast Time 28.8 SEC (24.5-34.5) Lipase 27 U/L (12-53) Urine Color Light-yellow (Yellow) Urine Clarity Clear (Clear) Urine pH 6.0 (5.0-9.0) Urine Specific [place] 1.026 (1.001-1.035) Urine Protein Trace (Negative) Urine Ketones Negative (Negative) Urine Blood 2+ /uL (Negative) Urine Nitrite Negative (Negative) Urine Bilirubin Negative (Negative) Urine Urobilinogen Normal mg/dL (Negative) Urine Leukocyte Esterase 2+ /uL (Negative) Urine RBC 49 /hpf (0 - 4) Urine Microscopic WBC 50 /HPF (0-5) Urine Squamous Epithelial Cells Few /hpf (<5) Urine Bacteria None seen /hpf (None Seen) Urine Creatinine 36.43 mg/dL (30.0-125.0) Urine Protein/Creatinine Ratio 0.77 Urine Sodium 90 mmol/L (40-220) Urine Glucose 2+ mg/dL (Normal) Urine Total Protein 28.1 mg/dL (1-14) Urine Opiates Screen Neg (NEGATIVE) Urine Fentanyl Screen Neg (NEGATIVE) Urine Barbiturates Screen Neg (NEGATIVE) Urine Phencyclidine Screen Neg (NEGATIVE) Urine Amphetamines Screen Neg (NEGATIVE) Urine Benzodiazepines Screen Neg (NEGATIVE) Urine Cocaine Screen Neg (NEGATIVE) Urine Cannabinoids Screen Neg (NEGATIVE) Other Laboratory Tests 01/30/25 05:19 01/29/25 06:55 Brief Hx & Hospital Course: Fidelia Caballero this is a 74-year-old female patient who presents to the ER referred by PCP (Dr Juan) due to abnormal findings in abdomen and pelvis CT. Past medical history: Hypertension, diabetes, dyslipidemia, CVA, foot ulcer secondary to peripheral artery disease status post angioplasty, MO, urinary incontinence status postop, multiple UTIs, GERD. Surgical history: Peripheral angiography with angioplasty, 4 C-sections, multiple bladder surgeries for urinary incontinence, foot ulcer surgery (incision and drainage), cholecystectomy Family history: Noncontributory Social history: [place] with family in [place]. Denies current tobacco, alcohol and other drug abuse, uses walker for mobility Allergies: Denies Home medication: Apixaban 2.5 mg p.o. b.i.d., nitrofurantoin, carisoprodol, ibuprofen, pantoprazole, multiple courses of antibiotic (nitrofurantoin, ciprofloxacin, doxycycline), oxybutynin, semaglutide, empagliflozin, lisinopril, atenolol, gabapentin, simvastatin, metformin, aspirin, glipizide, oxycodone Patient stated that around 2 weeks back, the patient had nausea, diarrhea, vomiting and decreased oral intake, upon PCP office visit she was prescribed oral antibiotic which she taken for 5 days but her condition did not improved. Three days back she was put on IV antibiotic which improved her condition. But she was contacted from her PCP office for the requirement of ER visit. Patient has history of chronic urinary incontinence, underwent surgery 2 years back which worsened her incontinence, on August 2024 she underwent 2nd surgery for urinary incontinence which made the problem more worse. Previously was placed on Noble catheter but removed recently by PCP, completed multiple courses of antibiotics due to frequent UTIs. Denies fever, chills, palpitation, syncope, chest pain, dyspnea, nausea, vomiting, diarrhea, dysuria, recent travel, sick contacts and motor or sensory deficits Patient has had a renal ultrasound with demonstrated severe hydronephrosis, an MRI of the abdomen and pelvis was ordered. Patient has a Noble catheter placed. Patient was started on broad-spectrum antibiotics. Urology and OBGYN consult were placed. Reviewed abdomen and pelvis CT which hydronephrosis and hydroureter with suspected obstruction at the level of ureterovesical junction, moderate bladder wall thickening (differential diagnosis include malignancy/cystitis), indeterminate right adrenal nodule, indeterminate lucent lesion in L1 vertebral body, pack containing mass along posterior aspect of uterus (more likely ovarian cystic teratoma). Wood Tool Maker stated that the patient's stool follow with Oncology block press operator, had a CA 125, Pap smear and mammogram. Urologist stated to continue Noble for one more week, cystoscopy in outpatient. She currently states feeling well, denies any symptoms such as abdominal pain, nausea, vomiting, dizziness, lightheadedness, chest pain, shortness of breath. She is currently tolerating diet. Physical examination as below: General: Awake, alert, comfortable appearing, in no acute distress. HEENT: Head is normocephalic and atraumatic. Pupils are equal, round, and reactive to light. Extraocular muscles are intact. No nasal discharge. No facial trauma. Intraoral exam shows moist mucous membranes with no tonsillar enlargement or exudate. Neck: Supple with no cervical lymphadenopathy No meningismus. No goiter. Heart: Regular rate without murmur, rub, or gallop. Lungs: Equal breath sounds bilaterally with no wheezing, rales, or rhonchi. There is no chest wall tenderness or instability. Abdomen: No external sign of injury. Bowel sounds are present. Abdomen is soft, nontender. No rebound, no guarding, no rigidity. There are no palpable masses. There is no flank pain on exam. Extremities: Strong peripheral pulses. There is no clubbing, no cyanosis, and no edema. Skin: No rash. Neurologic: Cranial nerves II-XII intact without motor, sensory deficit, has ataxia. Patient will be discharged home on continue home medications as prescribed. She will continue taking cefpodoxime 200 mg p.o. b.i.d. for next seven days. She will follow with her PCP within one week. She will continue with the Noble for least one more week, she will also follow with urologist Dr. Jimenez. Outpatient follow with block press operator oncologist, Pap smear, mammography. Patient verbalized understanding and agree with DC plan, we spent over 30 minutes explaining the plan. Discussed plan with Dr. Doshi Consults/Reason for consult Urology was consulted due to severe hydronephrosis Operations or Procedures [place] [address] Ph: [phone] DIAGNOSTIC IMAGING Diagnostic Imaging Report : [id number] Signed PATIENT: FIDELIA CABALLERO ACCT: [id number] UNIT: [id number] : 1950 LOC: EAST ROOM / BED: 0234 / A AGE / SEX: 74 / F ADM STATUS: ADM IN SERVICE 38 ORDERING PHYSICIAN: JAMIL BENITEZ PROCEDURE(s): KIDUS - KIDNEY REASON: Hydrinephrosis ORDER NUMBER(s): [id number], ACCESSION NUMBER(s): [id number] INDICATION: Hydrinephrosis TECHNIQUE: Multiple real-time sonographic images of the kidneys and bladder were obtained. COMPARISON: None Findings/ impression: The right kidney measures 9.4 cm and demonstrates hydronephrosis. The left kidney measures 12.5 cm and demonstrates hydronephrosis. Distended urinary bladder demonstrating diffuse wall thickening measuring up to 7 mm prevoid urinary bladder volume of 390 mL. Postvoid urinary bladder volume of 283 mL. Correlate for possible urinary bladder outlet obstruction. Superimposed infection not excluded. ATED BY: DUSTY DUMONT DO DICTATED DATE/TIME: 01/27/252328 SIGNED BY: DUSTY DUMONT DO SIGNED DATE/TIME: 01/27/252328 CC: [place] [id number] Ph: [phone] DIAGNOSTIC IMAGING Diagnostic Imaging Report : [id number] Signed PATIENT: FIDELIA CABALLERO ACCT: [id number] UNIT: [id number] : 1950 LOC: EAST ROOM / BED: 0234 / A AGE / SEX: 74 / F ADM STATUS: ADM IN SERVICE 0041 ORDERING PHYSICIAN: JAMIL BENITEZ RESDICAPRI PROCEDURE(s): MRIABDPWOC - MRI ABD PELVIS W/O CONT REASON: ORDER NUMBER(s): [id number], ACCESSION NUMBER(s): [id number] CLINICAL HISTORY: Hydronephrosis. Cystic teratoma. Abdominopelvic lesions. Abnormal findings on CT. TECHNIQUE: Multi sequence multi planar MRI images of the abdomen were obtained without IV contrast. Multi sequence multi planar MRI images of the pelvis were obtained without IV contrast. COMPARISON: CT of the abdomen and pelvis dated 01/27/2025. FINDINGS: Abdomen: There is hepatic steatosis. Postsurgical changes of cholecystitis. Common bile duct measures up to 1 cm in diameter, which may be seen after cholecystectomy due to reservoir effect.No definite filling defect identified in the common bile duct on non-MRCP images. The spleen appears unremarkable. Pancreas is moderately atrophic. Right adrenal nodule measures up to 1.8 cm, without signal loss on the out of phase images to suggest a lipid rich adenoma. Bilateral hydronephrosis, right greater than left, likely moderate severe on the right and [id number] on the left, improved compared to the prior exam after Noble catheter placement. No abdominal aortic aneurysm. No other significant findings are seen in the abdomen. Pelvis: There is a well-circumscribed, predominantly fatty mass along the posterior aspect of the uterus measuring up to 3.2 x 4.5 x 4.7 cm with small nodular component measuring up to 1.1 cm of the caudal aspect of the mass, suspected solid soft tissue component with nonspecific signal characteristics on noncontrast enhanced exam. There are small follicles in the right ovary with a peripherally calcified structure in the right ovary measuring up to 1.7 cm possible peripherally calcified cyst demonstrating internal T1 hypointense and T2 hyperintense signal. The left ovary is not visualized, possibly obscured by the fat containing mass posterior to the uterus or obscured by other structures. There is marked circumferential thickening of the bladder wall. The bladder is collapsed around a Noble catheter balloon. IMPRESSION: 1. Abnormal markedly thickened bladder wall, suspicious for malignancy, not well evaluated on noncontrast enhanced exam. 2. Bilateral hydronephrosis, right greater than left, likely due to obstruction of the ureterovesical junctions secondary to abnormal wall thickening. 3. Indeterminate right adrenal nodule, not consistent with a lipid rich adenoma. Possibly a lipid poor adenoma or other neoplasm. CT adrenal mass protocol precontrast, postcontrast, and 15 minute delayed phases could be considered to further evaluate. 4. 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 The left ovary is not visualized, may be obscured by the mass or other structures. 5. Postsurgical changes of prior cholecystectomy. Common bile duct is mildly dilated, which may be seen after cholecystectomy. No filling defect identified in the common bile duct on non-MRCP images. Correlate with clinical findings. 6. Additional findings as detailed above. ATED BY: DON FLORES DO DICTATED DATE/TIME: 01/28/25 140 SIGNED BY: DON FLORES DO SIGNED DATE/TIME: 01/28/251401 CC: [place] [id number] Ph: [phone] DIAGNOSTIC IMAGING Diagnostic Imaging Report : [id number] Signed PATIENT: FIDELIA CABALLERO ACCT: [id number] UNIT: [id number] : 1950 LOC: [facility] ROOM / BED: [facility] A AGE / SEX: 74 / F ADM STATUS: ADM IN SERVICE 1438 ORDERING PHYSICIAN: IAN DE ANDA NP PROCEDURE(s): KIDUS - KIDNEY REASON: hydronephrosis ORDER NUMBER(s): [id number], ACCESSION NUMBER(s): [id number] INDICATION: hydronephrosis TECHNIQUE: Multiple real-time sonographic images of the kidneys and bladder were obtained. COMPARISON: US KIDNEY on DOS: 01/27/25 FINDINGS: RIGHT kidney measures 10.0 cm in length. Mild hydronephrosis. LEFT kidney measures 12.5 cm in length. No hydronephrosis. Noble catheter in the urinary bladder. IMPRESSION: Mild right hydronephrosis. ATED BY: ROLF ESPINAL MD DICTATED DATE/TIME: 01/29/25 1600 SIGNED BY: ROLF ESPINAL MD SIGNED DATE/TIME: 01/29/25 1600 CC: Condition at Discharge: Guarded Final Diagnosis/Problems List UTI, hydronephrosisComplicated UTI Bilateral hydronephrosis, bladder wall thickening, rule out malignancy Right adrenal nodule, follow up in outpatient setting Ovarian major cystic teratoma Urinary incontinence, overflow type Hypertension Diabetes Dyslipidemia History of CVA Peripheral artery disease Discharge Disposition: Home Discharge Instruct/Medications Diet: Regular Activity: No Restrictions, As Tolerated Follow Up/Referral: fu with pcp in 1 week fu with urologist in 1-2 weeks Medications: continue home meds as prescribed Discharge Statement: "Patient was advised to return to the ER or call 911 if any headaches, dizziness, shortness of breath, chest pain, abdominal pain, bleeding, fevers, or worsening of medical condition. Patient was counseled about treatment plan, medications, possible side effects, patientverbalized understanding. All questions were answered to the best of my ability. This discharge took greater then 30 minutes in planning, reviewing documentation, counseling the patient, and discussing with other team members." ASSESSMENT ASSESSMENT Assessment UTI, hydronephrosis Date of Service: Jan 30, 2025 Billing Provider: BRENDA DOSHI MD Common Visit Codes: 88868-XOP/OBS DISCH DAY >30min TOMY SANTAMARIA RESIDENT Jan 30, 2025 10:38 BRENDA DOSHI MD Jan 31, 2025 17:28
[2025-01-30 13:01] VITALS: BP 174/78; PULSE 74; RESP 19; TEMP 97.8; O2SAT 98
--- NOTE | 2025-01-30 13:26 | DVHPN2 ---
Progress Note - Dictate Date Seen: Jan 29, 2025 Medical Necessity Reason Pt with a Central, PICC or Fol: No Subjective LE ULCER SMALL VESSEL DISEASE PMH; RECURRENT UTI SECONDARY TO JARDIANCE JARIANCE HAS BEEN DCed BUT STILL WITH UTI DIABETIC FOOT ULCER HX SYNCOPE PT HAD DIZZINESS THAN SHE DOES NOT RECALL DIABETES LABILE HX OF RECURRENT CELLULITIS VASCULOPATHY NEUROPATHY ECHO NORMAL EF 55% RECURRENT UTI UNDERWENT BLADDER SUSPENSION SURGERY NOW HAS DEVELOPED BLADDER WALL THICKENING BILATERAL HYDRONEPHROSIS WORSENING UTI REQUIRING IV ABX THERAPY BLADDER INCONTINENCE vital signs Vital Sign Date Time Temp Pulse Resp B/P (MAP) Pulse Ox O2 Delivery O2 Flow Rate FiO2 01/30/25 13:01 97.8 74 19 174/78 (110) 98 97.8 01/30/25 07:53 Room Air* 0 21 Total Intake and Output 01/29/25 01/29/25 01/30/25 15:00 23:00 07:00 Intake Total 150 ml 700 ml 300 ml Output Total 850 ml 2100 ml Balance 150 ml -150 ml -1800 ml medications Current Medications Medications Dose Ordered Sig/Poppy Route Start Time Stop Time Status Last Admin Dose Admin Docusate Sodium 100 mg BIDPRN PRN PO 01/27/25 21:45 01/29/25 12:19 Ondansetron HCl 4 mg Q4HP PRN IV 01/27/25 21:45 Morphine Sulfate 2 mg Q4HPRN PRN IV 01/27/25 21:45 Diagnostic Test (Pha) 1 strip ACHS 01/27/25 22:00 01/30/25 05:44 Insulin Human Regular HS SC 01/27/25 22:00 01/29/25 22:29 Insulin Human Regular AC SC 01/28/25 07:00 01/30/25 05:46 Dextrose 50 ml UD PRN IV 01/27/25 21:45 Piperacillin Sod/ Tazobactam Sod 100 ml @ 25 mls/hr Q8HR IV 01/27/25 22:00 01/30/25 05:32 Oxybutynin Chloride 5 mg BID PO 01/27/25 22:00 01/30/25 10:44 Oxycodone/ Acetaminophen 1 tab BIDP PO 01/27/25 22:00 01/30/25 10:44 Pantoprazole Sodium 40 mg BID PO 01/27/25 22:00 01/30/25 10:44 Atenolol 100 mg DAILY PO 01/28/25 10:00 01/30/25 10:43 Gabapentin 900 mg TID PO 01/28/25 06:00 01/30/25 05:32 Lisinopril 10 mg DAILY PO 01/28/25 10:00 Hold 01/28/25 10:03 Atorvastatin Calcium 10 mg HS PO 01/27/25 22:22 01/29/25 22:08 Enoxaparin Sodium 80 mg Q12HR SC 01/27/25 22:00 01/30/25 10:46 laboratory and microbiology Laboratory Tests 01/30/25 05:19 01/29/25 06:55 Test 01/30/25 05:19 Range/Units Serum Glucose 139 H 74-106 mg/dL Problem List LE ULCER SMALL VESSEL DISEASE PMH; RECURRENT UTI SECONDARY TO JARDIANCE JARIANCE HAS BEEN DCed BUT STILL WITH UTI DIABETIC FOOT ULCER HX SYNCOPE PT HAD DIZZINESS THAN SHE DOES NOT RECALL DIABETES LABILE HX OF RECURRENT CELLULITIS VASCULOPATHY NEUROPATHY ECHO NORMAL EF 55% RECURRENT UTI UNDERWENT BLADDER SUSPENSION SURGERY NOW HAS DEVELOPED BLADDER WALL THICKENING BILATERAL HYDRONEPHROSIS WORSENING UTI REQUIRING IV ABX THERAPY BLADDER INCONTINENCE Assessment/Plan NOW WITH RESOLVING HYDRONEPHROSIS Dietary Evaluation Review Comments: 1) Initiate Glucerna Carbsteady 8 fl oz bid; promote optimal PO intake and adequate hydration 2) Continue zofran PRN 3) Add cardiac restriction to diet order 4) Continue to monitor I&O, labs, and skin integrity 5) F/u with urology and gynecology Expected Outcomes/Goals: 1) appetite and labs to improve 2) GI symptoms to resolve 3) f/u in 5 days Plan discussed with: Patient ERASMO CASTREJON MD Jan 30, 2025 13:26
[2025-01-30] MEDS ORDERED: CEFP200T15 PO ×2 (18:48)
[2025-01-30 19:36] VITALS: BP 145/82; PULSE 63; RESP 18; TEMP 98.3
[2025-01-31 09:07] LABS: Cancer Antigen (CA) 125 10.8 U/mL (0.0-38.1)
== END 2025-01-30 20:45 | disposition home or self-care (01) | DRG 760 ==
LOC: ER 16:39 → OVERFLOW 21:39 → EAST 23:14
PROVIDERS: ADMIT Internal Medicine; ATTEND Internal Medicine
DX: D27.9 Benign neoplasm of unspecified ovary (principal); N13.6 Pyonephrosis; E78.5 Hyperlipidemia, unspecified; E11.40 Type 2 diabetes mellitus with diabetic neuropathy, unspecified; K21.9 Gastro-esophageal reflux disease without esophagitis; E11.621 Type 2 diabetes mellitus with foot ulcer; E11.51 Type 2 diabetes mellitus with diabetic peripheral angiopathy without gangrene; L97.509 Non-pressure chronic ulcer of other part of unspecified foot with unspecified severity; E27.8 Other specified disorders of adrenal gland; K83.8 Other specified diseases of biliary tract; I10 Essential (primary) hypertension; Z82.49 Family history of ischemic heart disease and other diseases of the circulatory system; Z83.3 Family history of diabetes mellitus; Z86.73 Personal history of transient ischemic attack (TIA), and cerebral infarction without residual deficits; Z87.440 Personal history of urinary (tract) infections; Z90.49 Acquired absence of other specified parts of digestive tract; Z79.82 Long term (current) use of aspirin; Z79.84 Long term (current) use of oral hypoglycemic drugs; Z79.899 Other long term (current) drug therapy; Z98.891 History of uterine scar from previous surgery; I25.2 Old myocardial infarction
CPT/HCPCS: 36415; 72195; 74181; 76775; 80048; 80053; 80307; 81001; 82570; 82962; 83690; 83735; 84156; 84300; 84484; 85025; 85610; 85730; 86304; 87081; 87086; 96374; 97163; G0378; J1815; J2543

== ENCOUNTER → 2025-01-27 | Outpatient (CLI) | payer MEDICARE, MEDICAID ==
[~2025-01-27] MED LIST changes: +CEFP200T15 PO; +IOHEXOL 350 MG/ML 100ML IJ ONE; +READI-CAT 2 (BARIUM SULF)(VANILLA SMOOTHIE) 450ML ONE
[2025-01-27] MEDS: MEROPENEM 1GM IVPB 50 ML IV ONE ×2 (09:51→11:09)
[2025-01-27 11:05] VITALS: BP 184/94; PULSE 80; RESP 16; O2SAT 99
[2025-01-27 12:32] VITALS: BP 168/80; PULSE 75; RESP 16; O2SAT 99
--- NOTE | 2025-01-27 15:04 | DVH ---
CLINICAL INFORMATION: Abdominal pain. Vaginal bleeding. TECHNIQUE: Axial CT images of the abdomen and pelvis were obtained after the uneventful administrati on of 100 mL Omnipaque 300 IV contrast. Coronal and sagittal reformatted images were obtained, review ed, and stored. All CT scans at this medical facility are performed using dose modulation techniques as appropriate to a performed exam including the following: Automated exposure control was utilized; adjustment of the MA and/or KV according to patient size; and use of iterative reconstruction techniq ue. CTDIvol = 13.11 mGy DLP = 629.03 mGy-cm COMPARISON: CT CT AB PEL WITH IV CON ONLY on DOS: 07/29/23, ABPEL on DOS: 05/30/22 FINDINGS: Lung bases: Mild dependent atelectasis. Liver: Hepatic steatosis. No focal liver lesion visualized. Biliary: Cholecystectomy. Spleen: Unremarkable. Pancreas: Moderate atrophy. Adrenal glands: 1.8 cm right adrenal nodule. Kidneys and bladder: Moderate left and marked right hydronephrosis and hydroureter with no obstructin g calculus. There is moderate circumferential thickening of the bladder wall, including adjacent to t he ureterovesical junctions bilaterally, suspected obstruction due to the bladder wall thickening. Sm all locules of gas are seen along the bladder wall. Aorta/Vascular: Dense atherosclerotic calcification of the abdominal aorta. No abdominal aortic aneur ysm. Retroperitoneum: No mass or lymphadenopathy. Bowel/mesentery: No small bowel obstruction. No free air or free fluid. Appendix is visualized and ap pears unremarkable. Scattered colonic diverticula without adjacent inflammatory changes to suggest d iverticulitis. Pelvic organs: Fat containing loss along the posterior aspect of the uterus measuring up to 4.4 cm, p ossible ovarian mature cystic teratoma. Abdominal wall: No mass or hernia. Bones: Indeterminate lucent lesion in the L1 vertebral body measuring up to 1 cm in greatest dimensio n. IMPRESSION: 1. Severe right and moderate left hydronephrosis and hydroureter with suspected obstruction of the le froilan of the ureterovesical junctions due to moderate bladder wall thickening. Differential considerati ons for the bladder wall thickening would include malignancy or cystitis in the appropriate clinical setting. Small locules of gas within the bladder adjacent to the bladder wall possible gas-forming in fectious etiology. Correlate with clinical findings and urinalysis. 2. Indeterminate right adrenal nodule. MRI adrenal mass protocol recommended to further evaluate. 3. Indeterminate lucent lesion in the L1 vertebral body. MRI could be obtained to further characteriz e. 4. Fat containing mass along the posterior aspect of the uterus, most likely ovarian mature cystic te ratoma. Pelvic ultrasound may be helpful to further characterize. Critical findings Critical Result: Severe right and moderate left hydronephrosis and hydroureter, likely obstruction of the bilateral ureterovesical junctions due to moderate bladder wall thickening, with differential co nsiderations for the bladder wall thickening including malignancy or infection. Small locules of gas within the bladder may be due to gas-forming infection or recent intervention/ catheterization. Addit ional findings as detailed above. Findings discussed with SUNDAR Burger Dr. by phone at 01/27/2025 04:58 PM CDT, and mac wledged receipt and understanding of the findings and we will report the findings to the patient's ph ysician. ..
== END | disposition home or self-care (01) ==
LOC: Rad HDHVI 10:52
PROVIDERS: ATTEND Internal Medicine Cardiovascular Disease
DX: N39.0 Urinary tract infection, site not specified (principal); D27.9 Benign neoplasm of unspecified ovary; C74.91 Malignant neoplasm of unspecified part of right adrenal gland; I10 Essential (primary) hypertension; K21.9 Gastro-esophageal reflux disease without esophagitis; E78.5 Hyperlipidemia, unspecified; E11.40 Type 2 diabetes mellitus with diabetic neuropathy, unspecified; Z90.49 Acquired absence of other specified parts of digestive tract; Z79.899 Other long term (current) drug therapy; Z79.82 Long term (current) use of aspirin
CPT/HCPCS: 74177; 96365; G0463; J2185; Q9967

== ENCOUNTER → 2025-02-03 | Outpatient (CLI) | payer MEDICARE, MEDICAID ==
[~2025-02-03] MED LIST changes: +CEFP200T15 PO; -CIPR-173 PO; -DOXY100C79 PO; -METR-344 PO; -NITR100C6 PO
[2025-02-03 10:25] VITALS: BP 107/51; PULSE 67; RESP 18; O2SAT 98
[2025-02-03] MEDS: MEROPENEM 1GM IVPB 50 ML IV ONE ×2 (10:51→10:55)
[2025-02-03] MEDS: SODIUM CHLORIDE 0.9% 500 ML IV ONE (10:55)
[2025-02-03 12:09] VITALS: BP 123/81; PULSE 66; RESP 18; O2SAT 99
== END | disposition home or self-care (01) ==
LOC: CHF HDHVI 10:24
PROVIDERS: ATTEND Internal Medicine Cardiovascular Disease
DX: N39.0 Urinary tract infection, site not specified (principal); E11.40 Type 2 diabetes mellitus with diabetic neuropathy, unspecified; E11.51 Type 2 diabetes mellitus with diabetic peripheral angiopathy without gangrene; E11.65 Type 2 diabetes mellitus with hyperglycemia; I10 Essential (primary) hypertension; K21.9 Gastro-esophageal reflux disease without esophagitis; E78.5 Hyperlipidemia, unspecified; I25.2 Old myocardial infarction; E55.9 Vitamin D deficiency, unspecified; I25.10 Atherosclerotic heart disease of native coronary artery without angina pectoris; Z79.899 Other long term (current) drug therapy; Z86.73 Personal history of transient ischemic attack (TIA), and cerebral infarction without residual deficits; Z87.440 Personal history of urinary (tract) infections
CPT/HCPCS: 96361; 96365; G0463; J2185; J7040

== ENCOUNTER 2025-05-09 10:23 | Inpatient (IN) | payer MEDICARE, MEDICAID ==
[~2025-05-09] VITALS: Ht 167.6 cm; Wt 88.9 kg
--- NOTE | 2025-05-09 11:05 | ED.PDOC ---
Musculoskeletal HPI Comments This is a 74 year old female presenting to the ED with chief complaint of foot wound. Patient reports that she had seen her media senior recruiter today Dr. Herman regarding a wound to her right foot. Patient relays that she had some parts of it cut out and after being bandaged she was advised to come to the ED for admission due to needing more work done on her foot. Patient states that she has had a mild fever, but denies any pain to her foot. 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 Patient denies any bleeding, chills, numbness, weakness, chest pain, SOB, or leg pain at this time. Chief Complaint: Wound Check Time Seen by MD: 11:01 Primary Care Provider: ERASMO Reviewed Notes: Nurses Notes, Medications, Allergies Allergies: Coded Allergies: NO KNOWN ALLERGIES (Unverified , 03/02/20) Home Meds Active Scripts Cefpodoxime Proxetil (Cefpodoxime Proxetil) 200 Mg Tab, 1 TAB PO BID for 7 Days, #14 TAB Prov:TOMY SANTAMARIA RESIDENT 01/30/25 Reported Medications Pancrelipase (Lipase-Protease- (CREON) 36,000 Unt Cap, 1 CAP PO QID 09/05/23 Carisoprodol (Carisoprodol) 350 Mg Tab, 1 TAB PO DAILY 09/04/23 Apixaban Base (ELIQUIS) 2.5 Mg Tab, 1 TAB PO BID 09/04/23 Pantoprazole Sodium Sesquihydr (Pantoprazole Sodium) 40 Mg Tab, 1 TAB PO BID 09/04/23 Ibuprofen Micronized (MOTRIN TABLET) 600 Mg Tb, 800 MG PO TID, #40 TAB *Black box warning-NSAIDS can increase risk of MT & hypertension, GI irritation, ulceration, bleed, perferation. Do not use post cardiac surgery. Use short duration/lowest effective dose. 08/18/22 Lisinopril (Lisinopril) 10 Mg Tab, 10 MG PO DAILY for 30 Days, MG 08/18/22 Empagliflozin (Jardiance) 25 Mg Tab, 1 TAB PO DAILY 06/26/22 Semaglutide (Ozempic) 2 Mg/1.5 Ml Inj, 1 MG SC weekly every thursday, INJ 07/10/21 Oxybutynin Chloride (Oxybutynin Chloride) 5 Mg Tab, 1 TAB PO BID 07/09/21 Gabapentin (Gabapentin) 600 Mg Tab, 1.5 TAB PO TID, MG 03/02/20 Atenolol (Atenolol) 100 Mg Tab, 100 MG PO DAILY, MG 05/29/19 Simvastatin (Simvastatin) 20 Mg Tab, 20 MG PO HS for 30 Days 05/29/19 Metformin Hydrochloride (Metformin Hcl) 500 Mg Tab, 500 MG PO IBID for 30 Days, MG 05/29/19 Aspirin (Aspir-Low) 81 Mg Tab, 81 MG PO DAILY, MG 05/29/19 Glipizide (Glipizide) 10 Mg Tab, 1 TAB PO BID, TAB 5 Refills 05/29/19 Oxycodone W/ Acetaminophen (Percocet 5/325MG) 1 Tab Tb, 1 TAB PO BIDP, #120 TAB 05/14/18 Information Source: Patient Mode of Arrival: Ambulatory Location: Right Extremity Location: Foot Timing: Days Prehospital treatment: None Severity: Moderate Able to Move Extremity: No Bear Weight: No Pain: Moderate Mechanism: Spontaneous Circumstances: Preceding Wound Onset of Symptoms: Spontaneous Symptoms: Swelling, Erythema DVT Risk Factors: NONE Last Tetanus: Unknown Past Medical History PAST MEDICAL HISTORY: CVA, DM, High Lipids, HTN, MT Surgical History: Cholecystectomy, Surgical History (Other): oophorectomy, fallopian tubes removal, cataract surgery, right great toe amputation. 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 Family History Family History: Reviewed,noncontributory to illness, Unknown Social History Smoker: Cigarettes, Less Than 1 Pack/Day Alcohol: Occasionally Drugs: Denies Drug Use Lives In: Home Constitutional: denies: chills, diaphoresis, fatigue, fever, malaise, sweats, weakness, others EENTM: denies: blurred vision, double vision, ear bleeding, ear discharge, ear drainage, ear pain, ear ringing, eye pain, eye redness, hearing loss, mouth pain, mouth swelling, nasal discharge, nose bleeding, nose congestion, nose pain, photophobia, tearing, throat pain, throat swelling, voice changes, others Respiratory: denies: cough, hemoptysis, orthopnea, SOB at rest, shortness of breath, SOB with excertion, stridor, wheezing, others Cardiovascular: denies: chest pain, dizzy spells, diaphoresis, Dyspnea on exertion, edema, irregular heart beat, left arm pain, lightheadedness, palpitations, PND, syncope, others Gastrointestinal: denies: abdomen distended, abdominal pain, blood streaked bowels, constipated, diarrhea, dysphagia, difficulty swallowing, hematemesis, melena, nausea, poor appetite, poor fluid intake, rectal bleeding, rectal pain, vomiting, others Genitourinary: denies: abnormal vagina bleeding, burning, dyspareunia, dysuria, flank pain, frequency, hematuria, incontinence, pain, , vagina discharge, urgency, others Neurological: denies: dizziness, fainting, headache, left sided numbness, left sided weakness, numbness, paresthesia, pre-existing deficit, right sided numbness, right sided weakness, seizure, speech problems, tingling, tremors, weakness, others Musculoskeletal: denies: back pain, gout, joint pain, joint swelling, muscle pain, muscle stiffness, neck pain, others Integumetry: reports: wounds (Rt foot); denies: bruises, change in color, change in hair/nails, dryness, laceration, lesions, lumps, rash, others Allergic/Immunocompromised: denies: Difficulty Healing, Frequent Infections, Hives, Itching, others Hematologic/Lymphatic: denies: anemia, blood clots, easy bleeding, easy bruising, swollen glands, others Endocrine: denies: excessive hunger, excessive sweating, excessive thirst, excessive urination, flushing, intolerance to cold, intolerance to heat, unexplained weight gain, unexplained weight loss, others Psychiatric: denies: anxiety, bipolar disorder, depression, hopeless, panic disorder, schizophrenia, sleepless, suicidal, others All Other Systems: Reviewed and Negative Physical Exam General Appearance: Moderate Distress HEENT: Normal ENT Inspection, Pharynx Normal, TMs Normal Neck: Full Range of Motion, Non-Tender, Normal, Normal Inspection Respiratory: Chest Non-Tender, Lungs Clear, No Accessory Muscle Use, No Respiratory Distress, Normal Breath Sounds Cardiovascular: No Edema, No JVD, No Murmur, No Gallop, Normal Peripheral Pulses, Regular Rate/Rhythm Breast Exam: Deferred Gastrointestinal: No Organomegaly, Non Tender, No Pulsatile Mass, Normal Bowel Sounds, Soft Genitalia: Deferred Pelvic: Deferred Rectal: Deferred Extremities: No calf tenderness, Normal capillary refill, No pedal edema Musculoskeletal : Location: Right Extremity Location: Foot Apperance: Limited ROM, Tenderness: Moderate, Other (Redness with drainage) Neurologic: Alert, multiple drum sander helper II-XII nml as Tested, No Motor Deficits, Normal Affect, Normal Mood, No Sensory Deficits Cerebellar Function: Normal Reflexes: Normal Skin: Dry, Normal Color, Warm Lymphatic: No Adenopathy Was a procedure done? Was a procedure done?: No Differential Diagnosis EXT Differential Diagnosis: Cellulitis, Other (Osteomyelitis) X-Ray, Labs, Meds, VS Vital Signs Date Time Temp Pulse Resp B/P (MAP) Pulse Ox O2 Delivery O2 Flow Rate FiO2 05/09/25 10:40 100.1 83 19 140/66 (90) 95 100.1 Lab Test 05/09/25 11:10 05/09/25 10:41 Range/Units White Blood Count 15.3 H 4.4-10.8 10^3/uL Red Blood Count 3.47 L 4.0-5.20 10^6/uL Hemoglobin 10.0 L 12.2-16.2 g/dL Hematocrit 30.1 L 36.0-46.0 % Mean Corpuscular Volume 86.5 80.0-100.0 fL Mean Corpuscular Hemoglobin 28.7 28.0-32.0 pg Mean Corpuscular Hemoglobin Concent 33.2 32.0-36.0 g/dL Red Cell Distribution Width 15.3 H 11.8-14.3 % Platelet Count 280 140-450 10^3/uL Mean Platelet Volume 7.6 6.9-10.8 fL Neutrophils (%) (Auto) 90.0 H 37.0-80.0 % Lymphocytes (%) (Auto) 5.7 L 10.0-50.0 % Monocytes (%) (Auto) 3.7 0.0-12.0 % Eosinophils (%) (Auto) 0.2 0.0-7.0 % Basophils (%) (Auto) 0.4 0.0-2.0 % Neutrophils # (Auto) 13.7 H 1.6-8.6 10 ^3/uL Lymphocytes # (Auto) 0.9 0.4-5.4 10 ^3/uL Monocytes # (Auto) 0.6 0-1.3 10 ^3/uL Eosinophils # (Auto) 0 0-0.8 10 ^3/uL Basophils # (Auto) 0.1 0-0.2 10 ^3/uL Nucleated Red Blood Cells 0.0 % Erythrocyte Sedimentation Rate 94 H 0-20 mm/hr Prothrombin Time 11.6 9.3-11.8 sec Prothrombin Time INR 1.11 0.9-1.15 Activated Partial Thromboplast Time 25.4 24.5-34.5 SEC Sodium Level 130 L 136-145 mmol/L Potassium Level 4.7 3.5-5.1 mmol/L Chloride Level 103 98-107 mmol/L Carbon Dioxide Level 16 L 20-31 mmol/L Anion Gap 11 5-15 Blood Urea Nitrogen 34 H 9-23 mg/dL Creatinine 1.69 H 0.550-1.02 mg/dL Glomerular Filtration Rate Calc 32 >90 mL/min BUN/Creatinine Ratio 20.1 H 10.0-20.0 Serum Glucose 407 *H 74-106 mg/dL Calcium Level 9.2 8.7-10.4 mg/dL POC Glucose 352 H 70-106 mg/dl IV Hep-Lock was established. The CBC shows an elevated white blood cell count of 15.3 with the rest of the hemoglobin and hematocrit within normal range The chemistry panel shows a BUN of 34 and a creatinine of 1.69 The patient's glucose is 407 The patient is being bolused with normal saline at a 500 cc bolus The patient was given insulin 5 units IV push The patient had a CAT scan of the foot which shows: IMPRESSION: No acute fracture or dislocation. Diffuse subcutaneous soft-tissue edema and swelling; possibly cellulitis. This is most prominent in the foot. Soft-tissue ulceration is present at the inferior aspect of the foot at the level of the 1st metatarsal. No appreciable fluid collection or abscess. No definite CT findings to suggest acute osteomyelitis. MRI can be obtained to further evaluate if clinically indicated. The chest x-ray shows mild pulmonary vascular congestion At this time, the patient will be admitted to the hospitalist The patient is being started on vancomycin IV piggyback A foot and ankle surgeon consult is being done at this time. Images Reviewed?: Images reviewed and evaluated by me Time of 1ST Reevaluation: 12:18 Reevaluation 1ST: Unchanged Patient Education/Counseling: Diagnosis, Treatment, Prognosis Family Education/Counseling: No Family Present Additional Information Reviewed patient's previous visit(s): 01/27/25 for complicated UTI with bilateral hydronephrosis The following tests were ordered, and results were reviewed by me: Additional information was gathered from interviewing the following independent historian: None I reviewed and agreed with the following test results read by other provider: I discussed treatments and results with medical personnel and: PATIENT Comprehensive systems review obtained and negative except for what is stated in the HPI. Departure 1 Departure Time of Disposition: 12:19 Impression: Primary Impression: Cellulitis of right foot Additional Impression: Uncontrolled diabetes mellitus Qualified Codes: E13.65 - Other specified diabetes mellitus with hyperglycemia Disposition: ADMITTED INPATIENT Admit to: Med Surg Condition: Fair Critical Care Note Critical Care Time?: No Stability Stability form required: Yes Unstable for transfer: ED Physician Assesment (Clinical assesment) Heart Score Heart Score: Heart Score Response (Comments) Value History N/A 0 EKG N/A 0 Age N/A 0 Risk Factors N/A 0 Troponin N/A 0 Total 0 I personally scribed for STEPHANIE ALCARAZ MD ([email or web address]) on 05/09/25 at 11:05. Elec tronically submitted by Silverio Almanza ([email or web address]). STEPHANIE ALCARAZ MD May 09, 2025 11:05
[2025-05-09 11:28] LABS: Basophils # (auto) 0.1 10 ^3/uL (0-0.2); Basophils % (auto) 0.4 % (0.0-2.0); Eosinophils # (auto) 0 10 ^3/uL (0-0.8); Eosinophils % (auto) 0.2 % (0.0-7.0); Hematocrit 30.1 % (36.0-46.0); Lymphocytes # (auto) 0.9 10 ^3/uL (0.4-5.4); Lymphocytes % (auto) 5.7 % (10.0-50.0); Mean Corpuscular Hemoglobin 28.7 pg (28.0-32.0); Mean Corpuscular Hgb Conc. 33.2 g/dL (32.0-36.0); Mean Corpuscular Volume 86.5 fL (80.0-100.0); Monocytes # (auto) 0.6 10 ^3/uL (0-1.3); Monocytes % (auto) 3.7 % (0.0-12.0); Neutrophils # (auto) 13.7 10 ^3/uL (1.6-8.6); Platelet Count (auto) 280 10^3/uL (140-450); Red Blood Cells 3.47 10^6/uL (4.0-5.20); Red Cell Distribution Width 15.3 % (11.8-14.3); White Blood Cell 15.3 10^3/uL (4.4-10.8)
[2025-05-09 11:32] LABS: Chloride 103 mmol/L (98-107); Potassium 4.7 mmol/L (3.5-5.1)
[2025-05-09 11:33] LABS: Anion Gap 11 (5-15)
[2025-05-09 11:34] LABS: Calcium 9.2 mg/dL (8.7-10.4)
[2025-05-09 11:39] LABS: BUN/Creatinine Ratio 20.1 (10.0-20.0)
[2025-05-09 11:42] LABS: INR 1.11 (0.9-1.15); Partial Thromboplastin Time 25.4 SEC (24.5-34.5); Prothrombin Time 11.6 sec (9.3-11.8)
[2025-05-09 11:43] LABS: Blood Urea Nitrogen 34 mg/dL (9-23); Carbon Dioxide 16 mmol/L (20-31); Glucose 407 mg/dL (74-106); Sodium 130 mmol/L (136-145)
--- NOTE | 2025-05-09 11:47 | DVH ---
CHEST RADIOGRAPH Indication: Pain Technique: Frontal and lateral view of the chest was obtained Comparison: None FINDINGS: Lines and Tubes: None Lungs: Increased interstitial prominence Pleura: No effusion. No pneumothorax. Cardiomediastinal contours: Unremarkable Bones: Unremarkable IMPRESSION: Mild pulmonary vascular congestion
--- NOTE | 2025-05-09 12:08 | DVH ---
EXAMINATION: CT CT R FOOT WO CONTRAST INDICATION: pain and infection COMPARISON: MRI MRI L FOOT WO CONTRAST on DOS: 09/05/23, MRI MRI R FOOT WO W CONTRAST on DOS: 04/28/23 , CT CT R FOOT WO CONTRAST on DOS: 04/25/23, RFOOT on DOS: 09/08/22, RFOOT on DOS: 06/25/22 TECHNIQUE: CT of the right foot was performed without contrast. Volume transverse images were obtaine d reconstructed in multiple planes using bone and soft tissue algorithms. CONTRAST: None Radiation Dose Information: CT Dose: CTDI volume is 7.75 mGy. Dose-length product is 268.19 mGy*cm Findings/ IMPRESSION: No acute fracture or dislocation. Diffuse subcutaneous soft-tissue edema and swelling; possibly cellulitis. This is most prominent in the foot. Soft-tissue ulceration is present at the inferior aspect of the foot at the level of the 1st metatars al. No appreciable fluid collection or abscess. No definite CT findings to suggest acute osteomyelitis. MRI can be obtained to further evaluate if clinically indicated.
[2025-05-09 12:12] LABS: Erythrocyte Sedimentation Rate 94 mm/hr (0-20)
[2025-05-09] MEDS ORDERED: DEXTROSE (50%) 50ML SYRG IV PRN (14:45)
[2025-05-09] MEDS ORDERED: VANCOMYCIN PER PHARMACY 0 MG IV SCH (14:45)
[2025-05-09] MEDS ORDERED: ACETAMINOPHEN 325 MG TAB PO PRN (14:45)
[2025-05-09] MEDS ORDERED: MORPHINE SULFATE INJ 2 MG/ml SYRG IV PRN (16:30)
[2025-05-09] MEDS ORDERED: NITROGLYCERIN 0.4 MG SL TAB SL PRN (16:30)
--- NOTE | 2025-05-09 16:33 | DVHHP2 ---
History of Present Illness Reason for Visit: Cellulitis of right foot History of Present Illness The patient is a 74-year-old female with past medical history of DM, CVA, hyperlipidemia, TN, and hypertension who presented to [facility] ED for evaluation of right foot nonhealing wound. Patient reports that she had seen her special forces officer today regarding a wound to her right foot. Patient had some parts of of the wound cut out and after being bandaged she was advised to come to the ED for further evaluation. Patient was seen and evaluated in the ED, laboratory data shows WBC 15.3, hemoglobin 10.0, hematocrit 30.1, platelets 280, ESR 94, C- reactive protein 4.92, sodium 130, potassium 4.7, BUN 34, creatinine 1.69, glucose 107, calcium 9.2, blood pressure 140/66, heart rate 83, temperature 100.1 F trending down to 99.6, O2 saturation 95% on room air. Right foot CT revealing diffuse subcutaneous soft tissue edema and swelling; possibly cellulitis, this is most prominent in the foot; soft tissue ulceration is present at the inferior aspect of the foot at the level of the 1st metatarsal, no acute fracture or dislocation noted. Chest x-ray revealing mild pulmonary vascular congestion. Patient was started on IV antibiotic regimen vancomycin, please see medication orders section in the computer. On my assessment, patient denied chest pain, no headache, no dizziness, no diaphoresis, no shortness a breath, no nausea, no vomiting, no chills. Patient was admitted for further evaluation and medical management. Past Medical History CVA, DM, High Lipids, HTN, TN Past Surgical History Cholecystectomy, , Oophorectomy, fallopian tubes removal, Cataract surgery, Right great toe amputation. Family History Reviewed, noncontributory to the management of this case. Past Social History The patient lives at home, smokes cigarettes less than 1 pack per day, drinks alcohol occasionally, denies illicit drugs abuse. Review of Systems Constitutional: Yes: Weakness; No: Fever, Chills, Sweats, Malaise, Other Eyes: No: Pain, Vision change, Conjunctivae inflammation, Eyelid inflammation, Other, Redness ENT: No: Ear pain, Ear discharge, Nose pain, Nose discharge, Nose congestion, Mouth pain, Mouth swelling, Throat pain, Throat swelling, Other Respiratory: No: Cough, Dry, Shortness of breath, SOB with excertion, Wheezing, Hemoptysis, Pleuritic Pain, Sputum, Wheezing, Other Cardiovascular: No: Chest Pain, Palpitations, Orthopnea, Paroxysmal Noc. Dyspnea, Edema, Lt Headedness, Other Gastrointestinal: No: Nausea, Vomiting, Abdominal Pain, Diarrhea, Constipation, Melena, Hematochezia, Other Genitourinary: No Dysuria, No Frequency, No Incontinence, No Hematuria, No Retention, No Other Musculoskeletal: other (Right great toe amputation), foot pain (Right foot); No: neck pain, shoulder pain, arm pain, back pain, hand pain, leg pain Skin: Other (Right foot open wound); No: Rash, Lesions, Jaundice, Bruising Neurological: No: Weakness, Numbness, Incoordination, Change in speech, Confusion, Seizures, Other Allergies: Coded Allergies: NO KNOWN ALLERGIES (Unverified , 03/02/20) Medications Current Medications Medications Dose Ordered Sig/Poppy Route Start Time Stop Time Status Last Admin Dose Admin Ceftriaxone Sodium 50 ml @ 100 mls/hr DAILY@09 IV 05/10/25 09:00 Vancomycin HCl 0 ml @ 0 mls/hr UD IV 05/09/25 14:45 Famotidine 20 mg Q12HR IV 05/09/25 22:00 Atorvastatin Calcium 10 mg HS PO 05/09/25 22:00 Aspirin 81 mg DAILY PO 05/10/25 10:00 Amlodipine Besylate 5 mg DAILY PO 05/10/25 10:00 Metoprolol Tartrate 25 mg BID PO 05/09/25 22:00 Diagnostic Test (Pha) 1 strip IQ4HR 05/09/25 16:00 Insulin Human Regular IQ4HR SC 05/09/25 16:00 Dextrose 50 ml UD PRN IV 05/09/25 14:45 Sodium Chloride 1,000 ml @ 60 mls/hr [id number] IV 05/09/25 14:45 Acetaminophen/ Hydrocodone Bitart 1 tab Q4HP PRN PO 05/09/25 14:45 Ondansetron HCl 4 mg Q4HP PRN IV 05/09/25 14:45 Docusate Sodium 100 mg BIDPRN PRN PO 05/09/25 14:45 Acetaminophen 650 mg Q6HP PRN PO 05/09/25 14:45 Apixaban 2.5 mg BID PO 05/09/25 22:00 Exam Vital Signs Vital Signs Date Time Temp Pulse Resp B/P (MAP) Pulse Ox O2 Delivery O2 Flow Rate FiO2 05/09/25 14:42 98.7 70 18 125/53 (77) 96 98.7 General Appearance: Alert, Oriented X3, Cooperative, No acute distress HEENT: Atraumatic, PERRLA, EOMI, Mucous membr. moist/pink Respiratory: Normal air movement Cardiovascular: Regular rate, Normal S1, Normal S2, No murmurs Abdominal: Normal bowel sounds, Soft, No tenderness, No hepatospenomegaly, No masses Extremities: No clubbing, No cyanosis, No edema, Normal pulses, Other (Right foot tenderness/swelling) Skin: No rashes, No breakdown, No significant lesion Neuro: Normal speech, Normal tone, Sensation intact, Cranial nerves 3-12 NL, Reflexes 2+, Other (Generalized weakness) Psych/Mental Status: Mental status NL, Mood NL Labs/Xrays Labs Test 05/09/25 11:10 05/09/25 10:41 Range/Units White Blood Count 15.3 H 4.4-10.8 10^3/uL Red Blood Count 3.47 L 4.0-5.20 10^6/uL Hemoglobin 10.0 L 12.2-16.2 g/dL Hematocrit 30.1 L 36.0-46.0 % Mean Corpuscular Volume 86.5 80.0-100.0 fL Mean Corpuscular Hemoglobin 28.7 28.0-32.0 pg Mean Corpuscular Hemoglobin Concent 33.2 32.0-36.0 g/dL Red Cell Distribution Width 15.3 H 11.8-14.3 % Platelet Count 280 140-450 10^3/uL Mean Platelet Volume 7.6 6.9-10.8 fL Neutrophils (%) (Auto) 90.0 H 37.0-80.0 % Lymphocytes (%) (Auto) 5.7 L 10.0-50.0 % Monocytes (%) (Auto) 3.7 0.0-12.0 % Eosinophils (%) (Auto) 0.2 0.0-7.0 % Basophils (%) (Auto) 0.4 0.0-2.0 % Neutrophils # (Auto) 13.7 H 1.6-8.6 10 ^3/uL Lymphocytes # (Auto) 0.9 0.4-5.4 10 ^3/uL Monocytes # (Auto) 0.6 0-1.3 10 ^3/uL Eosinophils # (Auto) 0 0-0.8 10 ^3/uL Basophils # (Auto) 0.1 0-0.2 10 ^3/uL Nucleated Red Blood Cells 0.0 % Erythrocyte Sedimentation Rate 94 H 0-20 mm/hr Prothrombin Time 11.6 9.3-11.8 sec Prothrombin Time INR 1.11 0.9-1.15 Activated Partial Thromboplast Time 25.4 24.5-34.5 SEC Sodium Level 130 L 136-145 mmol/L Potassium Level 4.7 3.5-5.1 mmol/L Chloride Level 103 98-107 mmol/L Carbon Dioxide Level 16 L 20-31 mmol/L Anion Gap 11 5-15 Blood Urea Nitrogen 34 H 9-23 mg/dL Creatinine 1.69 H 0.550-1.02 mg/dL Glomerular Filtration Rate Calc 32 >90 mL/min BUN/Creatinine Ratio 20.1 H 10.0-20.0 Serum Glucose 407 *H 74-106 mg/dL Calcium Level 9.2 8.7-10.4 mg/dL C-Reactive Protein High Sensitivity 4.92 H <1.0 mg/dL POC Glucose 352 H 70-106 mg/dl PATIENT: FIDELIA CABALLERO ACCT: [id number] UNIT: [id number] : 1950 LOC: ER ROOM / BED: / AGE / SEX: 74 / F ADM STATUS: REG ER SERVICE [id number] ORDERING PHYSICIAN: STEPHANIE ALCARAZ MD PROCEDURE(s): RFTCT - CT R FOOT WO CONTRAST REASON: pain and infection ORDER NUMBER(s): [id number], ACCESSION NUMBER(s): [id number] EXAMINATION: CT CT R FOOT WO CONTRAST INDICATION: pain and infection COMPARISON: MRI MRI L FOOT WO CONTRAST on DOS: 09/05/23, MRI MRI R FOOT WO W CONTRAST on DOS: 04/28/23, CT CT R FOOT WO CONTRAST on DOS: 04/25/23, RFOOT on DOS: 09/08/22, RFOOT on DOS: 06/25/22 TECHNIQUE: CT of the right foot was performed without contrast. Volume transverse images were obtained reconstructed in multiple planes using bone and soft tissue algorithms. CONTRAST: None Radiation Dose Information: CT Dose: CTDI volume is 7.75 mGy. Dose-length product is 268.19 mGy*cm Findings/ IMPRESSION: No acute fracture or dislocation. Diffuse subcutaneous soft-tissue edema and swelling; possibly cellulitis. This is most prominent in the foot. Soft-tissue ulceration is present at the inferior aspect of the foot at the level of the 1st metatarsal. No appreciable fluid collection or abscess. No definite CT findings to suggest acute osteomyelitis. MRI can be obtained to further evaluate if clinically indicated. ORDERING PHYSICIAN: STEPHANIE ALCARAZ MD PROCEDURE(s): CXR2 - CHEST TWO VIEWS ROUTINE REASON: pre op ORDER NUMBER(s): [id number], ACCESSION NUMBER(s): [id number] CHEST RADIOGRAPH Indication: Pain Technique: Frontal and lateral view of the chest was obtained Comparison: None FINDINGS: Lines and Tubes: None Lungs: Increased interstitial prominence Pleura: No effusion. No pneumothorax. Cardiomediastinal contours: Unremarkable Bones: Unremarkable IMPRESSION: Mild pulmonary vascular congestion Assessment/Plan Assessment/Plan Cellulitis of right foot Uncontrolled diabetes mellitus Generalized weakness Other specified diabetes mellitus with hyperglycemia Systemic inflammatory response syndrome Plan 1. Admit to med surge unit 2. Breathing treatment 3. Pain control management 4. IV antibiotic management 5. Management of fluids and electrolytes 6. Consultation for special forces officer/wound care 7. Diagnostic test right foot CT 8. DVT prophylaxis on aspirin 9. Repeat labs CBC, CMP in a.m. 10. Home medication reviewed and reconciled 11. Continue with current medical management 12. Treatment plan discussed with patient and RN. Patient verbalized understanding. Plan discussed with: Patient, Other (RN) My Orders Orders - MARITA RENE DNP Procedure Category Date Status Time Ceftriaxone 1gm/50ml PHA 05/10/25 In Process D5w (Rocephin) 09:00 Vancomycin Per PHA 05/09/25 In Process Pharmacy 14:45 Famotidine Injection PHA 05/09/25 In Process (Pepcid Injection) 22:00 Atorvastatin (Lipitor) PHA 05/09/25 In Process 22:00 Consistent DIET 05/09/25 Transmitted Carb(Ccho)Diabetes Dinner Aspirin Tablet PHA 05/10/25 In Process 10:00 Amlodipine Tablet PHA 05/10/25 In Process (Norvasc Tablet) 10:00 Metoprolol Tartrate PHA 05/09/25 In Process Tablet (Lopressor Ta 22:00 Glucose Blood PHA 05/09/25 In Process (Accu-Chek Comfort 16:00 Insulin R (Human) PHA 05/09/25 In Process (Insulin R) 16:00 Dextrose 50% Syringe PHA 05/09/25 In Process 14:45 Allergies ALFREDO 05/09/25 In Process 14:35 Code Status CODE 05/09/25 Transmitted 14:35 Sodium Chloride 0.9% PHA 05/09/25 In Process 14:45 Oxygen Per Hour RT 05/09/25 Transmitted 14:35 Hydrocodone-Acet PHA 05/09/25 In Process 5/325mg Tab ([place] 14:45 Ondansetron Hcl PHA 05/09/25 In Process (Zofran) 14:45 Docusate Sodium PHA 05/09/25 In Process Capsule (Colace 14:45 Complete Blood Count LAB 05/10/25 Verified 04:00 Comprehensive LAB 05/10/25 Verified Metabolic Panel 04:00 Condition: Serious ALFREDO 05/09/25 In Process 14:35 Acetaminophen Tablet PHA 05/09/25 In Process (Tylenol Tablet) 14:45 Bedrest With Bathroom ALFREDO 05/09/25 In Process Privileg 14:35 Sequential ALFREDO 05/09/25 In Process Compression Device Apixaban (Eliquis) PHA 05/09/25 In Process 22:00 Vancomycin,Random LAB 05/10/25 Verified 04:00 Problem List: (1) Cellulitis of right foot (2) Uncontrolled diabetes mellitus (3) Generalized weakness (4) Systemic inflammatory response syndrome (5) Other specified diabetes mellitus with hyperglycemia Date of Service: May 09, 2025 Billing Provider: MARITA RENE DNP Common Visit Codes: [id number] INP/OBS CARE (HIGH) MARITA RENE DNP May 09, 2025 16:33
[2025-05-09] MEDS: ACCU-CHEK COMFORT CURVE STRIP VI SCH (16:43)
[2025-05-09] MEDS: cefTRIAXone 1GM/50ML D5W 50 ML IV ONE (16:47)
[2025-05-09] MEDS: InsuLIN REG 1unit/0.01ml Soln (100units/ml) IV ONE (16:47)
[2025-05-09] MEDS: InsuLIN REG 1unit/0.01ml Soln (100units/ml) SC SCH (16:48)
[2025-05-09] MEDS: SODIUM CHLORIDE 0.9% 1,000 ML IV SCH (17:03)
[2025-05-09] MEDS: SODIUM CHLORIDE 0.9% 500 ML IV ONE (17:03)
[2025-05-09] MEDS: VANCOMYCIN 1GM/200ML PM 200 ML IV ONE (18:04)
[2025-05-09] MEDS: APIXABAN 2.5 MG TAB PO SCH (22:22)
[2025-05-09] MEDS: ATORVASTATIN 20 MG TAB PO SCH (22:22)
[2025-05-09] MEDS: METOPROLOL TARTRATE 25 MG TAB PO SCH (22:23)
[2025-05-09] MEDS: FAMOTIDINE (10MG/ML) 2ML VL IV SCH (22:24)
[2025-05-09 23:02] VITALS: PULSE 70; RESP 18; O2SAT 98
[2025-05-10] VITALS (7 sets, daily range): BP systolic 118–137; BP diastolic 48–81; PULSE 66–84; RESP 17–20; TEMP 98.4–100.5; O2SAT 94–100
--- NOTE | 2025-05-10 08:58 | DVHPN2 ---
Progress Note - Dictate Date Seen: May 09, 2025 Medical Necessity Reason Pt with a Central, PICC or Fol: No Subjective LE ULCER SMALL VESSEL DISEASE PMH; RECURRENT UTI SECONDARY TO JARDIANCE S/P DEBRIDEMENT AND WAS SENT TO HOSPITAL DIABETIC FOOT ULCER HX SYNCOPE PT HAD DIZZINESS THAN SHE DOES NOT RECALL DIABETES LABILE HX OF RECURRENT CELLULITIS VASCULOPATHY NEUROPATHY ECHO NORMAL EF 55% RECURRENT UTI UNDERWENT BLADDER SUSPENSION SURGERY NOW HAS DEVELOPED BLADDER WALL THICKENING BILATERAL HYDRONEPHROSIS WORSENING UTI REQUIRING IV ABX THERAPY BLADDER INCONTINENCE vital signs Vital Sign Date Time Temp Pulse Resp B/P (MAP) Pulse Ox O2 Delivery O2 Flow Rate FiO2 05/10/25 05:00 100.5 83 18 124/81 (95) 100 100.5 05/09/25 23:02 Room Air* 0 21 Total Intake and Output 05/09/25 05/09/25 05/10/25 15:00 23:00 07:00 Intake Total 750 ml 350 ml Output Total 400 ml Balance 750 ml -50 ml medications Current Medications Medications Dose Ordered Sig/Poppy Route Start Time Stop Time Status Last Admin Dose Admin Ceftriaxone Sodium 50 ml @ 100 mls/hr DAILY@09 IV 05/10/25 09:00 Vancomycin HCl 0 ml @ 0 mls/hr UD IV 05/09/25 14:45 Famotidine 20 mg Q12HR IV 05/09/25 22:00 05/09/25 22:24 20 MG Atorvastatin Calcium 10 mg HS PO 05/09/25 22:00 05/09/25 22:22 10 MG Aspirin 81 mg DAILY PO 05/10/25 10:00 Amlodipine Besylate 5 mg DAILY PO 05/10/25 10:00 Metoprolol Tartrate 25 mg BID PO 05/09/25 22:00 05/09/25 22:23 25 MG Diagnostic Test (Pha) 1 strip IQ4HR 05/09/25 16:00 05/10/25 08:45 1 STRIP Insulin Human Regular IQ4HR SC 05/09/25 16:00 05/10/25 04:26 2 UNITS Dextrose 50 ml UD PRN IV 05/09/25 14:45 Sodium Chloride 1,000 ml @ 60 mls/hr [id number] IV 05/09/25 14:45 05/09/25 23:20 60 MLS/HR Acetaminophen/ Hydrocodone Bitart 1 tab Q4HP PRN PO 05/09/25 14:45 Ondansetron HCl 4 mg Q4HP PRN IV 05/09/25 14:45 Docusate Sodium 100 mg BIDPRN PRN PO 05/09/25 14:45 Acetaminophen 650 mg Q6HP PRN PO 05/09/25 14:45 Apixaban 2.5 mg BID PO 05/09/25 22:00 05/09/25 22:22 2.5 MG Nitroglycerin 0.4 mg Q5MINP PRN SL 05/09/25 16:30 Morphine Sulfate 2 mg Q30M PRN IV 05/09/25 16:30 laboratory and microbiology Laboratory Tests 05/09/25 11:10 Test 05/09/25 11:10 Range/Units Serum Glucose 407 *H 74-106 mg/dL Problem List LE ULCER SMALL VESSEL DISEASE PMH; RECURRENT UTI SECONDARY TO JARDIANCE S/P DEBRIDEMENT AND WAS SENT TO HOSPITAL DIABETIC FOOT ULCER HX SYNCOPE PT HAD DIZZINESS THAN SHE DOES NOT RECALL DIABETES LABILE HX OF RECURRENT CELLULITIS VASCULOPATHY NEUROPATHY ECHO NORMAL EF 55% RECURRENT UTI UNDERWENT BLADDER SUSPENSION SURGERY NOW HAS DEVELOPED BLADDER WALL THICKENING BILATERAL HYDRONEPHROSIS WORSENING UTI REQUIRING IV ABX THERAPY BLADDER INCONTINENCE Assessment/Plan IV ANTIBIOTIC CONSIDER REPEAT LE ANGIO Plan discussed with: Patient ERASMO CASTREJON MD May 10, 2025 08:58
[2025-05-10] MEDS: cefTRIAXone 1GM/50ML D5W 50 ML IV SCH (08:59)
[2025-05-10] MEDS: ASPirin 81 mg TAB PO SCH (10:00)
--- NOTE | 2025-05-10 10:27 | DVH ---
EXAM: MRI MRI R FOOT WO CONTRAST HISTORY: R/O osteomyelitis COMPARISON: CT CT R FOOT WO CONTRAST on DOS: 05/09/25, MRI MRI L FOOT WO CONTRAST on DOS: 09/05/23, M RI MRI R FOOT WO W CONTRAST on DOS: 04/28/23 TECHNIQUE: Multiplanar, multisequence MRI was performed. FINDINGS: Ulceration seen on the medial- plantar aspect of the great toe at the level of the MTP joint with prakash rounding cellulitis. No drainable fluid collection seen. A bipartite tibial hallux sesamoid is noted. There is minimal edema in the tibial hallux sesamoid at the level of The plantar are sore. No joint effusion. No acute fracture or dislocation. Moderate diffuse subcutaneous edema in the foot noted. The Lisfranc ligament is intact. The visualized portions of tibialis posterior, flexor hallucis longus, and flexor digitorum tendons a re intact. Visualized portions of peroneus longus and brevis tendons are intact. Visualized portion s of the tibialis anterior, extensor digitorum, and extensor hallucis tendons are intact. Thickening and signal alteration of the plantar fascia near the calcaneal insertion reflecting planta r fasciitis. There is no evidence of intermetatarsal bursitis or Clayton's neuroma. IMPRESSION: 1. Plantar ulceration at the level of the 1st MTP joint subtle marrow edema in the tibial hallux sesa moid that may represent reactive edema or developing osteomyelitis. No definite cortical erosion or l ytic osseous lesion seen at this time. No signs of septic joint. No drainable fluid collection. Recom mend clinical and biochemical correlation follow-up by radiograph as clinically warranted.
[2025-05-10] MEDS: amLODIPine BESYLATE 5 MG TAB PO SCH (10:38)
--- NOTE | 2025-05-10 11:36 | DVHINCON2 ---
Date Seen: May 10, 2025 Reason for Consultation Right foot wound History of Present Illness The patient is a 74-year-old female with past medical history of DM, CVA, hyperlipidemia, MD, and hypertension who presented to [facility] ED for evaluation of right foot nonhealing wound. Patient reports that she had seen her pickler helper today regarding a wound to her right foot. Patient had some parts of of the wound cut out and after being bandaged she was advised to come to the ED for further evaluation. Patient was seen and evaluated in the ED, laboratory data shows WBC 15.3, hemoglobin 10.0, hematocrit 30.1, platelets 280, ESR 94, C- reactive protein 4.92, sodium 130, potassium 4.7, BUN 34, creatinine 1.69, glucose 107, calcium 9.2, blood pressure 140/66, heart rate 83, temperature 100.1 F trending down to 99.6, O2 saturation 95% on room air. Right foot CT revealing diffuse subcutaneous soft tissue edema and swelling; possibly cellulit is, this is most prominent in the foot; soft tissue ulceration is present at the inferior aspect of the foot at the level of the 1st metatarsal, no acute fracture or dislocation noted. Chest x-ray revealing mild pulmonary vascular congestion. Patient was started on IV antibiotic regimen vancomycin, please see medication orders section in the computer. On my assessment, patient denied chest pain, no headache, no dizziness, no diaphoresis, no shortness a breath, no nausea, no vomiting, no chills. Patient was admitted for further evaluation and medical management. Past Medical History See H&P Past Surgical History See H&P Family History: Family history: Diabetes mellitus G8 FATHER Family history: Hypertension G8 MOTHER Allergies: Coded Allergies: NO KNOWN ALLERGIES (Unverified , 03/02/20) Home Meds Active Scripts Cefpodoxime Proxetil (Cefpodoxime Proxetil) 200 Mg Tab, 1 TAB PO BID for 7 Days, #14 TAB Prov:TOMY SANTAMARIA RESIDENT 01/30/25 Reported Medications Pancrelipase (Lipase-Protease- (CREON) 36,000 Unt Cap, 1 CAP PO QID 09/05/23 Carisoprodol (Carisoprodol) 350 Mg Tab, 1 TAB PO DAILY 09/04/23 Apixaban Base (ELIQUIS) 2.5 Mg Tab, 1 TAB PO BID 09/04/23 Pantoprazole Sodium Sesquihydr (Pantoprazole Sodium) 40 Mg Tab, 1 TAB PO BID 09/04/23 Ibuprofen Micronized (MOTRIN TABLET) 600 Mg Tb, 800 MG PO TID, #40 TAB *Black box warning-NSAIDS can increase risk of MD & hypertension, GI irritation, ulceration, bleed, perferation. Do not use post cardiac surgery. Use short duration/lowest effective dose. 08/18/22 Lisinopril (Lisinopril) 10 Mg Tab, 10 MG PO DAILY for 30 Days, MG 08/18/22 Empagliflozin (Jardiance) 25 Mg Tab, 1 TAB PO DAILY 06/26/22 Semaglutide (Ozempic) 2 Mg/1.5 Ml Inj, 1 MG SC weekly every thursday, INJ 07/10/21 Oxybutynin Chloride (Oxybutynin Chloride) 5 Mg Tab, 1 TAB PO BID 07/09/21 Gabapentin (Gabapentin) 600 Mg Tab, 1.5 TAB PO TID, MG 03/02/20 Atenolol (Atenolol) 100 Mg Tab, 100 MG PO DAILY, MG 05/29/19 Simvastatin (Simvastatin) 20 Mg Tab, 20 MG PO HS for 30 Days 05/29/19 Metformin Hydrochloride (Metformin Hcl) 500 Mg Tab, 500 MG PO IBID for 30 Days, MG 05/29/19 Aspirin (Aspir-Low) 81 Mg Tab, 81 MG PO DAILY, MG 05/29/19 Glipizide (Glipizide) 10 Mg Tab, 1 TAB PO BID, TAB 5 Refills 05/29/19 Oxycodone W/ Acetaminophen (Percocet 5/325MG) 1 Tab Tb, 1 TAB PO BIDP, #120 TAB 05/14/18 Current Medications Current Medications Medications (Trade) Dose Ordered Sig/Poppy Route PRN Reason Start Time Stop Time Status Last Admin Ceftriaxone Sodium 50 ml @ 100 mls/hr DAILY@09 IV 05/10/25 09:00 05/10/25 08:59 Vancomycin HCl 0 ml @ 0 mls/hr UD IV 05/09/25 14:45 Famotidine (Pepcid Injection) 20 mg Q12HR IV 05/09/25 22:00 05/10/25 10:36 Atorvastatin Calcium (Lipitor) 10 mg HS PO 05/09/25 22:00 05/09/25 22:22 Aspirin 81 mg DAILY PO 05/10/25 10:00 Amlodipine Besylate (Norvasc Tablet) 5 mg DAILY PO 05/10/25 10:00 05/10/25 10:38 Metoprolol Tartrate (Lopressor Tablet) 25 mg BID PO 05/09/25 22:00 05/10/25 10:38 Diagnostic Test (Pha) (Accu-Chek Comfort Curve T) 1 strip IQ4HR 05/09/25 16:00 05/10/25 08:45 Insulin Human Regular (InsuLIN R) IQ4HR SC 05/09/25 16:00 05/10/25 09:25 Dextrose 50 ml UD PRN IV Blood Sugar LESS THAN 60 05/09/25 14:45 Sodium Chloride 1,000 ml @ 60 mls/hr [id number] IV 05/09/25 14:45 05/09/25 23:20 Acetaminophen/ Hydrocodone Bitart ([place] 5/325MG Tab) 1 tab Q4HP PRN PO MODERATE PAIN (4-6 PAIN SCALE) 05/09/25 14:45 Ondansetron HCl (Zofran) 4 mg Q4HP PRN IV NAUSEA / VOMITING 05/09/25 14:45 Docusate Sodium (Colace Capsule) 100 mg BIDPRN PRN PO FOR CONSTIPATION 05/09/25 14:45 Acetaminophen (Tylenol Tablet) 650 mg Q6HP PRN PO PAIN SCALE 1-3 OR TEMP>100.4 05/09/25 14:45 Apixaban (Eliquis) 2.5 mg BID PO 05/09/25 22:00 05/10/25 10:36 Nitroglycerin (Ntrostat Sublingual) 0.4 mg Q5MINP PRN SL FOR CHEST PAIN 05/09/25 16:30 Morphine Sulfate 2 mg Q30M PRN IV FOR CHEST PAIN 05/09/25 16:30 Vital Signs Vital Signs Date Time Temp Pulse Resp B/P (MAP) Pulse Ox O2 Delivery O2 Flow Rate FiO2 05/10/25 10:38 78 137/64 05/10/25 09:00 98.4 18 96 98.4 05/09/25 23:02 Room Air* 0 21 Physical Exam Dermatological: Skin is dry with mild erythema and some maceration around the wound site No gross deformities noted Mild non-pitting edema present bilaterally Wound: Location: at the plantar aspect of the right first metatarsal head. Measures: 3 cm in length, 2 cm in width, and 0.5 cm in depth. Depth: Full thickness Base: Mix of granulation/slough Drainage: None Odor: None Periwound: Intact Vascular: Dorsalis pedis and posterior tibial pulses are 1+ bilaterally Capillary refill is under 2 seconds Skin temperature is warm bilaterally Neurologic: Protective sensation is absent on the plantar forefoot bilaterally Monofilament testing reveals decreased sensation in multiple plantar sites Musculoskeletal: Range of motion at the ankle and MTP joints is within normal limits. Strength is 5/5 in all tested muscle groups. Gait is antalgic due to offloading of the affected limb. Labs/Diagnostic Data Labs Test 05/10/25 11:23 05/10/25 00:08 05/09/25 11:10 Range/Units POC Glucose 215 H 70-106 mg/dl Eosinophils (%) (Auto) 0.2 0.0-7.0 % Eosinophils # (Auto) 0 0-0.8 10 ^3/uL Basophils # (Auto) 0.1 0-0.2 10 ^3/uL Nucleated Red Blood Cells 0.0 % Erythrocyte Sedimentation Rate 94 H 0-20 mm/hr Prothrombin Time 11.6 9.3-11.8 sec Prothrombin Time INR 1.11 0.9-1.15 Activated Partial Thromboplast Time 25.4 24.5-34.5 SEC C-Reactive Protein High Sensitivity 4.92 H <1.0 mg/dL Problems(with codes): (1) Severe anemia (2) Hypokalemia (3) Hypomagnesemia (4) Hypocalcemia (5) Essential hypertension (6) Angina at rest (7) Diabetes (8) Gastroenteritis (9) Peripheral neuropathy (10) Renal insufficiency (11) Pneumonia (12) Cellulitis of great toe, right (13) Hypoglycemia (14) Urinary tract infection in female (15) Altered mental status (16) Elevated troponin (17) Tobacco abuse (18) Fever (19) Tachycardia (20) Sepsis (21) Bleeding from PICC line (22) Occluded PICC line (23) UTI (urinary tract infection) (24) NSTEMI (non-ST elevated myocardial infarction) (25) Hyperglycemia due to type 2 diabetes mellitus (26) Cellulitis of foot associated with diabetes mellitus (27) Diabetic foot ulcers (28) LUIS (acute kidney injury) (29) Abrasion (30) Cellulitis of left leg (31) Non-healing open wound of toe (32) Hyponatremia (33) Diabetes mellitus with hyperglycemia (34) Hyponatremia (35) Leukocytosis, unspecified (36) Acute renal injury (37) Diabetic ulcer of left foot (38) Chronic ulcer of left foot (39) Hydronephrosis (40) Urinary incontinence (41) Incontinence of feces (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 - reviewed advanced imaging - discussed that no surgical intervention is recommended at this point - patient seems to be mentating better with antibiotics - continue IV antibiotics for another day or 2 in the discharged home on p.o. antibiotics - use Betadine gauze Kerlix David on the wound - bearing as tolerated with a postoperative shoe All questions were answered and concerns addressed to the patient's satisfaction. The patient was given the phone number to the clinic and was told how to make contact with the clinic should any concerns or questions arise. Patient understands that if any questions or concerns arise prior to the next appointment, we should be contacted immediately. FOLLOW-UP: Continue to follow while inpatient Plan discussed with: Patient Date of Service: May 10, 2025 Billing Provider: RAMIREZ PAN DPM Common Visit Codes: CONSULT ONLY Consultation Codes: [id number] CONSULT <80MIN RAMIREZ PAN DPM May 10, 2025 11:36
[2025-05-10 11:41] LABS: Basophils # (auto) 0 10 ^3/uL (0-0.2); Basophils % (auto) 0.3 % (0.0-2.0); Eosinophils # (auto) 0 10 ^3/uL (0-0.8); Eosinophils % (auto) 0.2 % (0.0-7.0); Hematocrit 28.9 % (36.0-46.0); Hemoglobin 9.7 g/dL (12.2-16.2); Lymphocytes # (auto) 0.7 10 ^3/uL (0.4-5.4); Lymphocytes % (auto) 7.3 % (10.0-50.0); Mean Corpuscular Hemoglobin 29.1 pg (28.0-32.0); Mean Corpuscular Hgb Conc. 33.5 g/dL (32.0-36.0); Mean Corpuscular Volume 86.8 fL (80.0-100.0); Monocytes # (auto) 0.5 10 ^3/uL (0-1.3); Monocytes % (auto) 4.6 % (0.0-12.0); Neutrophils # (auto) 8.9 10 ^3/uL (1.6-8.6); Neutrophils % (auto) 87.6 % (37.0-80.0); Platelet Count (auto) 249 10^3/uL (140-450); Red Blood Cells 3.33 10^6/uL (4.0-5.20); Red Cell Distribution Width 15.6 % (11.8-14.3); White Blood Cell 10.1 10^3/uL (4.4-10.8)
[2025-05-10 11:49] LABS: Albumin 3.7 g/dL (3.2-4.8); Alkaline Phosphatase 94 U/L (46-116); Anion Gap 10 (5-15); BUN/Creatinine Ratio 23.4 (10.0-20.0); Calcium 9.2 mg/dL (8.7-10.4); Chloride 105 mmol/L (98-107); Potassium 4.3 mmol/L (3.5-5.1); Total Protein 7.3 g/dL (5.7-8.2)
[2025-05-10 11:50] LABS: Alanine Aminotransferase < 9 U/L (7-40); Aspartate Aminotransferase < 8 U/L (<34); Bilirubin, Total 0.3 mg/dL (0.2-1.0); Blood Urea Nitrogen 33 mg/dL (9-23); Carbon Dioxide 19 mmol/L (20-31); Glucose 217 mg/dL (74-106); Sodium 134 mmol/L (136-145)
[2025-05-10] MEDS: ONDANSETRON HCL 4 MG/2 ML VIAL IV PRN (11:58)
[2025-05-10] MEDS: VANCOMYCIN 1.25GM/250ML 250 ML IV ONE (14:38)
[2025-05-11] VITALS (8 sets, daily range): BP systolic 110–158; BP diastolic 44–96; PULSE 66–79; RESP 16–18; TEMP 98.3–100.3; O2SAT 95–100
[2025-05-11] MEDS: HYDROcodone-ACET 5/325MG TAB PO PRN (04:23)
[2025-05-11] MEDS: DOCUSATE SOD 100 MG CAP PO PRN (09:30)
--- NOTE | 2025-05-11 10:32 | DVHPN2 ---
Progress Note - Dictate Date Seen: May 11, 2025 Medical Necessity Reason Pt with a Central, PICC or Fol: No Subjective LE ULCER SMALL VESSEL DISEASE PMH; RECURRENT UTI SECONDARY TO JARDIANCE S/P DEBRIDEMENT AND WAS SENT TO HOSPITAL DIABETIC FOOT ULCER HX SYNCOPE PT HAD DIZZINESS THAN SHE DOES NOT RECALL DIABETES LABILE HX OF RECURRENT CELLULITIS VASCULOPATHY NEUROPATHY ECHO NORMAL EF 55% RECURRENT UTI UNDERWENT BLADDER SUSPENSION SURGERY NOW HAS DEVELOPED BLADDER WALL THICKENING BILATERAL HYDRONEPHROSIS WORSENING UTI REQUIRING IV ABX THERAPY BLADDER INCONTINENCE vital signs Vital Sign Date Time Temp Pulse Resp B/P (MAP) Pulse Ox O2 Delivery O2 Flow Rate FiO2 05/11/25 09:33 78 112/46 05/11/25 09:00 99.3 18 96 99.3 05/11/25 08:00 Room Air* 0 21 Total Intake and Output 05/10/25 05/10/25 05/11/25 15:00 23:00 07:00 Intake Total 50 ml 680 ml 900 ml Balance 50 ml 680 ml 900 ml medications Current Medications Medications Dose Ordered Sig/Poppy Route Start Time Stop Time Status Last Admin Dose Admin Ceftriaxone Sodium 50 ml @ 100 mls/hr DAILY@09 IV 05/10/25 09:00 05/11/25 09:29 100 MLS/HR Vancomycin HCl 0 ml @ 0 mls/hr UD IV 05/09/25 14:45 Famotidine 20 mg Q12HR IV 05/09/25 22:00 05/11/25 09:29 20 MG Atorvastatin Calcium 10 mg HS PO 05/09/25 22:00 05/10/25 22:47 10 MG Aspirin 81 mg DAILY PO 05/10/25 10:00 Amlodipine Besylate 5 mg DAILY PO 05/10/25 10:00 05/10/25 10:38 5 MG Metoprolol Tartrate 25 mg BID PO 05/09/25 22:00 05/10/25 22:48 25 MG Diagnostic Test (Pha) 1 strip IQ4HR 05/09/25 16:00 05/11/25 09:34 1 STRIP Insulin Human Regular IQ4HR SC 05/09/25 16:00 05/11/25 04:21 6 UNITS Dextrose 50 ml UD PRN IV 05/09/25 14:45 Sodium Chloride 1,000 ml @ 60 mls/hr [id number] IV 05/09/25 14:45 05/11/25 09:44 60 MLS/HR Acetaminophen/ Hydrocodone Bitart 1 tab Q4HP PRN PO 05/09/25 14:45 05/11/25 04:23 1 TAB Ondansetron HCl 4 mg Q4HP PRN IV 05/09/25 14:45 05/10/25 20:36 4 MG Docusate Sodium 100 mg BIDPRN PRN PO 05/09/25 14:45 05/11/25 09:30 100 MG Acetaminophen 650 mg Q6HP PRN PO 05/09/25 14:45 Apixaban 2.5 mg BID PO 05/09/25 22:00 05/11/25 09:30 2.5 MG Nitroglycerin 0.4 mg Q5MINP PRN SL 05/09/25 16:30 Morphine Sulfate 2 mg Q30M PRN IV 05/09/25 16:30 laboratory and microbiology Laboratory Tests 05/11/25 05:14 05/10/25 11:23 Test 05/10/25 11:23 Range/Units Serum Glucose 217 H 74-106 mg/dL Problem List LE ULCER SMALL VESSEL DISEASE PMH; RECURRENT UTI SECONDARY TO JARDIANCE S/P DEBRIDEMENT AND WAS SENT TO HOSPITAL DIABETIC FOOT ULCER HX SYNCOPE PT HAD DIZZINESS THAN SHE DOES NOT RECALL DIABETES LABILE HX OF RECURRENT CELLULITIS VASCULOPATHY NEUROPATHY ECHO NORMAL EF 55% RECURRENT UTI UNDERWENT BLADDER SUSPENSION SURGERY NOW HAS DEVELOPED BLADDER WALL THICKENING BILATERAL HYDRONEPHROSIS WORSENING UTI REQUIRING IV ABX THERAPY BLADDER INCONTINENCE Assessment/Plan IV ANTIBIOTIC CONSIDER REPEAT LE ANGIO 05/08 * Left lower extremity angiography revealed patent left iliac. * Patent left common femoral. * Patent left superficial femoral artery with about a 30% narrowing in the popliteal region with 3-vessel distal runoff, anterior tibial, posterior tibial and the peroneal. * Right lower extremity angiography similarly showed patent right iliac, patent right common internal and external iliacs. * Patent right common femoral. * Patent right profunda and the superficial femoral artery. * Patent right popliteal as well as the tibioperoneal trunk. Anterior tibial, posterior tibial and the peroneal arteries were all patent with flow into the distal segments including the arch. There was no evidence of any restrictive disease at this time, Intra-arterial nitroglycerin was given to again visualize the arteries more appropriately. There is no evidence of any spasm. No evidence of any discrete lesions noted in any of the 3 arteries, anterior tibial, posterior tibial and the peroneal arteries all the way into the arch and into the distal lower extremity. Plan discussed with: Patient ERASMO CASTREJON MD May 11, 2025 10:32
[2025-05-11] MEDS: VANCOMYCIN 1.25GM/250ML 250 ML IV ONE (15:11)
[2025-05-12] VITALS (7 sets, daily range): BP systolic 119–163; BP diastolic 51–76; PULSE 61–78; RESP 17–20; TEMP 97.3–98.4; O2SAT 90–100
--- NOTE | 2025-05-12 14:07 | DVHPN2 ---
Progress Note - Dictate Date Seen: May 12, 2025 Medical Necessity Reason Pt with a Central, PICC or Fol: No Subjective LE ULCER SMALL VESSEL DISEASE PMH; RECURRENT UTI SECONDARY TO JARDIANCE S/P DEBRIDEMENT AND WAS SENT TO HOSPITAL DIABETIC FOOT ULCER HX SYNCOPE PT HAD DIZZINESS THAN SHE DOES NOT RECALL DIABETES LABILE HX OF RECURRENT CELLULITIS VASCULOPATHY NEUROPATHY ECHO NORMAL EF 55% RECURRENT UTI UNDERWENT BLADDER SUSPENSION SURGERY NOW HAS DEVELOPED BLADDER WALL THICKENING BILATERAL HYDRONEPHROSIS WORSENING UTI REQUIRING IV ABX THERAPY BLADDER INCONTINENCE vital signs Vital Sign Date Time Temp Pulse Resp B/P (MAP) Pulse Ox O2 Delivery O2 Flow Rate FiO2 05/12/25 09:49 136/60 05/12/25 08:38 97.3 63 20 97 97.3 05/12/25 08:00 Room Air* 0 21 Total Intake and Output 05/11/25 05/11/25 05/12/25 14:59 22:59 06:59 Intake Total 50 ml 580 ml 1200 ml Balance 50 ml 580 ml 1200 ml medications Current Medications Medications Dose Ordered Sig/Poppy Route Start Time Stop Time Status Last Admin Dose Admin Ceftriaxone Sodium 50 ml @ 100 mls/hr DAILY@09 IV 05/10/25 09:00 05/12/25 08:50 100 MLS/HR Vancomycin HCl 0 ml @ 0 mls/hr UD IV 05/09/25 14:45 Famotidine 20 mg Q12HR IV 05/09/25 22:00 05/12/25 08:50 20 MG Atorvastatin Calcium 10 mg HS PO 05/09/25 22:00 05/11/25 21:59 10 MG Aspirin 81 mg DAILY PO 05/10/25 10:00 Amlodipine Besylate 5 mg DAILY PO 05/10/25 10:00 05/12/25 08:50 5 MG Metoprolol Tartrate 25 mg BID PO 05/09/25 22:00 05/12/25 08:49 25 MG Diagnostic Test (Pha) 1 strip IQ4HR 05/09/25 16:00 05/12/25 12:15 1 STRIP Insulin Human Regular IQ4HR SC 05/09/25 16:00 05/12/25 12:15 3 UNITS Dextrose 50 ml UD PRN IV 05/09/25 14:45 Sodium Chloride 1,000 ml @ 60 mls/hr [id number] IV 05/09/25 14:45 05/11/25 09:44 60 MLS/HR Acetaminophen/ Hydrocodone Bitart 1 tab Q4HP PRN PO 05/09/25 14:45 05/12/25 13:21 1 TAB Ondansetron HCl 4 mg Q4HP PRN IV 05/09/25 14:45 05/10/25 20:36 4 MG Docusate Sodium 100 mg BIDPRN PRN PO 05/09/25 14:45 05/12/25 04:40 100 MG Acetaminophen 650 mg Q6HP PRN PO 05/09/25 14:45 Apixaban 2.5 mg BID PO 05/09/25 22:00 05/12/25 08:50 2.5 MG Nitroglycerin 0.4 mg Q5MINP PRN SL 05/09/25 16:30 Morphine Sulfate 2 mg Q30M PRN IV 05/09/25 16:30 laboratory and microbiology Laboratory Tests 05/12/25 06:51 05/10/25 11:23 Test 05/10/25 11:23 Range/Units Serum Glucose 217 H 74-106 mg/dL Problem List LE ULCER SMALL VESSEL DISEASE PMH; RECURRENT UTI SECONDARY TO JARDIANCE S/P DEBRIDEMENT AND WAS SENT TO HOSPITAL DIABETIC FOOT ULCER HX SYNCOPE PT HAD DIZZINESS THAN SHE DOES NOT RECALL DIABETES LABILE HX OF RECURRENT CELLULITIS VASCULOPATHY NEUROPATHY ECHO NORMAL EF 55% RECURRENT UTI UNDERWENT BLADDER SUSPENSION SURGERY NOW HAS DEVELOPED BLADDER WALL THICKENING BILATERAL HYDRONEPHROSIS WORSENING UTI REQUIRING IV ABX THERAPY BLADDER INCONTINENCE Assessment/Plan IV ANTIBIOTIC CONSIDER REPEAT LE ANGIO 05/08 * Left lower extremity angiography revealed patent left iliac. * Patent left common femoral. * Patent left superficial femoral artery with about a 30% narrowing in the popliteal region with 3-vessel distal runoff, anterior tibial, posterior tibial and the peroneal. * Right lower extremity angiography similarly showed patent right iliac, patent right common internal and external iliacs. * Patent right common femoral. * Patent right profunda and the superficial femoral artery. * Patent right popliteal as well as the tibioperoneal trunk. Anterior tibial, posterior tibial and the peroneal arteries were all patent with flow into the distal segments including the arch. There was no evidence of any restrictive disease at this time, Intra-arterial nitroglycerin was given to again visualize the arteries more appropriately. There is no evidence of any spasm. No evidence of any discrete lesions noted in any of the 3 arteries, anterior tibial, posterior tibial and the peroneal arteries all the way into the arch and into the distal lower extremity. CONT ABX LABS Dietary Evaluation Review Comments: CCHO-60 cardiac diet, assess lipid profile Expected Outcomes/Goals: controlled DM, healed Wounds Plan discussed with: Patient ERASMO CASTREJON MD May 12, 2025 14:07
[2025-05-13] VITALS (8 sets, daily range): BP systolic 119–152; BP diastolic 52–77; PULSE 57–79; RESP 12–17; TEMP 97.5–98.1; O2SAT 94–100
[2025-05-13 07:39] LABS: Basophils # (auto) 0 10 ^3/uL (0-0.2); Basophils % (auto) 0.9 % (0.0-2.0); Eosinophils # (auto) 0.1 10 ^3/uL (0-0.8); Eosinophils % (auto) 2.8 % (0.0-7.0); Hematocrit 26.5 % (36.0-46.0); Hemoglobin 8.9 g/dL (12.2-16.2); Lymphocytes # (auto) 0.7 10 ^3/uL (0.4-5.4); Lymphocytes % (auto) 18.5 % (10.0-50.0); Mean Corpuscular Hemoglobin 28.8 pg (28.0-32.0); Mean Corpuscular Hgb Conc. 33.5 g/dL (32.0-36.0); Monocytes # (auto) 0.4 10 ^3/uL (0-1.3); Monocytes % (auto) 12.5 % (0.0-12.0); Neutrophils # (auto) 2.3 10 ^3/uL (1.6-8.6); Neutrophils % (auto) 65.3 % (37.0-80.0); Nucleated Red Blood Cells % 0.2 %; Platelet Count (auto) 228 10^3/uL (140-450); Red Blood Cells 3.08 10^6/uL (4.0-5.20); Red Cell Distribution Width 15.2 % (11.8-14.3); White Blood Cell 3.5 10^3/uL (4.4-10.8)
[2025-05-13 08:03] LABS: Albumin 3.5 g/dL (3.2-4.8); Anion Gap 12 (5-15); Aspartate Aminotransferase 9 U/L (<34); BUN/Creatinine Ratio 20.7 (10.0-20.0); Calcium 9.4 mg/dL (8.7-10.4); Chloride 106 mmol/L (98-107); Glucose 101 mg/dL (74-106); Potassium 4.3 mmol/L (3.5-5.1); Total Protein 6.7 g/dL (5.7-8.2)
[2025-05-13 08:15] LABS: Alkaline Phosphatase 147 U/L (46-116); Blood Urea Nitrogen 25 mg/dL (9-23); Carbon Dioxide 18 mmol/L (20-31); Sodium 136 mmol/L (136-145)
[2025-05-13 08:16] LABS: Alanine Aminotransferase < 9 U/L (7-40); Bilirubin, Total 0.3 mg/dL (0.2-1.0)
[2025-05-13] MEDS: VANCOMYCIN 1.25GM/250ML 250 ML IV ONE (11:03)
[2025-05-14 01:00] VITALS: BP 133/57; PULSE 60; RESP 17; TEMP 97.8; O2SAT 97
[2025-05-14 05:00] VITALS: BP 126/85; PULSE 70; RESP 17; TEMP 97.8; O2SAT 96
[2025-05-14 08:00] VITALS: PULSE 74; RESP 16
[2025-05-14 09:01] VITALS: BP 155/86; PULSE 61; RESP 18; TEMP 97.6; O2SAT 98
[2025-05-14 13:00] VITALS: BP 156/90; PULSE 66; RESP 18; TEMP 98; O2SAT 97
[2025-05-14] MEDS ORDERED: LORazepam 0.5 MG TAB PO PRN (16:30)
[2025-05-14] MEDS ORDERED: VANCOMYCIN 1GM/200ML PM 200 ML IV SCH (18:00)
[2025-05-14] MEDS ORDERED: VANCOMYCIN 1GM/250ML KIT 250 ML IV SCH (18:15)
--- NOTE | 2025-05-15 12:01 | DVHPN2 ---
Progress Note - Dictate Date Seen: May 13, 2025 Medical Necessity Reason Pt with a Central, PICC or Fol: No Subjective LE ULCER SMALL VESSEL DISEASE PMH; RECURRENT UTI SECONDARY TO JARDIANCE S/P DEBRIDEMENT AND WAS SENT TO HOSPITAL DIABETIC FOOT ULCER HX SYNCOPE PT HAD DIZZINESS THAN SHE DOES NOT RECALL DIABETES LABILE HX OF RECURRENT CELLULITIS VASCULOPATHY NEUROPATHY ECHO NORMAL EF 55% RECURRENT UTI UNDERWENT BLADDER SUSPENSION SURGERY NOW HAS DEVELOPED BLADDER WALL THICKENING BILATERAL HYDRONEPHROSIS WORSENING UTI REQUIRING IV ABX THERAPY BLADDER INCONTINENCE vital signs Vital Sign Date Time Temp Pulse Resp B/P (MAP) Pulse Ox O2 Delivery O2 Flow Rate FiO2 05/14/25 13:00 98.0 66 18 156/90 (112) 97 98.0 05/14/25 08:00 Room Air* 0 21 Total Intake and Output 05/14/25 05/14/25 05/15/25 15:00 23:00 07:00 Intake Total 500 ml Balance 500 ml laboratory and microbiology Laboratory Tests 05/14/25 06:21 05/13/25 07:07 Test 05/13/25 07:07 Range/Units Serum Glucose 101 74-106 mg/dL Problem List LE ULCER SMALL VESSEL DISEASE PMH; RECURRENT UTI SECONDARY TO JARDIANCE S/P DEBRIDEMENT AND WAS SENT TO HOSPITAL DIABETIC FOOT ULCER HX SYNCOPE PT HAD DIZZINESS THAN SHE DOES NOT RECALL DIABETES LABILE HX OF RECURRENT CELLULITIS VASCULOPATHY NEUROPATHY ECHO NORMAL EF 55% RECURRENT UTI UNDERWENT BLADDER SUSPENSION SURGERY NOW HAS DEVELOPED BLADDER WALL THICKENING BILATERAL HYDRONEPHROSIS WORSENING UTI REQUIRING IV ABX THERAPY BLADDER INCONTINENCE Assessment/Plan IV ANTIBIOTIC CONSIDER REPEAT LE ANGIO 05/08 * Left lower extremity angiography revealed patent left iliac. * Patent left common femoral. * Patent left superficial femoral artery with about a 30% narrowing in the popliteal region with 3-vessel distal runoff, anterior tibial, posterior tibial and the peroneal. * Right lower extremity angiography similarly showed patent right iliac, patent right common internal and external iliacs. * Patent right common femoral. * Patent right profunda and the superficial femoral artery. * Patent right popliteal as well as the tibioperoneal trunk. Anterior tibial, posterior tibial and the peroneal arteries were all patent with flow into the distal segments including the arch. There was no evidence of any restrictive disease at this time, Intra-arterial nitroglycerin was given to again visualize the arteries more appropriately. There is no evidence of any spasm. No evidence of any discrete lesions noted in any of the 3 arteries, anterior tibial, posterior tibial and the peroneal arteries all the way into the arch and into the distal lower extremity. CONT ABX LABS I STRESS THE PT TO BE COMPLIANT ON TREATMNET AND DIABETES MANAGEMENT HYPERBARIC CHAMBER OUTPT Dietary Evaluation Review Comments: CCHO-60 cardiac diet, assess lipid profile Expected Outcomes/Goals: controlled DM, healed Wounds Plan discussed with: Patient ERASMO CASTREJON MD May 15, 2025 12:01
--- NOTE | 2025-05-15 12:05 | DVHDS2 ---
Discharge Summary Date of Admission May 09, 2025 at 16:30 Date of Discharge: May 13, 2025 Admitting Diagnosis CELLUITIS / ULCER OF LE Wounds: LE ULCER Labs/Diagnostic Data: Laboratory Results Test 05/14/25 06:21 05/14/25 05:05 05/13/25 07:07 05/09/25 11:10 Creatinine 1.17 mg/dL (0.550-1.02) Glomerular Filtration Rate Calc 49 mL/min (>90) Random Vancomycin Level 16.7 ug/mL (5-10) POC Glucose 140 mg/dl (70-106) White Blood Count 3.5 10^3/uL (4.4-10.8) Red Blood Count 3.08 10^6/uL (4.0-5.20) Hemoglobin 8.9 g/dL (12.2-16.2) Hematocrit 26.5 % (36.0-46.0) Mean Corpuscular Volume 86.0 fL (80.0-100.0) Mean Corpuscular Hemoglobin 28.8 pg (28.0-32.0) Mean Corpuscular Hemoglobin Concent 33.5 g/dL (32.0-36.0) Red Cell Distribution Width 15.2 % (11.8-14.3) Platelet Count 228 10^3/uL (140-450) Mean Platelet Volume 7.7 fL (6.9-10.8) Neutrophils (%) (Auto) 65.3 % (37.0-80.0) Lymphocytes (%) (Auto) 18.5 % (10.0-50.0) Monocytes (%) (Auto) 12.5 % (0.0-12.0) Eosinophils (%) (Auto) 2.8 % (0.0-7.0) Basophils (%) (Auto) 0.9 % (0.0-2.0) Neutrophils # (Auto) 2.3 10 ^3/uL (1.6-8.6) Lymphocytes # (Auto) 0.7 10 ^3/uL (0.4-5.4) Monocytes # (Auto) 0.4 10 ^3/uL (0-1.3) Eosinophils # (Auto) 0.1 10 ^3/uL (0-0.8) Basophils # (Auto) 0 10 ^3/uL (0-0.2) Nucleated Red Blood Cells 0.2 % Sodium Level 136 mmol/L (136-145) Potassium Level 4.3 mmol/L (3.5-5.1) Chloride Level 106 mmol/L (98-107) Carbon Dioxide Level 18 mmol/L (20-31) Anion Gap 12 (5-15) Blood Urea Nitrogen 25 mg/dL (9-23) BUN/Creatinine Ratio 20.7 (10.0-20.0) Serum Glucose 101 mg/dL (74-106) Calcium Level 9.4 mg/dL (8.7-10.4) Total Bilirubin 0.3 mg/dL (0.2-1.0) Aspartate Amino Transferase (AST) 9 U/L (<34) Alanine Aminotransferase (ALT) < 9 U/L (7-40) Alkaline Phosphatase 147 U/L (46-116) Total Protein 6.7 g/dL (5.7-8.2) Albumin 3.5 g/dL (3.2-4.8) Erythrocyte Sedimentation Rate 94 mm/hr (0-20) Prothrombin Time 11.6 sec (9.3-11.8) Prothrombin Time INR 1.11 (0.9-1.15) Activated Partial Thromboplast Time 25.4 SEC (24.5-34.5) C-Reactive Protein High Sensitivity 4.92 mg/dL (<1.0) Other Laboratory Tests 05/14/25 06:21 05/13/25 07:07 Brief Hx & Hospital Course: LE ULCER SMALL VESSEL DISEASE PMH; RECURRENT UTI SECONDARY TO JARDIANCE S/P DEBRIDEMENT AND WAS SENT TO HOSPITAL DIABETIC FOOT ULCER HX SYNCOPE PT HAD DIZZINESS THAN SHE DOES NOT RECALL DIABETES LABILE HX OF RECURRENT CELLULITIS VASCULOPATHY NEUROPATHY ECHO NORMAL EF 55% RECURRENT UTI UNDERWENT BLADDER SUSPENSION SURGERY NOW HAS DEVELOPED BLADDER WALL THICKENING BILATERAL HYDRONEPHROSIS WORSENING UTI REQUIRING IV ABX THERAPY BLADDER INCONTINENCE Assessment/Plan IV ANTIBIOTIC CONSIDER REPEAT LE ANGIO 05/08 * Left lower extremity angiography revealed patent left iliac. * Patent left common femoral. * Patent left superficial femoral artery with about a 30% narrowing in the popliteal region with 3-vessel distal runoff, anterior tibial, posterior tibial and the peroneal. * Right lower extremity angiography similarly showed patent right iliac, patent right common internal and external iliacs. * Patent right common femoral. * Patent right profunda and the superficial femoral artery. * Patent right popliteal as well as the tibioperoneal trunk. Anterior tibial, posterior tibial and the peroneal arteries were all patent with flow into the distal segments including the arch. There was no evidence of any restrictive disease at this time, Intra-arterial nitroglycerin was given to again visualize the arteries more appropriately. There is no evidence of any spasm. No evidence of any discrete lesions noted in any of the 3 arteries, anterior tibial, posterior tibial and the peroneal arteries all the way into the arch and into the distal lower extremity. 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 Operations or Procedures DEBRIDEMENT OF LE Condition at Discharge: Guarded Final Diagnosis/Problems List LE ULCER SMALL VESSEL DISEASE PMH; RECURRENT UTI SECONDARY TO JARDIANCE S/P DEBRIDEMENT AND WAS SENT TO HOSPITAL DIABETIC FOOT ULCER HX SYNCOPE PT HAD DIZZINESS THAN SHE DOES NOT RECALL DIABETES LABILE HX OF RECURRENT CELLULITIS VASCULOPATHY NEUROPATHY ECHO NORMAL EF 55% RECURRENT UTI UNDERWENT BLADDER SUSPENSION SURGERY NOW HAS DEVELOPED BLADDER WALL THICKENING BILATERAL HYDRONEPHROSIS WORSENING UTI REQUIRING IV ABX THERAPY BLADDER INCONTINENCE Discharge Disposition: Home Discharge Instruct/Medications Diet: Consistent carbohydrate, Cardiac 2g Na,low cholest Activity: Light activity Follow Up/Referral: 1 WEEK Medications: HOME MEDS Discharge Statement: "Patient was advised to return to the ER or call 911 if any headaches, dizziness, shortness of breath, chest pain, abdominal pain, bleeding, fevers, or worsening of medical condition. Patient was counseled about treatment plan, medications, possible side effects, patientverbalized understanding. All questions were answered to the best of my ability. This discharge took greater then 30 minutes in planning, reviewing documentation, counseling the patient, and discussing with other team members." ASSESSMENT ASSESSMENT Assessment ERASMO CASTREJON MD May 15, 2025 12:04
== END 2025-05-14 17:00 | disposition left against medical advice (07) | DRG 638 ==
LOC: ER 10:23 → OVERFLOW 16:30 → EAST 22:42
PROVIDERS: ADMIT Internal Medicine Cardiovascular Disease; ATTEND Internal Medicine Cardiovascular Disease
DX: E11.621 Type 2 diabetes mellitus with foot ulcer (principal); L03.115 Cellulitis of right lower limb; R65.10 Systemic inflammatory response syndrome (SIRS) of non-infectious origin without acute organ dysfunction; N13.6 Pyonephrosis; L97.909 Non-pressure chronic ulcer of unspecified part of unspecified lower leg with unspecified severity; I10 Essential (primary) hypertension; E11.65 Type 2 diabetes mellitus with hyperglycemia; E11.40 Type 2 diabetes mellitus with diabetic neuropathy, unspecified; F17.210 Nicotine dependence, cigarettes, uncomplicated; E78.5 Hyperlipidemia, unspecified; R09.89 Other specified symptoms and signs involving the circulatory and respiratory systems; Z53.29 Procedure and treatment not carried out because of patient's decision for other reasons; Z87.440 Personal history of urinary (tract) infections; Z86.73 Personal history of transient ischemic attack (TIA), and cerebral infarction without residual deficits; Z83.3 Family history of diabetes mellitus; Z82.49 Family history of ischemic heart disease and other diseases of the circulatory system; Z79.82 Long term (current) use of aspirin; Z79.899 Other long term (current) drug therapy; Z79.84 Long term (current) use of oral hypoglycemic drugs
CPT/HCPCS: 36415; 71046; 73700; 73718; 80048; 80053; 80202; 82565; 82962; 85025; 85610; 85652; 85730; 86141; 87081; 96365; G0378; J1815; J2405; J3490

== ENCOUNTER → 2025-05-16 | Outpatient (CLI) | payer MEDICARE, MEDICAID ==
[2025-05-16 12:50] VITALS: BP 154/70; PULSE 91; RESP 20; O2SAT 95
[2025-05-16 13:32] VITALS: BP 137/63; PULSE 83; RESP 18; O2SAT 95
== END | disposition home or self-care (01) ==
LOC: CHF HDHVI 13:02
PROVIDERS: ATTEND Internal Medicine Cardiovascular Disease
DX: T81.30XA Disruption of wound, unspecified, initial encounter (principal); Y69 Unspecified misadventure during surgical and medical care; Y92.89 Other specified places as the place of occurrence of the external cause
CPT/HCPCS: G0463

== ENCOUNTER → 2025-05-17 | Outpatient (CLI) | payer MEDICARE, MEDICAID ==
--- NOTE | 2025-05-17 12:41 | DVH ---
XY CHEST TWO VIEWS ROUTINE CLINICAL HISTORY: SOB COMPARISON: XY CHEST TWO VIEWS ROUTINE on DOS: 05/09/25 TECHNIQUE: Frontal and lateral view of the chest was obtained FINDINGS: Lines and Tubes: None Lungs: No focal consolidation. Pleura: No effusion. No pneumothorax. Cardiomediastinal contours: Unremarkable Bones: No acute osseous abnormality. IMPRESSION: No acute cardiopulmonary disease.
== END | disposition home or self-care (01) ==
LOC: Rad HDHVI 10:59
PROVIDERS: ATTEND Internal Medicine Cardiovascular Disease
DX: R06.02 Shortness of breath (principal)
CPT/HCPCS: 71046

== ENCOUNTER 2025-06-20 12:12 | Outpatient (CLI) | payer MEDICARE, MEDICAID ==
[2025-06-20 12:46] LABS: Hematocrit 37.6 % (36.0-46.0); Hemoglobin 12.0 g/dL (12.2-16.2); Mean Corpuscular Hemoglobin 28.2 pg (28.0-32.0); Mean Corpuscular Volume 88.4 fL (80.0-100.0); Nucleated Red Blood Cells % 0.1 %
[2025-06-20 13:52] LABS: Chloride 106 mmol/L (98-107); Potassium 4.2 mmol/L (3.5-5.1); Sodium 138 mmol/L (136-145)
[2025-06-20 13:53] LABS: Anion Gap 10 (5-15); Calcium 9.1 mg/dL (8.7-10.4); Carbon Dioxide 22 mmol/L (20-31)
[2025-06-20 13:58] LABS: BUN/Creatinine Ratio 19.6 (10.0-20.0)
[2025-06-20 13:59] LABS: Blood Urea Nitrogen 33 mg/dL (9-23); Glucose 239 mg/dL (74-106)
== END 2025-06-20 17:00 | disposition home or self-care (01) ==
LOC: LAB 12:12
PROVIDERS: ATTEND Radiology Body Imaging
DX: N95.2 Postmenopausal atrophic vaginitis (principal); N13.4 Hydroureter; N32.89 Other specified disorders of bladder; N93.9 Abnormal uterine and vaginal bleeding, unspecified; R30.0 Dysuria; L30.4 Erythema intertrigo; N36.42 Intrinsic sphincter deficiency (ISD)
CPT/HCPCS: 36415; 80048; 85025

== ENCOUNTER 2025-08-17 21:48 | Inpatient (IN) | payer MEDICARE, MEDICAID ==
[~2025-08-17] VITALS: Ht 167.6 cm; Wt 89.9 kg
--- NOTE | 2025-08-17 22:03 | ECG ---
[facility] Test Date: 2025-08-17 Test Time: 21:52:24 Pat Name: FIDELIA CABALLERO Department: [facility] ED Patient ID: [facility]-[id number] Room: Gender: F Retail Coordinator: SONJA : 1950 Requested By: ABUNDIO DIMAS Order Number: [id number] Reading MD: Harsha Vega Measurements Intervals [place] Rate: 90 P: 34 GA: 162 QRS: -79 QRSD: 126 T: 20 QT: 420 QTc: 514 Interpretive Statements Sinus rhythm RBBB and LAFB Electronically Signed On 08-17-2025 22:23:41 PDT by Harsha Vega Please click the below link to view image of tracing.
[2025-08-17 22:24] LABS: Hematocrit 38.6 % (36.0-46.0); Hemoglobin 12.5 g/dL (12.2-16.2); Mean Corpuscular Hemoglobin 29.1 pg (28.0-32.0); Mean Corpuscular Volume 89.9 fL (80.0-100.0); Nucleated Red Blood Cells % 0.2 %
[2025-08-17 22:40] LABS: Alanine Aminotransferase < 9 U/L (7-40); Albumin 4.1 g/dL (3.2-4.8); Alkaline Phosphatase 81 U/L (46-116); Anion Gap 13 (5-15); BUN/Creatinine Ratio 13.9 (10.0-20.0); Bilirubin, Total 0.3 mg/dL (0.2-1.0); Blood Urea Nitrogen 24 mg/dL (9-23); Calcium 9.1 mg/dL (8.7-10.4); Carbon Dioxide 19 mmol/L (20-31); Chloride 109 mmol/L (98-107); Glucose 281 mg/dL (74-106); Potassium 4.6 mmol/L (3.5-5.1); Sodium 141 mmol/L (136-145); Total Protein 8.1 g/dL (5.7-8.2)
[2025-08-18] VITALS (10 sets, daily range): BP systolic 122–154; BP diastolic 70–99; PULSE 77–88; RESP 12–19; TEMP 97.4–98.4; O2SAT 94–99
--- NOTE | 2025-08-18 02:41 | ED.PDOC ---
HPI Comments This patient is a pleasant 74-year-old female who arrives the ED today via EMS for evaluation of chest pain concerns that began approximately 2 hours prior to arrival. Patient states the chest pain came on suddenly and therefore, she contacted EMS. EMS stated she was given 325 mg of aspirin as well as a nitro sublingual in route. At time of arrival, patient states the chest pain had improved. Vital signs were stable. Patient has a history of SC, hypertension and diabetes to name a few. Chief Complaint: Chest Pain Time Seen by MD: 21:52 Primary Care Provider: ERASMO Reviewed Notes: Nurses Notes, [place] Laborer Notes Allergies: Coded Allergies: NO KNOWN ALLERGIES (Unverified , 03/02/20) Home Meds Active Scripts Cefpodoxime Proxetil (Cefpodoxime Proxetil) 200 Mg Tab, 1 TAB PO BID for 7 Days, #14 TAB Prov:TOMY SANTAMARIA RESIDENT 01/30/25 Reported Medications Pancrelipase (Lipase-Protease- (CREON) 36,000 Unt Cap, 1 CAP PO QID 09/05/23 Carisoprodol (Carisoprodol) 350 Mg Tab, 1 TAB PO DAILY 09/04/23 Apixaban Base (ELIQUIS) 2.5 Mg Tab, 1 TAB PO BID 09/04/23 Pantoprazole Sodium Sesquihydr (Pantoprazole Sodium) 40 Mg Tab, 1 TAB PO BID 09/04/23 Ibuprofen Micronized (MOTRIN TABLET) 600 Mg Tb, 800 MG PO TID, #40 TAB *Black box warning-NSAIDS can increase risk of SC & hypertension, GI irritation, ulceration, bleed, perferation. Do not use post cardiac surgery. Use short duration/lowest effective dose. 08/18/22 Lisinopril (Lisinopril) 10 Mg Tab, 10 MG PO DAILY for 30 Days, MG 08/18/22 Empagliflozin (Jardiance) 25 Mg Tab, 1 TAB PO DAILY 06/26/22 Semaglutide (Ozempic) 2 Mg/1.5 Ml Inj, 1 MG SC weekly every thursday, INJ 07/10/21 Oxybutynin Chloride (Oxybutynin Chloride) 5 Mg Tab, 1 TAB PO BID 07/09/21 Gabapentin (Gabapentin) 600 Mg Tab, 1.5 TAB PO TID, MG 03/02/20 Atenolol (Atenolol) 100 Mg Tab, 100 MG PO DAILY, MG 05/29/19 Simvastatin (Simvastatin) 20 Mg Tab, 20 MG PO HS for 30 Days 05/29/19 Metformin Hydrochloride (Metformin Hcl) 500 Mg Tab, 500 MG PO IBID for 30 Days, MG 05/29/19 Aspirin (Aspir-Low) 81 Mg Tab, 81 MG PO DAILY, MG 05/29/19 Glipizide (Glipizide) 10 Mg Tab, 1 TAB PO BID, TAB 5 Refills 05/29/19 Oxycodone W/ Acetaminophen (Percocet 5/325MG) 1 Tab Tb, 1 TAB PO BIDP, #120 TAB 05/14/18 Information Source: Patient, Emergency Med Personnel Mode of Arrival: Ambulatory Severity: Moderate Timing: Hours Duration: Hours Prehospital treatment: Homeopathic Doctor Location: Substernal Radiation: No Radiation Quality: Sharp, Squeezing Onset: At Rest Cardiac Risk Factors: HTN, Diabetes, Other (History of SC) PE Risk Factors: None History of: Similar pain in past, SC Past Medical History PAST MEDICAL HISTORY: CVA, DM, High Lipids, HTN, SC Surgical History: Cholecystectomy, DRIVER History: No Pertinent DRIVER History Family History Family History: Reviewed,noncontributory to illness, Unknown Social History Smoker: Cigarettes, Less Than 1 Pack/Day Alcohol: Occasionally Drugs: Denies Drug Use Lives In: Home Constitutional: denies: chills, diaphoresis, fatigue, fever, malaise, sweats, weakness, others EENTM: denies: blurred vision, double vision, ear bleeding, ear discharge, ear drainage, ear pain, ear ringing, eye pain, eye redness, hearing loss, mouth pain, mouth swelling, nasal discharge, nose bleeding, nose congestion, nose pain, photophobia, tearing, throat pain, throat swelling, voice changes, others Respiratory: denies: cough, hemoptysis, orthopnea, SOB at rest, shortness of breath, SOB with excertion, stridor, wheezing, others Cardiovascular: reports: chest pain; denies: dizzy spells, diaphoresis, Dyspnea on exertion, edema, irregular heart beat, left arm pain, lightheadedness, palpitations, PND, syncope, others Gastrointestinal: denies: abdomen distended, abdominal pain, blood streaked bowels, constipated, diarrhea, dysphagia, difficulty swallowing, hematemesis, melena, nausea, poor appetite, poor fluid intake, rectal bleeding, rectal pain, vomiting, others Genitourinary: denies: abnormal vagina bleeding, burning, dyspareunia, dysuria, flank pain, frequency, hematuria, incontinence, pain, , vagina dischar ge, urgency, others Neurological: denies: dizziness, fainting, headache, left sided numbness, left sided weakness, numbness, paresthesia, pre-existing deficit, right sided numbness, right sided weakness, seizure, speech problems, tingling, tremors, weakness, others Musculoskeletal: denies: back pain, gout, joint pain, joint swelling, muscle pain, muscle stiffness, neck pain, others Integumetry: denies: bruises, change in color, change in hair/nails, dryness, laceration, lesions, lumps, rash, wounds, others Allergic/Immunocompromised: denies: Difficulty Healing, Frequent Infections, Hives, Itching, others Hematologic/Lymphatic: denies: anemia, blood clots, easy bleeding, easy bruising, swollen glands, others Endocrine: denies: excessive hunger, excessive sweating, excessive thirst, excessive urination, flushing, intolerance to cold, intolerance to heat, unexplained weight gain, unexplained weight loss, others Psychiatric: denies: anxiety, bipolar disorder, depression, hopeless, panic disorder, schizophrenia, sleepless, suicidal, others Physical Exam General Appearance: Mild Distress (Patient was only in mild distress at time of evaluation. Patient declined the need for any pain medication.), Obese HEENT: Normal ENT Inspection, Pharynx Normal, TMs Normal Neck: Full Range of Motion, Non-Tender, Normal, Normal Inspection Respiratory: Chest Non-Tender, Lungs Clear, No Accessory Muscle Use, No Respiratory Distress, Normal Breath Sounds, Other (Unremarkable auscultation bilateral lung jimenez.) Cardiovascular: No Edema, No JVD, No Murmur, No Gallop, Normal Peripheral Pulses, Regular Rate/Rhythm, Other (Unremarkable cardiac evaluation.) Breast Exam: Deferred Gastrointestinal: No Organomegaly, Non Tender, No Pulsatile Mass, Normal Bowel Sounds, Soft Genitalia: Deferred Pelvic: Deferred Rectal: Deferred Extremities: No calf tenderness, No pedal edema Neurologic: Alert Cerebellar Function: NOT DONE Reflexes: NOT DONE Skin: Dry, Normal Color, Warm Lymphatic: No Adenopathy Was a procedure done? Was a procedure done?: No CP Differential Dx Differential Diagnosis: A-fib, A-Flutter, Anxiety / Panic Attack, Atrial Dysrhythmia, AV Block 1st Degree, SC Differential Diagnosis: CHF Differential Diagnosis: Angina, Costochondritis X-Ray, Labs, Meds, VS Vital Signs Date Time Temp Pulse Resp B/P (MAP) Pulse Ox O2 Delivery O2 Flow Rate FiO2 08/18/25 01:57 97.7 83 18 97/54 (68) 99 97.7 08/17/25 22:58 89 08/17/25 21:52 90 08/17/25 21:48 98.0 86 18 114/64 98 98.0 Lab Test 08/18/25 00:53 08/17/25 22:50 08/17/25 22:00 Range/Units Troponin I High Sensitivity 127 *H 92 *H 89 *H </=34 ng/L D-Dimer, Quantitative 0.44 0.0-0.49 mg/L FEU White Blood Count 7.1 4.4-10.8 10^3/uL Red Blood Count 4.29 4.0-5.20 10^6/uL Hemoglobin 12.5 12.2-16.2 g/dL Hematocrit 38.6 36.0-46.0 % Mean Corpuscular Volume 89.9 80.0-100.0 fL Mean Corpuscular Hemoglobin 29.1 28.0-32.0 pg Mean Corpuscular Hemoglobin Concent 32.4 32.0-36.0 g/dL Red Cell Distribution Width 16.6 H 11.8-14.3 % Platelet Count 248 140-450 10^3/uL Mean Platelet Volume 7.9 6.9-10.8 fL Neutrophils (%) (Auto) 70.2 37.0-80.0 % Lymphocytes (%) (Auto) 22.5 10.0-50.0 % Monocytes (%) (Auto) 5.8 0.0-12.0 % Eosinophils (%) (Auto) 1.0 0.0-7.0 % Basophils (%) (Auto) 0.5 0.0-2.0 % Neutrophils # (Auto) 5.0 1.6-8.6 10 ^3/uL Lymphocytes # (Auto) 1.6 0.4-5.4 10 ^3/uL Monocytes # (Auto) 0.4 0-1.3 10 ^3/uL Eosinophils # (Auto) 0.1 0-0.8 10 ^3/uL Basophils # (Auto) 0 0-0.2 10 ^3/uL Nucleated Red Blood Cells 0.2 % Sodium Level 141 136-145 mmol/L Potassium Level 4.6 3.5-5.1 mmol/L Chloride Level 109 H 98-107 mmol/L Carbon Dioxide Level 19 L 20-31 mmol/L Anion Gap 13 5-15 Blood Urea Nitrogen 24 H 9-23 mg/dL Creatinine 1.73 H 0.550-1.02 mg/dL Glomerular Filtration Rate Calc 31 >90 mL/min BUN/Creatinine Ratio 13.9 10.0-20.0 Serum Glucose 281 H 74-106 mg/dL Calcium Level 9.1 8.7-10.4 mg/dL Total Bilirubin 0.3 0.2-1.0 mg/dL Aspartate Amino Transferase (AST) 16 13-40 U/L Alanine Aminotransferase (ALT) < 9 7-40 U/L Alkaline Phosphatase 81 46-116 U/L B-Type Natriuretic Peptide 325.81 0-100 pg/mL Total Protein 8.1 5.7-8.2 g/dL Albumin 4.1 3.2-4.8 g/dL X-Ray, Labs, Meds, VS Comment All studies performed the ED were evaluated by me personally. Serum laboratories revealed signs of an acute CHF exacerbation, hyperglycemia, what appears to be acute on chronic renal concerns as well as a trending elevated troponin. EKG revealed a sinus rhythm with a rate of 89. Right bundle-branch block was appreciated. MT interval 164 and QT interval 404. Patient will be admitted for management of her CHF as well as a cardiac evaluation to address the trending troponins. Time of 1ST Reevaluation: 02:40 Reevaluation 1ST: Improved Consultation: PCP, Cardiology Patient Education/Counseling: Diagnosis, Treatment Family Education/Counseling: Diagnosis, Treatment SEPSIS Sepsis Screen Date sepsis recognized/suspect: Aug 17, 2025 Time Sepsis recognized/suspect: 2147 Recent Procedure: No On Antibiotic Therapy: No Respiratory Rate >20: No Heart Rate >90: No Temp<36 C (96.8 F) or >38.3 C: No SBP <90 or MAP <65 mmHG: No New Acute Mental Status Change: No Is the patient on CPAP, BIPAP,: No Physician Orders Electrocardigram (08/17/25 21:56) Electrocardigram (08/17/25 22:56) Electrocardigram (08/18/25 00:56) Urinalysis (08/17/25 22:09) Vital Signs Date Time Temp Pulse Resp B/P (MAP) Pulse Ox O2 Delivery O2 Flow Rate FiO2 08/18/25 01:57 97.7 83 18 97/54 (68) 99 97.7 08/17/25 22:58 89 08/17/25 21:52 90 08/17/25 21:48 98.0 86 18 114/64 98 98.0 Laboratory Tests Test 08/17/25 22:00 White Blood Count 7.1 10^3/uL (4.4-10.8) Departure 1 Departure Time of Disposition: 02:41 Impression: Primary Impression: Acute coronary syndrome Additional Impressions: Acute exacerbation of CHF (congestive heart failure) Elevated troponin Hyperglycemia Ghyko-dc-bpouftv kidney injury Disposition: ADMITTED INPATIENT Condition: Fair Discharged With: Self Critical Care Note Critical Care Time?: No Stability Stability form required: No Heart Score Heart Score: Heart Score Response (Comments) Value History Slightly Suspicious 0 EKG Repolarization Disturb 1 Age >65 2 Risk Factors >3 or Hx ASHD 2 Troponin 1-2 x's Normal limit 1 Total 6 ABUNDIO DIMAS PAC Aug 18, 2025 02:41
--- NOTE | 2025-08-18 03:06 | DVHHPRES ---
History of Present Illness Resident Creating Document: MARIAM AUGUSTE RESIDENT History of Present Illness This is a 74-year-old female with past medical history of diabetes mellitus type 2, hyperlipidemia, urinary incontinence, essential hypertension, peripheral neuropathy, teratoma of ovary, presented to the ER with chief complain of chest pain. She was at her grandson's football game, when she suddenly started complaining of chest pain, described as pressure-like, 10/10, substernal, associated with difficulty in breathing. She also complained of numbness of bilateral hands. She also reports foul-smelling urine and discharge since last 3-4 days, patient endorses similar in the past associated with UTI episodes. The discharge is described as brown color, foul-smelling, thick in consistency. She has recurrent episodes of UTI, for which she took nitrofurantoin for 7 days two weeks back. She denies loss of consciousness, palpitations, fever, chills. Previous hospitalization: In May 2025 for diabetic foot ulcer and UTI PMHx: Diabetes mellitus type 2, hyperlipidemia, urinary incontinence, essential hypertension, peripheral neuropathy, teratoma of ovary PSHx: Bilateral oophorectomy in April 2025, cholecystectomy, sections, bladder suspension surgery. Social history: Social smoking, alcohol use. Denies recreational drug use. Full code. Next to kin- son Don Home medication: Eliquis, atenolol 100 daily, gabapentin 600 t.i.d., lisinopril 10 mg daily, pantoprazole, Ozempic 2 mg, simvastatin 20 mg daily Allergic history: No known allergies Patient was examined at bedside today. Patient is admitted for further evaluation and management. Review of Systems Review of Systems ROS: Constitutional: Denies weight loss, fever and chills. HEENT: Denies changes in vision and hearing. Respiratory: Denies shortness of breath and cough Cardiovascular: Substernal Chest tightness and shortness of breaths GI: Denies abdominal pain, nausea, vomiting and diarrhea. : Foul-smelling discharge and urine Musculoskeletal: Denies myalgias and joint pain Skin: Denies rash and pruritus. Neurological: Denies dizziness, headache, vision or hearing problems Allergies: Coded Allergies: NO KNOWN ALLERGIES (Unverified , 03/02/20) Exam Vital Signs Vital Signs Date Time Temp Pulse Resp B/P (MAP) Pulse Ox O2 Delivery O2 Flow Rate FiO2 08/18/25 01:57 97.7 83 18 97/54 (68) 99 97.7 Exam General: Patient alert and oriented in person, place and time. Patient following commands. HEENT: Normocephalic, atraumatic, moist mucous membranes Respiratory/pulmonary: Clear lungs bilaterally, vesicular murmurs present in almost all lung jimenez, no associated crackles or wheezes. Cardiovascular: Normal heart sounds S1 and S2 with no associated murmurs Abdomen: Abdomen nondistended, there is no pain to palpation in any of the abdominal quadrants, no palpable masses. Extremities: Right foot plantar ulcer with wound dressing Skin: No rashes or pruritus, there is no sacral edema present at this time. Neurological: Intact cranial nerves with no focal neurologic deficits Genitourinary: Wearing incontinent diaper, no discharge seen on examination, negative CVA tenderness on percussion Labs/Xrays Labs Test 08/18/25 00:53 08/17/25 22:50 08/17/25 22:00 Range/Units Troponin I High Sensitivity 127 *H </=34 ng/L D-Dimer, Quantitative 0.44 0.0-0.49 mg/L FEU White Blood Count 7.1 4.4-10.8 10^3/uL Red Blood Count 4.29 4.0-5.20 10^6/uL Hemoglobin 12.5 12.2-16.2 g/dL Hematocrit 38.6 36.0-46.0 % Mean Corpuscular Volume 89.9 80.0-100.0 fL Mean Corpuscular Hemoglobin 29.1 28.0-32.0 pg Mean Corpuscular Hemoglobin Concent 32.4 32.0-36.0 g/dL Red Cell Distribution Width 16.6 H 11.8-14.3 % Platelet Count 248 140-450 10^3/uL Mean Platelet Volume 7.9 6.9-10.8 fL Neutrophils (%) (Auto) 70.2 37.0-80.0 % Lymphocytes (%) (Auto) 22.5 10.0-50.0 % Monocytes (%) (Auto) 5.8 0.0-12.0 % Eosinophils (%) (Auto) 1.0 0.0-7.0 % Basophils (%) (Auto) 0.5 0.0-2.0 % Neutrophils # (Auto) 5.0 1.6-8.6 10 ^3/uL Lymphocytes # (Auto) 1.6 0.4-5.4 10 ^3/uL Monocytes # (Auto) 0.4 0-1.3 10 ^3/uL Eosinophils # (Auto) 0.1 0-0.8 10 ^3/uL Basophils # (Auto) 0 0-0.2 10 ^3/uL Nucleated Red Blood Cells 0.2 % Sodium Level 141 136-145 mmol/L Potassium Level 4.6 3.5-5.1 mmol/L Chloride Level 109 H 98-107 mmol/L Carbon Dioxide Level 19 L 20-31 mmol/L Anion Gap 13 5-15 Blood Urea Nitrogen 24 H 9-23 mg/dL Creatinine 1.73 H 0.550-1.02 mg/dL Glomerular Filtration Rate Calc 31 >90 mL/min BUN/Creatinine Ratio 13.9 10.0-20.0 Serum Glucose 281 H 74-106 mg/dL Calcium Level 9.1 8.7-10.4 mg/dL Total Bilirubin 0.3 0.2-1.0 mg/dL Aspartate Amino Transferase (AST) 16 13-40 U/L Alanine Aminotransferase (ALT) < 9 7-40 U/L Alkaline Phosphatase 81 46-116 U/L B-Type Natriuretic Peptide 325.81 0-100 pg/mL Total Protein 8.1 5.7-8.2 g/dL Albumin 4.1 3.2-4.8 g/dL SEPSIS Sepsis Screen Date sepsis recognized/suspect: Aug 17, 2025 Time Sepsis recognized/suspect: 2147 Recent Procedure: No On Antibiotic Therapy: No Respiratory Rate >20: No Heart Rate >90: No Temp<36 C (96.8 F) or >38.3 C: No SBP <90 or MAP <65 mmHG: No New Acute Mental Status Change: No Is the patient on CPAP, BIPAP,: No Physician Orders Electrocardigram (08/17/25 21:56) Electrocardigram (08/17/25 22:56) Electrocardigram (08/18/25 00:56) Urinalysis (08/17/25 22:09) Furosemide Injection (Lasix Injection) (08/18/25 02:45) Heplock Iv (08/18/25 ) Vital Signs Date Time Temp Pulse Resp B/P (MAP) Pulse Ox O2 Delivery O2 Flow Rate FiO2 08/18/25 01:57 97.7 83 18 97/54 (68) 99 97.7 08/17/25 22:58 89 08/17/25 21:52 90 08/17/25 21:48 98.0 86 18 114/64 98 98.0 Laboratory Tests Test 08/17/25 22:00 White Blood Count 7.1 10^3/uL (4.4-10.8) Assessment/Plan Assessment/Plan NSTEMI Trending troponin, EKG; elevated troponins, EKG shows RBBB, not present in EKG of 2023 Continue aspirin, atorvastatin 40 mg Monitor on telemetry for life-threatening arrhythmias Echo ordered Discontinues Apixaban at the moment, evaluate heparin Complicated Urinary tract infection History of recurrent UTIs, bladder suspension surgery and bladder wall thickening Urine analysis, urinary culture ordered IV Zosyn LUIS on CKD class 3b likely due to VMN GFR-31 Discussed avoiding nephrotoxins like NSAIDS, contrast Low salt diet, maintain hydration Repeat BMP Right foot ulcer Wound care consulted Currently under empiric IV antibiotics (Zosyn) Diabetes mellitus type 2 Sliding scale insulin A1c ordered Monitor blood glucose Diabetes education Diabetic diet Peripheral neuropathy Continue gabapentin 600 mg t.i.d. Hyperlipidemia Continue Atorvastatin 40 mg daily Essential hypertension Continue atenolol 100 mg daily DIET: Cardiac DVT PROPHYLAXIS: Lovenox GI PROPHYLAXIS: Protonix CODE STATUS: Goals of care discussed with patient at bedside for more than 37 minutes. Full code DISPOSITION: Telemetry Patient's status and plan discussed with the patient. Case discussed with Dr. Briscoe Plan discussed with: Patient, Other (Nurses) Date of Service: Aug 18, 2025 Billing Provider: SAGE AGUIRRE MD Common Visit Codes: [id number] INP/OBS CARE (HIGH) Secondary Visit Codes: [id number] CARE PLAN 30 MINUTES MARIAM AUGUSTE RESIDENT Aug 18, 2025 03:06 FILI HEDRICK RESIDENT Aug 18, 2025 06:04
--- NOTE | 2025-08-18 03:41 | DVH ---
CHEST RADIOGRAPH Indication: Chest pain Technique: Single frontal view of the chest was obtained COMPARISON: XY CHEST TWO VIEWS ROUTINE on DOS: 05/17/25, XY CHEST TWO VIEWS ROUTINE on DOS: 05/09/25, XY CHEST PORTABLE on DOS: 04/25/23, CXRP on DOS: 12/09/22, CHEST PORTABLE on DOS: 12/09/22 FINDINGS: Lines and Tubes: None Lungs: Moderate diffuse increased prominence of the pulmonary vasculature and mild left basilar pulmo nary airspace disease. Pleura: No effusion. No pneumothorax. Cardiomediastinal contours: Unremarkable Bones: Unremarkable IMPRESSION: 1. Moderate pulmonary vascular congestion and mild left basilar pulmonary airspace disease.
[2025-08-18] MEDS ORDERED: MORPHINE SULFATE INJ 2 MG/ml SYRG IV PRN (04:00)
[2025-08-18] MEDS ORDERED: VANCOMYCIN PER PHARMACY 0 MG IV SCH (04:00)
[2025-08-18] MEDS ORDERED: DEXTROSE (50%) 50ML SYRG IV PRN (04:00)
[2025-08-18] MEDS: VANCOMYCIN 1GM/250ML KIT 250 ML IV SCH (04:15)
[2025-08-18 04:50] LABS: INR 1.03 (0.9-1.15); Partial Thromboplastin Time 29.6 SEC (24.5-34.5); Prothrombin Time 10.9 sec (9.3-11.8)
[2025-08-18 04:55] LABS: Magnesium 1.8 mg/dL (1.6-2.6)
[2025-08-18 04:57] LABS: Cholesterol 148.0 mg/dL (< 200)
[2025-08-18 05:08] LABS: HDL Cholesterol 38.0 mg/dL (40-59); Triglycerides 206.0 mg/dL (< 150)
[2025-08-18 05:24] LABS: Lipase 25.0 U/L (12-53)
[2025-08-18] MEDS: ENOXAPARIN SOD 40 MG/0.4 ML SYRINGE SC SCH (05:27)
[2025-08-18 06:03] LABS: Urine Protein, UAD 1+ (Negative); Urine WBC Clumps PRESENT /hpf (None Seen)
[2025-08-18 06:10] LABS: Opiate Scree,Urine Neg (NEGATIVE)
[2025-08-18 06:16] LABS: Amphetamine Screen, Urine Neg (NEGATIVE); Barbiturate Scree,Urine Neg (NEGATIVE); Benzodiazephine Screen, Urine Neg (NEGATIVE); Cannabinoid Screen, Urine Neg (NEGATIVE); Cocaine Screen, Urine Neg (NEGATIVE); Phencyclidine Screen, Urine Neg (NEGATIVE)
[2025-08-18] MEDS: ACCU-CHEK COMFORT CURVE STRIP VI SCH (06:51)
[2025-08-18] MEDS: GABAPENTIN 300 MG CAP PO SCH ×2 (06:51→21:46)
[2025-08-18] MEDS: InsuLIN REG 1unit/0.01ml Soln (100units/ml) SC SCH (06:53)
[2025-08-18] MEDS: FUROSEMIDE 40 MG/4 ML VIAL IV ONE ×2 (07:06→12:04)
[2025-08-18] MEDS: ATENOLOL 25 MG TAB PO SCH (09:03)
[2025-08-18] MEDS: PANTOPRAZOLE 40 MG/10 ML VIAL INJ IV SCH (09:48)
[2025-08-18] MEDS: PIPERACILLIN-TAZOB 3.375GM 100 ML IV SCH (10:00)
--- NOTE | 2025-08-18 12:03 | ECG ---
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
--- NOTE | 2025-08-18 14:44 | DVHPN2 ---
Progress Note - Dictate Date Seen: Aug 18, 2025 Medical Necessity Reason Pt with a Central, PICC or Fol: No Subjective LE ULCER SMALL VESSEL DISEASE PMH; RECURRENT UTI SECONDARY TO JARDIANCE S/P DEBRIDEMENT AND WAS SENT TO HOSPITAL DIABETIC FOOT ULCER HX SYNCOPE PT HAD DIZZINESS THAN SHE DOES NOT RECALL DIABETES LABILE HX OF RECURRENT CELLULITIS VASCULOPATHY NEUROPATHY ECHO NORMAL EF 55% RECURRENT UTI UNDERWENT BLADDER SUSPENSION SURGERY NOW HAS DEVELOPED BLADDER WALL THICKENING BILATERAL HYDRONEPHROSIS WORSENING UTI REQUIRING IV ABX THERAPY BLADDER INCONTINENCE vital signs Vital Sign Date Time Temp Pulse Resp B/P (MAP) Pulse Ox O2 Delivery O2 Flow Rate FiO2 08/18/25 13:00 97.7 78 19 154/70 (98) 99 97.7 08/18/25 12:05 Room Air* 0 21 medications Current Medications Medications Dose Ordered Sig/Poppy Route Start Time Stop Time Status Last Admin Dose Admin Acetaminophen 325 mg Q4HP PRN PO 08/18/25 04:00 Morphine Sulfate 2 mg Q4HPRN PRN IV 08/18/25 04:00 Enoxaparin Sodium 40 mg DAILY SC 08/18/25 04:00 08/18/25 05:27 40 MG Diagnostic Test (Pha) 1 strip ACHS 08/18/25 07:00 08/18/25 11:30 1 STRIP Insulin Human Regular ACHS SC 08/18/25 07:00 08/18/25 12:40 3 UNITS Dextrose 50 ml UD PRN IV 08/18/25 04:00 Atenolol 100 mg DAILY PO 08/18/25 10:00 08/18/25 09:03 100 MG Gabapentin 600 mg TID PO 08/18/25 06:00 Hold 08/18/25 06:51 600 MG Pantoprazole Sodium 40 mg DAILY IV 08/18/25 10:00 08/18/25 09:48 40 MG Atorvastatin Calcium 40 mg HS PO 08/18/25 22:00 Aspirin 81 mg DAILY PO 08/18/25 10:00 08/18/25 09:02 81 MG Piperacillin Sod/ Tazobactam Sod 100 ml @ 25 mls/hr Q12HR IV 08/18/25 10:00 Furosemide 40 mg DAILY IV 08/19/25 10:00 Albuterol 2.5 mg Q6HPRN PRN NEB 08/18/25 11:00 Ipratropium [place] 0.5 mg Q6HPRN PRN NEB 08/18/25 11:00 Nifedipine 30 mg DAILY PO 08/19/25 10:00 laboratory and microbiology Laboratory Tests 08/17/25 22:00 Test 08/17/25 22:00 Range/Units Serum Glucose 281 H 74-106 mg/dL Problem List E ULCER SMALL VESSEL DISEASE PMH; RECURRENT UTI SECONDARY TO JARDIANCE S/P DEBRIDEMENT AND WAS SENT TO HOSPITAL DIABETIC FOOT ULCER HX SYNCOPE PT HAD DIZZINESS THAN SHE DOES NOT RECALL DIABETES LABILE HX OF RECURRENT CELLULITIS VASCULOPATHY NEUROPATHY ECHO NORMAL EF 55% RECURRENT UTI UNDERWENT BLADDER SUSPENSION SURGERY NOW HAS DEVELOPED BLADDER WALL THICKENING BILATERAL HYDRONEPHROSIS WORSENING UTI REQUIRING IV ABX THERAPY BLADDER INCONTINENCE Assessment/Plan [facility] NO SIGNIFICANT EPICARDIAL DISES LE ANGIO * Left lower extremity angiography revealed patent left iliac. * Patent left common femoral. * Patent left superficial femoral artery with about a 30% narrowing in the popliteal region with 3-vessel distal runoff, anterior tibial, posterior tibial and the peroneal. * Right lower extremity angiography similarly showed patent right iliac, patent right common internal and external iliacs. * Patent right common femoral. * Patent right profunda and the superficial femoral artery. * Patent right popliteal as well as the tibioperoneal trunk. Anterior tibial, posterior tibial and the peroneal arteries were all patent with flow into the distal segments including the arch. There was no evidence of any restrictive disease at this time, Intra-arterial nitroglycerin was given to again visualize the arteries more appropriately. There is no evidence of any spasm. No evidence of any discrete lesions noted in any of the 3 arteries, anterior tibial, posterior tibial and the peroneal arteries all the way into the arch and into the distal lower extremity. ANTIBIOTICS Plan discussed with: Patient ERASMO CASTREJON MD Aug 18, 2025 14:43
--- NOTE | 2025-08-18 14:57 | DVHPNRES ---
Progress Note Date Seen: Aug 18, 2025 Resident Creating Document: LIDIA MANNING Medical Necessity Reason Pt with a Central, PICC or Fol: No Subjective Review of Systems Patient is a 74-year-old female with past medical history of type 2 diabetes mellitus, hyperlipidemia, urinary incontinence, essential hypertension, peripheral neuropathy, and ovarian teratoma, presented to [facility] ED with complaint of chest pain. The patient was attending her grandson's football game when she developed sudden-onset, constant, pressure-like substernal chest pain rated 10/10, associated with dyspnea. The episode began around 9:30 PM yesterday. She also reported bilateral hand numbness. She had a similar episode 6 months ago that resolved without intervention. Additionally, she reports foul-smelling, thick, brown vaginal discharge for the past 3 days, similar to prior urinary tract infections. She completed a 7-day course of nitrofurantoin two weeks ago for a UTI. She denies fever, chills, palpitations, or loss of consciousness. EKG revealed a sinus rhythm with a rate of 89. Right bundle-branch block was appreciated. SD interval 164 and QT interval 404. Previous hospitalization: In May 2025 for diabetic foot ulcer and UTI PMHx: Diabetes mellitus type 2, hyperlipidemia, urinary incontinence, essential hypertension, peripheral neuropathy, teratoma of ovary PSHx: Bilateral oophorectomy in April 2025, cholecystectomy, sections, bladder suspension surgery. Social history: Social smoking, alcohol use. Denies recreational drug use. Home medication: Eliquis, atenolol 100 daily, gabapentin 600 t.i.d., lisinopril 10 mg daily, pantoprazole, Ozempic 2 mg, simvastatin 20 mg daily Allergic history: No known allergies Patient seen and examined at bedside. Patient is alert and oriented to time, place person and responding to all questions. Eyes: No Pain, No Vision change, No Conjunctivae inflammation, No Eyelid inflammation, No Other, No Redness ENT: No Ear pain, No Ear discharge, No Nose pain, No Nose discharge, No Nose congestion, No Mouth pain, No Mouth swelling, No Throat pain, No Throat swelling, No Other Cardiovascular: No Chest Pain, No Palpitations, No Orthopnea, No Paroxysmal No Dyspnea, No Edema, No Lt Headedness, No Other Respiratory: No Cough, No Dry, No Shortness of breath, No SOB with exertion, No Wheezing, No Hemoptysis, No Pleuritic Pain, No Sputum, No Other Gastrointestinal: No Nausea, No Vomiting, No Abdominal Pain, No Diarrhea, No Constipation, No Melena, No Hematochezia, No Other Genitourinary: Wearing incontinent diaper, no discharge seen on examination, negative CVA tenderness on percussion Musculoskeletal: No other, No neck pain, No shoulder pain, No arm pain, No back pain, No hand pain, No leg pain, No foot pain Skin: No Rash, No Lesions, No Jaundice, No Bruising, No Other Extremities: Right foot plantar ulcer with wound dressing Objective vital signs Vital Sign Date Time Temp Pulse Resp B/P (MAP) Pulse Ox O2 Delivery O2 Flow Rate FiO2 08/18/25 13:00 97.7 78 19 154/70 (98) 99 97.7 08/18/25 12:05 Room Air* 0 21 medications Current Medications Medications Dose Ordered Sig/Poppy Route Start Time Stop Time Status Last Admin Dose Admin Acetaminophen 325 mg Q4HP PRN PO 08/18/25 04:00 Morphine Sulfate 2 mg Q4HPRN PRN IV 08/18/25 04:00 Enoxaparin Sodium 40 mg DAILY SC 08/18/25 04:00 08/18/25 05:27 40 MG Diagnostic Test (Pha) 1 strip ACHS 08/18/25 07:00 08/18/25 11:30 1 STRIP Insulin Human Regular ACHS SC 08/18/25 07:00 08/18/25 12:40 3 UNITS Dextrose 50 ml UD PRN IV 08/18/25 04:00 Atenolol 100 mg DAILY PO 08/18/25 10:00 08/18/25 09:03 100 MG Gabapentin 600 mg TID PO 08/18/25 06:00 Hold 08/18/25 06:51 600 MG Pantoprazole Sodium 40 mg DAILY IV 08/18/25 10:00 08/18/25 09:48 40 MG Atorvastatin Calcium 40 mg HS PO 08/18/25 22:00 Aspirin 81 mg DAILY PO 08/18/25 10:00 08/18/25 09:02 81 MG Piperacillin Sod/ Tazobactam Sod 100 ml @ 25 mls/hr Q12HR IV 08/18/25 10:00 Furosemide 40 mg DAILY IV 08/19/25 10:00 Albuterol 2.5 mg Q6HPRN PRN NEB 08/18/25 11:00 Ipratropium [place] 0.5 mg Q6HPRN PRN NEB 08/18/25 11:00 Nifedipine 30 mg DAILY PO 08/19/25 10:00 Examination General: Patient alert and oriented in person, place and time. Patient following commands. HEENT: Normocephalic, atraumatic, moist mucous membranes Respiratory/pulmonary: Clear lungs bilaterally, vesicular murmurs present in almost all lung jimenez, no associated crackles or wheezes. Cardiovascular: Normal heart sounds S1 and S2 with no associated murmurs Abdomen: Abdomen nondistended, there is no pain to palpation in any of the abdominal quadrants, no palpable masses. Extremities: Right foot plantar ulcer with wound dressing Skin: No rashes or pruritus, there is no sacral edema present at this time. Neurological: Intact cranial nerves with no focal neurologic deficits Genitourinary: Wearing incontinent diaper, no discharge seen on examination, negative CVA tenderness on percussion laboratory and microbiology Test 08/18/25 06:04 Range/Units Serum Glucose Pending Labs and/or images reviewed: Labs reviewed by me, Image(s) reviewed by me Problem List/Assessment/Plan Problem List/Assessment/Plan NSTEMI likely type 1 troponin trended up from 84->120s, EKG shows RBBB, not present in EKG of 2023 Continue aspirin, atorvastatin 40 mg Monitor on telemetry for life-threatening arrhythmias Echo done, pending report Furosemide 40 mg dialy continue Complicated Urinary tract infection History of recurrent UTIs, bladder suspension surgery and bladder wall thicken ing Urine analysis showed urinary tract infection IV Zosyn LUIS on CKD class 3b likely due to VMN GFR-31 Discussed avoiding nephrotoxins like NSAIDS, contrast Low salt diet, maintain hydration Repeat BMP Right foot ulcer Wound care consulted Currently under empiric IV antibiotics (Zosyn) uncontrolled Diabetes mellitus type 2 with hyperglycemia Sliding scale insulin and lantus A1c - 8.9% Monitor blood glucose Diabetes education Diabetic diet Peripheral neuropathy Continue gabapentin 300 mg t.i.d. Hyperlipidemia Continue Atorvastatin 40 mg daily Essential hypertension Atenolol 100 mg daily Nifedipine 30 mg DIET: Cardiac PUD prophylaxis: Protonix 40mg DVT prophylaxis: Lovenox 40mg Goals of care: Full code, discussed for >16 minutes on 08/18/25 Plan discussed with patient Plan discussed with Dr. Swenson Plan discussed with: Patient My Orders My Orders Orders - LIDIA MANNING Procedure Category Date Status Time Basic Metabolic Panel LAB 08/19/25 Verified 04:00 Date of Service: Aug 18, 2025 Billing Provider: FRANCISCA SWENSON MD Common Visit Codes: [id number] INP/OBS CARE(HIGH) LIDIA MANNING Aug 18, 2025 14:57 STALIN BORGES Aug 18, 2025 19:58 FRANCISCA SWENSON MD Aug 23, 2025 20:42
[2025-08-18 15:02] LABS: Hematocrit 36.7 % (36.0-46.0); Hemoglobin 11.6 g/dL (12.2-16.2); Mean Corpuscular Hemoglobin 28.0 pg (28.0-32.0); Mean Corpuscular Volume 88.9 fL (80.0-100.0); Nucleated Red Blood Cells % 0.3 %
[2025-08-18 15:12] LABS: Alanine Aminotransferase 11 U/L (7-40); Albumin 4.0 g/dL (3.2-4.8); Alkaline Phosphatase 76 U/L (46-116); Anion Gap 12 (5-15); BUN/Creatinine Ratio 16.8 (10.0-20.0); Calcium 9.0 mg/dL (8.7-10.4); Potassium 4.4 mmol/L (3.5-5.1); Sodium 139 mmol/L (136-145); Total Protein 7.8 g/dL (5.7-8.2)
[2025-08-18 15:14] LABS: Bilirubin, Total 0.2 mg/dL (0.2-1.0); Blood Urea Nitrogen 27 mg/dL (9-23); Carbon Dioxide 19 mmol/L (20-31); Chloride 108 mmol/L (98-107); Glucose 218 mg/dL (74-106)
[2025-08-18] MEDS: ACETAMINOPHEN 325 MG TAB PO PRN (19:36)
[2025-08-18] MEDS: ATORVASTATIN 20 MG TAB PO SCH (21:47)
[2025-08-18] MEDS: INSULIN LANTUS (GLARGINE) 1 /0.01ml (100units/ml) SC SCH (21:52)
[2025-08-19] VITALS (11 sets, daily range): BP systolic 109–146; BP diastolic 72–96; PULSE 74–86; RESP 14–20; TEMP 97–98.2; O2SAT 94–100
[2025-08-19 05:41] LABS: Hematocrit 35.4 % (36.0-46.0); Hemoglobin 11.8 g/dL (12.2-16.2); Mean Corpuscular Hemoglobin 28.8 pg (28.0-32.0); Mean Corpuscular Volume 86.4 fL (80.0-100.0); Nucleated Red Blood Cells % 0.0 %
[2025-08-19 05:51] LABS: Chloride 105 mmol/L (98-107); Potassium 4.0 mmol/L (3.5-5.1); Sodium 142 mmol/L (136-145)
[2025-08-19 05:52] LABS: Anion Gap 12 (5-15); Carbon Dioxide 25 mmol/L (20-31)
[2025-08-19 05:53] LABS: Calcium 9.1 mg/dL (8.7-10.4)
[2025-08-19 05:58] LABS: BUN/Creatinine Ratio 17.8 (10.0-20.0)
[2025-08-19 06:09] LABS: Blood Urea Nitrogen 30 mg/dL (9-23); Glucose 166 mg/dL (74-106)
[2025-08-19 07:51] LABS: COVID19 ANTIGEN SOFIA FIA NEGATIVE (NEGATIVE)
[2025-08-19] MEDS: FUROSEMIDE 40 MG/4 ML VIAL IV SCH (09:32)
[2025-08-19] MEDS ORDERED: AUG875T PO (13:13)
--- NOTE | 2025-08-19 13:24 | DVHDSRES ---
Discharge Summary Date of Admission Resident Creating Document: LIDIA MANNING RESIDENT Aug 18, 2025 at 03:47 Date of Discharge: Aug 19, 2025 Admitting Diagnosis chest pain Labs/Diagnostic Data: Laboratory Results Test 08/19/25 11:54 08/19/25 05:25 08/18/25 06:25 08/18/25 06:04 POC Glucose 195 mg/dl (70-106) White Blood Count 5.7 10^3/uL (4.4-10.8) Red Blood Count 4.09 10^6/uL (4.0-5.20) Hemoglobin 11.8 g/dL (12.2-16.2) Hematocrit 35.4 % (36.0-46.0) Mean Corpuscular Volume 86.4 fL (80.0-100.0) Mean Corpuscular Hemoglobin 28.8 pg (28.0-32.0) Mean Corpuscular Hemoglobin Concent 33.4 g/dL (32.0-36.0) Red Cell Distribution Width 15.8 % (11.8-14.3) Platelet Count 268 10^3/uL (140-450) Mean Platelet Volume 7.6 fL (6.9-10.8) Neutrophils (%) (Auto) 59.3 % (37.0-80.0) Lymphocytes (%) (Auto) 31.0 % (10.0-50.0) Monocytes (%) (Auto) 6.4 % (0.0-12.0) Eosinophils (%) (Auto) 2.3 % (0.0-7.0) Basophils (%) (Auto) 1.0 % (0.0-2.0) Neutrophils # (Auto) 3.4 10 ^3/uL (1.6-8.6) Lymphocytes # (Auto) 1.8 10 ^3/uL (0.4-5.4) Monocytes # (Auto) 0.4 10 ^3/uL (0-1.3) Eosinophils # (Auto) 0.1 10 ^3/uL (0-0.8) Basophils # (Auto) 0.1 10 ^3/uL (0-0.2) Nucleated Red Blood Cells 0.0 % Sodium Level 142 mmol/L (136-145) Potassium Level 4.0 mmol/L (3.5-5.1) Chloride Level 105 mmol/L (98-107) Carbon Dioxide Level 25 mmol/L (20-31) Anion Gap 12 (5-15) Blood Urea Nitrogen 30 mg/dL (9-23) Creatinine 1.69 mg/dL (0.550-1.02) Glomerular Filtration Rate Calc 32 mL/min (>90) BUN/Creatinine Ratio 17.8 (10.0-20.0) Serum Glucose 166 mg/dL (74-106) Calcium Level 9.1 mg/dL (8.7-10.4) Random Vancomycin Level 13.2 ug/mL (5-10) Influenza Type A Antigen Negative (Negative) Influenza Type B Antigen Negative (Negative) SARS-CoV-2 Antigen (Rapid) Negative (NEGATIVE) Total Bilirubin 0.2 mg/dL (0.2-1.0) Aspartate Amino Transferase (AST) 15 U/L (13-40) Alanine Aminotransferase (ALT) 11 U/L (7-40) Alkaline Phosphatase 76 U/L (46-116) Troponin I High Sensitivity 169 ng/L (</=34) Total Protein 7.8 g/dL (5.7-8.2) Albumin 4.0 g/dL (3.2-4.8) Vitamin B12 Level 512 pg/mL (211-911) Vitamin D 25-Hydroxy 21.8 ng/mL (30.0-100) Test 08/18/25 03:23 08/18/25 01:51 08/18/25 00:53 08/17/25 22:50 Prothrombin Time 10.9 sec (9.3-11.8) Prothrombin Time INR 1.03 (0.9-1.15) Activated Partial Thromboplast Time 29.6 SEC (24.5-34.5) Urine Color Light-brown (Yellow) Urine Clarity Ex.turbid (Clear) Urine pH 5.0 (5.0-9.0) Urine Specific [place] 1.013 (1.001-1.035) Urine Protein 1+ (Negative) Urine Ketones Negative (Negative) Urine Blood 1+ /uL (Negative) Urine Nitrite Negative (Negative) Urine Bilirubin Negative (Negative) Urine Urobilinogen Normal mg/dL (Negative) Urine Leukocyte Esterase 2+ /uL (Negative) Urine RBC 3 /hpf (0 - 4) Urine WBC Clumps Present /hpf (None Seen) Urine Microscopic WBC 1124 /HPF (0-5) Urine Squamous Epithelial Cells Few /hpf (<5) Urine Bacteria Many /hpf (None Seen) Urine Mucus Few (None Seen) Urine Glucose Normal mg/dL (Normal) Urine Opiates Screen Neg (NEGATIVE) Urine Fentanyl Screen Neg (NEGATIVE) Urine Barbiturates Screen Neg (NEGATIVE) Urine Phencyclidine Screen Neg (NEGATIVE) Urine Amphetamines Screen Neg (NEGATIVE) Urine Benzodiazepines Screen Neg (NEGATIVE) Urine Cocaine Screen Neg (NEGATIVE) Urine Cannabinoids Screen Neg (NEGATIVE) Phosphorus Level 2.9 mg/dL (2.4-5.1) Magnesium Level 1.8 mg/dL (1.6-2.6) C-Reactive Protein High Sensitivity 2.03 mg/dL (<1.0) Triglycerides Level 206 mg/dL (< 150) Cholesterol Level 148 mg/dL (< 200) LDL Cholesterol 84 mg/dL (< 100) HDL Cholesterol 38 mg/dL (40-59) Lipase 25 U/L (12-53) D-Dimer, Quantitative 0.44 mg/L FEU (0.0-0.49) Hemoglobin A1c 8.9 % A1C (<5.7) Thyroid Stimulating Hormone (TSH) 1.94 uIU/mL (0.55-4.78) Test 08/17/25 22:00 B-Type Natriuretic Peptide 325.81 pg/mL (0-100) Other Laboratory Tests 08/19/25 05:25 Brief Hx & Hospital Course: The patient is a 74-year-old female with a history of type 2 diabetes mellitus, hyperlipidemia, urinary incontinence, essential hypertension, peripheral neuropathy, and ovarian teratoma, who presented to [facility] ED with sudden-onset, pressure-like substernal chest pain rated 10/10, associated with dyspnea and bilateral hand numbness. She also reported foul-smelling, thick, brown vaginal discharge for 3 days, similar to prior UTIs. She had recently completed a course of nitrofurantoin for UTI. Initial evaluation revealed sinus rhythm with right bundle-branch block on EKG, elevated troponins (84 ? 120s), and lab findings consistent with LUIS on CKD (GFR 31), microcytic anemia, and hyperglycemia. CT abdomen/pelvis showed no acute findings. She was admitted for management of likely NSTEMI (type 1), complicated UTI, diabetic foot ulcer, and uncontrolled diabetes. Hospital course included initiation of IV Zosyn for infection, IV fluids, cardiac monitoring, sliding scale insulin with Lantus, wound care consult for right foot ulcer, and continuation of home medications with adjustments. Echo was performed and is pending. She was placed on a cardiac diet and discharged with new prescriptions including Augmentin, while aspirin and cefodoxime were discontinued. Examination General: Patient alert and oriented in person, place and time. Patient following commands. HEENT: Normocephalic, atraumatic, moist mucous membranes Respiratory/pulmonary: Clear lungs bilaterally, vesicular murmurs present in almost all lung jimenez, no associated crackles or wheezes. Cardiovascular: Normal heart sounds S1 and S2 with no associated murmurs Abdomen: Abdomen nondistended, there is no pain to palpation in any of the abdominal quadrants, no palpable masses. Extremities: Right foot plantar ulcer with wound dressing Skin: No rashes or pruritus, there is no sacral edema present at this time. Neurological: Intact cranial nerves with no focal neurologic deficits Genitourinary: Wearing incontinent diaper, no discharge seen on examination, negative CVA tenderness on percussion Operations or Procedures PATIENT: FIDELIA CABALLERO ACCT: [id number] UNIT: [id number] : 1950 LOC: ER ROOM / BED: / AGE / SEX: 74 / F ADM STATUS: REG ER SERVICE [id number] ORDERING PHYSICIAN: MARIAM AUGUSTE RESIDENT PROCEDURE(s): CXRP - CHEST PORTABLE REASON: Chest pain ORDER NUMBER(s): [id number], ACCESSION NUMBER(s): [id number] CHEST RADIOGRAPH Indication: Chest pain Technique: Single frontal view of the chest was obtained COMPARISON: XY CHEST TWO VIEWS ROUTINE on DOS: 05/17/25, XY CHEST TWO VIEWS ROUTINE on DOS: 05/09/25, XY CHEST PORTABLE on DOS: 04/25/23, CXRP on DOS: 12/09/22, CHEST PORTABLE on DOS: 12/09/22 FINDINGS: Lines and Tubes: None Lungs: Moderate diffuse increased prominence of the pulmonary vasculature and mild left basilar pulmonary airspace disease. Pleura: No effusion. No pneumothorax. Cardiomediastinal contours: Unremarkable Bones: Unremarkable IMPRESSION: 1. Moderate pulmonary vascular congestion and mild left basilar pulmonary airspace disease. PATIENT: FIDELIA CABALLERO ACCT: [id number] : 1950 LOC: OVERFLOW ROOM / BED: [address] [place] [address] / A AGE / SEX: 74 / F ADM STATUS: ADM IN SERVICE UNIT: [id number] ORDERING PHYSICIAN: ABUNDIO DIMAS PAC PROCEDURE(s): EKG - ELECTROCARDIGRAM ORDER NUMBER(s): [id number], ACCESSION NUMBER(s): [id number] [facility] Test Date: 2025-08-17 Test Time: 22:58:35 Pat Name: FIDELIA CABALLERO Department: Room: [address] [place] [address] Gender: F Publications Inspector: SONJA : 1950 Requested By: ABUNDIO DIMAS Order Number: [id number] Reading MD: Lee Rogers Measurements Intervals [place] Rate: 89 P: 55 TX: 164 QRS: -165 QRSD: 124 T: 42 QT: 404 QTc: 492 Interpretive Statements Sinus rhythm Right bundle branch block Electronically Signed On 08-18-2025 12:19:04 PDT by Lee Rogers Please click the below link to view image of tracing. DICTATED BY:LEE ROGERS Sr., MD DICTATED DATE/TIME:08/17/25 2258 PATIENT: FIDELIA CABALLERO ACCT: [id number] : 1950 LOC: ER ROOM / BED: / AGE / SEX: 74 / F ADM STATUS: REG ER SERVICE UNIT: [id number] ORDERING PHYSICIAN: ABUNDIO DIMAS PAC PROCEDURE(s): EKG - ELECTROCARDIGRAM ORDER NUMBER(s): [id number], ACCESSION NUMBER(s): [id number] [facility] Test Date: 2025-08-17 Test Time: 21:52:24 Pat Name: FIDELIA CABALLERO Department: [facility] ED Room: Gender: F Publications Inspector: SONJA : 1950 Requested By: ABUNDIO DIMAS Order Number: [id number] Reading MD: Lee Rogers Measurements Intervals [place] Rate: 90 P: 34 TX: 162 QRS: -79 QRSD: 126 T: 20 QT: 420 QTc: 514 Interpretive Statements Sinus rhythm RBBB and LAFB Electronically Signed On 08-17-2025 22:23:41 PDT by Lee Rogers Please click the below link to view image of tracing. DICTATED BY:LEE ROGERS Sr., MD DICTATED DATE/TIME:08/17/252151 ELECTRONICALLY SIGNED BY:LEE ROGERS Sr., MD 08/17/252222 Condition at Discharge: Stable Final Diagnosis/Problems List NSTEMI likely type 1 Complicated Urinary tract infection History of recurrent UTIs, bladder suspension surgery and bladder wall thickening LUIS on CKD class 3b likely due to VMN Right foot ulcer uncontrolled Diabetes mellitus type 2 with hyperglycemia Peripheral neuropathy Hyperlipidemia Essential hypertension Discharge Disposition: Home Discharge Instruct/Medications Diet: Regular Activity: No Restrictions, As Tolerated Follow Up/Referral: Follow up with PCP (Dr. Juan) on next Thursday. Medications: New Prescriptions: Amoxicillin & Pot Clavulanate (Augmentin Tablet) 875 Mg Tb Stopped Medicationis: Aspirin, Cefodoxime Continue home medications: Eliquis, atenolol, Jardiance, glipizide, lisinopril, metformin, oxybutynin, Percocet, Creon, Pantoprazole, Ozempic, Simvastatin Scheduled Amoxicillin & Pot Clavulanate (Augmentin Tablet), 875 MG PO BID Apixaban Base (Eliquis), 1 TAB PO BID, (Reported) Atenolol (Atenolol), 100 MG PO DAILY, (Reported) Carisoprodol (Carisoprodol), 1 TAB PO DAILY, (Reported) Empagliflozin (Jardiance), 1 TAB PO DAILY, (Reported) Gabapentin (Gabapentin), 1.5 TAB PO TID, (Reported) Glipizide (Glipizide), 1 TAB PO BID, (Reported) Ibuprofen Micronized (Motrin Tablet), 800 MG PO TID, (Reported) Lisinopril (Lisinopril), 10 MG PO DAILY, (Reported) Metformin Hydrochloride (Metformin Hcl), 500 MG PO IBID, (Reported) Oxybutynin Chloride (Oxybutynin Chloride), 1 TAB PO BID, (Reported) Oxycodone W/ Acetaminophen (Percocet 5/325MG), 1 TAB PO BIDP, (Reported) Pancrelipase (Lipase-Protease- (Creon), 1 CAP PO QID, (Reported) Pantoprazole Sodium Sesquihydr (Pantoprazole Sodium), 1 TAB PO BID, (Reported) Semaglutide (Ozempic), 1 MG SC weekly every thursday, (Reported) Simvastatin (Simvastatin), 20 MG PO HS, (Reported) Discontinued Medications Aspirin (Aspir-Low), 81 MG PO DAILY, (Reported) Cefpodoxime Proxetil (Cefpodoxime Proxetil), 1 TAB PO BID Discharge Statement: "Patient was advised to return to the ER or call 911 if any headaches, dizziness, shortness of breath, chest pain, abdominal pain, bleeding, fevers, or worsening of medical condition. Patient was counseled about treatment plan, medications, possible side effects, patientverbalized understanding. All questions were answered to the best of my ability. This discharge took greater then 30 minutes in planning, reviewing documentation, counseling the patient, and discussing with other team members." ASSESSMENT ASSESSMENT Assessment NSTEMI likely type 1 Complicated Urinary tract infection History of recurrent UTIs, bladder suspension surgery and bladder wall thickening LUIS on CKD class 3b likely due to VMN Right foot ulcer uncontrolled Diabetes mellitus type 2 with hyperglycemia Peripheral neuropathy Hyperlipidemia Essential hypertension Date of Service: Aug 19, 2025 Billing Provider: FRANCISCA ESCALANTE MD Common Visit Codes: 50617-QZN/OBS DISCH DAY >30min LIDIA MANNING RESIDENT Aug 19, 2025 13:24 FRANCISCA ESCALANTE MD Aug 23, 2025 20:43
[2025-08-19] MEDS: ALBUTEROL SULF 2.5 MG/0.5ML(0.5%) NEB SOLN NEB PRN (19:31)
[2025-08-19] MEDS: IPRATROPIUM BROM 0.5 MG/2.5ML INH SOL NEB PRN (19:32)
--- NOTE | 2025-08-21 13:42 | DVHPN2 ---
Progress Note - Dictate Date Seen: Aug 19, 2025 Medical Necessity Reason Pt with a Central, PICC or Fol: No Subjective LE ULCER SMALL VESSEL DISEASE PMH; RECURRENT UTI SECONDARY TO JARDIANCE S/P DEBRIDEMENT AND WAS SENT TO HOSPITAL DIABETIC FOOT ULCER HX SYNCOPE PT HAD DIZZINESS THAN SHE DOES NOT RECALL DIABETES LABILE HX OF RECURRENT CELLULITIS VASCULOPATHY NEUROPATHY ECHO NORMAL EF 55% RECURRENT UTI UNDERWENT BLADDER SUSPENSION SURGERY NOW HAS DEVELOPED BLADDER WALL THICKENING BILATERAL HYDRONEPHROSIS WORSENING UTI REQUIRING IV ABX THERAPY BLADDER INCONTINENCE vital signs Vital Sign Date Time Temp Pulse Resp B/P (MAP) Pulse Ox O2 Delivery O2 Flow Rate FiO2 08/19/25 21:00 98.2 86 17 126/73 (90) 95 98.2 08/19/25 19:32 Room Air 0.0 08/19/25 19:32 21 laboratory and microbiology Laboratory Tests 08/19/25 05:25 Test 08/19/25 05:25 Range/Units Serum Glucose 166 H 74-106 mg/dL Problem List E ULCER SMALL VESSEL DISEASE PMH; RECURRENT UTI SECONDARY TO JARDIANCE S/P DEBRIDEMENT AND WAS SENT TO HOSPITAL DIABETIC FOOT ULCER HX SYNCOPE PT HAD DIZZINESS THAN SHE DOES NOT RECALL DIABETES LABILE HX OF RECURRENT CELLULITIS VASCULOPATHY NEUROPATHY ECHO NORMAL EF 55% RECURRENT UTI UNDERWENT BLADDER SUSPENSION SURGERY NOW HAS DEVELOPED BLADDER WALL THICKENING BILATERAL HYDRONEPHROSIS WORSENING UTI REQUIRING IV ABX THERAPY BLADDER INCONTINENCE Assessment/Plan [facility] NO SIGNIFICANT EPICARDIAL DISES LE ANGIO * Left lower extremity angiography revealed patent left iliac. * Patent left common femoral. * Patent left superficial femoral artery with about a 30% narrowing in the popliteal region with 3-vessel distal runoff, anterior tibial, posterior tibial and the peroneal. * Right lower extremity angiography similarly showed patent right iliac, patent right common internal and external iliacs. * Patent right common femoral. * Patent right profunda and the superficial femoral artery. * Patent right popliteal as well as the tibioperoneal trunk. Anterior tibial, posterior tibial and the peroneal arteries were all patent with flow into the distal segments including the arch. There was no evidence of any restrictive disease at this time, Intra-arterial nitroglycerin was given to again visualize the arteries more appropriately. There is no evidence of any spasm. No evidence of any discrete lesions noted in any of the 3 arteries, anterior tibial, posterior tibial and the peroneal arteries all the way into the arch and into the distal lower extremity. ANTIBIOTICS MAY DC HOME ON ABX Dietary Evaluation Review Recommendations by RD: Dietary education by RD, Protein Supplementation Comments: 1) Initiate MVI @ 1 tb qd 2) Initiate Pro-Stat @ 1 pk bid 3) Initiate vitamin C @ 500 mg bid and zinc sulfate @ 220 mg qd for 7 days 4) Continue 45g CCHO cardiac diet - encourage optimal PO intake 5) Refer to outpatient RD/CDCES for diabetes education and weight management 6) Follow-up with podiatry, cardiology, and nephrology 7) Continue to monitor I&O, labs, and skin integrity Expected Outcomes/Goals: 1) appetite and labs to improve 2) wound to improve 3) gradual wt loss 4) f/u in 3-5 days Plan discussed with: Patient ERASMO CASTREJON MD Aug 21, 2025 13:42
--- NOTE | 2025-08-22 13:41 | DVHSR ---
APPROVED REPORT EXAM: Two-dimensional and M-mode echocardiogram with Doppler and color Doppler. Blood Pressure: 112/80 mmHg INDICATION NSTEMI RISK FACTORS Height: 66, Weight: 178 DIMENSIONS LVDd3.9 (3.8-5.7cm)LA (2D)4.7 (1.9-4.0cm)Aortic Root3.1 (2.0-3.7cm) LVDs2.9 (2.5-4.0cm)LA (MM) (1.9-4.0cm)Aortic Cusp Exc1.4 (1.5-2.0cm) EF (%) 54.0 (55-70%)Rt. Atrium4.7 (1.9-4.0cm)Asc. Aorta cm Mitral Valve MitralMitral Stenosis E wave1.22m/sMV Mean GR.5mmHg A wave0.90m/sMV Peak GR.45mmHg E/A ratio1.42D MVAcm2 DECEL [id number] 1/2 Timems Aortic Valve Aortic ValveAortic Stenosis V11.14m/Daxa Mean GR.6mmHg V21.71m/Daxa Peak GR.12mmHg LVOT Diameter1.9 (1.8-2.4cm)Doppler AVA1.89cm2 Pulmonic Valve V21.00m/s Tricuspid Valve TR Velocity2.85m/s [id number] Conclusion LAE MERCY MILD PAH EF >55%
== END 2025-08-19 20:30 | disposition home or self-care (01) | DRG 280 ==
LOC: ER 21:48 → EDBD 21:48 → EDUNIT# 21:48 → OVERFLOW 08-18 03:47 → TELE-EAST 08-18 16:40
PROVIDERS: ADMIT Internal Medicine Geriatric Medicine; ATTEND Physician Assistant
DX: I21.4 Non-ST elevation (NSTEMI) myocardial infarction (principal); N17.0 Acute kidney failure with tubular necrosis; L97.518 Non-pressure chronic ulcer of other part of right foot with other specified severity; N39.0 Urinary tract infection, site not specified; I13.0 Hypertensive heart and chronic kidney disease with heart failure and stage 1 through stage 4 chronic kidney disease, or unspecified chronic kidney disease; N18.32 Chronic kidney disease, stage 3b; E11.621 Type 2 diabetes mellitus with foot ulcer; Z20.822 Contact with and (suspected) exposure to COVID-19; I50.9 Heart failure, unspecified; I24.9 Acute ischemic heart disease, unspecified; F17.210 Nicotine dependence, cigarettes, uncomplicated; E11.65 Type 2 diabetes mellitus with hyperglycemia; E78.5 Hyperlipidemia, unspecified; E11.42 Type 2 diabetes mellitus with diabetic polyneuropathy; E11.22 Type 2 diabetes mellitus with diabetic chronic kidney disease; Z86.73 Personal history of transient ischemic attack (TIA), and cerebral infarction without residual deficits; Z90.49 Acquired absence of other specified parts of digestive tract
CPT/HCPCS: 36415; 71045; 80048; 80053; 80061; 80202; 80307; 81001; 82306; 82607; 82962; 83036; 83690; 83735; 83880; 84100; 84443; 84484; 85025; 85379; 85610; 85730; 86141; 87081; 87086; 87426; 87804; 93005; 93306; 94640; G0378; J1815; J2470; J2543

== ENCOUNTER 2025-10-23 13:55 | Outpatient (CLI) | payer MEDICARE, MEDICAID ==
[2025-10-23 13:51] VITALS: BP 144/64; PULSE 89; RESP 16; O2SAT 97
[~2025-10-23 13:55] MED LIST changes: -ASPI-543 PO; +AUG875T PO; -CEFP200T15 PO
[2025-10-23] MEDS: MEROPENEM 1GM IVPB 50 ML IV ONE ×4 (14:31→15:30)
[2025-10-23 16:42] VITALS: BP 148/71; PULSE 81; RESP 16; O2SAT 97
== END 2025-10-23 17:00 | disposition home or self-care (01) ==
LOC: CHF HDHVI 13:55
PROVIDERS: ATTEND Internal Medicine Cardiovascular Disease
DX: N39.0 Urinary tract infection, site not specified (principal); I13.0 Hypertensive heart and chronic kidney disease with heart failure and stage 1 through stage 4 chronic kidney disease, or unspecified chronic kidney disease; E11.22 Type 2 diabetes mellitus with diabetic chronic kidney disease; I50.9 Heart failure, unspecified; N18.32 Chronic kidney disease, stage 3b; E11.42 Type 2 diabetes mellitus with diabetic polyneuropathy; E11.65 Type 2 diabetes mellitus with hyperglycemia; E11.51 Type 2 diabetes mellitus with diabetic peripheral angiopathy without gangrene; I25.10 Atherosclerotic heart disease of native coronary artery without angina pectoris; K21.9 Gastro-esophageal reflux disease without esophagitis; E78.5 Hyperlipidemia, unspecified; I25.2 Old myocardial infarction; F17.210 Nicotine dependence, cigarettes, uncomplicated; Z86.73 Personal history of transient ischemic attack (TIA), and cerebral infarction without residual deficits; Z90.49 Acquired absence of other specified parts of digestive tract; Z79.899 Other long term (current) drug therapy
CPT/HCPCS: 96365; 96366; G0463; J2185

== ENCOUNTER 2025-11-02 10:53 | Outpatient (CLI) | payer MEDICARE, MEDICAID ==
[2025-11-02] MEDS: MEROPENEM 1GM IVPB 50 ML IV ONE ×2 (10:57→11:12)
[2025-11-02 11:00] VITALS: BP 129/65; PULSE 96; RESP 18; O2SAT 98
[2025-11-02 12:11] VITALS: BP 110/59; PULSE 92; RESP 18; O2SAT 98
== END 2025-11-02 17:00 | disposition home or self-care (01) ==
LOC: CHF HDHVI 10:53
PROVIDERS: ATTEND Internal Medicine Cardiovascular Disease
DX: N39.0 Urinary tract infection, site not specified (principal); I13.0 Hypertensive heart and chronic kidney disease with heart failure and stage 1 through stage 4 chronic kidney disease, or unspecified chronic kidney disease; E11.22 Type 2 diabetes mellitus with diabetic chronic kidney disease; I50.9 Heart failure, unspecified; N18.32 Chronic kidney disease, stage 3b; E11.42 Type 2 diabetes mellitus with diabetic polyneuropathy; E11.65 Type 2 diabetes mellitus with hyperglycemia; E11.51 Type 2 diabetes mellitus with diabetic peripheral angiopathy without gangrene; I25.10 Atherosclerotic heart disease of native coronary artery without angina pectoris; K21.9 Gastro-esophageal reflux disease without esophagitis; E78.5 Hyperlipidemia, unspecified; I25.2 Old myocardial infarction; F17.210 Nicotine dependence, cigarettes, uncomplicated; Z79.899 Other long term (current) drug therapy; Z86.73 Personal history of transient ischemic attack (TIA), and cerebral infarction without residual deficits; Z90.49 Acquired absence of other specified parts of digestive tract
CPT/HCPCS: 96365; G0463; J2185